=== PATIENT | male | born 1980 | race African-American/Black ===

== ENCOUNTER 2021-10-27 13:33 | Emergency (ER) | payer OTHER, MEDICARE, SELFPAY ==
[2021-10-27] VITALS (16 sets, daily range): BP systolic 100–122; BP diastolic 56–89; PULSE 70–86; RESP 14–22; TEMP 35.8; O2SAT 96–99
--- NOTE | ~2021-10-27 | XR_ITS ---
XR chest 2V DATE: 10/27/2021 14:11 INDICATION: Chest pain radiating to neck. Dizziness. TECHNIQUE: AP and lateral views COMPARISON: 12/29/2017 CT chest high resolution scan FINDINGS: Bilateral chronic pulmonary scarring; history of sarcoid. No apparent pulmonary consolidation. No pleural effusion. No pulmonary vascular congestion or pneumot horax. Heart size appears within normal range. IMPRESSION: Chronic bilateral pulmonary scarring typical history of sarcoid Reviewed, dictated and finalized at location A.
--- NOTE | 2021-10-27 13:37 | ECG_ITS ---
Rate 78 SC 149 QRSd 88 QT 364 QTc 415 --[place]-- P 28 QRS 36 T 58 SINUS RHYTHM POOR R-WAVE PROGRESSION BORDERLINE ECG NO PREVIOUS ECG AVAILABLE FOR COMPARISON Electronically Signed On 10-29-2021 12:45:56 CDT by Gianluca PLAZA
[2021-10-27 13:55] LABS: Basophils Percent Auto 0.5 % (0.2-1.2); Eosinophils Absolute Auto 0.4 K/mm3 (0-0.3); Eosinophils Percent Auto 5.6 % (0-4.4); Hematocrit 51.3 % (42.0-52.0); Hemoglobin 16.3 g/dL (14.0-18.0); Immature Granulocyte Absolute 0.02 K/mm3 (0.00-0.031); Immature Granulocyte Percent A 0.3 % (0-0.5); Lymphocytes Percent Auto 49.1 % (18.3-44.2); Mean Corpuscular HGB Conc 31.8 g/dl (32-36); Mean Corpuscular Volume 88.1 fl (80-100); Monocytes Absolute Auto 0.6 K/mm3 (0.1-0.6); Monocytes Percent Auto 7.8 % (2.6-8.5); Neutrophils Absolute Auto 2.7 K/mm3 (1.3-6.7); Neutrophils Percent Auto 36.7 % (45.5-73.1); Platelet Count Result 310 k/mm3 (150-375); Red Blood Count 5.82 M/mm3 (4.6-6.20); Red Cell Distribution Width 12.6 % (11.5-14.5); White Blood Count 7.3 K/mm3 (4.5-10.0)
--- NOTE | 2021-10-27 14:01 | ED.CHESTPAIN ---
HPI - Chest Pain General Chief Complaint: Chest Pain Stated Complaint: chest pain Time Seen by Provider: 10/27/21 13:53 History of Present Illness HPI narrative: Patient is a 41-year-old male who presents ER with chest pain. 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 Central. Reports it radiates into his right neck. Has no history of coronary disease but does have history of sarcoidosis of the lung and heart. He has seen physicians in [place]. He has not been seen by any physicians in this part of [place] despite living here since April 2021. She still gets medication refills from his physicians in [place]. Last cardiac catheterization was 2 years ago and he reports he was free of coronary disease and did not require stenting. Reports some sweats with his fatigue. No fevers or chills. No known sick contacts. Reports compliance with home medications. Patient does not make eye contact during history and physical, he is not particularly forthcoming with information. Significant other in the room. Reports his heart rates been elevated last couple days and he has history of atrial fibrillation. Related Data Allergies Allergy/AdvReac Type Severity Reaction Status Date / Time No Known Allergies Allergy Unknown Verified 10/27/21 13:50 Review of Systems Review of Systems: All systems reviewed & are unremarkable except as noted in HPI and below Constitutional: Constitutional: Denies chills, Denies fever(s) and Denies weakness ENT: Denies nasal congestion and Denies sore throat Cardiovascular: Cardiovascular: Reports chest pain, Reports rapid heart rate and Reports radiating jaw, neck or arm pain Respiratory: Respiratory: Denies cough, Reports dyspnea and Denies wheezing Gastrointestinal: Gastrointestinal: Denies abdominal pain, Denies nausea and Denies vomiting Neurologic: Denies focal weakness and Denies numbness [facility] Past Medical History Medical History (Updated 10/27/21 @ 17:51 by Jem Rider MD) Essential hypertension History of left heart catheterization Morbid obesity with BMI of 50.0-59.9, adult Paroxysmal A-fib Sarcoidosis of lung Sleep disorder, circadian, shift work type Type 2 diabetes mellitus with hyperglycemia Surgical History Surgical History (Updated 10/27/21 @ 14:06 by Jem Rider MD) No pertinent past surgical history Family History Family History (Updated 05/29/17 @ 16:15 by DOCTOR UNKNOWN) Mother Hypertension Father Family history of gastrointestinal disorder Social History Social History Smoking status: Former smoker Smoking end date: 07/03/11 Alcohol intake: never Exam Narrative: GENERAL: Fatigued-appearing, morbidly obese, and in no acute distress. HEAD: Normocephalic, atraumatic. ENT: Mucous membranes moist. CHEST: Clear to auscultation. No respiratory distress. HEART: Regular rate and rhythm. Normal peripheral pulses. ABDOMEN: Soft, nontender, nondistended. EXTREMITIES: Normal range of motion. No edema. SKIN: Warm, dry, no rash. NEURO: Alert and oriented x3. PSYCH: Normal mood and affect. Course Course Emergency Course: Patient resting comfortably. No chest pain. Troponin negative x2. Feels improved with IV fluids. Discharge home and recommend establishing care with PCP and cardiology in the area. Discussed with patient I will provide him names of local physicians. Vital Signs Vital signs: Vital Signs Temperature 96.5 F L 10/27/21 13:38 Pulse Rate 85 10/27/21 13:38 Respiratory Rate 22 H 10/27/21 13:38 Blood Pressure 103/56 L 10/27/21 13:38 Pulse Oximetry 99 10/27/21 13:38 Temperature 96.5 F L 10/27/21 13:38 Pulse Rate 74 10/27/21 16:30 Respiratory Rate 17 10/27/21 16:30 Blood Pressure 113/72 10/27/21 14:01 Pulse Oximetry 98 10/27/21 14:15 MDM - Chest Pain Lab Data Result diagrams: 10/27/21 13:48 10/27/21 13:48
[2021-10-27 14:05] LABS: Alanine Aminotransferase 26 U/L (4-50); Albumin Level 4.6 g/dL (3.5-5.1); Alkaline Phosphatase 112 U/L (38-126); Anion Gap 9 mmol/L (8-16); Aspartate Amino Transferase 22 U/L (17-59); Bilirubin,Total 0.7 mg/dL (0.2-1.3); Blood Urea Nitrogen 19 mg/dL (9-20); Calcium 9.8 mg/dL (8.4-10.2); Carbon Dioxide 23 mmol/L (22-30); Chloride 106 mmol/L (98-107); Estimated Glomerular Filt Rate > 60; Glucose 119 mg/dL (65-110); Lipase 337 U/L (23-300); Potassium 4.1 mmol/L (3.4-5.0); Sodium 138 mmol/L (137-145)
[2021-10-27 14:11] LABS: INR 1.6; Prothrombin Time 18.7 Seconds (11.1-14.7)
[2021-10-27 14:13] LABS: Partial Thromboplastin Time 36.1 SECONDS (22.3-36.8)
[2021-10-27 14:16] LABS: Troponin I < 0.012 ng/mL (0.000-0.034)
[2021-10-27] MEDS: SODIUM CHLORIDE 0.9% IV 1,000 ML 999 ML IV CONT (14:32)
[2021-10-27 16:56] LABS: Troponin I < 0.012 ng/mL (0.000-0.034)
[2021-10-28 10:27] LABS: Influenza A QL RT-PCR Negative (Negative); Influenza B QL RT-PCR Negative (Negative)
== END 2021-10-27 17:55 | disposition home or self-care (01) ==
PROVIDERS: Emergency Medicine; Emergency Provider Emergency Medicine
DX: R07.89 Other chest pain (principal); I10 Essential (primary) hypertension; I48.0 Paroxysmal atrial fibrillation; D86.0 Sarcoidosis of lung; E11.9 Type 2 diabetes mellitus without complications; E66.01 Morbid (severe) obesity due to excess calories; G47.26 Circadian rhythm sleep disorder, shift work type; Z87.891 Personal history of nicotine dependence
CPT/HCPCS: 36415; 71046; 80053; 83690; 84484; 85025; 85610; 85730; 87502; 93005; 96360; 99284; J7030

== ENCOUNTER 2022-08-21 11:19 | Emergency (ER) | payer MEDICARE, SELFPAY ==
[2022-08-21 11:22] VITALS: BP 126/68; PULSE 77; RESP 15; TEMP 36.6; O2SAT 97
[2022-08-21 12:09] LABS: Strep Group A RT-PCR NOT DETECTED (Negative)
--- NOTE | 2022-08-21 14:06 | ED.GENADULT ---
HPI - General Adult General Chief complaint: Unspecified Stated complaint: ST Time Seen by Provider: 08/21/22 14:05 History of Present Illness HPI narrative: Patient is a 42-year-old male who presents ER with sore throat. Ongoing for the last couple days. Has discomfort with swallowing and in his neck. No fevers chills or sweats. Reports mild sinus congestion. No fevers or chills or sweats. Related Data Home Medications Medication Instructions Recorded Confirmed albuterol sulfate 2.5 mg/3 mL 2.5 mg inhalation Q6H 08/05/22 (0.083 %) solution for nebulization albuterol sulfate 90 mcg/actuation 2 inh inhalation Q4H PRN 08/05/22 breath activated powder inhaler atorvastatin 80 mg tablet 80 mg PO DAILY 08/05/22 carvedilol 25 mg tablet 25 mg PO Q12H 08/05/22 cholecalciferol (vitamin D3) 1,250 1,250 mcg PO WEEKLY 08/05/22 mcg (50,000 unit) capsule dronedarone 400 mg tablet (Multaq) 400 mg PO Q12H 08/05/22 ezetimibe 10 mg tablet 10 mg PO DAILY 08/05/22 fluoxetine 20 mg capsule 20 mg PO DAILY 08/05/22 lisinopril 5 mg tablet 5 mg PO DAILY 08/05/22 mycophenolate mofetil 500 mg tablet 500 mg PO Q12H 08/05/22 omeprazole 20 mg capsule,delayed 20 mg PO DAILY 08/05/22 release rivaroxaban 20 mg tablet (Xarelto) 20 mg PO DAILY 08/05/22 Allergies Allergy/AdvReac Type Severity Reaction Status Date / Time actose Allergy Rash Uncoded 08/21/22 14:20 Review of Systems Constitutional: Constitutional: Denies chills and Denies fever(s) ENT: Denies dysphagia, Reports nasal congestion and Reports sore throat Respiratory: Respiratory: Denies cough, Denies dyspnea and Denies wheezing PMFSH Past Medical History Medical History Allergies Anticonvulsant-induced dizziness Asthma COPD (chronic obstructive pulmonary disease) Diabetes Essential hypertension GERD (gastroesophageal reflux disease) Headache Heartburn High cholesterol History of left heart catheterization HTN (hypertension) Leg pain Migraines Morbid obesity with BMI of 50.0-59.9, adult Obstructive sleep apnea (adult) (pediatric) Paroxysmal A-fib Sarcoidosis Sarcoidosis of lung Sleep disorder, circadian, shift work type Swollen feet Type 2 diabetes mellitus with hyperglycemia Vomiting Surgical History Surgical History No pertinent past surgical history S/P gastric sleeve procedure Family History Family History (Updated 08/05/22 @ 08:50 by Lotus Marina APRN) Mother Hypertension Father Family history of gastrointestinal disorder Acute Crohn's disease Social History Social History Smoking status: Former smoker Tobacco type: cigarettes Smoking end date: 07/03/11 Alcohol intake: never Substance use: never Substance use type: does not use Lack of Transportation: No Lack of Food: Never True Current Housing: I Have Housing Concerned About Future Housing: No Difficulty Paying Gas/Electric Bills: No Difficulty Paying for Meds: No Living arrangements: with family Gender identity (if verbalized by the patient): Male Exam Narrative: GENERAL: Well-appearing, well-nourished, and in no acute distress. HEAD: Normocephalic, atraumatic. EYES: PERRL and EOMI. ENT: Mucous membranes moist. Normal-appearing posterior oropharynx. Uvula midline and nonedematous. No tonsillar exudate. TMs normal bilaterally. Tolerating oral secretions. NECK: Supple. Full range of motion without meningismus. CHEST: Clear to auscultation. No respiratory distress. HEART: Regular rate and rhythm. Normal peripheral pulses. NEURO: Alert and oriented x3. PSYCH: Normal mood and affect. Course Course Emergency Course: Strep negative. [place] to have viral syndrome. Discussed conservative therapy and patient verbalized understanding Vital Signs Vital signs: Vital Signs Tem
[2022-08-21 14:21] VITALS: BP 136/89; PULSE 66; RESP 15; O2SAT 99
== END 2022-08-21 14:22 | disposition home or self-care (01) ==
PROVIDERS: Emergency Provider Emergency Medicine; PCP Internal Medicine
DX: J06.9 Acute upper respiratory infection, unspecified (principal); J44.9 Chronic obstructive pulmonary disease, unspecified; I48.0 Paroxysmal atrial fibrillation; I10 Essential (primary) hypertension; E11.9 Type 2 diabetes mellitus without complications; E78.00 Pure hypercholesterolemia, unspecified; D86.0 Sarcoidosis of lung; G47.26 Circadian rhythm sleep disorder, shift work type; K21.9 Gastro-esophageal reflux disease without esophagitis; E66.01 Morbid (severe) obesity due to excess calories; Z68.38 Body mass index [BMI] 38.0-38.9, adult; Z98.84 Bariatric surgery status; Z87.891 Personal history of nicotine dependence; Z79.01 Long term (current) use of anticoagulants
CPT/HCPCS: 87651; 99283

== ENCOUNTER 2022-09-22 09:48 | Outpatient (CLI) | payer MEDICARE, SELFPAY ==
--- NOTE | ~2022-09-22 | NM_ITS ---
EXAMINATION: NM jose stress w perfusion DATE: 09/22/2022 12:32 INDICATION: Other forms of dyspnea TECHNIQUE: Rest images were obtained in supine position following intravenous administration of 9.3 m Ci Tc99m tetrofosmin (Myoview). The patient was infused intravenously with Lexiscan (Regadenoson). Th en, 31.4 mCi Tc99m tetrofosmin (Myoview) was administered intravenously, and stress images were obtai carmen in both supine and prone positions. Data was reconstructed into short axis and horizontal and sánchez tical long axis SPECT images. Gated SPECT images were also obtained. COMPARISON: None. FINDINGS: There is likely attenuation artifact with mild decreased activity along the anterior wall o f the left ventricle which is more prominent on the post stress images but which normalizes with pron e imaging. Mild decreased perfusion at the apex on the post stress images which appears worse with pr one imaging is equivocal for a small region of ischemia. There is normal left ventricular chamber siz e, wall motion and ejection fraction. Left ventricular ejection fraction measures 52%. IMPRESSION: 1. Small focus of mild decreased perfusion on post stress imaging which unlike a large region of like ly artifactual decreased activity along the anterior wall does not normalize with prone imaging, equi vocal for ischemia. No infarcts. 2. Left ventricular ejection fraction measuring 52%. Reviewed, dictated and finalized at location A. IMPRESSION: 1. Small focus of mild decreased perfusion on post stress imaging which unlike a large region of likely artifactual decreased activity along the anterior wall does not normalize with prone imaging, equivocal for ischemia. No infarcts. 2. Left ventricular ejection fraction measuring 52%.
--- NOTE | 2022-09-22 10:57 | EST_ITS ---
Patient Info Name: Vu Tilley Age: 42 years : 1980 Gender: Male Ht: 71 in Wt: 265 lbs BSA: 2.50 m2 HR: 60 bpm BP: 113 / 79 mmHg Heart Rhythm: Sinus Rhythm Exam Date: 09/22/2022 10:48 AM Exam Location: [facility] Stress Patient Status: Outpatient Admit Date: 09/22/2022 Staff Ordering Physician: Ned Pina DO Attending Provider: Ned Pina DO Exercise Technologist: Kusum Soares CT Exercise Physician: Ned Pina DO Exam Type: CA stress jose w NM Study Info Indications R06.00 - Dyspnea, unspecified A regadenoson stress test was performed. Summary 1. 1. Negative lexiscan stress test for ischemic ST changes by ECG criteria. 2. 2. Stable hemodynamics throughout the test. 3. 3. Nuclear scan to follow and will be reported separately. Please correlate with it. 4. 4. Patient informed of the above results. Protocol: Lexiscan Stress ECG Details Stage: REST Duration (min): 1 min : 9 sec HR (bpm): 60 SBP (mmHg): 113 DBP (mmHg): 79 Stage: REST Duration (min): 13 min : 33 sec HR (bpm): 59 SBP (mmHg): 113 DBP (mmHg): 79 Stage: STAGE 1 Duration (min): 0 min : 59 sec HR (bpm): 97 SBP (mmHg): 116 DBP (mmHg): 58 Stage: RECOVERY Duration (min): 1 min : 0 sec HR (bpm): 90 SBP (mmHg): 116 DBP (mmHg): 58 Stage: RECOVERY Duration (min): 2 min : 0 sec HR (bpm): 83 SBP (mmHg): 116 DBP (mmHg): 58 Stage: RECOVERY Duration (min): 2 min : 56 sec HR (bpm): 80 SBP (mmHg): 107 DBP (mmHg): 58 Rest HR: 59 bpm Peak HR: 98 bpm Rest Sys BP: 113 mmHg Peak Sys BP: 116 mmHg Max Pred HR: 178 bpm % Max Pred HR: 55 % Target HR: 151 bpm Max RPP: 11,368 bpm*mmHg Termination Reason: Completed protocol Cardiac Symptoms: Shortness of breath Total Time: 1 min : 0 sec Rest Metz BP: 79 mmHg Peak Metz BP: 58 mmHg Total Dose: 0.4 mg Resting ECG Sinus rhythm. Stress ECG No ST changes. Arrhythmias None. Report Signatures
== END 2022-09-22 09:49 | disposition home or self-care (01) ==
PROVIDERS: PCP Nurse Practitioner Family; Visit Provider Internal Medicine Cardiovascular Disease
DX: R06.09 Other forms of dyspnea (principal)
CPT/HCPCS: 78452; 93017; A9502; J2785

== ENCOUNTER 2022-11-11 10:57 | Outpatient (CLI) | payer MEDICARE, SELFPAY ==
--- NOTE | 2022-11-26 10:50 | WPDSLEEPSTUD ---
Sleep Study Date of Study: 11/11/22 Ordering Provider: Gianluca Allen MD Interpreting Physician: Stacie Lomas MD Sleep Study Type: Polysomnogram Height: 1.8 m Weight: 113.398 kg Body Mass Index: 34.8 Neck Circumference (inches): 16 [place]: 10 Reason for Sleep Study Hypersomnolence; known CAR on CPAP 14 cm, not wearing CPAP for severla months due to 113 lb weight loss after gastric sleeve procedure 05/24/2022. * repeat PSG 09/19/2018 = AHI 28.9, desaturation to 77%, CPAP 18 cm, now on 16 cm. Sleep History Vu Tilley Jr is a 42-year-old man with complaints of choking at night as well as having episodes of waking and trying to return to sleep. He has used CPAP in the past. He frequently awakens from sleep feeling short of breath, and having frequent episodes of heartburn, belching and choking. He frequently snores loudly enough that others complain. He always has trouble sleeping with a cold and always gasps for breath at night. He does not sweat excessively at night. He occasionally notices his heart pounding at night. He frequently falls asleep in the day, never involuntarily or while driving. He does not have loss of muscle tone with strong emotion.He does not have daytime difficulties due to excessive sleepiness. Denies feeling paralyzed on waking or falling asleep, not does he have vivid dream like scence on waking or falling asleep. He is not afraid of going to sleep. He occasionally has nightmares. He occasionally remembers his dreams. He frequently has racing thoughts. He frequently feels sad or depressed, never has anxiety. He does not have muscular tension or notice parts of his body jerking. He does not kick at night. He frequently has crawly and aching feelings in his legs he does not have leg pain at night. He does not have morning jaw pain or grind his teeth during sleep. He frequently has pain in the day, and occasionally is awakened by pain at night. He does not wake up feeling stiff or with sore achy muscles. He does not wake with pain in the back or spine. He has fatigue, headaches, palpitations, nightmares, and concentration difficulties. his medical history is significant for sarcoid, COPD, allergies, depression, hypertension, heart disease and diabetes. He also has cardiac sarcoidosis. Normal bedtime is 11 pm sometimes as late as 2 am, falling asleep quickly, waking 3 times during the night for different reasons. HE wakes for the day at 4 am. These awakenings occur throughout the night. He keeps the same schedule on weekends. He takes naps in the afternoon or evenings. A short nap is not refreshing. He feels better in the morning compared to other times of day. Habits: Quit tobacco. Caffeine 2 per day. No alcohol or recreational substances. [facility] Past Medical History Medical History Allergies Anticonvulsant-induced dizziness Asthma COPD (chronic obstructive pulmonary disease) Diabetes Essential hypertension GERD (gastroesophageal reflux disease) Headache Heartburn High cholesterol History of left heart catheterization HTN (hypertension) Leg pain Migraines Morbid obesity with BMI of 50.0-59.9, adult Obstructive sleep apnea (adult) (pediatric) Paroxysmal A-fib Sarcoidosis Sarcoidosis of lung Sleep disorder, circadian, shift work type Swollen feet Type 2 diabetes mellitus with hyperglycemia Vomiting Surgical History Surgical History History of sleeve gastrectomy No pertinent past surgical history S/P gastric sleeve procedure Family History Family History Mother Hypertension Father Family history of gastrointestinal disorder Acute Crohn's disease Social History Social History Smoking status: Former smoker Tobacco type: cigarettes Smoking end date: 07/03/11 Alcohol intake:
[2022-11-28 22:30] VITALS: BMI 34.8
== END 2022-11-12 07:07 | disposition home or self-care (01) ==
LOC: ANHCSM 10:58
PROVIDERS: PCP Family Medicine; Visit Provider Internal Medicine Pulmonary Disease
DX: G47.33 Obstructive sleep apnea (adult) (pediatric) (principal)
CPT/HCPCS: 95810

== ENCOUNTER 2022-11-30 07:52 | Outpatient (CLI) | payer MEDICARE, SELFPAY ==
--- NOTE | ~2022-11-30 | CT_ITS ---
CT Scan of the Chest without Contrast: Clinical Indication: Pulmonary sarcoidosis Technique: Contiguous sections were acquired throughout the chest without intravenous contrast. Dose reduction technique was used on this scan by utilizing automated exposure control and iterative recon struction technique. The dose-length product (DLP) was 505.51 mGy-cm. COMPARISON: 12/29/2017 Findings: There is no evidence of any significant mediastinal, hilar or axillary lymphadenopathy. The mediastin al soft tissues appear normal. There is no evidence of pleural or pericardial effusion. There is extensive interstitial thickening throughout the lungs, probably mildly worsened upper lobes as compared to the lower lobes. Findings are similar to prior exam. Images through the upper abdomen reveal no abnormalities. Impression: Extensive pulmonary interstitial disease, similar to prior exam, in keeping with diagnosis of pulmona ry sarcoidosis. Reviewed, dictated and finalized at [facility]. Impression: Extensive pulmonary interstitial disease, similar to prior exam, in keeping wit h diagnosis of pulmonary sarcoidosis.
--- NOTE | 2022-11-30 12:26 | WPDPFTINT ---
PFT Procedure Performed PFT Procedure Performed Spirometry with Pre/Post Bronchodilator Plethysmography (Lung Vol) Diffusing Cap (DLCO) Flow Vol Loop PFT Interpretation Lung volumes were measured with the body plethysmography method. Lung volumes are unremarkable. Spirometry showed diminished expiratory flow rates and a diminished FEV1 to FVC ratio 49%, consistent with obstructive airway disease. Following administration of a bronchodilator there was significant increase in the FEV1. Lung diffusion capacity is within the normal range at 95% predicted. The flow-volume loop is consistent with obstructive airway disease. In comparison to a previous study in December of 2017, the post bronchodilator FEV1 is now greater by 0.9 L and the FEV1 is also greater by approximately 0.35 L. Lung diffusion capacity is back into the normal range from a previously diminished value of 50% predicted. Impression: Moderately severe obstructive airway disease with significant response to bronchodilators on this testing. Lung diffusion capacity within the normal range.
--- NOTE | 2022-11-30 12:31 | WPDSIXMINUTE ---
Six Minute Walk Procedure Procedure Performed Pulmonary Stress Test (6 min walk) Six Minute Walk Six Minute Walk: This 6 minute walk test was carried out with the patient breathing ambient air. The baseline pre-walk oxyhemoglobin saturation was 96%. The patient walked over 487 m with no stops during testing. During the walk the oxyhemoglobin saturation remained in the range of 93% to 97%. Impression: No evidence of oxyhemoglobin desaturation on this testing.
== END 2022-11-30 07:53 | disposition home or self-care (01) ==
PROVIDERS: PCP Nurse Practitioner Family; Visit Provider Internal Medicine Pulmonary Disease
DX: D86.0 Sarcoidosis of lung (principal); R06.00 Dyspnea, unspecified; J40 Bronchitis, not specified as acute or chronic; Z72.0 Tobacco use; J84.9 Interstitial pulmonary disease, unspecified; R94.2 Abnormal results of pulmonary function studies
CPT/HCPCS: 71250; 94060; 94618; 94726; 94729

== ENCOUNTER 2023-04-25 09:43 | Outpatient (CLI) | payer MEDICARE, SELFPAY ==
[2023-04-25 10:07] LABS: Basophils Percent Auto 0.6 % (0.2-1.2); Eosinophils Absolute Auto 0.3 K/mm3 (0-0.3); Hematocrit 44.7 % (42.0-52.0); Hemoglobin 14.2 g/dL (14.0-18.0); Immature Granulocyte Absolute 0.01 K/mm3 (0.00-0.031); Immature Granulocyte Percent A 0.3 % (0-0.5); Lymphocytes Absolute Auto 1.54 K/mm3 (0.9-3.2); Lymphocytes Percent Auto 47.8 % (18.3-44.2); Mean Corpuscular HGB Conc 31.8 g/dl (32-36); Mean Corpuscular Hemoglobin 29.3 pg (26-34); Mean Corpuscular Volume 92.2 fl (80-100); Mean Platelet Volume 9.5 fl (7.4-10.4); Monocytes Absolute Auto 0.3 K/mm3 (0.1-0.6); Neutrophils Absolute Auto 1.1 K/mm3 (1.3-6.7); Neutrophils Percent Auto 33.3 % (45.5-73.1); Platelet Count Result 192 k/mm3 (150-375); Red Blood Count 4.85 M/mm3 (4.6-6.20); Red Cell Distribution Width 12.7 % (11.5-14.5); White Blood Count 3.2 K/mm3 (4.5-10.0)
[2023-04-25 10:21] LABS: Hemoglobin A1C 4.9 % (<5.7)
[2023-04-25 10:35] LABS: Alanine Aminotransferase 24 U/L (6-50); Albumin Level 3.9 g/dL (3.5-5.1); Alkaline Phosphatase 55 U/L (38-126); Anion Gap 3 mmol/L (8-16); Aspartate Amino Transferase 30 U/L (17-59); Bilirubin,Total 0.8 mg/dL (0.2-1.3); Blood Urea Nitrogen 9 mg/dL (9-20); Calcium 9.2 mg/dL (8.4-10.2); Carbon Dioxide 30 mmol/L (22-30); Chloride 106 mmol/L (98-107); Cholesterol 158 mg/dL (0-200); Estimated Glomerular Filt Rate > 60; Glucose 82 mg/dL (65-110); HDL Direct 51 mg/dL; Potassium 4.3 mmol/L (3.4-5.0); Sodium 139 mmol/L (137-145); Triglycerides 73 mg/dL (<150)
[2023-04-25 10:45] LABS: LDL Cholesterol Direct 79 mg/dL
== END 2023-04-25 09:44 | disposition home or self-care (01) ==
PROVIDERS: PCP Nurse Practitioner Family; Visit Provider Nurse Practitioner Family
DX: E78.5 Hyperlipidemia, unspecified (principal); E11.9 Type 2 diabetes mellitus without complications; I10 Essential (primary) hypertension; I48.0 Paroxysmal atrial fibrillation; Z90.3 Acquired absence of stomach [part of]
CPT/HCPCS: 36415; 80053; 80061; 83036; 85025

== ENCOUNTER 2023-05-18 13:37 | Emergency (ER) | payer MEDICARE, SELFPAY ==
--- NOTE | ~2023-05-18 | XR_ITS ---
EXAMINATION: XR chest 2V DATE: 05/18/2023 14:20 INDICATION: Cough, wheezing and shortness of breath TECHNIQUE: PA and lateral views of the chest were obtained. COMPARISON: Chest radiograph dated 10/27/[address] dated 11/30/2022 FINDINGS: No significant interval change in chronic coarse primarily reticular opacities throughout both lungs which are most prominent at the apices and bilateral mid lung zones consistent with chronic interstit ial lung disease likely related to reported history of sarcoidosis. There is unchanged tenting the le ft and right hemidiaphragm and blunting at the right costophrenic angle. No point at the posterior law[place] lci to suggest pleural effusions. No new airspace opacities, pulmonary edema or pneumothorax. The car diomediastinal silhouette is normal. Visualized bones and soft tissues are unremarkable. IMPRESSION: 1. No significant interval change in chronic interstitial lung disease likely related to reported his tory of prior sarcoidosis. Reviewed, dictated and finalized at location A. NG [employer] TRIMMER IMPRESSION: 1. No significant interval change in chronic interstitial lung disease likely r elated to reported history of prior sarcoidosis.
[2023-05-18 14:03] VITALS: BP 123/64; PULSE 87; RESP 18; TEMP 36.7; O2SAT 99
--- NOTE | 2023-05-18 14:18 | ED.URI ---
HPI - URI/Sore Throat General Chief Complaint: Upper Respiratory Infection Stated Complaint: hoarse,sorethroat Time Seen by Provider: 05/18/23 14:00 Source: patient Mode of arrival: ambulatory Limitations: no limitations History of Present Illness HPI Narrative: Vu is a 43-year-old male patient presenting to the clinic today with complaints of sore throat, cough, congestion, shortness of breath, and wheezing x2 days. He denies any known fever or chills. Does have history of chronic lung disease with sarcoidosis. Is bringing up brown phlegm. 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 MD elicited complaint: cough, sore throat, nasal congestion and other (Shortness of breath) Related Data Home Medications Medication Instructions Recorded Confirmed albuterol sulfate 90 mcg/actuation 2 inh inhalation Q4H PRN SOB 08/05/22 05/18/23 breath activated powder inhaler dronedarone 400 mg tablet (Multaq) 400 mg PO Q12H 08/05/22 05/18/23 mycophenolate mofetil 500 mg tablet 500 mg PO Q12H 08/05/22 05/18/23 Allergies Allergy/AdvReac Type Severity Reaction Status Date / Time actose Allergy Rash Uncoded 05/01/23 14:38 Review of Systems Review of Systems: Pertinent positives per HPI. Patient denies any fever, chills, rash, headache, visual changes, dizziness, chest pain, palpitations, nausea, vomiting, diarrhea, constipation, abdominal pain, or any urinary issues. PMFSH Past Medical History Medical History Allergies Anticonvulsant-induced dizziness Asthma COPD (chronic obstructive pulmonary disease) Diabetes Essential hypertension GERD (gastroesophageal reflux disease) Headache Heartburn High cholesterol History of left heart catheterization HTN (hypertension) Leg pain Migraines Morbid obesity with BMI of 50.0-59.9, adult Obstructive sleep apnea (adult) (pediatric) Paroxysmal A-fib Sarcoidosis Sarcoidosis of lung Sleep disorder, circadian, shift work type Swollen feet Type 2 diabetes mellitus with hyperglycemia Vomiting Surgical History Surgical History History of sleeve gastrectomy No pertinent past surgical history S/P gastric sleeve procedure Family History Family History Mother Hypertension Father Family history of gastrointestinal disorder Acute Crohn's disease Social History Social History Smoking status: Former smoker Tobacco type: cigarettes Smoking end date: 07/03/11 Alcohol intake: never Substance use: never Substance use type: does not use Lack of Transportation: No Lack of Food: Never True Current Housing: I Have Housing Concerned About Future Housing: No Difficulty Paying Gas/Electric Bills: No Difficulty Paying for Meds: No Currently Unemployed: No Education: High School Diploma/GED Difficulty w/ Childcare or Family Care: YES Living arrangements: with family Gender identity (if verbalized by the patient): Male Comments At the time of my signature, I reviewed and agree with the nursing past medical, surgical, social, and family history. There is no relevant family history pertinent to the patient complaint. Exam Narrative: General: Well-developed, well nourished, in no apparent distress Head: Normocephalic, atraumatic Eyes: Pupils equally round and reactive to light bilaterally, EOM intact, sclera and conjunctive clear, no discharge, lids normal Ears: TMs intact and congested, ear canals clear, no drainage, grossly hearing normal. Nose: Nares patent, clear nasal discharge, no inflammation, no sinus tenderness. Mouth: Oral pharynx red without lesions or masses, good dentition, MMM. Postnasal drip Neck: Supple, trachea midline, no enlargement of ante
== END 2023-05-18 14:52 | disposition home or self-care (01) ==
PROVIDERS: Emergency Provider Nurse Practitioner Family; PCP Nurse Practitioner Family
DX: D86.0 Sarcoidosis of lung (principal); J44.9 Chronic obstructive pulmonary disease, unspecified; E11.9 Type 2 diabetes mellitus without complications; I10 Essential (primary) hypertension; K21.9 Gastro-esophageal reflux disease without esophagitis; E66.9 Obesity, unspecified; Z68.33 Body mass index [BMI] 33.0-33.9, adult; I48.0 Paroxysmal atrial fibrillation; Z87.891 Personal history of nicotine dependence; Z20.822 Contact with and (suspected) exposure to COVID-19
CPT/HCPCS: 71046; 87081; 87426; 87804; 87880; 99213; C9803; G0463

== ENCOUNTER 2023-06-29 08:25 | Emergency (ER) | payer MEDICARE, SELFPAY ==
--- NOTE | 2023-06-29 08:27 | ED.URI ---
HPI - URI/Sore Throat General Chief Complaint: Upper Respiratory Infection Stated Complaint: Sinus Time Seen by Provider: 06/29/23 08:39 Source: patient, RN notes reviewed and old records reviewed Mode of arrival: ambulatory Limitations: no limitations History of Present Illness HPI Narrative: 43-year-old male presents to the [facility] with complaints of sinus congestion, chills and fever that started on Monday, 2 days ago. Has been taking Coricidin HBP. Denies taking any thing for treatment today Reports a fever of 101 at home. Onset (ago): day(s) (2) Treatments prior to arrival: cold medicine Related Data Home Medications Medication Instructions Recorded Confirmed albuterol sulfate 90 mcg/actuation 2 inh inhalation Q4H PRN SOB 08/05/22 05/18/23 breath activated powder inhaler dronedarone 400 mg tablet (Multaq) 400 mg PO Q12H 08/05/22 05/18/23 mycophenolate mofetil 500 mg tablet 500 mg PO Q12H 08/05/22 05/18/23 Allergies Allergy/AdvReac Type Severity Reaction Status Date / Time actose Allergy Rash Uncoded 05/01/23 14:38 Review of Systems Review of Systems: All systems reviewed & are unremarkable except as noted in HPI and below Constitutional: Constitutional: Reports no additional constitutional complaints Eyes: Eyes: Reports no additional eye complaints ENT: Reports as per HPI, Reports nasal congestion and Reports sinus pressure Cardiovascular: Cardiovascular: Reports no additional cardiovascular complaints, Denies chest pain and Denies dyspnea Respiratory: Respiratory: Reports no additional respiratory complaints, Denies chest congestion, Denies cough and Denies dyspnea Gastrointestinal: Gastrointestinal: Reports no additional gastrointestinal complaints, Denies abdominal pain, Denies nausea and Denies vomiting Musculoskeletal: Musculoskeletal: Reports no additional musculoskeletal complaints Integumentary/Breasts: Skin/Breast: Reports system reviewed and no additional complaints, except as docu Neurologic: Reports system reviewed and no additional complaints, except as documented Psychiatric: Psychiatric: Reports no additional psychiatric complaints Allergic/Immunologic: Allergic/Immunologic: Reports no additional allergic/immunologic complaints PMFSH Past Medical History Medical History Allergies Anticonvulsant-induced dizziness Asthma COPD (chronic obstructive pulmonary disease) Diabetes Essential hypertension GERD (gastroesophageal reflux disease) Headache Heartburn High cholesterol History of left heart catheterization HTN (hypertension) Leg pain Migraines Morbid obesity with BMI of 50.0-59.9, adult Obstructive sleep apnea (adult) (pediatric) Paroxysmal A-fib Sarcoidosis Sarcoidosis of lung Sleep disorder, circadian, shift work type Swollen feet Type 2 diabetes mellitus with hyperglycemia Vomiting Surgical History Surgical History History of sleeve gastrectomy No pertinent past surgical history S/P gastric sleeve procedure Family History Family History Mother Hypertension Father Family history of gastrointestinal disorder Acute Crohn's disease Social History Social History Smoking status: Former smoker Tobacco type: cigarettes Smoking end date: 07/03/11 Alcohol intake: never Substance use: never Substance use type: does not use Lack of Transportation: No Lack of Food: Never True Current Housing: I Have Housing Concerned About Future Housing: No Difficulty Paying Gas/Electric Bills: No Difficulty Paying for Meds: No Currently Unemployed: No Education: High School Diploma/GED Difficulty w/ Childcare or Family Care: YES Living arrangements: with family Gender identity (if verbalized by the patient): Male Comments
[2023-06-29 08:39] VITALS: BP 137/88; PULSE 76; RESP 16; TEMP 36.4; O2SAT 100
== END 2023-06-29 09:15 | disposition home or self-care (01) ==
PROVIDERS: Emergency Provider Nurse Practitioner; PCP Nurse Practitioner Family
DX: J01.10 Acute frontal sinusitis, unspecified (principal); H65.02 Acute serous otitis media, left ear; E11.9 Type 2 diabetes mellitus without complications; I10 Essential (primary) hypertension; I48.0 Paroxysmal atrial fibrillation; J44.9 Chronic obstructive pulmonary disease, unspecified; Z20.822 Contact with and (suspected) exposure to COVID-19; Z87.891 Personal history of nicotine dependence
CPT/HCPCS: 87426; 87804; 99213; C9803; G0463

== ENCOUNTER 2023-08-02 12:22 | Emergency (ER) | payer MEDICARE, SELFPAY ==
[2023-08-02 12:36] VITALS: BP 136/64; PULSE 72; RESP 16; TEMP 35.9; O2SAT 99
--- NOTE | 2023-08-02 12:40 | ED.URI ---
HPI - URI/Sore Throat General Chief Complaint: Upper Respiratory Infection Stated Complaint: Shortness of Breath Time Seen by Provider: 08/02/23 12:38 Source: patient, RN notes reviewed and old records reviewed Mode of arrival: ambulatory Limitations: no limitations History of Present Illness HPI Narrative: 43 year old male who presents to [facility] care with complaints of shortness of breath with some nasal congestion starting since Monday. Patient reports that he has been taking Mucinex for his symptoms. He reports that yesterday morning he started having burning sensation to his right chest radiating through his lung. Patient reports some chills but denies any known fevers. Patient also states that he was treated about 2 weeks ago for URI and ear infection with antibiotic. MD elicited complaint: other Pertinent past history: immunosuppression and other (sarcodosis) Onset (ago): day(s) (3) Severity: moderate Able to tolerate fluids by mouth: Yes Treatments prior to arrival: other (mucinex) Related Data Home Medications Medication Instructions Recorded Confirmed albuterol sulfate 90 mcg/actuation 2 inh inhalation Q4H PRN SOB 08/05/22 08/02/23 breath activated powder inhaler dronedarone 400 mg tablet (Multaq) 400 mg PO Q12H 08/05/22 08/02/23 mycophenolate mofetil 500 mg tablet 500 mg PO Q12H 08/05/22 08/02/23 furosemide 40 mg tablet 80 mg PO DAILY 08/02/23 08/02/23 Allergies Allergy/AdvReac Type Severity Reaction Status Date / Time pioglitazone [From Actos] Allergy Mild Rash Verified 08/02/23 14:38 Review of Systems Review of Systems: CONSTITUTIONAL: Denies fever, states chills, denies sweats. EYES: Denies visual changes, redness, or discharge. ENT: Reports some rhinorrhea, congestion,no sore throat, or otalgia. CARDIOVASCULAR: Denies chest pain, states right chest is burning anterior to posterior, no palpitations, or edema. RESPIRATORY: Reports some cough and dyspnea. GASTROINTESTINAL: Denies abdominal pain, nausea, vomiting, or diarrhea. GENITOURINARY: Denies dysuria or hematuria. SKIN: Denies rash or itching. MUSCULOSKELETAL: Denies back pain, joint pain, or myalgia. NEUROLOGIC: Denies headache, numbness, states weakness. PSYCHIATRIC: Positive for anxiety or depression. All systems reviewed & are unremarkable except as noted in HPI and below PMFSH Past Medical History Medical History Allergies Anticonvulsant-induced dizziness Asthma COPD (chronic obstructive pulmonary disease) Diabetes Essential hypertension GERD (gastroesophageal reflux disease) Headache Heartburn High cholesterol History of left heart catheterization HTN (hypertension) Leg pain Migraines Morbid obesity with BMI of 50.0-59.9, adult Obstructive sleep apnea (adult) (pediatric) Paroxysmal A-fib Sarcoidosis Sarcoidosis of lung Sleep disorder, circadian, shift work type Swollen feet Type 2 diabetes mellitus with hyperglycemia Vomiting Surgical History Surgical History History of sleeve gastrectomy No pertinent past surgical history S/P gastric sleeve procedure Family History Family History Mother Hypertension Father Family history of gastrointestinal disorder Acute Crohn's disease Social History Social History Smoking status: Former smoker Tobacco type: cigarettes Smoking end date: 07/03/11 Alcohol intake: never Substance use: never Substance use type: does not use Lack of Transportation: No Lack of Food: Never True Current Housing: I Have Housing Concerned About Future Housing: No Difficulty Paying Gas/Electric Bills: No Difficulty Paying for Meds: No Currently Unemployed: No Education: High School Diploma/GED Difficulty w/ Childcare or Family Care: YES Living arrangem
== END 2023-08-02 12:50 | disposition short-term general hospital (02) ==
PROVIDERS: Emergency Provider Registered Nurse; PCP Nurse Practitioner Family
DX: D86.0 Sarcoidosis of lung (principal); R06.00 Dyspnea, unspecified; Z87.891 Personal history of nicotine dependence; J44.9 Chronic obstructive pulmonary disease, unspecified; E11.9 Type 2 diabetes mellitus without complications; I10 Essential (primary) hypertension; K21.9 Gastro-esophageal reflux disease without esophagitis; E78.00 Pure hypercholesterolemia, unspecified; E66.01 Morbid (severe) obesity due to excess calories; Z68.34 Body mass index [BMI] 34.0-34.9, adult; I48.0 Paroxysmal atrial fibrillation; Z98.84 Bariatric surgery status
CPT/HCPCS: 99212; G0463

== ENCOUNTER 2023-08-02 13:04 | Emergency (ER) | payer MEDICARE, SELFPAY ==
[2023-08-02] VITALS (23 sets, daily range): BP systolic 98–138; BP diastolic 49–80; PULSE 51–79; RESP 13–20; TEMP 36.7; O2SAT 97–100
--- NOTE | ~2023-08-02 | XR_ITS ---
EXAMINATION: XR chest 2V DATE: 08/02/2023 14:15 INDICATION: Right-sided chest pain and shortness of breath TECHNIQUE: PA and lateral views of the chest were obtained. COMPARISON: Chest radiograph dated 05/18/[address] dated 11/30/2022 FINDINGS: No significant interval change in chronic coarse primarily reticular opacities throughout both lungs which are most prominent at the apices and bilateral mid lung zones consistent with chronic interstit ial lung disease likely related to reported history of sarcoidosis. There is unchanged tenting the le ft and right hemidiaphragm and blunting at the right costophrenic angle. No blunting of the posterior sulci to suggest pleural effusions. No new airspace opacities, pulmonary edema or pneumothorax. The cardiomediastinal silhouette is normal. Visualized bones and soft tissues are unremarkable. IMPRESSION: 1. No significant interval change in chronic interstitial lung disease likely related to reported his tory of prior sarcoidosis. Reviewed, dictated and finalized at location A. [place] PHARMACY MANAGER IMPRESSION: 1. No significant interval change in chronic interstitial lung disease likely r elated to reported history of prior sarcoidosis.
--- NOTE | ~2023-08-02 | CT_ITS ---
EXAMINATION: CTA chest PE protocol DATE: 08/02/2023 16:14 INDICATION: Right chest pain, dyspnea. Productive cough. TECHNIQUE: Computed tomography angiography (CTA) of the chest was performed with 100 mL Omnipaque-350 intravenous contrast timed to evaluate the pulmonary arteries. Coronal maximum intensity projection 3D-reconstructions were created by the technologist. Automated exposure control and iterative reconst ruction technique were employed. Exam dose: 827.42 mGy-cm total exam DLP. COMPARISON: 08/02/2023 PA and lateral chest FINDINGS: There is diagnostic contrast enhancement of the pulmonary arteries and no evidence of pulmo nary embolism. No thoracic aortic aneurysm or dissection. Normal caliber of the included suprarenal abdominal aorta. Normal heart size. No pericardial or pleural effusion. There is mild vascular and right paratracheal, precarinal and aortopulmonary window lymphadenopathy. There is extensive bilateral pulmonary linear and discoid scarring Normal morphology of the adrenal glands. Postoperative change of the stomach. Included skeletal structures are unremarkable. IMPRESSION: No evidence of pulmonary embolism Extensive bilateral pulmonary scarring Nonspecific mediastinal lymphadenopathy Postoperative change of the stomach Reviewed, dictated and finalized at Location A. Reviewed, dictated and finalized at location B. N INSPECTOR
--- NOTE | 2023-08-02 13:05 | ECG_ITS ---
Measurements Intervals [place] Rate: 63 P: 37 [place]: 155 QRS: 23 QRSD: 88 T: 56 QT: 370 QTc: 380 Interpretive Statements SINUS RHYTHM BASELINE ARTIFACT- I, II, III, AVR, AVL, AVF NORMAL ECG COMPARED TO ECG 10/27/2021 14:03:52 NO SIGNIFICANT CHANGES Electronically Signed On 08-02-2023 13:21:46 COFFEE MAKER SERVICER by Ned Pina D.O.
[2023-08-02 13:27] LABS: Basophils Absolute Auto 0.1 K/mm3 (0.0-0.1); Basophils Percent Auto 1.3 % (0.2-1.2); Eosinophils Absolute Auto 0.4 K/mm3 (0-0.3); Hematocrit 43.8 % (42.0-52.0); Hemoglobin 14.1 g/dL (14.0-18.0); Immature Granulocyte Absolute 0.01 K/mm3 (0.00-0.031); Immature Granulocyte Percent A 0.3 % (0-0.5); Lymphocytes Absolute Auto 1.48 K/mm3 (0.9-3.2); Lymphocytes Percent Auto 37.8 % (18.3-44.2); Mean Corpuscular HGB Conc 32.2 g/dl (32-36); Mean Corpuscular Hemoglobin 29.1 pg (26-34); Mean Corpuscular Volume 90.3 fl (80-100); Mean Platelet Volume 9.7 fl (7.4-10.4); Monocytes Absolute Auto 0.4 K/mm3 (0.1-0.6); Neutrophils Absolute Auto 1.5 K/mm3 (1.3-6.7); Neutrophils Percent Auto 38.6 % (45.5-73.1); Platelet Count Result 248 k/mm3 (150-375); Red Blood Count 4.85 M/mm3 (4.6-6.20); Red Cell Distribution Width 12.7 % (11.5-14.5); White Blood Count 3.9 K/mm3 (4.5-10.0)
[2023-08-02 13:37] LABS: INR 1.8; Prothrombin Time 21.7 Seconds (11.1-14.7)
[2023-08-02 13:38] LABS: Alanine Aminotransferase 26 U/L (6-50); Albumin Level 4.2 g/dL (3.5-5.1); Alkaline Phosphatase 60 U/L (38-126); Anion Gap 4 mmol/L (8-16); Aspartate Amino Transferase 25 U/L (17-59); Bilirubin,Total 0.8 mg/dL (0.2-1.3); Blood Urea Nitrogen 10 mg/dL (9-20); Calcium 9.5 mg/dL (8.4-10.2); Carbon Dioxide 29 mmol/L (22-30); Chloride 106 mmol/L (98-107); Estimated CRCL calculation 98 ml/min; Estimated Glomerular Filt Rate > 60; Glucose 96 mg/dL (65-110); Lipase 212 U/L (23-300); Partial Thromboplastin Time 37.9 SECONDS (22.3-36.8); Potassium 3.8 mmol/L (3.4-5.0); Sodium 139 mmol/L (137-145)
[2023-08-02 13:49] LABS: Troponin I < 0.012 ng/mL (0.000-0.034)
[2023-08-02] MEDS: ASPIRIN 81 MG CHEWABLE TABLET 324 MG PO (14:38)
--- NOTE | 2023-08-02 15:07 | ED.CHESTPAIN ---
HPI - Chest Pain General Chief Complaint: Chest Pain <Aarti Haque PA-C - Last Filed: 08/02/23 17:31> Stated Complaint: chest pain <Aarti Haque PA-C - Last Filed: 08/02/23 17:31> Time Seen by Provider: 08/02/23 14:49 <Aarti Haque PA-C - Last Filed: 08/02/23 17:31> History of Present Illness HPI narrative: 43-year-old male with history of sarcoidosis of his heart lung, asthma, COPD, CAR, dyslipidemia reports for evaluation for right-sided chest pain goes into his back, sore throat and dyspnea for 3 days. Patient states the chest pain is on his right side, he describes it as burning , worse with deep and heavy breathing. He also reports a mildly productive cough. States it feels like he has a upper respiratory infection. he denies otalgia, nasal congestion, abdominal pain, nausea, vomiting, diarrhea, urinary complaints. He is anticoagulated on Xarelto for paroxysmal AFib. Reports he has been using his nebulizers without much improvement. He had a cardiac catheterization done a couple years ago which was unremarkable per the patient. 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 Denies prior personal history of MD or heart disease, denies family history of heart disease or stroke. <Aarti Haque PA-C - Last Filed: 08/02/23 17:31> Related Data Home Medications: Home Medications Medication Instructions Recorded Confirmed albuterol sulfate 90 mcg/actuation 2 inh inhalation Q4H PRN SOB 08/05/22 08/02/23 breath activated powder inhaler dronedarone 400 mg tablet (Multaq) 400 mg PO Q12H 08/05/22 08/02/23 mycophenolate mofetil 500 mg tablet 500 mg PO Q12H 08/05/22 08/02/23 furosemide 40 mg tablet 80 mg PO DAILY 08/02/23 08/02/23 <Aarti Haque PA-C - Last Filed: 08/02/23 17:31> Allergies/Adverse Reactions: Allergies Allergy/AdvReac Type Severity Reaction Status Date / Time pioglitazone [From Actos] Allergy Mild Rash Verified 08/02/23 14:38 <Aarti Haque PA-C - Last Filed: 08/02/23 17:31> Review of Systems Review of Systems: CONSTITUTIONAL: Denies fever, chills, or sweats. EYES: Denies visual changes, redness, or discharge. ENT: Denies rhinorrhea, congestion, sore throat, or otalgia. CARDIOVASCULAR: See HPI RESPIRATORY: see HPI GASTROINTESTINAL: Denies abdominal pain, nausea, vomiting, or diarrhea. GENITOURINARY: Denies dysuria or hematuria. SKIN: Denies rash or itching. MUSCULOSKELETAL: Denies back pain, joint pain, or myalgia. NEUROLOGIC: Denies headache, numbness, or weakness. PSYCHIATRIC: Denies anxiety or depression. <Aarti Haque PA-C - Last Filed: 08/02/23 17:31> [facility] Past Medical History Medical History: Medical History Allergies Anticonvulsant-induced dizziness Asthma COPD (chronic obstructive pulmonary disease) Diabetes Essential hypertension GERD (gastroesophageal reflux disease) Headache Heartburn High cholesterol History of left heart catheterization HTN (hypertension) Leg pain Migraines Morbid obesity with BMI of 50.0-59.9, adult Obstructive sleep apnea (adult) (pediatric) Paroxysmal A-fib Sarcoidosis Sarcoidosis of lung Sleep disorder, circadian, shift work type Swollen feet Type 2 diabetes mellitus with hyperglycemia Vomiting <Aarti Haque PA-C - Last Filed: 08/02/23 17:31> Surgical History Surgical History: Surgical History History of sleeve gastrectomy No pertinent past surgical history S/P gastric sleeve procedure <Aarti Haque PA-C - Last Filed: 08/02/23 17:31> Family History Family History: Family History Mother Hypertension Father Family history of gastrointestinal disorder Acute Crohn's disease <Aarti Haque PA-C - Last Filed: 08/02/23 17:31> Social History Social History
[2023-08-02] MEDS: IPRATROPIUM 0.5 MG/ALBUTEROL SULFATE 2.5 MG AMPUL.NEB 3 ML INHALATION (15:28)
[2023-08-02] MEDS: ALBUTEROL SULFATE NEB 2.5 MG/3 ML INH INHALATION (15:28)
[2023-08-02] MEDS: methylPREDNISolone SOD SUCC 125 MG VIAL IV PUSH (15:31)
[2023-08-02 15:38] LABS: Magnesium 1.8 mg/dL (1.6-2.3)
[2023-08-02 15:48] LABS: NT Pro B Type Natriuretic Pept 24 pg/mL (19.9-100)
[2023-08-02 15:48] LABS: Strep Group A RT-PCR NOT DETECTED (Negative)
[2023-08-02 15:59] LABS: Influenza A QL RT-PCR Negative (Negative); Influenza B QL RT-PCR Negative (Negative); RSV RNA, RT-PCR Negative (Negative); SARS-CoV-2 RNA PCR Negative (Negative)
--- NOTE | 2023-08-02 15:59 | ECG_ITS ---
Measurements Intervals [place] Rate: 54 P: 46 MO: 164 QRS: 20 QRSD: 101 T: 58 QT: 424 QTc: 402 Interpretive Statements SINUS BRADYCARDIA ST ELEVATION IN ANTEROLAT/INF LEADS- PROBABLY EARLY REPOLARIZATION ABNORMALITY BASELINE ARTIFACT- I, III BORDERLINE ECG COMPARED TO ECG 08/02/2023 13:10:19 SINUS BRADYCARDIA NOW PRESENT Electronically Signed On 08-02-2023 21:03:10 ASSISTANT TENNIS PROFESSIONAL by Ned Pina D.O.
[2023-08-02 16:22] LABS: Appearance Urine Clear (Clear); Bilirubin Urine Negative (Negative); Blood Urine Negative (Negative); Color Urine Dark Yellow (Yellow); Glucose Urine UA Negative (Negative); Ketones Urine Trace mg/dL (Negative); Leukocyte Esterase Ur Negative LEU/UL (Negative); Nitrate Urine Negative (Negative); Protein Urine Negative (Negative); pH Urine 5.5 (5.0-9.0)
[2023-08-02 16:44] LABS: Troponin I < 0.012 ng/mL (0.000-0.034)
--- NOTE | 2023-08-02 16:50 | ECG_ITS ---
Measurements Intervals [place] Rate: 55 P: 18 ND: 173 QRS: 21 QRSD: 96 T: 50 QT: 415 QTc: 398 Interpretive Statements SINUS BRADYCARDIA ST ELEVATION IN ANTEROLAT/INF LEADS- PROBABLY EARLY REPOLARIZATION BASELINE ARTIFACT- I, II BORDERLINE ECG COMPARED TO ECG 08/02/2023 16:23:01 NO SIGNIFICANT CHANGES Electronically Signed On 08-02-2023 21:05:51 LAN SPECIALIST by Ned Pina D.O.
[2023-08-02 16:57] LABS: Add Urine Microscopic? NO
== END 2023-08-02 17:37 | disposition home or self-care (01) ==
PROVIDERS: Emergency Medicine; Emergency Provider Physician Assistant; PCP Nurse Practitioner Family
DX: R09.1 Pleurisy (principal); R07.89 Other chest pain; J84.9 Interstitial pulmonary disease, unspecified; Z20.822 Contact with and (suspected) exposure to COVID-19; R06.00 Dyspnea, unspecified; I48.0 Paroxysmal atrial fibrillation; J44.9 Chronic obstructive pulmonary disease, unspecified; I10 Essential (primary) hypertension; E11.9 Type 2 diabetes mellitus without complications; E78.00 Pure hypercholesterolemia, unspecified; G47.26 Circadian rhythm sleep disorder, shift work type; D86.0 Sarcoidosis of lung; K21.9 Gastro-esophageal reflux disease without esophagitis; G47.33 Obstructive sleep apnea (adult) (pediatric); Z98.84 Bariatric surgery status; Z87.891 Personal history of nicotine dependence; Z79.01 Long term (current) use of anticoagulants
CPT/HCPCS: 36415; 71046; 71275; 80053; 81003; 83690; 83735; 83880; 84484; 85025; 85610; 85730; 87637; 87651; 93005; 94640; 96374; 99284; A9270; J2930; Q9967

== ENCOUNTER 2023-10-09 08:50 | Outpatient (CLI) | payer MEDICARE, SELFPAY ==
--- NOTE | ~2023-10-09 | DEXA_ITS ---
Bone Density Report Name: FLORECITA MATTHEWS Age: 43 Sex: Male Ethnicity: White Date of : 1980 Indication: asthma or emphysema; Referring Provider: CELSO DAWKINS Study: Bone densitometry was performed. Exam Date: October 09, 2023 Accession number: [id number] Bone Density: Region BMD T-score Z-score Classification AP Spine(L1, L2, L3) 1.181 1.0 1.2 Normal Femoral Neck (Left) 1.010 0.6 1.2 Normal Total Hip (Left) 1.222 1.3 1.5 Normal Femoral Neck (Right) 0.965 0.3 0.8 Normal Total Hip (Right) 1.213 1.2 1.4 Normal Total Hip Mean 1.218 1.3 1.5 Normal World Health Organization criteria for BMD impression classify patients as: Normal (T-score at or above -1.0), Osteopenia (T-score between -1.0 and -2.5), or Osteoporosis (T-score at or below -2.5). 10-year Fracture Risk: FRAX not reported because: Man under age 50 All T-scores for Spine Total, Hip Total, Femoral Neck at or above -1.0 Clinical Information Provided by Patient: Has used the following medications: Vitamin D, Calcium, predisone for 10+ years Has the following medical conditions: Asthma or Emphysema Patient maximum height was 71 No regular weight bearing exercise Drinks caffeinated beverages Impression: The patient's bone mass is within expected range for age, gender and ethnicity. Discussion: BONE DENSITY IS WITHIN EXPECTED LIMITS FOR AGE, SEX AND RACE. Bone density is within expected limits for age, sex and race at all sites measured. The patient should follow a healthful lifestyle (good nutrition with adequate calcium and vitamin D, and appropriate weight-bearing exercise). Follow-Up: Consider repeating this study in 5 years or sooner if there is some new clinical indication. Reported by: MARGY on 10/09/2023 9:12:00 AM. Reviewed, dictated and finalized at location A. [facility]
== END 2023-10-09 08:51 | disposition home or self-care (01) ==
LOC: ANHIMG 08:54
PROVIDERS: PCP Nurse Practitioner Family; Visit Provider Nurse Practitioner Family
DX: Z13.820 Encounter for screening for osteoporosis (principal); Z79.52 Long term (current) use of systemic steroids
CPT/HCPCS: 77080

== ENCOUNTER 2023-11-28 14:18 | Outpatient (RCR) | payer MEDICARE, SELFPAY ==
--- NOTE | 2023-11-28 15:52 | STOPEVDC ---
Assessment and note entered by Stacie Mata, CANDY SPREADER Thank you for referring Vu Tilley Jr. to [facility] [place].? An evaluation has been completed. No further treatment is needed. 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 Patient reports symptoms of Sarcardoisis resulting in heart and lung dysfunction, along with a history of asthma and allergies. He stated that he had seen his physician who referred him to Speech Therapy for a wheezing sound in his throat in spite of clear lungs. Patient denies a voice disorder and also denied dysphagia, or any swallowing or shortness of breath when swallowing. Throughout this evaluation, patient was observed to have an infrequent, intermittent cough, observed after completing a voice task on several occasions, after taking one sip of liquid from his travel mug, and also several times randomly. A Voice Evaluation was completed. Voice quality was judged to be within normal limits; of note, his vocal loudness averaged 64 decibels in conversation which is just below normal average range. Pitch range was judged to be within normal limits. Patient only able to range 7-9 seconds when asked to sustain ah sound which is lower than expected with normal average at 15 seconds. Patient was observed to produce a random cough after two of the voice evaluation tasks, and one time about 30 seconds after taking a sip of water. He expressed that he does cough throughout the day but not connected to speaking or swallowing, therefore a full swallowing evaluation was not completed. Results were inconclusive at this time; there does not appear to be an actual voice disorder and therefore Speech Therapy to continue is not indicated. Patient may benefit from an evaluation by an Otolaryngolist (ENT) to further assess vocal cord function, and possibly a Modified Barium
== END 2023-11-29 10:49 | disposition home or self-care (01) ==
LOC: ANHST 14:18
PROVIDERS: PCP Nurse Practitioner Family
DX: J38.3 Other diseases of vocal cords (principal)
CPT/HCPCS: 92524

== ENCOUNTER 2024-03-18 18:50 | Emergency (ER) | payer MEDICARE, SELFPAY ==
--- NOTE | 2024-03-18 18:57 | ED.URI ---
HPI - URI/Sore Throat General Chief Complaint: Extremity Injury, Upper Stated Complaint: right side of chest tight,nasal congestion Time Seen by Provider: 03/18/24 18:57 Source: patient Mode of arrival: ambulatory Limitations: no limitations History of Present Illness HPI Narrative: Vu is a 43-year-old male patient presenting to the clinic today with complaints of right-sided chest tightness, nasal congestion, and nonproductive cough. He called his lung specialist today and they sent him in a prescription for cefdinir but wanted him to come in and be tested for COVID. He denies any chest pain currently. States his lungs hurt when he does take a deep breath on the right side. Denies any fever or chills. Symptoms have been going on for 2 days. Takes Xarelto for AFib. Has not missed any doses of the Xarelto. MD elicited complaint: cough and other (Nasal congestion, chest tightness) Related Data Home Medications Medication Instructions Recorded Confirmed dronedarone 400 mg tablet (Multaq) 400 mg PO Q12H 08/05/22 03/18/24 mycophenolate mofetil 500 mg tablet 500 mg PO Q12H 08/05/22 03/18/24 furosemide 40 mg tablet 80 mg PO DAILY 08/02/23 03/18/24 Allergies Allergy/AdvReac Type Severity Reaction Status Date / Time pioglitazone [From Actos] Allergy Mild Rash Verified 03/18/24 18:52 Review of Systems Review of Systems: Pertinent positives per HPI. Patient denies any fever, chills, rash, headache, visual changes, dizziness, palpitations, nausea, vomiting, diarrhea, constipation, abdominal pain, or any urinary issues. [facility] Past Medical History Medical History Allergies Anticonvulsant-induced dizziness Asthma COPD (chronic obstructive pulmonary disease) Diabetes Essential hypertension GERD (gastroesophageal reflux disease) Headache Heartburn High cholesterol History of left heart catheterization HTN (hypertension) Leg pain Migraines Morbid obesity with BMI of 50.0-59.9, adult Obstructive sleep apnea (adult) (pediatric) Paroxysmal A-fib Sarcoidosis Sarcoidosis of lung Sleep disorder, circadian, shift work type Swollen feet Type 2 diabetes mellitus with hyperglycemia Vomiting Surgical History Surgical History History of sleeve gastrectomy No pertinent past surgical history S/P gastric sleeve procedure Family History Family History Mother Hypertension Father Family history of gastrointestinal disorder Acute Crohn's disease Social History Social History Smoking status: Former smoker Tobacco type: cigarettes Smoking end date: 07/03/11 Alcohol intake: never Substance use: never Substance use type: does not use Do You Feel Safe in your Home?: Yes Lack of Transportation: No Lack of Food: Never True Current Housing: I Have Housing Concerned About Future Housing: No Difficulty Paying Gas/Electric Bills: No Difficulty Paying for Meds: No Currently Unemployed: No Education: High School Diploma/GED Difficulty w/ Childcare or Family Care: YES Living arrangements: with family Occupation/Education: occupation Gender identity (if verbalized by the patient): Male Sexual Orientation (if Verbalized by the Patient): Straight or Heterosexual Spiritual care concerns: No Agree to blood products: Yes Comments At the time of my signature, I reviewed and agree with the nursing past medical, surgical, social, and family history. There is no relevant family history pertinent to the patient complaint. Exam Narrative: General: Well-developed, well nourished, in no apparent distress Head: Normocephalic, atraumatic Eyes: Pupils equally round and reactive to light bilaterally, EOM intact, sclera and conjunctive clear, no discharge, lids normal
[2024-03-18 19:16] VITALS: BP 122/68; PULSE 59; RESP 18; TEMP 36.2; O2SAT 100
--- NOTE | 2024-03-18 19:23 | ECG_ITS ---
Test Date: 2024-03-18 19:46:08 Measurements Intervals [place] Rate: 59 P: 18 ID: [id number] QRS: 38 QRSD: 90 T: 54 QT: 385 QTc: 384 Interpretive Statements SINUS BRADYCARDIA ST ELEVATION IN DIFFUSE LEADS, PROBABLY EARLY REPOLARIZATION ABNORMALITY BASELINE ARTIFACT- I, II, III, AVR, AVL, AVF BORDERLINE ECG No previous ECG available for comparison Electronically Signed On 03-19-2024 09:23:37 CDT by Ned Pina D.O.
[2024-03-18 19:36] LABS: EDCOVIDSCREEN Negative (Negative); EDINFLUASCREEN Negative (Negative); EDINFLUBSCREEN Negative (Negative)
== END 2024-03-18 20:08 | disposition home or self-care (01) ==
PROVIDERS: Emergency Provider Nurse Practitioner Family; PCP Nurse Practitioner Family
DX: J44.9 Chronic obstructive pulmonary disease, unspecified (principal); D86.0 Sarcoidosis of lung; Z20.822 Contact with and (suspected) exposure to COVID-19; Z87.891 Personal history of nicotine dependence; I48.0 Paroxysmal atrial fibrillation; E11.9 Type 2 diabetes mellitus without complications; I10 Essential (primary) hypertension; K21.9 Gastro-esophageal reflux disease without esophagitis; E78.00 Pure hypercholesterolemia, unspecified; R12 Heartburn; E66.01 Morbid (severe) obesity due to excess calories; Z68.1 Body mass index [BMI] 19.9 or less, adult; Z98.84 Bariatric surgery status; Z79.01 Long term (current) use of anticoagulants
CPT/HCPCS: 87635; 87804; 93005; 99213; G0463

== ENCOUNTER 2024-03-27 17:31 | Emergency (ER) | payer MEDICARE, SELFPAY ==
[2024-03-27] VITALS (22 sets, daily range): BP systolic 107–126; BP diastolic 60–81; PULSE 51–78; RESP 8–22; TEMP 36.4; O2SAT 95–100
--- NOTE | ~2024-03-27 | XR_ITS ---
EXAMINATION: XR chest 2V Exam Date/Time: 03/27/2024 17:50 CDT HISTORY: cp RADIATES TO LEFT ARM Comparison: 08/02/2023. RESULT: Lines, tubes, and devices: None. Lungs and pleura: Extensive bilateral pulmonary scarring and architectural distortion. No focal cons olidation, effusion, or pneumothorax. Cardiomediastinal silhouette: Stable. Other: No acute osseous or upper abdominal finding. IMPRESSION: No acute cardiopulmonary process. Extensive chronic pulmonary scarring. Reviewed, dictated and finalized at location K.
--- NOTE | 2024-03-27 17:34 | ECG_ITS ---
Test Date: 2024-03-27 17:38:43 Measurements Intervals [place] Rate: 62 P: 47 SD: 169 QRS: 35 QRSD: 81 T: 55 QT: 359 QTc: 366 Interpretive Statements SINUS RHYTHM ST ELEVATION IN DIFFUSE LEADS, PROBABLY EARLY REPOLARIZATION ABNORMALITY BASELINE ARTIFACT- I, II, AVR, AVL, AVF BORDERLINE ECG Compared to ECG 03/18/2024 19:46:08 NO SIGNIFICANT CHANGE Electronically Signed On 03-28-2024 05:31:47 CDT by Ned Pina D.O.
[2024-03-27 17:56] LABS: Basophils Percent Auto 0.5 % (0.2-1.2); Eosinophils Absolute Auto 0.3 K/mm3 (0-0.3); Eosinophils Percent Auto 7.5 % (0-4.4); Hematocrit 45.7 % (42.0-52.0); Hemoglobin 14.6 g/dL (14.0-18.0); Lymphocytes Absolute Auto 1.47 K/mm3 (0.9-3.2); Lymphocytes Percent Auto 35.3 % (18.3-44.2); Mean Corpuscular HGB Conc 31.9 g/dl (32-36); Mean Corpuscular Hemoglobin 29.3 pg (26-34); Mean Corpuscular Volume 91.6 fl (80-100); Mean Platelet Volume 10.1 fl (7.4-10.4); Monocytes Absolute Auto 0.4 K/mm3 (0.1-0.6); Monocytes Percent Auto 9.6 % (2.6-8.5); Neutrophils Percent Auto 47.1 % (45.5-73.1); Platelet Count Result 198 k/mm3 (150-375); Red Blood Count 4.99 M/mm3 (4.6-6.20); Red Cell Distribution Width 13.1 % (11.5-14.5); White Blood Count 4.2 K/mm3 (4.5-10.0)
[2024-03-27 18:06] LABS: INR 1.2; Prothrombin Time 15.8 Seconds (11.1-14.7)
[2024-03-27 18:07] LABS: Partial Thromboplastin Time 31.2 Seconds (22.3-36.8)
[2024-03-27 18:09] LABS: Alanine Aminotransferase 42 U/L (6-50); Albumin Level 3.9 g/dL (3.5-5.1); Alkaline Phosphatase 55 U/L (38-126); Anion Gap 5 mmol/L (4-12); Aspartate Amino Transferase 31 U/L (17-59); Bilirubin,Total 0.6 mg/dL (0.2-1.3); Blood Urea Nitrogen 13 mg/dL (9-20); Calcium 9.2 mg/dL (8.4-10.2); Carbon Dioxide 30 mmol/L (22-30); Chloride 105 mmol/L (98-107); Estimated CRCL calculation 83 ml/min; Estimated Glomerular Filt Rate > 60; Glucose 78 mg/dL (65-110); Lipase 454 U/L (23-300); Potassium 3.9 mmol/L (3.4-5.0); Sodium 140 mmol/L (137-145)
[2024-03-27] MEDS: KETOROLAC 30 MG/ML VIAL (*BKC) IV PUSH (18:12)
[2024-03-27] MEDS: IPRATROPIUM 0.5 MG/ALBUTEROL SULFATE 2.5 MG AMPUL.NEB 3 ML INHALATION ×2 (18:16→19:47)
[2024-03-27 18:20] LABS: Troponin I 0.015 ng/mL (0.000-0.034)
[2024-03-27] MEDS: ONDANSETRON INJ 4 MG/2 ML VIAL IV PUSH (18:39)
--- NOTE | 2024-03-27 19:46 | ED.GENADULT ---
HPI - General Adult General Chief complaint: Chest Pain Stated complaint: chest pain, left arm numbness Time Seen by Provider: 03/27/24 17:55 History of Present Illness HPI narrative: Patient is a 44-year-old male who presents ER with reports of chest tightness. Began today couple hours before arrival. Associated shortness of breath. He does have wheezing. Known sarcoidosis. He has never had a heart attack. Reports had a cardiac catheterization in 2018 was unsure what it showed. He has not had any stents. No fevers or chills or sweats. He reports some numbness in his left arm as well. Sensation being numb but no actual anesthesia. Related Data Home Medications Medication Instructions Recorded Confirmed dronedarone 400 mg tablet (Multaq) 400 mg PO Q12H 08/05/22 03/18/24 mycophenolate mofetil 500 mg tablet 500 mg PO Q12H 08/05/22 03/18/24 furosemide 40 mg tablet 80 mg PO DAILY 08/02/23 03/18/24 Allergies Allergy/AdvReac Type Severity Reaction Status Date / Time pioglitazone [From Actos] Allergy Mild Rash Verified 03/27/24 17:51 Review of Systems Review of Systems: All systems reviewed & are unremarkable except as noted in HPI and below Constitutional: Constitutional: Reports no additional constitutional complaints Cardiovascular: Cardiovascular: Reports no additional cardiovascular complaints Respiratory: Respiratory: Reports no additional respiratory complaints Gastrointestinal: Gastrointestinal: Reports no additional gastrointestinal complaints Musculoskeletal: Musculoskeletal: Reports no additional musculoskeletal complaints FOR[facility]LY [facility] Past Medical History Medical History Allergies Anticonvulsant-induced dizziness Asthma COPD (chronic obstructive pulmonary disease) Diabetes Essential hypertension GERD (gastroesophageal reflux disease) Headache Heartburn High cholesterol History of left heart catheterization HTN (hypertension) Leg pain Migraines Morbid obesity with BMI of 50.0-59.9, adult Obstructive sleep apnea (adult) (pediatric) Paroxysmal A-fib Sarcoidosis Sarcoidosis of lung Sleep disorder, circadian, shift work type Swollen feet Type 2 diabetes mellitus with hyperglycemia Vomiting Surgical History Surgical History History of sleeve gastrectomy No pertinent past surgical history S/P gastric sleeve procedure Family History Family History Mother Hypertension Father Family history of gastrointestinal disorder Acute Crohn's disease Social History Social History Smoking status: Former smoker Tobacco type: cigarettes Smoking end date: 07/03/11 Alcohol intake: never Substance use: never Substance use type: does not use Do You Feel Safe in your Home?: Yes Lack of Transportation: No Lack of Food: Never True Current Housing: I Have Housing Concerned About Future Housing: No Difficulty Paying Gas/Electric Bills: No Difficulty Paying for Meds: No Currently Unemployed: No Education: High School Diploma/GED Difficulty w/ Childcare or Family Care: YES Living arrangements: with family Occupation/Education: occupation Gender identity (if verbalized by the patient): Male Sexual Orientation (if Verbalized by the Patient): Straight or Heterosexual Spiritual care concerns: No Agree to blood products: Yes Exam Narrative: GENERAL: Well-appearing, well-nourished, and in no acute distress. HEAD: Normocephalic, atraumatic. ENT: Mucous membranes moist. NECK: Supple. CHEST: Mild wheezing bilateral. No respiratory distress. HEART: Regular rate and rhythm. Normal peripheral pulses. ABDOMEN: Soft, nontender, nondistended. EXTREMITIES: Normal range of motion. No edema. SKIN: Warm, dry, no rash. NEURO: No focal deficits.
[2024-03-27 20:28] LABS: NT Pro B Type Natriuretic Pept 74 pg/mL (19.9-100)
--- NOTE | 2024-03-27 20:45 | ECG_ITS ---
Test Date: 2024-03-27 20:50:23 Measurements Intervals [place] Rate: 55 P: 22 MA: 166 QRS: 45 QRSD: 97 T: 56 QT: 423 QTc: 406 Interpretive Statements SINUS BRADYCARDIA ST ELEVATION IN DIFFUSE LEADS, PROBABLY EARLY REPOLARIZATION ABNORMALITY BORDERLINE ECG Compared to ECG 03/27/2024 17:38:43 HEART RATE HAS DECREASED Electronically Signed On 03-28-2024 05:33:27 CDT by Ned Pina D.O.
--- NOTE | 2024-03-27 21:27 | PC.NURSE ---
Green top called for trop level at this time.
[2024-03-27 21:42] LABS: Troponin I 0.016 ng/mL (0.000-0.034)
== END 2024-03-27 22:06 | disposition home or self-care (01) ==
PROVIDERS: Emergency Provider Emergency Medicine; PCP Nurse Practitioner Family
DX: J45.901 Unspecified asthma with (acute) exacerbation (principal); J44.9 Chronic obstructive pulmonary disease, unspecified; I10 Essential (primary) hypertension; I48.0 Paroxysmal atrial fibrillation; E11.9 Type 2 diabetes mellitus without complications; E78.00 Pure hypercholesterolemia, unspecified; G47.33 Obstructive sleep apnea (adult) (pediatric); G47.20 Circadian rhythm sleep disorder, unspecified type; K21.9 Gastro-esophageal reflux disease without esophagitis; D86.0 Sarcoidosis of lung; Z98.84 Bariatric surgery status; Z87.891 Personal history of nicotine dependence; R94.31 Abnormal electrocardiogram [ECG] [EKG]; R00.1 Bradycardia, unspecified
CPT/HCPCS: 36415; 71046; 80053; 83690; 83880; 84484; 85025; 85610; 85730; 93005; 94640; 96374; 96375; 99284; J1885; J2405

== ENCOUNTER 2024-05-27 18:54 | Emergency (ER) | payer MEDICARE, SELFPAY ==
[2024-05-27 19:03] VITALS: BP 134/84; PULSE 67; RESP 18; TEMP 36.8; O2SAT 98
--- NOTE | 2024-05-27 19:09 | ED.URI ---
HPI - URI/Sore Throat General Chief Complaint: Upper Respiratory Infection Stated Complaint: chest congestion,phlegm HX COPD,asthma,Sarcoidosis Time Seen by Provider: 05/27/24 19:09 Source: patient, RN notes reviewed and old records reviewed Mode of arrival: ambulatory Limitations: no limitations History of Present Illness HPI Narrative: 44-year-old male presents to the [facility] with chest congestion, increased productive cough, history of COPD and sarcoidosis. Patient states that he called his lung doctor, was told that he needs to get a flu and COVID test. Presents here for a flu and COVID test. Patient states he will call his doctor back in the morning for further instructions. Has been using his trilogy, rescue inhaler and nebulizer machine. Last use of nebulizer was approximately 2:00 p.m. today Patient states that he normally gets prednisone, will prescribe Onset (ago): day(s) (2) Related Data Home Medications Medication Instructions Recorded Confirmed dronedarone 400 mg tablet (Multaq) 400 mg PO Q12H 08/05/22 05/27/24 mycophenolate mofetil 500 mg tablet 500 mg PO Q12H 08/05/22 05/27/24 furosemide 40 mg tablet 80 mg PO DAILY 08/02/23 05/27/24 Allergies Allergy/AdvReac Type Severity Reaction Status Date / Time pioglitazone [From Actos] Allergy Mild Rash Verified 05/27/24 19:00 Review of Systems Review of Systems: All systems reviewed & are unremarkable except as noted in HPI and below Constitutional: Constitutional: Reports no additional constitutional complaints ENT: Reports system reviewed and no additional complaints, except as documented Cardiovascular: Cardiovascular: Reports no additional cardiovascular complaints, Denies chest pain and Denies dyspnea Respiratory: Respiratory: Reports as per HPI, Reports chest congestion, Reports cough and Denies dyspnea Gastrointestinal: Gastrointestinal: Reports no additional gastrointestinal complaints, Denies abdominal pain, Denies nausea and Denies vomiting Musculoskeletal: Musculoskeletal: Reports no additional musculoskeletal complaints Integumentary/Breasts: Skin/Breast: Reports system reviewed and no additional complaints, except as docu PMFSH Past Medical History Medical History Allergies Anticonvulsant-induced dizziness Asthma COPD (chronic obstructive pulmonary disease) Diabetes Essential hypertension GERD (gastroesophageal reflux disease) Headache Heartburn High cholesterol History of left heart catheterization HTN (hypertension) Leg pain Migraines Morbid obesity with BMI of 50.0-59.9, adult Obstructive sleep apnea (adult) (pediatric) Paroxysmal A-fib Sarcoidosis Sarcoidosis of lung Sleep disorder, circadian, shift work type Swollen feet Type 2 diabetes mellitus with hyperglycemia Vomiting Surgical History Surgical History History of sleeve gastrectomy No pertinent past surgical history S/P gastric sleeve procedure Family History Family History Mother Hypertension Father Family history of gastrointestinal disorder Acute Crohn's disease Social History Social History Smoking status: Former smoker Tobacco type: cigarettes Smoking end date: 07/03/11 Alcohol intake: never Substance use: never Substance use type: does not use Do You Feel Safe in your Home?: Yes Lack of Transportation: No Lack of Food: Never True Current Housing: I Have Housing Concerned About Future Housing: No Difficulty Paying Gas/Electric Bills: No Difficulty Paying for Meds: No Currently Unemployed: No Education: High School Diploma/GED Difficulty w/ Childcare or Family Care: YES Living arrangements: with family Occupation/Education: occupation Gender identity (if verbalized by the patient): Male Sexual Orientation (if Verbalized by the Patient): Straight or Heterosexual Spiritual care concerns: No Agree to blood products: Yes Comments At the time of my signature, I reviewed and agree with the nursing past medical, surgical, social, and family history. There is no relevant family history pertinent to the patient complaint. Exam Const: General: cooperative, healthy appearing, comfortable, no acute distress, well developed, alert and well nourished Nutritional Appearance: well nourished Orientation/consciousness: patient oriented x3 Limitations: no limitations HENMT: Head: normal to inspection Ears: hearing grossly normal bilaterally, external ears normal, TM's normal bilaterally, EAC's normal, mastoids normal and no periauricular adenopathy Face/Nose/Sinus: Normal external nose present, normal facial exam and face symmetric Face and sinus: normal facial exam and face symmetric Mouth: Yes Normal oral and palatal mucosa present, Yes lip normal and Yes tongue normal Throat: posterior oropharynx normal, uvula midline and no uvular edema Eyes: General: appearance normal, both eyes and all related structures Alignment and Position: alignment normal Periorbital: periorbital findings normal Neck: Neck: normal visual inspection, full ROM, no lymphadenopathy and no meningeal signs Chest: Chest palpation & inspection: normal inspection of the chest Resp: Effort & Inspection: normal respiratory effort and able to speak in complete sentences Auscultation: clear to auscultation bilaterally, no crackles, no rales, no rhonchi, no wheezes and diminished lung sounds bilateral Cardio: Rate: regular rate Skin: General skin exam: normal color and no rashes or lesions noted Lesions: no lesions Rashes: no rashes Wounds: no wounds Neuro: General: patient oriented x3, gait normal, tone normal, moves all extremities and no meningeal signs Cognition (Neuro): normal cognition Speech: normal speech Gait exam (Neuro): Normal gait present Extrem: General: normal to inspection, full ROM, capillary refill normal and normal gait Psych: Appearance: grossly normal and well kempt Mental Status: mental status grossly normal Speech and movement: Normal speech and movement present and Clear speech present Affect: normal affect Attitude: cooperative Course Course Level of Care: Express Care Visit Vital Signs Vital signs: Vital Signs Temperature 98.2 F 05/27/24 19:03 Pulse Rate 67 05/27/24 19:03 Respiratory Rate 18 05/27/24 19:03 Blood Pressure 134/84 05/27/24 19:03 Pulse Oximetry 98 05/27/24 19:03 Oxygen Delivery Room Air 05/27/24 19:03 Temperature 98.2 F 05/27/24 19:03 Pulse Rate 67 05/27/24 19:03 Respiratory Rate 18 05/27/24 19:03 Blood Pressure 134/84 05/27/24 19:03 Pulse Oximetry 98 05/27/24 19:03 Oxygen Delivery Room Air 05/27/24 19:03 Reviewed MDM - URI/Sore Throat MDM Narrative Medical decision making narrative: Patient sitting comfortably in exam room. Nontoxic, vitals are stable. Patient presents after talking with his lung doctor per patient to and wanting to get a flu and COVID test. Patient reports cough x2 days. Patient has a history of asthma, COPD and sarcoidosis. Patient states they normally treat him with prednisone, will prescribed. Patient also states that for further treatment he will contact his lung doctor in [place]. Discharge instructions reviewed with patient, as well as provided in writing per nursing staff. The instructions also include specific and strict return/GO TO THE ER as well as f/u information. All questions have been answered, and the patient deny any further questions with discharge and discharge plan. Some parts of this dictation were generated by voice recognition software and may contain typographical and/or grammatical inaccuracies. Differential Diagnosis Differential diagnosis: Likely upper respiratory infection, sinusitis and bronchitis Lab Data Labs: Lab Results 05/27/24 Range/Units 19:31 POC Influenza A Ag Negative (Negative) POC Influenza B Ag Negative (Negative) POC SARS CoV-2 Ag Negative (Negative) Reviewed Critical Care Time Critical Care Time Critical Care Time: No Discharge Plan Discharge Clinical Impression: COPD (chronic obstructive pulmonary disease), History of sarcoidosis Patient Disposition: Home, Self-Care Condition: Stable Instructions: Antibiotic Form, COPD (Chronic Obstructive Pulmonary Disease) (DC) Additional Instructions: Continue using the albuterol inhaler every 4-5 hours while awake. Follow-up with your lung doctor 1st thing tomorrow morning for further evaluation Take all of your medications as prescribed. If you are coughing up blood, developed chest pain please go to the nearest emergency room Patient Language: Omani Prescriptions: New prednisone 50 mg tablet 50 mg PO DAILY Qty: 5 0RF No Action furosemide 40 mg tablet 80 mg PO DAILY hydroxyzine HCl 25 mg tablet 25 mg PO TID PRN (Reason: anxiety) Qty: 30 0RF Multaq 400 mg tablet 400 mg PO Q12H Rx Instructions: must administer with a meal/food mycophenolate mofetil 500 mg tablet 500 mg PO Q12H atorvastatin 80 mg tablet 80 mg PO DAILY Qty: 90 1RF carvedilol 25 mg tablet 25 mg PO Q12H 90 Days Qty: 180 1RF Rx Instructions: must administer with a meal/food ezetimibe 10 mg tablet 10 mg PO DAILY Qty: 90 1RF [id number] 200-62.5-25 mcg blister with device 1 inh inhalation DAILY Qty: 60 3RF albuterol sulfate 2.5 mg /3 mL (0.083 %) solution for nebulization 2.5 mg inhalation Q4-6H PRN (Reason: shortness of breath or wheezing) Qty: 180 3RF albuterol sulfate 90 mcg/actuation HFA aerosol inhaler 1 inh inhalation QID PRN (Reason: shortness of breath or wheezing) Qty: 6.7 0RF Xarelto 20 mg tablet 20 mg PO DAILY Qty: 30 5RF Rx Instructions: must administer with evening meal lisinopril 5 mg tablet 5 mg PO DAILY Qty: 90 1RF omeprazole 20 mg capsule,delayed release(DR/EC) 20 mg PO DAILY Qty: 90 1RF paroxetine HCl [Paxil] 20 mg tablet 20 mg PO DAILY Qty: 90 1RF Follow-up/Referrals: Lotus Marina APRN [Primary Care Provider] - 1 Week ([facility] care follow up) Stand Alone Forms: Work/School Release IP Time of Disposition: 19:35
[2024-05-27 19:33] LABS: EDCOVIDSCREEN Negative (Negative); EDINFLUASCREEN Negative (Negative); EDINFLUBSCREEN Negative (Negative)
== END 2024-05-27 19:42 | disposition home or self-care (01) ==
PROVIDERS: Emergency Provider Nurse Practitioner; PCP Nurse Practitioner Family
DX: J44.9 Chronic obstructive pulmonary disease, unspecified (principal); D86.0 Sarcoidosis of lung; Z20.822 Contact with and (suspected) exposure to COVID-19; E11.9 Type 2 diabetes mellitus without complications; I10 Essential (primary) hypertension; E78.00 Pure hypercholesterolemia, unspecified; E66.01 Morbid (severe) obesity due to excess calories; Z68.33 Body mass index [BMI] 33.0-33.9, adult; I48.0 Paroxysmal atrial fibrillation; Z98.84 Bariatric surgery status; Z87.891 Personal history of nicotine dependence
CPT/HCPCS: 87426; 87804; 99213; G0463

== ENCOUNTER 2024-08-02 08:51 | Outpatient (CLI) | payer MEDICARE, SELFPAY ==
--- NOTE | ~2024-08-02 | XR_ITS ---
XR hip RT 2V w AP pelvis 08/02/2024 09:40 Indication: Right hip pain Procedure: AP pelvis and 2 views right hip Comparison: No prior studies for comparison. Findings: Pelvic rings are intact. Sacral foramen are symmetric. No significant joint space narrowing . No acute fracture or traumatic malalignment. There is a lytic lesion with sclerotic margins in the left femoral intertrochanteric region, likely benign. Impression: 1: No acute abnormality of the right hip. Reviewed, dictated and finalized at location A. NESS BANKER Impression: 1: No acute abnormality of the right hip.
--- NOTE | ~2024-08-02 | XR_ITS ---
EXAMINATION: XR lumbar spine min 4V DATE: 08/02/2024 09:40 INDICATION: Right hip pain. TECHNIQUE: 5 views of lumbar spine were obtained. COMPARISON: None. FINDINGS: There is 9 degrees levocurvature of thoracic lumbar spine. L5 is a transitional segment. Ve rtebral body heights are normal. Intervertebral disc heights are normal. There is multilevel facet john int osteoarthritis, severe on the right at L4-L5. IMPRESSION: 1. Lumbar facet joint osteoarthritis. Reviewed, dictated and finalized at location A. ESSOR OF FINANCE
--- OUTSIDE RECORDS SUMMARY | 2024-08-02 09:25 | XMS_ITS | Data Portability ---
Author Organization [facility] OFFICE Address [address] [place] [id number] Assessment No assessment recorded. Plan of Treatment Reminders Order Date Submit Date Provider Last Modified By Organization Details Last Modified Time Details Appointments None recorded. Lab None recorded. Referral None recorded. Procedures None recorded. Surgeries None recorded. Imaging electrocar diogram 2016 017 [email or web address] Not available 7 12:30:16 electrocar diogram 2016 017 [email or web address] Not available 7 10:51:34 electrocar diogram 2017 018 [email or web address] Not available 8 15:46:58 Medication Orders magnesium oxide 400 mg (241.3 mg magnesium) tablet [email or web address] [facility] #75095, [address], [place], [place], [id number], 7 16:13:12 nitroglyce rin 0.4 mg sublingual tablet 2016 017 INTERFACE [facility] #52089, [address], [place], [place], [id number], 7 21:32:55 Cardizem 30 mg tablet 2016 017 [facility] #80572, [address], [place], [place], [id number], 7 14:59:56 Cardizem 60 mg tablet 2016 017 INTERFACE [facility] #64286, [address], [place], [place], [id number], 7 15:02:51 losartan 100 mg tablet 2016 017 [email or web address] [facility] #83577, [address], [place], [place], [id number], 7 16:13:30 hydrochlor othiazide 25 mg tablet 2016 017 [email or web address] [facility] #86314, [address], [place], [place], [id number], 7 16:13:19 Lasix 20 mg tablet 2016 017 INTERFACE [facility] [place]18492, [address] [place], [id number], 7 15:02:50 Cozaar 25 mg tablet 2016 017 INTERFACE [facility] #79196, [address], [place], [place], [id number], 7 16:46:15 pravastati n 80 mg tablet 2016 017 [email or web address] [facility] #03400, [address], [place], [place], [id number], 8 15:02:45 pravastati n 80 mg tablet 2017 018 INTERFACE [facility] #76061, [address], [place], [place], [id number], 8 15:45:17 Patient TargetsNo targets recorded. Patient Instructions Encounter Date Encounter Id Patient Instructions Last Modified By Organization Details Last Modified Time 01/04/2017 [id number] high blood pressure: care instructions Not available 01/05/2017 09:50:40 learning about high blood pressure Not available 01/05/2017 09:50:40 atrial fibrillation: care instructions Not available 01/05/2017 09:50:40 01/25/2017 [id number] high blood pressure: care instructions Not available 01/25/2017 15:59:02 learning about high blood pressure Not available 01/25/2017 15:59:02 high cholesterol : care instructions Not available 01/25/2017 15:59:02 2017 [id number] high blood pressure: care instructions [email or web address] Not available 2017 16:20:42 learning about high blood pressure [email or web address] Not available 2017 16:20:42 high cholesterol : care instructions [email or web address] Not available 2017 16:20:42 06/22/2017 [id number] high blood pressure: care instructions [email or web address] Not available 06/22/2017 16:46:09 learning about high blood pressure [email or web address] Not available 06/22/2017 16:46:09 high cholesterol : care instructions [email or web address] Not available 06/22/2017 16:46:09 01/22/2018 [id number] high blood pressure: care instructions [email or web address] Not available 01/22/2018 15:45:11 learning about high blood pressure [email or web address] Not available 01/22/2018 15:45:11 high cholesterol : care instructions [email or web address] Not available 01/22/2018 15:45:11 This document wa s scribed by Teresa ORTEZ [email or web address] Not available 01/22/2018 15:27:34 Reason for Referral None Reported. Results Created Date Observation Date Name Description Value Unit Range Abnormal Flag Note LastModifiedBy Organization Detail LastModifiedTime 01/26/20 17 01/25/2017 elect [email or web address] diogr am Result EK NSR with PACs, NSST change s Not Available Leon Ledesma MD [address], [place], [address], 01/25/2017 15:17:27 01/05/20 17 01/04/2017 elect rocar diogr am Result EK Sinus rhythm . Within normal limits . Not Available Leon Ledesma MD [address], [place], [address], 01/04/2017 12:47:35 01/23/20 18 01/22/2018 elect rocar diogr am Result EKG 8: NSR, NSST change s Not Available Leon Ledesma MD [address], [place], [address], 01/22/2018 14:58:12 01/05/20 17 12/02/2016 US, echoc ardio gram, trans thora cic, compl ete, w/ color flow No observ ation record ed. [email or web address] Stacie Lomas MD [facility] [address] [place], [address], 01/13/2017 13:38:48 01/05/20 17 01/04/2017 elect rocar diogr am No observ ation record ed. Not Available 2016 16:31:18 01/17/20 17 01/10/2017 tread mill nucle ar stres s test (PROC ) No observ ation record ed. [email or web address] Not Available 2016 15:49:13 01/28/20 17 01/25/2017 elect rocar diogr am No observ ation record ed. [email or web address] Not Available 01/01 14:39:01 02/14/20 17 01/10/2017 jadon r monit or No observ ation record ed. Not Available 2016 10:39:34 03/28/20 17 2017 elect rocar diogr am No observ ation record ed. [email or web address] Not Available 2016 07:46:36 06/27/20 17 06/22/2017 elect rocar diogr am No observ ation record ed. Not Available 2016 09:29:12 01/24/20 18 01/22/2018 elect rocar diogr am No observ ation record ed. [email or web address] Not Available 01/23 16:46:13 03/22/20 18 03/19/2018 US, echoc ardio gram No observ ation record ed. [email or web address] Not Available 2018 13:01:20 Result Notes None recorded. Problems Name Problem SNOMED Code Status Onset Date Resolution Date Notes Provider Name and Address Organization Details Recorded Time Diabetes mellitus 31587011 Active 2013 [email or web address] Dominic Brown [facility] 7 13:23:21 Essential hypertensi on 18725725 [facility] 7 12:48:25 Asthma 024169918 Active 2016 dr Keyur Miranda [facility] 7 13:35:35 Sleep apnea 18516642 Active 2016 on cpap pulmonary fy. Mani Zapien [facility] 7 13:20:05 Hyperlipid emia 85956801 Active 2016 [facility] 7 12:48:51 Chest discomfort 905352396 Active [facility] 7 21:29:41 Atrial fibrillati on 22518110 Active 2016 Amando Griffin [facility] 7 16:08:41 Cardiac arrhythmia 406349315 Active 2016 Dominic [facility] 7 15:17:05 Sarcoidosi s 00737306 Active 2016 [facility] 7 13:24:06 Problem Notes None recorded. Procedures Surgical History None recorded. Imaging Results Imaging Date Name Status LastModified by Organization Details LastModified Time 12/02/2016 US, echocardiogram, transthoracic, complete, w/ color flow completed [email or web address] Stacie Lomas MD [facility] [address], [place], [address], 01/13/2017 13:38:48 01/04/2017 electrocardiogram completed Informa tion not available 01/04/2017 16:31:18 01/10/2017 treadmill nuclear stress test (PROC) completed Information not available 01/21/2017 15:49:13 01/25/2017 electrocardiogram completed [email or web address] Inform ation not available 01/27/2017 14:39:01 01/10/2017 holter monitor completed Informatio n not available 02/14/2017 10:39:34 2017 electrocardiogram completed Informa tion not available 06/20/2017 07:46:36 06/22/2017 electrocardiogram completed [email or web address] Informa tion not available 06/27/2017 09:29:12 01/22/2018 electrocardiogram completed [email or web address] Informa tion not available 01/23/2018 16:46:13 03/19/2018 US, echocardiogram completed Inform ation not available 07/20/2018 13:01:20 Procedure Notes None recorded. Medical Equipment None Reported. Allergies No known drug allergies Medications Name Sig Start Date Stop Date Status Note LastModified by Organization Details LastModified Time cyclobenzap rine 10 mg tablet 03/23 completed Not Available Not Available Not Available atorvastati n 40 mg tablet Take 1 tablet every day by oral route for 30 days. active Not Available Not Available No t Available terbinafine HCl 1 % topical cream 03/23 completed Not Available Not Available Not Available metformin 500 mg tablet Take 1 tablet twice a day by oral route. active Not Available Not Available No t Available Qvar 80 mcg/actuati on Metered Aerosol oral inhaler prn 06/22 completed Not Available Not Available Not Available prednisone 10 mg tablet 06/22 completed Not Available Not Available Not Available azithromyci n 250 mg tablet 01/22 completed Not Available Not Available Not Available pravastatin 40 mg tablet Take 1 tablet every day by oral route. 06/22 completed Not Available Not Available Not Available ibuprofen 800 mg tablet 1 tab qd 06/22 completed Not Available Not Available Not Available hydrocodone 5 mg-acetamin ophen 325 mg tablet 06/22 completed Not Available Not Available Not Available prednisone 20 mg tablet Take 1 tablet every day by oral route. active Not Available Not Available No t Available Lantus U-100 Insulin 100 unit/mL subcutaneou s solution active Not Available Not Available N ot Available azathioprin e 50 mg tablet 2 tab qd active Not Available Not Available Not Available amlodipine 5 mg tablet Take 1 tablet every day by oral route. 03/23 completed Not Available Not Available Not Available sulfamethox azole 800 mg-trimetho prim 160 mg tablet 03/23 completed Not Available Not Available Not Available losartan 100 mg-hydrochl orothiazide 25 mg tablet Take 1 tablet every day by oral route. 03/23 completed Not Available Not Available Not Available pravastatin 80 mg tablet Take 1 tablet every day by oral route. 2017 active Not Available Not Available Not Avai lable prednisolon e acetate 1 % eye drops,suspe nsion 03/23 completed Not Available Not Available Not Available magnesium oxide 400 mg (241.3 mg magnesium) tablet Take 1 tablet every other day by oral route. 06/22 completed Not Available Not Available Not Available losartan 25 mg tablet Take 0.5 tablets every day by oral route. active Not Available Not Available No t Available nitroglycer in 0.4 mg sublingual tablet DISSOLVE 1 TABLET UNDER THE TONGUE NEEDED 2017 active Not Available Not Available Not Avai lable montelukast 10 mg tablet Take 1 tablet every day by oral route as directed. active Not Available Not Available No t Available hydrochloro thiazide 25 mg tablet TAKE 1 TABLET BY MOUTH EVERY DAY 2017 active Not Available Not Available Not Avai lable furosemide 20 mg tablet TAKE 1 TABLET BY MOUTH NEEDED 2017 active Not Available Not Available Not Avai lable ibuprofen 600 mg tablet 03/23 completed Not Available Not Available Not Available levofloxaci n 500 mg tablet 06/22 completed Not Available Not Available Not Available diltiazem 30 mg tablet Take 1 tablet twice a day by oral route. 03/23 completed Not Available Not Available Not Available losartan 100 mg tablet Take 1 tablet every day by oral route. 06/22 completed Not Available Not Available Not Available diltiazem 60 mg tablet TAKE 1 TABLET BY MOUTH TWICE DAILY 2017 active Not Available Not Available Not Avai lable Ventolin HFA 90 mcg/actuati on aerosol inhaler prn active Not Available Not Available Not Available metoprolol tartrate 25 mg tablet Take 1 tablet twice a day by oral route. 01/22 completed Not Available Not Available Not Available Atrovent HFA 17 mcg/actuati on aerosol inhaler prn active Not Available Not Available Not Available Aspir-81 1 tab qd active Not Available Not Av ailable Not Available Apidra U-100 Insulin 100 unit/mL subcutaneou s solution prn active Not Available Not Available N ot Available blood pressure kit-extra large cuff UAD 03/23 completed Not Available Not Available Not Available Dulera 200 mcg-5 mcg/actuati on HFA aerosol inhaler prn active Not Available Not Available Not Available potassium gluconate 550 mg (90 mg) tablet Take 1 tablet every day by oral route. 06/22 completed Not Available Not Available Not Available TRUEplus Lancets 33 gauge active Not Available Not Available Not Available Aerospan 80 mcg/actuati on HFA aerosol inhaler prn active Not Available Not Available Not Available True Metrix Glucose Test Strip active Not Available Not Available N ot Available Vitals Date Recorded Body height Body mass index (BMI) Body weight Heart rate Oxygen saturation Oxygen saturation in Arterial blood by Pulse oximetry Systolic blood pressure Diastolic blood pressure Provider Name and Address Organization Details Last Updated DateTime 7 180.34 cm 53.7 kg/m2 989963. 06 g 94 /min 93 % 93 % 112 mm[Hg] 86 mm[Hg] Kristina Mcdonough [facility] 7 16:10:15 Date Recorded Body height Body mass index (BMI) Body weight Oxygen saturation Oxygen saturation in Arterial blood by Pulse oximetry Heart rate Systolic blood pressure Diastolic blood pressure Provider Name and Address Organization Details Last Updated DateTime 8 180.34 cm 52.1 kg/m2 266915. 11 g 98 % 98 % 89 /min 128 mm[Hg] 78 mm[Hg] Raquel Turnerroe [facility] 8 15:01:05 Date Recorded Body weight Body mass index (BMI) Body height Heart rate Oxygen saturation Oxygen saturation in Arterial blood by Pulse oximetry Systolic blood pressure Diastolic blood pressure Provider Name and Address Organization Details Last Updated DateTime 7 618749. 81 g 47.3 kg/m2 180.34 cm 62 /min 98 % 98 % 120 mm[Hg] 80 mm[Hg] [facility] 7 13:01:43 Date Recorded Body height Body mass index (BMI) Body weight Heart rate Oxygen saturation Oxygen saturation in Arterial blood by Pulse oximetry Systolic blood pressure Diastolic blood pressure Provider Name and Address Organization Details Last Updated DateTime 180.34 cm 47.4 kg/m2 715169. 41 g 83 /min 98 % 98 % 112 mm[Hg] 64 mm[Hg] [facility] 7 12:25:10 Date Recorded Body height Heart rate Oxygen saturation Oxygen saturation in Arterial blood by Pulse oximetry Systolic blood pressure Diastolic blood pressure Provider Name and Address Organization Details Last Updated DateTime 180.34 cm 70 /min 98 % 98 % 108 mm[Hg] 82 mm[Hg] Kristina Mcdonough [facility] 12:34:16 Social History Question Answer Notes LastModified by Organizat ion Details LastModified Time Tobacco Smoking Status Former Smoker quit 2011 [facility] 01/04/2017 12:49:31 What Is Your Level Of Alcohol Consumption? None Information not available 01/04/2017 What Is Your Level Of Caffeine Consumption? Moderate Information not available 01/04/2017 What Type Of Diet Are You Following? DIABETIC Information not available 01/04/2017 Marital Status Information not available 01/04/2017 What Was The Date Of Your Most Recent Tobacco Screening? 06/22/2017 Information not available 01/24/2019 How Many Children Do You Have? 1 Information not available 01/04/2017 How Many Years Have You Smoked Tobacco? 10 [email or web address] Information not available 01/04/2017 Sex: Unknown Functional Status None recorded. Mental Status None recorded. Family History Relationship Description Onset Age of this Age Resolved Age Notes LastModified by Organization Details LastModified Time Mother Essential hypertension Not available 10/2016 12:49:14 Maternal Grandmother Coronary arterioscler osis [email or web address] Not available 2016 13:36:35 Medical History Condition Response Diabetes Y Hyperlipidemia Y Hypertension Y Asthma Y Sleep Apnea Y Past Encounters Encounter ID Performer Location Encounter Start Date Encounter Closed Date Diagnosis/Indication Diagnosis SNOMED-CT Code Diagnosis ICD10 Code Diagnosis Note [id number] Dominic Brown [facility] Office [address] [place] [address] 01/04/2017 11:59:16 01/05/2017 12:30:16 Atrial fibrillation 82361587 I48.91 pt currently is in NSR. Will obtain records from outside hospital. Holter. Essential hypertension 87232749 I10 Patient's blood pressure is {{well-con trolled* n ot well-contr olled}} on present medical therapy. Patient is {{tolerati ng, without difficulty ,* having side effects with}} the current medication s. I have {{not made* made the following} } changes to the current regimen. {{ Patient is advised to maintain a blood pressure diary.*}} Cont low Na diet. Chest discomfort 7501616 09 R07.89 Patient presents with {{chest* a rm back ja w}} pain {{typical of angina wit h atypical features*} }. Given the history, exam findings and {{high int ermediate * low}} cardiac risk factors, I {{feel* do not feel}} additional investigat ion is warranted. I have made arrangemen ts in the near future for {{an exercise stress echocardio gram to evaluate for any ischemia, structural heart disease, or exercise induced arrythmia an exercise stress nuclear test an exercise stress nuclear test (stress echo not possible due to COPD or obesity)* an exercise stress nuclear test and an echocardio gram to evaluate for any ischemia or structural heart disease a pharmacolo gic stress nuclear test due to reduced functional capacity or conduction abnormalit y cardiac catheteriz ation an echocardio gram to evaluate left ventricula r function and any structural heart disease or valvular abnormalit y}}. The procedure was discussed with the patient, and risks, benefits, and alternativ e options were explained. {{ The patient was informed about heart catheteriz ation and interventi onal procedures and agrees to proceed.}} Appropriat e labwork {{has has not*}} been performed recently, therefore I {{have not have*} } made arrangemen ts for further testing. I have asked the patient to curtail exercise and activities until our investigat ion is complete. I have {{made no made the following* }} adjustment s to the present medical regimen. {{ Patient has been started on daily aspirin.}} {{ Patient has been given a prescripti on for sublingual nitroglyce rin.*}} [id number] Dominic Robbins Office [address] [place] [address] 01/25/2017 12:03:37 01/26/2017 10:51:33 Cardiac arrhythmia 920030273 I49.9 pt currently is in NSR. Holter has not revealed sinificant arrhythmia s. switch amlodipine for Cardiazem since pt is known to have lung condition and PACs.Suppl ement electrolyt es.. Hyperlipidemia 26704358 E78.5 Patient's hyperlipid emia is {{well-con trolled* n ot well-contr olled}} on present medical therapy. Patient is {{tolerati ng, without difficulty ,* having side effects with}} the current medication s. I have {{not made* made the following} } changes to the current regimen. Cont low cholestero l diet. Essential hypertension 83599627 I10 Patient's blood pressure is {{well-con trolled* n ot well-contr olled}} on present medical therapy. Patient is {{tolerati ng, without difficulty ,* having side effects with}} the current medication s. I have {{not made made the following* }} changes to the current regimen. switch amlodipine for Cardizem 30 BID{{ Deysi ent is advised to maintain a blood pressure diary.*}} Cont low Na diet. Chest discomfort 8526176 09 R07.89 stress test negative. cont medical management and risk factor modificati on. [id number] [facility] [address] [place] [address] 2017 12:21:00 03/24/2017 09:34:15 Essential hypertension 22565363 I10 Patient's blood pressure is {{well-con trolled no t well-contr olled*}} on present medical therapy. Patient is {{tolerati ng, without difficulty ,* having side effects with}} the current medication s. I have {{not made made the following* }} changes to the current regimen.in crease Cardizem to 60 BID. For diuresis will add Lasix 20 PRN instead of HCTZ.{{ Nima roger is advised to maintain a blood pressure diary.*}} Cont low Na diet. Cardiac arrhythmia 84610 7007 I49.9 pt currently is in NSR. Holter has not revealed sinificant arrhythmia s. switch amlodipine for Cardiazem since pt is known to have lung condition and PACs.Suppl ement electrolyt es.. Hyperlipidemia 50775995 E78.5 Patient's hyperlipid emia is {{well-con trolled* n ot well-contr olled}} on present medical therapy. Patient is {{tolerati ng, without difficulty ,* having side effects with}} the current medication s. I have {{not made* made the following} } changes to the current regimen. Cont low cholestero l diet. Chest discomfort 5423552 09 R07.89 stress test negative. cont medical management and risk factor modificati on. [facility] OFFICE [address] [place] [address] 06/22/2017 16:02:35 06/23/2017 09:24:37 Essential hypertension 15746594 I10 Patient's blood pressure is {{well-con trolled no t well-contr olled*}} on present medical therapy. Patient is {{tolerati ng, without difficulty ,* having side effects with}} the current medication s. I have {{not made made the following* }} changes to the current regimen.in crease Cardizem to 60 BID. For diuresis will add Lasix 20 PRN instead of HCTZ.{{ Nima roger is advised to maintain a blood pressure diary.*}} Cont low Na diet. Cardiac arrhythmia 03873 7007 I49.9 pt currently is in NSR. Holter has not revealed sinificant arrhythmia s. switch amlodipine for Cardiazem since pt is known to have lung condition and PACs.Suppl ement electrolyt es.. Hyperlipidemia 09987223 E78.5 Patient's hyperlipid emia is {{well-con trolled* n ot well-contr olled}} on present medical therapy. Patient is {{tolerati ng, without difficulty ,* having side effects with}} the current medication s. I have {{not made* made the following} } changes to the current regimen. Cont low cholestero l diet. Chest discomfort 7477906 09 R07.89 stress test negative. cont medical management and risk factor modificati on. Dominic Stephanie [facility] Office [address] [place] [address] 01/22/2018 14:45:59 01/22/2018 15:46:58 Essential hypertension 22859581 I10 Patient's blood pressure is {{well-con trolled* n ot well-contr olled}} on present medical therapy. Patient is {{tolerati ng, without difficulty ,* having side effects with}} the current medication s. I have {{not made* made the following} } changes to the current regimen. {{ Patient is advised to maintain a blood pressure diary.*}} Advised to follow a low salt, low cholestero l diet. Aim for no more than 2,400mg of sodium per day. Aim for 30 minutes of aerobic exercise daily. Lasix PRN. ECHO Cardiac arrhythmia 50334 7007 I49.9 pt currently is in NSR/ ST. Holter did not revealed significan t arrhythmia s. Previously switched amlodipine for cardizem since pt is known to have lung condition and PACs. Supplement electrolyt es.. Hyperlipidemia 40958394 E78.5 Needs to keep LDL less than 70, and HDL more than 40 Will get lipid profile. Continue Statin. he states that his statin was started not long time ago will recheck lipids Chest discomfort 7801559 09 R07.89 Atypical given known lung disease. Had ECHO done in 12/02/16 showed normal LV systolic function , EF 60% , diastolic dysfunctio n. Had negative stress test done in 01/10/17 with normal LV systolic function , EF 61%. Continue maximal medical treatment and risk factor modificati on Health Concerns Section Related Observation LastModified by Organization Detai ls LastModified Time None Recorded Concern Status LastModified by Organization Details LastModified Time None Recorded Advance Directives Directive None Recorded Payers Encounter Date Sequence Insurance Name Policy Number Policy Munoz Covered Member ID Munoz Member ID Guarantor Name 01/04/2017 1 [facility] PRIOR TO 12/31/2020 (MEDICAID REPLACEMENT - HMO) Vu Tilley [id number] Vu Tilley 01/25/2017 1 [facility] PRIOR TO 12/31/2020 (MEDICAID REPLACEMENT - HMO) Vu Tilley [id number] Vu Tilley 2017 1 [facility] PRIOR TO 12/31/2020 (MEDICAID REPLACEMENT - HMO) Vu Tilley [id number] Vu Tilley 06/22/2017 1 [facility] PRIOR TO 12/31/2020 (MEDICAID REPLACEMENT - HMO) Vu Tilley [id number] Vu Tilley 01/22/2018 1 [facility] PRIOR TO 12/31/2020 (MEDICAID REPLACEMENT - HMO) Vu Tilley [id number] Vu Tilley Notes Date Note Type Note Provider Name and Address Organization Details Recorded Time 01/04/2017 text/html Mr. Tilley is a pleasant 36 y/o AAM with PMH of HL, CAR, asthma, HTN, DM who was referred for cardiovascular evaluation. According to the pt he recently underwent evaluation at [facility] where he was found to have irregular heart beating . Pt denies palpitatinso or syncopal episodes. Pt does experience episodes of heaviness at rest Pt was outpt he had ECHO in December 2016. He had Holter twice pt was told that he has AFIB and he was started on blood thinner. Previoysly about3 yrs agbo he seen derrickman helper in [facility] he was told that everything was fine. BP no no machine bp sometimes high - bp highest 212/160 Results from this visit, or from the past: EK01/04/17 Sinus rhythm. Early repolarization ECHO: 12/02/16 Normal left ventricular systolic function. No focal wall motion abnormalities. Normal left ventricular size. Diastolic dysfunction is present. Increased left heart filling pressures based on elevated E/E'. Ejection fraction is visually estimated at 60%. E/E' 10 is mildly elevated Underlying rhythm is probably atrial fibrillation. [facility] 01/04/2017 21:35:32 01/25/2017 text/html Mr. Tilley is a pleasant 36 y/o AAM with PMH of HL, CAR, asthma, HTN, DM who presents for scheduled fu. Pt was last time in our office about 3 weeks ago. Since then he feels fine. Denies any CP, SOB or palpitations. He had few diagnostic tests and today presents for review of results. Had ECHO done in 12/02/16 showed normal LV systolic function , EF 60% , diastolic dysfunction . Had negative stress test done in 01/10/17 with normal LV systolic function , EF 61% . According to the pt he recently underwent evaluation at [facility] where he was found to have irregular heart beating . Pt denies palpitations or syncopal episodes. Pt does experience episodes of heaviness at rest. On L side not related to physical activity Pt was outpt he had ECHO in December 2016. He had Holter twice pt was told that he has AFIB and he was started on blood thinner. previously about 3 yrs ago he seen derrickman helper in [facility] he was told that everything was fine. BP no no machine bp sometimes high - bp highest 212/160 Results from this visit, or from the past:01/10/17 : SOD 136.6, K 4.0, CL 99.6, CO2 31, GL 64.2, BUN 15, CR 1.2, TC 177, HDL 46.7, TR 114, LDL 107, AST 14, ALT 41 EK01/25/17 NSR with PACs, NSST changes EK01/04/17 Sinus rhythm. Early repolarization ECHO: 12/02/16 Normal left ventricular systolic function. No focal wall motion abnormalities. Normal left ventricular size. Diastolic dysfunction is present. Increased left heart filling pressures based on elevated E/E'. Ejection fraction is visually estimated at 60%. E/E' 10 is mildly elevated Underlying rhythm is probably atrial fibrillation. Treadmill Nuclear Stress Test 01/10/17 : Negative stress test for ischemia. Normal LV systolic function. Artifact noted. Exercise tolerance is below average. LVEF 61%. [facility] 01/25/2017 15:27:30 2017 text/html Mr. Tilley is a pleasant 37 y/o AAM with PMH of HL, CAR, asthma, HTN, DM who presents for scheduled fu. Pt was last time in our office about 2 months ago. Since then he states that his back and legs hurts him. His symptoms are not related to physical activity. he denies hx of DJD. Denies any CP, SOB or palpitations. 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 Had ECHO done in 12/02/16 showed normal LV systolic function , EF 60% , diastolic dysfunction . Had negative stress test done in 01/10/17 with normal LV systolic function , EF 61% . According to the pt he recently underwent evaluation at [facility] where he was found to have irregular heart beating . Pt denies palpitations or syncopal episodes. Pt used to experience episodes of heaviness at rest. On L side not related to physical activity Pt was outpt he had ECHO in December 2016. He had Holter twice pt was told that he has AFIB and he was started on blood thinner. previously about 3 yrs ago he seen derrickman helper in [facility] he was told that everything was fine. BP no no machine bp sometimes high - bp highest 212/160 Results from this visit, or from the past:01/10/17 : SOD 136.6, K 4.0, CL 99.6, CO2 31, GL 64.2, BUN 15, CR 1.2, TC 177, HDL 46.7, TR 114, LDL 107, AST 14, ALT 41 EK03/23/17 Sinus rhythm. Early repolarization EK01/25/17 NSR with PACs, NSST changes EK01/04/17 Sinus rhythm. Early repolarization Holter: 01/10/17 Few PVC's but not correlated with symptoms. Few PAC's but not correlated with symptoms. Tachycardia. ECHO: 12/02/16 Normal left ventricular systolic function. No focal wall motion abnormalities. Normal left ventricular size. Diastolic dysfunction is present. Increased left heart filling pressures based on elevated E/E'. Ejection fraction is visually estimated at 60%. E/E' 10 is mildly elevated Underlying rhythm is probably atrial fibrillation. Treadmill Nuclear Stress Test 01/10/17 : Negative stress test for ischemia. Normal LV systolic function. Artifact noted. Exercise tolerance is below average. LVEF 61%. [facility] 2017 15:04:56 06/22/2017 text/html Mr. Tilley is a pleasant 37 y/o AAM with PMH of HL, CAR, asthma, HTN, DM who presents for scheduled fu. Pt was last time in our office about 3 months ago. Since then he had flu like symptoms and was three times to ER. Pt states that it resolved by itself. Before his back and legs hurted him. His symptoms are not related to physical activity. he denies hx of DJD. Denies any CP, SOB or palpitations. 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 Had ECHO done in 12/02/16 showed normal LV systolic function , EF 60% , diastolic dysfunction . Had negative stress test done in 01/10/17 with normal LV systolic function , EF 61% . According to the pt he recently underwent evaluation at [facility] where he was found to have irregular heart beating . Pt denies palpitations or syncopal episodes. Pt used to experience episodes of heaviness at rest. On L side not related to physical activity Pt was outpt he had ECHO in December 2016. He had Holter twice pt was told that he has AFIB and he was started on blood thinner. previously about 3 yrs ago he seen derrickman helper in [facility] he was told that everything was fine. BP no no machine bp sometimes high - bp highest 212/160 Results from this visit, or from the past:01/10/17 : SOD 136.6, K 4.0, CL 99.6, CO2 31, GL 64.2, BUN 15, CR 1.2, TC 177, HDL 46.7, TR 114, LDL 107, AST 14, ALT 41 EK06/22/17 Sinus rhythm. Early repolarization EK03/23/17 Sinus rhythm. Early repolarization EK01/25/17 NSR with PACs, NSST changes EK01/04/17 Sinus rhythm. Early repolarization Holter: 01/10/17 Few PVC's but not correlated with symptoms. Few PAC's but not correlated with symptoms. Tachycardia. ECHO: 12/02/16 Normal left ventricular systolic function. No focal wall motion abnormalities. Normal left ventricular size. Diastolic dysfunction is present. Increased left heart filling pressures based on elevated E/E'. Ejection fraction is visually estimated at 60%. E/E' 10 is mildly elevated Underlying rhythm is probably atrial fibrillation. Treadmill Nuclear Stress Test 01/10/17 : Negative stress test for ischemia. Normal LV systolic function. Artifact noted. Exercise tolerance is below average. LVEF 61%. [facility] [place] [facility] 06/22/2017 16:47:15 01/22/2018 text/html 01/22/18 CC: Follow-up SOB, chest pain Patient is a 37 year-old -[place] man with sarcoidosis hyperlipidemia, CAR, asthma, obesity presents today for follow-up. He was here last 7 months ago. Since then he feels poor due to his diabetes and sarcoidosis. He sees Dr. Magaña at [facility] for that. Is in on chronic steroid therapy. He sees Dr. Washington for his diabetes mellitus. He saw him today. His A1C was 12 and is now 8.5. He got BP machine and according to his records BP runs 140-160/88. He has CAR and does not wear his CPAP every night. Before his back and legs hurted him. His symptoms are not related to physical activity. he denies hx of DJD. Had ECHO done in 12/02/16 showed normal LV systolic function , EF 60% , diastolic dysfunction. Had negative stress test done in 01/10/17 with normal LV systolic function , EF 61% . According to the pt he recently underwent evaluation at [facility] where he was found to have irregular heart beating . Pt denies palpitations or syncopal episodes. He had Holter twice. Was told everything was fine. No known history of coronary artery disease, previous myocardial infarction, heart failure, valvular heart disease, stroke, or kidney disease reported. He reports chronic, exertional chest discomfort. Resolves once he sits down. Reports stable shortness of breath at rest. Reports dyspnea on exertion. No orthopnea. No PNDs. Denies heart palpitations. Denies dizziness. Denies syncope or near syncope. No ankle or leg edema. No major bleeding events. No reported side effects from medications. Taking medications as prescribed with no missed doses. Results from this visit, or from the past:LABS: 01/10/17 : SOD 136.6, K 4.0, CL 99.6, CO2 31, GL 64.2, BUN 15, CR 1.2, TC 177, HDL 46.7, TR 114, LDL 107, AST 14, ALT 41 EKG 01/22/18: NSR, NSST changes Sinus tachycardia. Otherwise within normal limits. EK06/22/17 Sinus rhythm. Early repolarization EK03/23/17 Sinus rhythm. Early repolarization EK01/25/17 NSR with PACs, NSST changes EK01/04/17 Sinus rhythm. Early repolarization Holter: 01/10/17 Few PVC's but not correlated with symptoms. Few PAC's but not correlated with symptoms. Tachycardia. ECHO: 12/02/16 Normal left ventricular systolic function. No focal wall motion abnormalities. Normal left ventricular size. Diastolic dysfunction is present. Increased left heart filling pressures based on elevated E/E'. Ejection fraction is visually estimated at 60%. E/E' 10 is mildly elevated Underlying rhythm is probably atrial fibrillation. Treadmill Nuclear Stress Test 01/10/17 : Negative stress test for ischemia. Normal LV systolic function. Artifact noted. Exercise tolerance is below average. LVEF 61%. [facility] 01/22/2018 15:45:16
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
--- OUTSIDE RECORDS SUMMARY | 2024-08-02 09:25 | XMS_ITS | Clinical Summary ---
Author Organization [facility] Address [address] [place] [address] Care Team Providers Care Occupational Health Rn Name Role Phone LainaNamanemely Cronin NP Primary Care Provider [phone] Allergies Active Allergy Reactions Criticality Noted Date Comments Adhesive Rash Medium 07/12/2018 Wound dressing Pioglitazone Rash,Shortness of breath High 8 Medications atorvastatin (LIPITOR) 80 mg tablet Take 1 tablet (80 mg total) by mouth daily 3 Active carvediloL (COREG) 25 mg tablet TAKE 1 TABLET BY MOUTH EVERY 12 HOURS WITH FOOD 3 Active ezetimibe (ZETIA) 10 mg tablet Take 1 tablet (10 mg total) by mouth daily 3 Active FLUoxetine (PROzac) 20 mg capsule Take 1 capsule (20 mg total) by mouth daily 3 Active lisinopriL (PRINIVIL,ZESTR IL) 5 mg tablet Take 1 tablet (5 mg total) by mouth daily 3 Active Xarelto 20 mg tablet Take 1 tablet (20 mg total) by mouth daily with dinner 3 Active omeprazole (PriLOSEC) 20 mg capsule Take 1 capsule (20 mg total) by mouth daily Active mycophenolate mofetil (CELLCEPT) 500 mg tablet Take by mouth 2 (two) times a day Active furosemide (LASIX) 40 mg tablet Take 2 tablets (80 mg total) by mouth daily 2 Active losartan (COZAAR) 25 mg tablet Take 1 tablet (25 mg total) by mouth daily Active Trelegy Ellipta 200-62.5-25 mcg inhaler Inhale 1 puff daily 60 each 5 4 Active albuterol HFA (PROVENTIL HFA,VENTOLIN HFA,PROAIR HFA) 90 mcg/actuation inhaler USE 1 INHALATION 4 TIMES DAILY NEEDED FOR SHORTNESS OF BREATH OR WHEEZING 4 Active cholecalciferol (VITAMIN D-3) 5,000 unit tablet Take 1 tablet (5,000 Units total) by mouth daily 3 Active albuterol 2.5 mg /3 mL (0.083 %) nebulizer solution Take 3 mL (2.5 mg total) by nebulization every 6 (six) hours as needed for wheezing 75 mL 11 4 08/10/19 25 Active rivaroxaban (XARELTO) 20 mg tablet Take 1 tablet (20 mg total) by mouth daily with dinner for 28 days 28 tablet 4 Active Active Problems Problem Noted Date Diagnosed Date Sarcoidosis 04/28/2023 Surgical History Surgery Date Site/Laterality Comments ABDOMINAL SURGERY Medical History Medical History Date Comments Asthma Family History Medical History Relation Name Comments Hypertension Mother Relation Name Status Comments Mother Social History Tobacco Use Types Packs/Day Years Used Date Smoking Tobacco: Former Cigarettes Smokeless Tobacco: Never Tobacco Cessation:Counseling Given: Not Answered Alcohol Use Standard Drinks/Week Comments Not Currently 0 (1 standard drink = 0.6 oz pur e alcohol) Personal Safety Answer Date Recorded Getting School Help Needed Not on file 01/03 Sex and Gender Information Value Date Recorded Sex Assigned at Not on file Legal Sex Male 10:07 AM CDT Gender Identity Not on file Sexual Orientation Not on file Obstetrics History Last Filed Vital Signs Vital Sign Reading Time Taken Comments Blood Pressure 95/72 11/22/2023 9:15 AM CDT Pulse 61 11/22/2023 9:15 AM CDT Temperature 36.6 ??C (97.8 ??F) 08/11/2023 12:[address] Respiratory Rate 18 08/11/2023 12:18 PM 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 Oxygen Saturation 97% 11/22/2023 9:15 AM CDT Inhaled Oxygen Concentration - - Weight 113.9 kg (251 lb) 11/22/2023 9:15 AM CDT Height 180.3 cm (5' 11 ) 11/22/2023 9:15 AM CDT Body Mass Index 35.01 11/22/2023 9:15 AM CDT Plan of Treatment Health Maintenance Due Date Last Done Comments Depression Screening 1980 Hepatitis C Screening 1980 Prostate Cancer Screening-PSA 1980 Varicella Vaccines (1 of 2 - 13+ 2-dose series) 1993 Hepatitis B Screening 1998 Regular Well Visit/Exam 18-64 1998 Zoster Vaccine (1 of 2) 1999 Covid-19 Vaccine (3 - Moderna risk series) 11/11/2021 10/14/2021, 10/14/2021, 11/17/2020, Additional history exists Influenza Vaccine (#1) 2024 , 10/04/2021, 05/04/2020, Additional history exists DTaP/Tdap/Td Vaccine (3 - Td or Tdap) 12/25/2028 12/25/2018, 07/03/2008 Pneumococcal vaccine <65 (4 of 4 - PPSV23 or PCV20) 2045 12/25/2018, 04/05/2015, 06/27/2012 HPV Vaccines Aged Out No longer eligi ble based on patient's age to complete this topic Insurance MEDICARE AETNA MEDICARE [facility] MEDICARE [facility] Address: [address] [address] [place] [address] AETNA MEDICARE GOLD Care Teams Occupational Health Rn Relationship Specialty Start Date End Date Lotus Marina NP [address] [place] [address] PCP - General Nurse Practitioner 04/28/23 Terell Zamudio [address] [place] [address] Consulting Physician Cardiology 05/01/23
--- OUTSIDE RECORDS SUMMARY | 2024-08-02 09:25 | XMS_ITS | Clinical Summary ---
Author Organization [facility] Address [address] [place] [address] Phone Care Team Providers Care Aerospace Mechanic Name Role Phone Unavailable Primary Care Provider Unavailabl e Allergies Active Allergy Reactions Criticality Noted Date Comments Adhesive Rash Low 05/18/2022 Pioglitazone Rash Low 12/01/2021 Medications albuterol sulfate 90 mcg/Actuation inhaler Take 2 Puffs by inhalation every 6 hours. 2 Active atorvastatin (LIPITOR) 80 mg tablet atorvastatin 80 mg tablet TAKE 1 TABLET BY MOUTH EVERY DAY 2 Active carvediloL (COREG) 25 mg tablet Take 37.5 mg by mouth 2 times daily. 2 Active dronedarone (MULTAQ) 400 mg Tablet Multaq 400 mg tablet Active FLUoxetine (PROzac) 20 mg capsule fluoxetine 20 mg capsule TAKE 1 CAPSULE BY MOUTH EVERY DAY 2 Active fluticasone-umec lidinium-vilante rol (TRELEGY ELLIPTA) 100-62.5-25 mcg Disk with Device Trelegy Ellipta 100 mcg-62.5 mcg-25 mcg powder for inhalation INHALE 1 PUFF BY MOUTH EVERY DAY Active lisinopriL (PRINIVIL) 5 mg tablet lisinopril 5 mg tablet LISINOPRIL 5MG TABLET 2 Active albuterol (PROVENTIL,AMIRA HECTOR) 2.5 mg /3 mL (0.083 %) Solution for Nebulization Take 2.5 mg by inhalation every 6 hours as needed for Shortness of Breath. Active clobetasol-emoli ent (TEMOVATE) 0.05 % Cream Apply to affected area 1 time daily as needed. Active nitroglycerin (NITROSTAT) 0.4 mg Tablet, Sublingual Place 0.4 mg under tongue every 5 minutes as needed for Chest Pain. Active HYDROcodone-acet aminophen (HYCET) 7.5-325 mg/15 mL SolutionIndicati ons:Morbid obesity with body mass index of 40.0-49.9 (CMS/HCC) Take 15 mL by mouth every 6 hours as needed for Pain. Max Daily Amount: 60 mL 280 mL 05/19/2022 2:36 PM CUSTOMER RELATIONSHIP SPECIALIST 2 Active ondansetron (ZOFRAN ODT) 4 mg Tablet, Rapid Dissolve Take 1 Tablet (4 mg) by mouth every 6 hours as needed for Nausea/Vomiting. Dissolve tablet on top of tongue, then swallow with saliva. 28 Tablet 05/19/2022 2:36 PM CUSTOMER RELATIONSHIP SPECIALIST 2 Active rivaroxaban (XARELTO) 20 mg Tablet Take 1 Tablet (20 mg) by mouth daily with supper. Restart home dose of Xarelto on MondayMay 21 1 Tablet 2 Active Active Problems Problem Noted Date Diagnosed Date Type 2 diabetes mellitus without complications 1 07/18/2021 Immunizations Immunization Administration Dates Next Due (ADACEL/BOOSTRIX)(10 YR UP) TDAP VACCINE, 0.5ML, IM 12/25/2018 (PFIZER)(12 YR UP) COVID-19 VACCINE - EMERGENCY USE AUTHORIZATION, MRNA, [id number](PF) 30 MCG/0.3 ML IM SUSP 10/14/2021,11/17/2020,10/19/2020 (PNEUMOVAX 23)(50 YRS UP) PN EUMOCOCCAL POLYSACCHARIDE (PPV23) 0.5 ML, IM 12/25/2018 (SPIKEVAX) (12 YRS UP PRIMAR Y SERIES) COVID-19 VACCINE - [id number]-[id number](PF) 100 MCG/0.5 ML IM SUSP 11/17/2020,10/19/2020 INFLUENZA VACCINE QUADRIVALENT 6 MOS UP IM 05/04,03/27/2019,08/22/2018 INFLUENZA VACCINE QUADRIVALE NT 6 MOS UP PF IM 04/18/2022,10/04/2021,03/27/2019 Influenza Seasonal Unspecifi ed Formulation PF IM 08/22/2018 Social History Tobacco Use Types Packs/Day Years Used Date Smoking Tobacco: Former Cigarettes Smokeless Tobacco: Never Tobacco Cessation:Counseling Given: Not Answered Alcohol Use Standard Drinks/Week Comments Yes 0 (1 standard drink = 0.6 oz pur e alcohol) Sex and Gender Information Value Date Recorded Sex Assigned at Not on file Legal Sex Male 2:36 PM CDT Gender Identity Not on file Sexual Orientation Not on file Last Filed Vital Signs Vital Sign Reading Time Taken Comments Blood Pressure 150/92 05/19/2022 12:35 PM CUSTOMER RELATIONSHIP SPECIALIST Pulse 60 05/19/2022 12:35 PM CUSTOMER RELATIONSHIP SPECIALIST Temperature 36.9 ??C (98.4 ??F) 05/19/2022 1 2:35 PM CUSTOMER RELATIONSHIP SPECIALIST Respiratory Rate 18 05/19/2022 12:3 5 PM CUSTOMER RELATIONSHIP SPECIALIST Oxygen Saturation 100% 05/19/2022 12: 35 PM CUSTOMER RELATIONSHIP SPECIALIST Inhaled Oxygen Concentration - - Weight 158.1 kg (348 lb 9.6 oz) 05/19/2022 4:44 AM CUSTOMER RELATIONSHIP SPECIALIST Height 180.3 cm (5' 11 ) 05/17/2022 1:26 PM CUSTOMER RELATIONSHIP SPECIALIST Body Mass Index 48.62 05/17/2022 1:26 PM CUSTOMER RELATIONSHIP SPECIALIST Plan of Treatment Health Maintenance Due Date Last Done Comments DIABETES ANNUAL RETINAL EXAM 1998 DIABETES MICROALBUMIN ANNUAL SCREEN 1998 LDL CHOLESTEROL ANNUAL 1998 HEPATITIS B VACCINES (1 of 3 - 19+ 3-dose series) 1999 DIABETES ANNUAL FOOT EXAM 01/22/2019 01/22/2018 PNEUMOCOCCAL VACCINE 0-64 YEARS (2 of 2 - PCV) 12/26/2019 12/25/2018 DIABETES HBA1C Q 6 MONTHS 10/17/20222021, 10/04/2021, 01/22/2018 INFLUENZA VACCINE (#1) 2024 2, 10/04/2021, 05/04/2020, Additional history exists COVID-19 Vaccine (2023- season) 2024 10/14/2021, 10/14/2021, 11/17/2020, Additional history exists DTAP/TDAP/TD VACCINES (2 - Td or Tdap) 12/25/2028 12/25/2018 HPV VACCINES Aged Out No longer eligi ble based on patient's age to complete this topic Medical Devices Implanted Type Area Border Measurer And Cutter Device Identifier Shelf Expiration Date Model / Serial / Lot Seamguard Endogia 60 [id number] [id number] - [id number] Implanted:Qty : 2 on 05/18/2022 by Pao Bell MD at [facility] Biological N/A: Stomach [employer] 08/31/2024 [id number] / / [id number] Seamguard Endogia 60 [id number] [id number] - [id number] Implanted:Qty : 3 on 05/18/2022 by Pao Bell MD at [facility] Biological N/A: Stomach [employer] 08/25/2024 [id number] / / [id number] Description:#3 implant- lot# [id number] exp. 09/28/24 Insurance MEDICARE PART A AND B RX [employer] Member Subscriber Plan / Payer (Ef fective 2022-Present) Name:Vu Tilley Jr. Relation to Subscriber:Spouse Payer ID:Not on file Group ID:[id number] Type:RX Commercial Address: [address] [facility] Medicare Part D Advance Directives For more information, please contact: [phone] * Full Code (Latest Code Status on File) Date Activated Date Inactivated Comments 05/18/2022 3:46 PM 05/19/2022 4:40 PM * Full Code Date Activated Date Inactivated Comments 05/18/2022 1:17 PM 05/18/2022 3:46 PM * Full Code Date Activated Date Inactivated Comments 05/18/2022 10:30 AM 05/18/2022 1:16 PM
--- OUTSIDE RECORDS SUMMARY | 2024-08-02 09:25 | XMS_ITS | Referral Summary ---
Author Organization [facility] Address [address] [place] [address] Care Team Providers Care Knife Grinder Name Role Phone LainaNamanemely Cronin LEAD CASHIER Primary Care Provider [phone] Allergies Active Allergy Reactions Criticality Noted Date [...] Problem Noted Date Diagnosed Date Sarcoidosis 04/28/2023 Social History Tobacco Use Types Packs/Day Years [...] ST Respiratory Rate 18 08/11/2023 12:18 PM PROCESS CONTROL MANAGER Oxygen Saturation 97% 11/22/2023 9:15 AM CDT Inhaled Oxygen Concentration - - Weight 113.9 kg (251 lb) 11/22/2023 9:15 AM CDT Height 180.3 cm (5' 11 ) 11/22/2023 9:15 AM CDT Body Mass Index 35.01 11/22/2023 9:15 AM CDT Plan of Treatment Not on file Insurance AETNA MEDICARE GOLD AETNA MEDICARE GOLD MEDICARE [facility] Address: [address] [address] [place] [address] AETNA MEDICARE [facility] Care Teams Knife Grinder Relationship Specialty Start Date End Date Lotus Marina NP [address] [place] [address] PCP - General Nurse Practitioner 04/28/23 Terell Zamudio [address] [place] [address] Consulting Physician Cardiology 05/01/23
--- OUTSIDE RECORDS SUMMARY | 2024-08-02 09:25 | XMS_ITS | CONTINUITY OF CARE DOCUMENT ---
Author Name piyush pickett Address Unknown Organization [facility] Address [address] [place] [address] Phone [phone] Care Team Providers Care Director Of Maternity Services Name Role Phone Mathieu SLAUGHTER, Mohammajosé manuel Unavailable CHINA SLAUGHTER, ELENO Unavailable ELENO ATKINSON MD Unavailable PROBLEMS Condition Status Date Provider Notes Chest pain-neg routine stress active Kash Vitale MD Tobacco use, quit active Kash Vitale MD Obesity active Kash Vitale MD Sleep apnea active Kash Vitale MD Asthma active Kash Vitale MD Sarcoidosis active Kash Vitale MD HTN essential active Kash Vitale MD Family History of Hypertension: active ? Aura Vitale MD Family History of Hypertension: active ? Aura Vitale MD Other symptoms involving car diovascular system active Kash Vitale MD ENCOUNTERS Date Type Provider Location Encounter Diag nosis 2 - 5 In-person encounter Office Visit Kash Vitale MD [facility] Sleep apneaChest pain-neg routine stress 7 - 7 In-person encounter Office Visit Kash Vitale MD [facility] Other symptoms involving cardiovascular systemFamily History of Hypertension:Family History of Hypertension:HTN essentialSarcoidosisAsthmaSleep apneaObesityTobacco use, quitChest pain-neg routine stress VITAL SIGNS Date Observation Value Provider blood pressure, diastolic 71 mm[Hg] Me landa Ji blood pressure, systolic 124 mm[Hg] Evita fay Ji Body Mass Index (Ratio) 52.30 kg/m2 Sho yuan Ji pulse rate 76 /min Melinda Ji oxygen saturation, oximetry 96 % Melinda Ji respiratory rate E&M 16 /min Melinda Ji weight E&M 375 [lb_av] Melinda Cabelloann blood pressure, diastolic 41 mm[Hg] Ca kelley Molly blood pressure, systolic 147 mm[Hg] Can cinthia Molly Body Mass Index (Ratio) 53.55 kg/m2 Mariajosea danny Perez blood pressure, diastolic 95 mm[Hg] An jessicaris Chris blood pressure, systolic 149 mm[Hg] Ane atrihomer Perez pulse rate 82 /min Luis Perez oxygen saturation, oximetry 96 % Luis Perez respiratory rate E&M 18 /min Mariajoseatri s Chris weight E&M 384 [lb_av] Luis Perez height E&M 71 [in_i] Luis Perez ALLERGIES No Known Drug Allergies HISTORY OF MEDICATION USE Medication Status Instructions Dates Provider Indications Com ments LOSARTAN POTASSIUM-HCTZ 100-25 MG ORAL TABLET active 1 tab daily Luis Preez PROAIR HFA 108 (90 Base) MCG/ACT INHALATION AEROSOL SOLUTION active 2 puffs every 4-6 hours Luis Perez SOCIAL HISTORY Date Observation Value Provider social history reviewed E&M revi ewed - no changes required Kash Vitale MD smoking/tobacco cess ation, patient education and counseling yes Melinda Ji year patient quit cigar use 2011 [facility], [facility] number smoked per week [facility] Melinda Ji cigar use yes Melinda Ji smoking status Former smoker Melinda Lam nn smoking/tobacco cess ation, patient education and counseling yes Kash Vitale MD social history reviewed E&M roxanna curtis - no changes required Kash Vitale MD social history E&M 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 Smoking History: Shawn mark is a former smoker. B enefits of tobacco cessation reviewed. Kash Vitale MD year patient quit cigar use 2011 Luis Perez cigar use, date started 1991 Caleb Perez cigars, number smoked per week Luis Perez cigar use yes Luis Perez smoking status Former smoker Kash Vitale MD FUNCTIONAL STATUS Date Observation Value Provider periodic limb movement index absent (0) Nazanin Barnes FAMILY HISTORY Family Member Condition Father Family History of Hy pertension: Mother Family History of Hy pertension: INSURANCE PROVIDERS Payer name Policy type / Coverage type [place] red libertarian ID [place] MEDICARE Medicare [id number] TREATMENT PLAN Date Name Performer follow up:BP 124/71 His updated medication list for this problem includes: Losartan Potassium-hctz 100-25 Mg Tabs (Losartan potassium-hctz) ..... 1 tab daily Kash Vitale MD new patient visit: O rders: S TR - Routine (CPT-01871) S leep Study (*) Kash Vitale MD new patient visit: O rders: S TR - Routine (CPT-25970) S leep Study (*) C omplete Echo (CPT-36906) Kash Vitale MD Date Name Complete Echo Sleep Study STR - Routine HISTORY OF PROCEDURES Procedure Date Procedure Name Provider Procedure Notes S tatus EKG Kash Vitale MD completed
[2024-08-02 11:25] LABS: Anion Gap 8 mmol/L (4-12); Blood Urea Nitrogen 13 mg/dL (9-20); Calcium 9.8 mg/dL (8.4-10.2); Carbon Dioxide 30 mmol/L (22-30); Chloride 104 mmol/L (98-107); Cholesterol 141 mg/dL (0-200); Estimated Glomerular Filt Rate > 60; Glucose 88 mg/dL (65-110); HDL Direct 56 mg/dL; Sodium 142 mmol/L (137-145); Triglycerides 70 mg/dL (<150)
[2024-08-02 11:35] LABS: LDL Cholesterol Direct 61 mg/dL
== END 2024-08-02 08:52 | disposition home or self-care (01) ==
PROVIDERS: PCP Nurse Practitioner Family; Visit Provider Nurse Practitioner Family
DX: I50.22 Chronic systolic (congestive) heart failure (principal); M16.11 Unilateral primary osteoarthritis, right hip
CPT/HCPCS: 36415; 72110; 73502; 80048; 80061

== ENCOUNTER 2024-09-04 13:37 | Outpatient (CLI) | payer MEDICARE, SELFPAY ==
--- NOTE | ~2024-09-04 | MR_ITS ---
EXAMINATION: MR hip RT wo con DATE: 09/04/2024 15:12 INDICATION: Right hip pain. Abnormal lesion at the proximal left femur on prior CT. TECHNIQUE: Magnetic resonance imaging (MRI) of the right hip was performed without intravenous contr ast. Sequences included full-field axial PD-weighted FS FSE, T1-weighted FSE, T1-weighted FS FSE, cor onal of the pelvis with PD-weighted FS FSE, T2-weighted FSE, T1-weighted FSE and T1-weighted FS FSE, small field of view of the left hip with axial PD-weighted FS FSE, sagittal PD-weighted FS FSE, coron al PD-weighted FS FSE and coronal T2 weighted FSE. Additional radial T1-weighted FGR oriented orthog onal to the left acetabular rim were obtained for evaluation of the labrum. Small field of view of th e right hip with axial PD-weighted FS FSE, sagittal PD-weighted FS FSE and coronal PD-weighted FS FSE . COMPARISON: Radiographs dated 08/02/[address] dated 08/31/2013 FINDINGS: Bones/labrum/cartilage: Alignment is normal. No fracture, avascular necrosis or pathologic marrow replacing process. Low sig nal intensity sclerotic bone island at the base of the right greater trochanter. There is a 1.4 cm le pretty at the intertrochanteric proximal left femur with peripheral low signal intensity sclerotic rim with no appreciable interval change when compared with CT from 08/31/2013. The central portion of the l esion demonstrates increased T1 and T2 signal with fat saturation of the T1 signal consistent with in ternal macroscopic fat. Differential would include chronic bone infarct, intraosseous lipoma or less likely likely lipo sclerosing myxofibrous tumor. The labrum is normal at both the left and right acet abula. There is mild osteoarthritis at the left hip with supralateral and posterior predominant mild partial-thickness cartilage loss without degenerative subchondral changes. There is mild posterior pr edominant partial-thickness cartilage loss at the contralateral right hip also without degenerative s ubchondral changes. Mild lower lumbar spondylosis. Fluid: Symmetric physiologic amount of fluid within both hip joints. Soft tissues: Normal and symmetric muscle bulk and signal in the pelvis and visualized proximal thighs. Mild tendin opathy without discrete tear at the greater trochanteric insertions of the bilateral anterior gluteus medius tendons. The bilateral gluteus minimus and eber tendons are normal. The bilateral iliopsoa s and proximal hamstring tendons are normal. Small left hydrocele. Limited evaluation of visceral org ans of the pelvis is unremarkable. No pathologically enlarged pelvic/inguinal lymphadenopathy. IMPRESSION: 1. Mild bilateral hip osteoarthritis, left greater than right. 2. Mild tendinopathy without tears at the greater trochanteric insertions of the bilateral gluteus me dius tendons. 3. Benign left intertrochanteric bone lesion with peripheral sclerotic margins which is remained unch anged since 2013. There is macroscopic fat within the lesion which would favor either chronic bone in farct, intraosseous lipoma or less likely likely lipo sclerosing myxofibrous tumor. Reviewed, dictated and finalized at location B. E OPERATOR CAB IMPRESSION: 1. Mild bilateral hip osteoarthritis, left greater than right. 2. Mild tendinopathy without tears at the greater trochanteric insertions of th e bilateral gluteus medius tendons. 3. Benign left intertrochanteric bone lesion with peripheral sclerotic margins which is remained unchanged since 2013. There is macroscopic fat within the les ion which would favor either chronic bone infarct, intraosseous lipoma or less likely likely lipo sclerosing myxofibrous tumor.
--- OUTSIDE RECORDS SUMMARY | 2024-09-04 15:04 | XMS_ITS ---
Author Organization [facility] Address [facility] [facility] [address] [address] Care Team Providers Care Film Mounter Name Role Phone WINTER Lotus GERMAN Primary Care Provider UnavailArnoldo Morales Unavailable [phone] REASON FOR VISIT Bridge Therapy Social History Sex Assigned At : Social History Observation Description Sex Assigned At Male Encounters Encounter Location Date Provider Diagnosis [facility] [place] [employer] [place] [id number] [address] 08/27/2024 Arnoldo Rutledge Plan Of Treatment Next Appt Details Provider Name:Vinnie bentley, 09/17/2024 11:00:00 AM, [facility], [facility] [address], [place], [address], Provider Name:Arnoldo Rutledge , 09/23/2024 09:45:00 AM, [facility] [address], [address], [address], Progress Notes * FLORECITA MATTHEWS HESHAMODOB:[birth year] (44 yo M)Acc No.[id number]:08/27/2024 Patient: FLORECITA WEST :1980 A ge:44 Y S ex:Male Address:[address] [place] [address], [address] * true * Date: Generated for Printi ng/Faxing/eTransmitting on: 0 09/04/2024 03:04 PM TOP LIFT 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
--- OUTSIDE RECORDS SUMMARY | 2024-09-04 15:05 | XMS_ITS | Patient Health Record ---
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 medication class with draw in hand at next appointment. 2. Generalized Anxiety Disorder (BALBINA) - Current medication: Hydroxyzine provides some relief. - Plan: Continue Hydroxyzine as needed for anxiety. 3. Insomnia - Patient reports difficulty sleeping, only 20-30 minutes at a time with frequent awakenings. - Plan: a. Consider adding Remeron (Mirtazapine) or discuss alternative sleep aids with Dr. Rutledge. - patient reluctant to initiate r/t side effect profile. b. Encourage good sleep hygiene practices. c. pt denied trying melatonin as discussed at last visit. 4. Cardiac Conditions - History of cardiac conditions, currently on multiple cardiac medications. - Plan: Encourage discussion of potential medication changes (SNRI class) with draw in hand at next appointment. 5. Suicidal Ideation - Patient reports occasional thoughts of suicide without plan or intent. - Plan: a. Ensure crisis plan is in place and continue open communication with significant other. b. Remind of crisis prevention hotline (700) and to seek immediate help if plan or intent develops. c. Note: Patient's gun is locked up, only significant other has scott access. 6. Medication Refills - Plan: a. Send prescription for 30 days of Paroxetine 30mg tablets. b. Ensure adequate supply of Hydroxyzine for anxiety management. 7. Additional Considerations - Patient to consider Spravato treatment and discuss with significant other. - Initiate insurance paperwork for potential Spravato treatment. - Note: History of gastric sleeve surgery, previous unsuccessful trials of Prozac and paxil. 05/14/2024 Moderate episode of recurrent major depressive disorder (ICD-10 - F33.1) Assessment and plan reviewed with patient Call for problems with medication, side effects or need for dosage change Compliance issues reviewed Discussed the risks/benefits of this medication Discussed medication side effects Return if symptoms worsen Treatment options reviewed. discussed that it can take weeks to see full therapeutic effects of psychotropic medications. discussed when to seek emergency services. discussed crisis prevention hotline 988. 1. Major Depressive Disorder - He reports a history of depression and recent worsening of symptoms, with a BDI score of 19 indicating moderate depression. - Currently on paroxetine 20 mg daily, which seems to be working but running low on supply. - He reported depression levels of 8-9 out of 10 this morning. Plan: refill current medications follow up in one month encouraged the patient to initiate CBT. 2. Generalized Anxiety Disorder - He reports increased anxiety, with a BALBINA score of 7. - Currently taking hydroxyzine as needed, but running low on supply. - He reported current anxiety levels of 4-5 out of 10. Plan: refill hydroxyzine follow up in one month encouraged the patient to initiate CBT. 3. Insomnia - He reports difficulty sleeping, possibly related to paroxetine use in the evening. - He mentioned staring at the ceiling fan in the dark, unable to sleep. Plan: encouraged sleep hygiene discussed over the counter melatonin. 4. Post-traumatic stress symptoms - He reports occasional nightmares and triggers related to past incarceration. - He mentioned being triggered by being at home alone, feeling confined, and certain sounds like flushing toilets. - He has a history of trauma related to being abandoned in senior living during [place]. Plan refill hydroxyzine encouraged initiation of CBT. 5. Gastric sleeve surgery - He had gastric sleeve surgery at the beginning of the year and reports stress eating junk food. - He mentions eating chips and other snacks he knows he shouldn't have. Plan: discussed the possibility of needing higher doses of medication r/t absorption after gastric sleeve. reassess dose at next visit in one month. 6. Suicidal ideation - He reports occasional thoughts of suicide or self-harm but denies any plan or intent. - He mentioned having suicidal thoughts a few times this week. Plan: refill medications encouraged initiation of CBT. safety plan in place discussed crisis hotline '988' and when to seek emergency services. 7. Substance use - He denies smoking marijuana but occasionally uses a gummy, denies nicotine use, and reports minimal alcohol consumption. - He mentioned having a six-pack of [employer] Javan in the refrigerator for 2-3 months, only drinking one. Plan: discussed marijuana use and it's impact on mental health and medication metabolism 8. Firearms safety - He reports having firearms in the home, but they are stored separately from ammunition and secured by his . - He mentioned he cannot be in possession of firearms due to legal restrictions. Plan: educated on the importance of storing firearms and ammunition separately and having guns in a gun safe or a gun lock. 05/14/2024 Anxiety (ICD-10 - F41.9) 1. Major Depressive Disorder - He reports a history of depression and recent worsening of symptoms, with a BDI score of 19 indicating moderate depression. - Currently on paroxetine 20 mg daily, which seems to be working but running low on supply. - He reported depression levels of 8-9 out of 10 this morning. Plan: refill current medications follow up in one month encouraged the patient to initiate CBT. 2. Generalized Anxiety Disorder - He reports increased anxiety, with a BALBINA score of 7. - Currently taking hydroxyzine as needed, but running low on supply. - He reported current anxiety levels of 4-5 out of 10. Plan: refill hydroxyzine follow up in one month encouraged the patient to initiate CBT. 3. Insomnia - He reports difficulty sleeping, possibly related to paroxetine use in the evening. - He mentioned staring at the ceiling fan in the dark, unable to sleep. Plan: encouraged sleep hygiene discussed over the counter melatonin. 4. Post-traumatic stress symptoms - He reports occasional nightmares and triggers related to past incarceration. - He mentioned being triggered by being at home alone, feeling confined, and certain sounds like flushing toilets. - He has a history of trauma related to being abandoned in senior living during [place]. Plan refill hydroxyzine encouraged initiation of CBT. 5. Gastric sleeve surgery - He had gastric sleeve surgery at the beginning of the year and reports stress eating junk food. - He mentions eating chips and other snacks he knows he shouldn't have. Plan: discussed the possibility of needing higher doses of medication r/t absorption after gastric sleeve. reassess dose at next visit in one month. 6. Suicidal ideation - He reports occasional thoughts of suicide or self-harm but denies any plan or intent. - He mentioned having suicidal thoughts a few times this week. Plan: refill medications encouraged initiation of CBT. safety plan in place discussed crisis hotline '988' and when to seek emergency services. 7. Substance use - He denies smoking marijuana but occasionally uses a gummy, denies nicotine use, and reports minimal alcohol consumption. - He mentioned having a six-pack of [employer] Javan in the refrigerator for 2-3 months, only drinking one. Plan: discussed marijuana use and it's impact on mental health and medication metabolism 8. Firearms safety - He reports having firearms in the home, but they are stored separately from ammunition and secured by his . - He mentioned he cannot be in possession of firearms due to legal restrictions. Plan: educated on the importance of storing firearms and ammunition separately and having guns in a gun safe or a gun lock. 06/18/2024 Moderate episode of recurrent major depressive disorder (ICD-10 - F33.1) 1. Sleep Disturbance - Acknowledge the patient's reported improvement in sleep and its positive impact on overall well-being. - Continue to monitor sleep patterns and address any changes or concerns in subsequent visits. 2. Stress Management - Note the patient's stress related to family and social obligations and commend the initiation of setting boundaries. - Support the continued practice of setting boundaries and assertiveness to maintain a healthy balance in personal life. 3. Weight Management - Discuss the patient's recent weight gain and the frustration associated with it. - Encourage the patient to persist with the exercise plan, aiming for gradual increases in frequency and intensity, and to discuss any obstacles encountered in future consultations. 4. Medication Adherence - Address the patient's cessation of medications at the year's start and its potential impact on weight. - Emphasize the importance of adhering to prescribed medications and encourage discussing any medication-related concerns with the prescribing physician. 5. Family Dynamics and Support - Recognize the patient's active involvement in his daughter's life and the challenges encountered. - Advocate for open communication with family members to address concerns and foster a supportive home environment. 6. Social Support and Hobbies - Appreciate the patient's enjoyment of spending time with family and friends, engaging in holiday activities, and planning trips. - Encourage the patient to continue participating in social and recreational activities to enhance well-being and reduce stress. Follow-up: - Plan a follow-up visit to review the patient's progress and continue addressing the identified issues. 06/18/2024 Anxiety (ICD-10 - F41.9) 1. Sleep Disturbance - Acknowledge the patient's reported improvement in sleep and its positive impact on overall well-being. - Continue to monitor sleep patterns and address any changes or concerns in subsequent visits. 2. Stress Management - Note the patient's stress related to family and social obligations and commend the initiation of setting boundaries. - Support the continued practice of setting boundaries and assertiveness to maintain a healthy balance in personal life. 3. Weight Management - Discuss the patient's recent weight gain and the frustration associated with it. - Encourage the patient to persist with the exercise plan, aiming for gradual increases in frequency and intensity, and to discuss any obstacles encountered in future consultations. 4. Medication Adherence - Address the patient's cessation of medications at the year's start and its potential impact on weight. - Emphasize the importance of adhering to prescribed medications and encourage discussing any medication-related concerns with the prescribing physician. 5. Family Dynamics and Support - Recognize the patient's active involvement in his daughter's life and the challenges encountered. - Advocate for open communication with family members to address concerns and foster a supportive home environment. 6. Social Support and Hobbies - Appreciate the patient's enjoyment of spending time with family and friends, engaging in holiday activities, and planning trips. - Encourage the patient to continue participating in social and recreational activities to enhance well-being and reduce stress. Follow-up: - Plan a follow-up visit to review the patient's progress and continue addressing the identified issues. 07/16/2024 Moderate episode of recurrent major depressive disorder (ICD-10 - F33.1) Major Depressive Disorder Continue current antidepressant medication and closely monitor for any changes in mood or suicidal ideation. Encourage the patient to utilize his support system and consider reaching out to a crisis hotline if necessary. Card with information on 988 was provided to him. Schedule a follow-up appointment to evaluate the patient's mental health status. Marital Conflict Recommended considering couples therapy to address ongoing conflict, including controlling behavior, lack of trust, and communication issues. Client reports wanting to leave, continue to process this decision with him and provide support in how his relationship has affected his mental health. Housing Instability Encourage contacting 211 for information on emergency shelters, housing assistance, and other relevant resources. Discuss reaching out to family members for temporary support and provide information on local housing programs and resources for individuals with disabilities. [facility] for [facility], [facility], [facility], and [facility] for assistance. Social Isolation Encourage seeking social support through local support groups, community organizations, or online forums. Highlight the importance of maintaining social connections for mental health and well-being. Discuss setting boundaries with his regarding his social life and personal autonomy. Physical Health Encourage resuming physical activity, whether at the gym or through alternative methods like walking or home workouts. Discuss the mental and overall health benefits of regular exercise. Encourage communication with his about the importance of physical activity for his health and setting boundaries around her questioning and monitoring. Follow-up: Schedule a follow-up appointment to monitor the patient's progress and continue addressing the identified issues. 07/16/2024 Passive suicidal ideations (ICD-10 - R45.851) Major Depressive Disorder Continue current antidepressant medication and closely monitor for any changes in mood or suicidal ideation. Encourage the patient to utilize his support system and consider reaching out to a crisis hotline if necessary. Card with information on 988 was provided to him. Schedule a follow-up appointment to evaluate the patient's mental health status. Marital Conflict Recommended considering couples therapy to address ongoing conflict, including controlling behavior, lack of trust, and communication issues. Client reports wanting to leave, continue to process this decision with him and provide support in how his relationship has affected his mental health. Housing Instability Encourage contacting 211 for information on emergency shelters, housing assistance, and other relevant resources. Discuss reaching out to family members for temporary support and provide information on local housing programs and resources for individuals with disabilities. Obtained phone numbers for [facility], [facility], [facility], and [facility] for assistance. Social Isolation Encourage seeking social support through local support groups, community organizations, or online forums. Highlight the importance of maintaining social connections for mental health and well-being. Discuss setting boundaries with his regarding his social life and personal autonomy. Physical Health Encourage resuming physical activity, whether at the gym or through alternative methods like walking or home workouts. Discuss the mental and overall health benefits of regular exercise. Encourage communication with his about the importance of physical activity for his health and setting boundaries around her questioning and monitoring. Follow-up: Schedule a follow-up appointment to monitor the patient's progress and continue addressing the identified issues. 07/23/2024 Moderate episode of recurrent major depressive disorder (ICD-10 - F33.1) Vu will continue to look for alternative housing. He will also focus on not being responsive to 's attempts at triggering him and will increase patience. He will increase self care activities such as going to the gym and getting a hair cut. 07/23/2024 Anxiety (ICD-10 - F41.9) Vu will continue to look for alternative housing. He will also focus on not being responsive to 's attempts at triggering him and will increase patience. He will increase self care activities such as going to the gym and getting a hair cut. 08/06/2024 Moderate episode of recurrent major depressive disorder (ICD-10 - F33.1) Arthritis and Multiple Lesions in Hip and Joint Area Schedule an MRI to further investigate the cause of the lesions and determine the severity of arthritis. Discuss MRI results with the patient and develop a treatment plan based on the findings. Encourage the patient to make a list of questions for the healthcare provider regarding the MRI and potential treatment options. Anxiety and Sleep Disturbance Related to Medical Concerns Encourage the patient to schedule worry time during the day to process thoughts and concerns, allowing for better sleep at night. Remind the patient to practice healthy coping strategies, such as redirecting thoughts and focusing on positive aspects of life. Monitor the patient's anxiety levels and sleep patterns during follow-up visits. Family Support and Communication Encourage open communication between the patient and his partner regarding medical concerns and treatment preferences. Suggest that the patient and his partner establish boundaries for providing support and checking in on each other's well-being. Offer resources for family members to better understand and cope with the patient's medical condition. Planning for Upcoming Vacation Encourage the patient to focus on positive aspects of the upcoming trip and make necessary accommodations for his physical limitations. Suggest that the patient discuss his medical concerns with his healthcare provider before the trip to ensure he has appropriate support and resources available. Remind the patient to prioritize self-care and relaxation during the vacation, balancing activities with rest and recovery time. Follow-up: Schedule a follow-up appointment to monitor the patient's progress and continue working on the identified issues. 08/06/2024 Anxiety (ICD-10 - F41.9) Arthritis and Multiple Lesions in Hip and Joint Area Schedule an MRI to further investigate the cause of the lesions and determine the severity of arthritis. Discuss MRI results with the patient and develop a treatment plan based on the findings. Encourage the patient to make a list of questions for the healthcare provider regarding the MRI and potential treatment options. Anxiety and Sleep Disturbance Related to Medical Concerns Encourage the patient to schedule worry time during the day to process thoughts and concerns, allowing for better sleep at night. Remind the patient to practice healthy coping strategies, such as redirecting thoughts and focusing on positive aspects of life. Monitor the patient's anxiety levels and sleep patterns during follow-up visits. Family Support and Communication Encourage open communication between the patient and his partner regarding medical concerns and treatment preferences. Suggest that the patient and his partner establish boundaries for providing support and checking in on each other's well-being. Offer resources for family members to better understand and cope with the patient's medical condition. Planning for Upcoming Vacation Encourage the patient to focus on positive aspects of the upcoming trip and make necessary accommodations for his physical limitations. Suggest that the patient discuss his medical concerns with his healthcare provider before the trip to ensure he has appropriate support and resources available. Remind the patient to prioritize self-care and relaxation during the vacation, balancing activities with rest and recovery time. Follow-up: Schedule a follow-up appointment to monitor the patient's progress and continue working on the identified issues. 08/13/2024 Moderate episode of recurrent major depressive disorder (ICD-10 - F33.1) Adjustment Difficulties and Stress Management The patient is experiencing stress related to family dynamics and communication, feeling like he is walking on eggshells and struggling with the impact of his partner's mood on his mental health. Encourage the patient to continue attending therapy sessions to develop coping strategies and improve communication skills. Recommend considering couples therapy to address relationship issues and improve communication between the patient and his partner. Encourage the patient to engage in self-care activities and stress-reducing techniques, such as exercise, mindfulness, and relaxation techniques. Suicidal Ideation The patient reports that certain situations negatively impact his mental health, leading to suicidal thoughts. Continue to monitor the patient's mental health and suicidal ideation during therapy sessions. Develop a safety plan with the patient to identify warning signs, coping strategies, and support networks. Encourage the patient to reach out to a mental health professional or crisis hotline if suicidal thoughts intensify or persist. Partner's Work Stress and Mental Health The patient reports that his partner is experiencing work stress and may benefit from individual therapy. Encourage the patient to discuss the possibility of individual therapy with his partner to help her process work stress and make healthy changes. Provide resources and referrals for mental health professionals specializing in stress management and relationship concerns. Upcoming Family Trip The patient is planning a trip to [place] and is concerned about maintaining peace during the vacation. Encourage the patient to utilize coping strategies and communication skills learned in therapy to navigate potential conflicts during the trip. Schedule a follow-up appointment after the trip to discuss the patient's experiences and any concerns that may have arisen. Follow-up: A follow-up appointment is scheduled to monitor the patient's progress and continue working on the identified issues. 08/13/2024 Anxiety (ICD-10 - F41.9) Adjustment Difficulties and Stress Management The patient is experiencing stress related to family dynamics and communication, feeling like he is walking on eggshells and struggling with the impact of his partner's mood on his mental health. Encourage the patient to continue attending therapy sessions to develop coping strategies and improve communication skills. Recommend considering couples therapy to address relationship issues and improve communication between the patient and his partner. Encourage the patient to engage in self-care activities and stress-reducing techniques, such as exercise, mindfulness, and relaxation techniques. Suicidal Ideation The patient reports that certain situations negatively impact his mental health, leading to suicidal thoughts. Continue to monitor the patient's mental health and suicidal ideation during therapy sessions. Develop a safety plan with the patient to identify warning signs, coping strategies, and support networks. Encourage the patient to reach out to a mental health professional or crisis hotline if suicidal thoughts intensify or persist. Partner's Work Stress and Mental Health The patient reports that his partner is experiencing work stress and may benefit from individual therapy. Encourage the patient to discuss the possibility of individual therapy with his partner to help her process work stress and make healthy changes. Provide resources and referrals for mental health professionals specializing in stress management and relationship concerns. Upcoming Family Trip The patient is planning a trip to [place] and is concerned about maintaining peace during the vacation. Encourage the patient to utilize coping strategies and communication skills learned in therapy to navigate potential conflicts during the trip. Schedule a follow-up appointment after the trip to discuss the patient's experiences and any concerns that may have arisen. Follow-up: A follow-up appointment is scheduled to monitor the patient's progress and continue working on the identified issues. 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 Gastric sleeve done 2 years ago. Spiritual Beliefs: Denied Suicidal Ideation/Self Harm: Passive SI Homicidal Ideation: Denied Access to Means (firearms, stockpiled medication, etc.): yes, locked in a gun safe Chief Complaint: When COVID started, it triggered my depression. Quit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 beginning of the year and reports stress eating junk food. - He mentions eating chips and other snacks he knows he shouldn't have. Plan: discussed the possibility of needing higher doses of medication r/t absorption after gastric sleeve. reassess dose at next visit in one month. 6. Suicidal ideation - He reports occasional thoughts of suicide or self-harm but denies any plan or intent. - He mentioned having suicidal thoughts a few times this week. Plan: refill medications encouraged initiation of CBT. safety plan in place discussed crisis hotline '988' and when to seek emergency services. 7. Substance use - He denies smoking marijuana but occasionally uses a gummy, denies nicotine use, and reports minimal alcohol consumption. - He mentioned having a six-pack of Sherly Javan in the refrigerator for 2-3 months, only drinking one. Plan: discussed marijuana use and it's impact on mental health and medication metabolism 8. Firearms safety - He reports having firearms in the home, but they are stored separately from ammunition and secured by his . - He mentioned he cannot be in possession of firearms due to legal restrictions. Plan: educated on the importance of storing firearms and ammunition separately and having guns in a gun safe or a gun lock. 06/11/2024 Other Assessment and plan reviewed with patient Call for problems with medication, side effects or need for dosage change Compliance issues reviewed Discussed the risks/benefits of this medication Discussed medication side effects Return if symptoms worsen Treatment options reviewed. discussed that it can take weeks to see full therapeutic effects of psychotropic medications. discussed when to seek emergency services. discussed crisis prevention hotline 928. 1. Major Depressive Disorder (MDD) - Current medication: Paroxetine (Paxil) 20mg daily since beginning of year, minimal improvement. - Plan: a. Increase Paroxetine to 30mg daily (1.5 tablets of 20mg until finished, then switch to 30mg tablets). b. Schedule appointment with Dr. Rutledge for evaluation and discussion of alternative treatments (Kristoferavamelanie, TMS). c. Encourage discussion of SNRI medication class with draw in hand at next appointment. 2. Generalized Anxiety Disorder (BALBINA) - Current medication: Hydroxyzine provides some relief. - Plan: Continue Hydroxyzine as needed for anxiety. 3. Insomnia - Patient reports difficulty sleeping, only 20-30 minutes at a time with frequent awakenings. - Plan: a. Consider adding Remeron (Mirtazapine) or discuss alternative sleep aids with Dr. Rutledge. - patient reluctant to initiate r/t side effect profile. b. Encourage good sleep hygiene practices. c. pt denied trying melatonin as discussed at last visit. 4. Cardiac Conditions - History of cardiac conditions, currently on multiple cardiac medications. - Plan: Encourage discussion of potential medication changes (SNRI class) with draw in hand at next appointment. 5. Suicidal Ideation - Patient reports occasional thoughts of suicide without plan or intent. - Plan: a. Ensure crisis plan is in place and continue open communication with significant other. b. Remind of crisis prevention hotline (809) and to seek immediate help if plan or intent develops. c. Note: Patient's gun is locked up, only significant other has scott access. 6. Medication Refills - Plan: a. Send prescription for 30 days of Paroxetine 30mg tablets. b. Ensure adequate supply of Hydroxyzine for anxiety management. 7. Additional Considerations - Patient to consider Spravato treatment and discuss with significant other. - Initiate insurance paperwork for potential Spravato treatment. - Note: History of gastric sleeve surgery, previous unsuccessful trials of Prozac and paxil. 08/26/2024 Other Major Depressive Disorder, severe - Assessment: Patient has a history of depression since around [id number], exacerbated by COVID-19 and past incarceration. PHQ-9 score is 18, indicating severe depression. The patient has been on Paxil, but it has not been effective recently. He also has a history of treatment non-adherence. - Plan: - Discontinue Paxil. - Start duloxetine 30 mg daily for one week, then increase to 60 mg daily. - Schedule a follow-up appointment in 3 to 4 weeks to assess the effectiveness of the new medication and monitor for any side effects. Anxiety - Assessment: Patient is taking hydroxyzine as needed for anxiety. - Plan: - Continue hydroxyzine as needed. - Monitor for any changes in anxiety levels during the follow-up appointment. Nightmares and possible PTSD - Assessment: Patient reports occasional nightmares and talking in sleep about violent events, related to past experiences, including incarceration. No worsening with Paxil. - Plan: - Monitor the frequency and severity of nightmares. - If they worsen or become more frequent, consider adding prazosin for nightmares. Hypertension - Assessment: Patient is on lisinopril, Coreg, and Xarelto for hypertension management. - Plan: - Continue current medications. - Monitor blood pressure during follow-up appointments. Type 2 Diabetes, in remission - Assessment: Patient's diabetes is currently in remission with diet control. - Plan: - Encourage the patient to continue maintaining a healthy diet and lifestyle. - Monitor blood glucose levels during follow-up appointments. Substance use - Assessment: Assess patient's smoking and alcohol consumption habits. - Plan: - Provide appropriate counseling and resources for smoking cessation and alcohol use reduction if needed. Therapy - Assessment: Patient has an appointment with a therapist (Vinnie) scheduled for the following day. - Plan: - Encourage the patient to attend therapy sessions. - Discuss any concerns or progress during follow-up appointments. Plan Of Treatment Next Appt Details Provider Name:Vinnie bentley, 09/17/2024 11:00:00 AM, [address], [facility] [address], [place], [address], Provider Name:Arnoldo Rutledge , 09/23/2024 09:45:00 AM, [address], [address], [place], [address], Insurance Providers Payer Name Payer Address Payer Phone Subscriber Number Group Number Insured Name Patient Relationship to Insured Coverage Start Date Coverage End Date [employer] - [employer] Replacemen t/Advantag e - Hmo [address] [place] [phone] [id number] MATTHEWS Self - patient is the insured Medicare-I l Medicare [address] [place] [address] [id number] MATTHEWS Self - patient is the insured Medical (General) History Medical History History ICD Code hyperlipidemia Past Psychiatric History: Anxiety Disord er,Major Depressive Episode undefined hypertension: Yes type 2 diabetes mellitus: Yes vitamin D deficiency: Yes Past Psychiatric History: Major Depressi ve Episode undefined abdominal aortic aneurysm: No atrial fibrillation: Yes vitamin B12 deficiency: Yes Surgical History Surgery Date(Month/Year) gastric sleeve
--- OUTSIDE RECORDS SUMMARY | 2024-09-04 15:05 | XMS_ITS | Data Portability ---
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 Organization Details Recorded Time 06/19/2017 text/html Besides the anil nt pain and the tingling of my feet Mr. Tilley returns, after his last visit during which he was ill, he ended up in another ER and he has since followed up with his business support liaison. He is much better but he complains of polyarticular joint pain and neuropathy since his illness at the end of April, it appears that his business support liaison started him on Azathioprine. There is no family history of autoimmune diseases and there is no periodicity to the polyarticular joint pain. He has numbness intermittently in both feet with swelling, his Prednisone dose has not been changed and he feels otherwise well. He apparently had labs done by his business support liaison as well. Imani Em MD Attn: Accounting,[address] [place], [address], [facility] 06/19/2017 16:48:25 07/31/2017 text/html Diabetes F/URepo rted [...] of feet; no calluses on feet Mr. Treva whipple with uncontrolled blood sugars despite a reduction in the dose of his chronic prednisone. He was told by his insurance company that it may be his 3 year old meter, in the interim, he was in the ER while out of town with uncontrolled DM and he has had to increase his Apidra to 8 units TID. Imani Em MD Attn: Accounting[address] [place], [address], [facility] 07/31/2017 12:19:47 09/11/2017 text/html Diabetes F/URepo rted [...] feet I had an allergic reaction Mr. Treva whipple, he never received the Victoza nor the glucometer, he states that he was told that they are not covered. In the interim he states that he developed an allergic reaction to Pioglitazone (Throat swelling and real bad chest pains) for which he was admitted to [place], [place] in August 2017. He was discharged on Lantus 25 units, HS and told to request a referral to an slurry control tender and HUmalog or Novolog. Imani Em MD Attn: Accounting[address] [place], [address], [facility] 09/11/2017 11:31:54 02/26/2018 text/html Diabetes F/URepo rted [...] metacarpal. Imani Em MD Attn: Accounting[address] [facility], [place], [address], [facility] 02/26/2018 17:31:59
--- OUTSIDE RECORDS SUMMARY | 2024-09-04 15:05 | XMS_ITS | Data Portability ---
Author Organization [facility] OFFICE Address [address] [place] [address] Assessment No assessment recorded. Plan of Treatment Reminders Order Date Submit Date Provider Last Modified By Organization Details Last Modified Time Details Appointments None recorded. Lab None recorded. Referral None recorded. Procedures None recorded. Surgeries None recorded. Imaging electrocar diogram 2017 018 [email or web address] Not available 8 15:46:58 electrocar diogram 2016 017 [email or web address] Not available 7 10:51:34 electrocar diogram 2016 017 [email or web address] Not available 7 12:30:16 Medication Orders pravastati n 80 mg tablet 2017 018 [facility], [address], [place], [place], [id number], 8 15:45:17 Cozaar 25 mg tablet 2016 017 [facility]708, [address], [place], [place], [id number], 7 16:46:15 pravastati n 80 mg tablet [email or web address] [facility], [address], [place], [place], [id number], 8 15:02:45 Cardizem 60 mg tablet 2016 017 [facility] #56405, [address], [place], [place], [id number], 7 15:02:51 losartan 100 mg tablet [address] [facility]93933, [address], [id number], 7 16:13:30 hydrochlor othiazide 25 mg tablet [address] [facility]93995, [address], [id number], 7 16:13:19 Lasix 20 mg tablet 2016 017 [facility] #84873, [address], [phone], 7 15:02:50 Cardizem 30 mg tablet 2016 017 [facility] #48420, [address], [id number], 7 14:59:56 magnesium oxide 400 mg (241.3 mg magnesium) tablet [address] [facility]15204, [address], [place], [id number], 7 16:13:12 nitroglyce rin 0.4 mg sublingual tablet 2016 017 [facility] #76838, [address], [place], [id number], 7 21:32:55 Patient TargetsNo targets recorded. Patient Instructions Encounter Date Encounter Id Patient Instructions Last Modified By Organization Details Last Modified Time 01/04/2017 [id number] high blood pressure: care instructions Not available 01/05/2017 09:50:40 learning about high blood pressure Not available 01/05/2017 09:50:40 atrial fibrillation: care instructions Not available 01/05/2017 09:50:40 01/25/2017 [id number] high blood pressure: care instructions Not available 01/25/2017 15:59:02 learning about high blood pressure Not available 01/25/2017 15:59:02 high cholesterol : care instructions Not available 01/25/2017 15:59:02 2017 [id number] high blood pressure: care instructions [email or web address] Not available 2017 16:20:42 learning about high blood pressure [email or web address] Not available 2017 16:20:42 high cholesterol : care instructions [email or web address] Not available 2017 16:20:42 06/22/2017 [id number] high blood pressure: care instructions [email or web address] Not available 06/22/2017 16:46:09 learning about high blood pressure [email or web address] Not available 06/22/2017 16:46:09 high cholesterol : care instructions [email or web address] Not available 06/22/2017 16:46:09 01/22/2018 [id number] high blood pressure: care instructions [email or web address] Not [...] s Not Available Leon Ledesma MD [address], [place], [address], 01/25/2017 15:17:27 01/05/20 17 01/04/2017 elect rocar diogr am Result EK Sinus rhythm . Within normal limits . Not Available Leon Ledesma MD [address], [place], [address], 01/04/2017 12:47:35 01/23/20 18 01/22/2018 elect rocar diogr am Result EKG 8: NSR, NSST change s Not Available Leon Ledesma MD [address], [place], [address], 01/22/2018 14:58:12 01/05/20 17 12/02/2016 US, echoc ardio gram, trans thora cic, compl ete, w/ color flow No observ ation record ed. [email or web address] Stacie Lomas MD [facility] [address] [place], [address], 01/13/2017 13:38:48 01/05/20 17 01/04/2017 elect rocar [...] diogr am No observ ation record ed. [email or web address] Not Available 01/23 16:46:13 03/22/20 18 03/19/2018 US, echoc ardio gram No observ ation record ed. [email or web address] Not Available 2018 13:01:20 Result Notes None recorded. Problems Name Problem SNOMED Code Status Onset Date Resolution Date Notes Provider Name and Address Organization Details Recorded Time Diabetes mellitus 91578736 Active 2013 [id number] Dominic Brown [facility] 7 13:23:21 Essential hypertensi on 95109481 Active 2016 [facility] 7 12:48:25 Asthma 347088817 Active 2016 dr Keyur Miranda [facility] 7 13:35:35 Sleep apnea 14388971 Active 2016 on cpap pulmonary fy. Mani Zapien [facility] 7 13:20:05 Hyperlipid emia 71417232 Active 2016 [facility] 7 12:48:51 Chest discomfort 879335072 Active 2016 [facility] 7 21:29:41 Atrial fibrillati on 24568639 Active 2016 Amando Griffin [facility] 7 16:08:41 Cardiac arrhythmia 301026248 Active 2016 Dominci [facility] 7 15:17:05 Sarcoidosi s 86714609 Active 2016 [facility] 7 13:24:06 Problem Notes None recorded. Procedures Surgical History None recorded. Imaging Results Imaging Date Name Status LastModified by Organization Details LastModified Time 12/02/2016 US, echocardiogram, transthoracic, complete, w/ color flow completed [email or web address] Stacie Lomas MD [facility] [address], [place], [address], 01/13/2017 13:38:48 01/04/2017 electrocardiogram completed Informa tion not available 01/04/2017 16:31:18 01/10/2017 treadmill nuclear stress test (PROC) completed Information not available 01/21/2017 15:49:13 01/25/2017 electrocardiogram completed [email or web address] Inform ation not available 01/27/2017 14:39:01 01/10/2017 holter monitor completed Informatio n not available 02/14/2017 10:39:34 2017 electrocardiogram completed Informa tion not available 06/20/2017 07:46:36 06/22/2017 electrocardiogram completed [email or web address] Informa tion not available 06/27/2017 09:29:12 01/22/2018 electrocardiogram completed [email or web address] Informa tion not available 01/23/2018 16:46:13 03/19/2018 [...] Updated DateTime 7 180.34 cm 53.7 kg/m2 034825. 06 g 94 /min 93 % 93 % 112 mm[Hg] 86 mm[Hg] Kristina Mcdonough [facility] 7 16:10:15 Date Recorded Body height Body mass index (BMI) Body weight Oxygen saturation Oxygen saturation in Arterial blood by Pulse oximetry Heart rate Systolic blood pressure Diastolic blood pressure Provider Name and Address Organization Details Last Updated DateTime 8 180.34 cm 52.1 kg/m2 343536. 11 g 98 % 98 % 89 /min 128 mm[Hg] 78 mm[Hg] Raquel Turnerroe [facility] 8 15:01:05 Date Recorded Body weight Body mass index (BMI) Body height Heart rate Oxygen saturation Oxygen saturation in Arterial blood by Pulse oximetry Systolic blood pressure Diastolic blood pressure Provider Name and Address Organization Details Last Updated DateTime 7 694438. 81 g 47.3 kg/m2 180.34 cm 62 /min 98 % 98 % 120 mm[Hg] 80 mm[Hg] [facility] 7 13:01:43 Date Recorded Body height Body mass index (BMI) Body weight Heart rate Oxygen saturation Oxygen saturation in Arterial blood by Pulse oximetry Systolic blood pressure Diastolic blood pressure Provider Name and Address Organization Details Last Updated DateTime 180.34 cm 47.4 kg/m2 004307. 41 g 83 /min 98 % 98 % 112 mm[Hg] 64 mm[Hg] [facility] 7 12:25:10 Date Recorded Body height Heart rate Oxygen saturation Oxygen saturation in Arterial blood by Pulse oximetry Systolic blood pressure Diastolic blood pressure Provider Name and Address Organization Details Last Updated DateTime 180.34 cm 70 /min 98 % 98 % 108 mm[Hg] 82 mm[Hg] Kristina Mcdonouhg [facility] 12:34:16 Social History Question Answer Notes LastModified by Organizat ion Details LastModified Time Tobacco Smoking Status Former Smoker quit 2011 [facility] 01/04/2017 12:49:31 What Is Your Level Of [...] SNOMED-CT Code Diagnosis ICD10 Code Diagnosis Note [id number] Dominic Brown Jacqui [facility] Office [address] [place] [address] 01/04/2017 11:59:16 01/05/2017 12:30:16 Atrial fibrillation 57678976 I48.91 pt currently is in NSR. Will obtain records from outside hospital. Holter. Essential hypertension 51124121 I10 Patient's blood pressure is {{well-con trolled* n ot well-contr olled}} on present medical therapy. Patient is {{tolerati ng, without difficulty ,* having side effects with}} the current medication s. I have {{not made* made the following} } changes to the current regimen. {{ Patient is advised to maintain a blood pressure diary.*}} Cont low Na diet. Chest discomfort 6153970 09 R07.89 Patient presents with {{chest* a [...] a prescripti on for sublingual nitroglyce rin.*}} [id number] Dominic Robbins Office [address] [place] [address] 01/25/2017 12:03:37 01/26/2017 10:51:33 Cardiac arrhythmia 497750496 I49.9 pt currently is in NSR. Holter has not revealed sinificant arrhythmia s. switch amlodipine for Cardiazem since pt is known to have lung condition and PACs.Suppl ement electrolyt es.. Hyperlipidemia 15507459 E78.5 Patient's hyperlipid emia is {{well-con trolled* n ot well-contr olled}} on present medical therapy. Patient is {{tolerati ng, without difficulty ,* having side effects with}} the current medication s. I have {{not made* made the following} } changes to the current regimen. Cont low cholestero l diet. Essential hypertension 00481502 I10 Patient's blood pressure is {{well-con trolled* [...] diary.*}} Cont low Na diet. Chest discomfort 7812575 09 R07.89 stress test negative. cont medical management and [place]. [id number] [facility] [address] [place] [address] 2017 12:21:00 03/24/2017 09:34:15 Essential hypertension 56688374 I10 Patient's blood pressure is {{well-con trolled [...] diary.*}} Cont low Na diet. Cardiac arrhythmia 65131 7007 I49.9 pt currently is in NSR. Holter has not revealed sinificant arrhythmia s. switch amlodipine for Cardiazem since pt is known to have lung condition and PACs.Suppl ement electrolyt es.. Hyperlipidemia 81333244 E78.5 Patient's hyperlipid emia is {{well-con trolled* n ot well-contr olled}} on present medical therapy. Patient is {{tolerati ng, without difficulty ,* having side effects with}} the current medication s. I have {{not made* made the following} } changes to the current regimen. Cont low cholestero l diet. Chest discomfort 9314459 09 R07.89 stress test negative. cont medical management and risk factor modificati on. [facility] OFFICE [address] [place] [address] 06/22/2017 16:02:35 06/23/2017 09:24:37 Essential hypertension 87732547 I10 Patient's blood pressure is {{well-con trolled [...] diary.*}} Cont low Na diet. Cardiac arrhythmia 78678 7007 I49.9 pt currently is in NSR. Holter has not revealed sinificant arrhythmia s. switch amlodipine for Cardiazem since pt is known to have lung condition and PACs.Suppl ement electrolyt es.. Hyperlipidemia 72354637 E78.5 Patient's hyperlipid emia is {{well-con trolled* n ot well-contr olled}} on present medical therapy. Patient is {{tolerati ng, without difficulty ,* having side effects with}} the current medication s. I have {{not made* made the following} } changes to the current regimen. Cont low cholestero l diet. Chest discomfort 9338672 09 R07.89 stress test negative. cont medical management and risk factor modificati on. Dominic Stephanie fan Office [address] [place] [address] 01/22/2018 14:45:59 01/22/2018 15:46:58 Essential hypertension 51295635 I10 Patient's blood pressure is {{well-con trolled* [...] exercise daily. Lasix PRN. ECHO Cardiac arrhythmia 57867 7007 I49.9 pt currently is in NSR/ ST. Holter did not revealed significan t arrhythmia s. Previously switched amlodipine for cardizem since pt is known to have lung condition and PACs. Supplement electrolyt es.. Hyperlipidemia 63020045 E78.5 Needs to keep LDL less than 70, and HDL more than 40 Will get lipid profile. Continue Statin. he states that his statin was started not long time ago will recheck lipids Chest discomfort 4279939 09 R07.89 Atypical given known lung disease. [...] Munoz Member ID Guarantor Name 01/04/2017 1 [facility] PRIOR TO 12/31/2020 (MEDICAID REPLACEMENT - HMO) Vu Tilley [id number] Vu Tilley 01/25/2017 1 [facility] PRIOR TO 12/31/2020 (MEDICAID REPLACEMENT - HMO) Vu Tilley [id number] Vu Tilley 2017 1 [facility] PRIOR TO 12/31/2020 (MEDICAID REPLACEMENT - HMO) Vu Tilley [id number] Vu Tilley 06/22/2017 1 [facility] PRIOR TO 12/31/2020 (MEDICAID REPLACEMENT - HMO) Vu Tilley [id number] Vu Tilley 01/22/2018 1 [facility] PRIOR TO 12/31/2020 (MEDICAID REPLACEMENT - HMO) Vu Tilley [id number] Vu Tilley Notes Date Note Type Note Provider Name and Address Organization Details Recorded Time 01/04/2017 text/html Mr. Tilley is a pleasant 36 y/o AAM with PMH of HL, CAR, asthma, HTN, DM who was referred for cardiovascular evaluation. According to the pt he recently underwent evaluation at [facility] where he was found to have irregular heart beating . Pt denies palpitatinso or syncopal episodes. Pt does experience episodes of heaviness at rest Pt was outpt he had ECHO in December 2016. He had Holter twice pt was told that he has AFIB and he was started on blood thinner. Previoysly about3 yrs agbo he seen theater usher in [facility] he was told that everything was fine. [...] the pt he recently underwent evaluation at [facility] where he was found to have irregular [...] previously about 3 yrs ago he seen theater usher in [facility] he was told that everything was fine. [...] sarcoidosis which is being managed by his hand slitter. Had ECHO done in 12/02/16 showed normal LV systolic function , EF 60% , diastolic dysfunction . Had negative stress test done in 01/10/17 with normal LV systolic function , EF 61% . According to the pt he recently underwent evaluation at [facility] where he was found to have irregular [...] previously about 3 yrs ago he seen theater usher in [facility] he was told that everything was fine. [...] is below average. LVEF 61%. Dominic Brown [facility] [place] [facility] 2017 15:04:56 06/22/2017 [...] sarcoidosis which is being managed by his hand slitter. Had ECHO done in 12/02/16 showed normal LV systolic function , EF 60% , diastolic dysfunction . Had negative stress test done in 01/10/17 with normal LV systolic function , EF 61% . According to the pt he recently underwent evaluation at [facility] where he was found to have irregular [...] previously about 3 yrs ago he seen theater usher in [facility] he was told that everything was fine. [...] is below average. LVEF 61%. Dominic escalera [place] [facility] 06/22/2017 16:47:15 01/22/2018 text/html 01/22/18 CC: Follow-up SOB, chest pain Patient is a 37 year-old -[place] man with sarcoidosis hyperlipidemia, CAR, asthma, obesity presents today for follow-up. He was here last 7 months ago. Since then he feels poor due to his diabetes and sarcoidosis. He sees Dr. Magaña at [facility] for that. Is in on chronic steroid [...] the pt he recently underwent evaluation at [facility] where he was found to have irregular [...]
--- OUTSIDE RECORDS SUMMARY | 2024-09-04 15:05 | XMS_ITS | CONTINUITY OF CARE DOCUMENT ---
Author Name piyush pickett Address Unknown Organization [facility] Address [address] [place] [address] Phone [phone] Care Team Providers Care Keycase Assembler Name Role Phone Mathieu SLAUGHTER, Neammajosé manuel Unavailable [phone] EELNO ATKINSON MD Unavailable ELENO ATKINSON MD Unavailable PROBLEMS Condition Status Date Provider Notes Other symptoms involving car diovascular system active Kash Vitale MD Family History of Hypertension: active ? Aura Vitale MD Family History of Hypertension: active ? Aura Vitale MD HTN essential active Kash Vitale MD Sarcoidosis active Kash Vitale MD Asthma active Kash Vitale MD Sleep apnea active Kash Vitale MD Obesity active Kash Vitale MD Tobacco use, quit active Kash Vitale MD Chest pain-neg routine stress active Kash Vitale MD ENCOUNTERS Date Type Provider Location Encounter Diag nosis 2 - 5 In-person encounter Office Visit Kash Vitale MD [place] [facility] Sleep apneaChest pain-neg routine stress 7 - 7 In-person encounter Office Visit Kash Vitale MD [place] [facility] Other symptoms involving cardiovascular systemFamily History [...] ORAL TABLET active 1 tab daily Luis Perez PROAIR HFA 108 (90 Base) MCG/ACT INHALATION AEROSOL SOLUTION active 2 puffs every 4-6 hours Luis Perez SOCIAL HISTORY Date Observation Value Provider social history reviewed E&M revi ewed - no changes required Kash Vitale MD smoking/tobacco cess ation, patient education and counseling yes Melinda Ji year patient quit cigar use 2011 Melinda Ji cigar use, [facility], [facility] smoked per week 11 Melinda Ji cigar use yes Melinda Ji smoking status Former smoker Melinda Lam nn smoking/tobacco cess ation, patient education and counseling yes Kash Vitale MD social history reviewed E&M roxanna curtis - no changes required Kash Vitale MD social history E&M 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 Smoking [...] Payer name Policy type / Coverage type [employer] party ID [place] MED[employer] Medicare [id number] TREATMENT PLAN Date Name Performer follow up:BP 124/71 His updated medication list for this problem includes: Losartan Potassium-hctz 100-25 Mg Tabs (Losartan potassium-hctz) ..... 1 tab daily Kash Vitale MD new patient visit: O rders: S TR - Routine (CPT-68735) S leep Study (*) Kash Vitale MD new patient visit: O rders: S TR - Routine (CPT-69027) S leep Study (*) C omplete Echo (CPT-61111) Kash Vitale MD Date Name Complete Echo Sleep Study STR - Routine HISTORY OF PROCEDURES Procedure Date Procedure Name Provider Procedure Notes S tatus EKG Kash Vitale MD completed
--- OUTSIDE RECORDS SUMMARY | 2024-09-04 15:05 | XMS_ITS | Clinical Summary ---
Author Organization [facility] Address [address] [place] [address] Care Team Providers Care Measurement Department Chief Clerk Name Role Phone LainaNamanemely Cronin NP Primary Care Provider [phone] Allergies Active Allergy Reactions Criticality Noted Date [...] needed for wheezing 75 mL 11 4 Active rivaroxaban (XARELTO) 20 mg tablet Take [...] 61 11/22/2023 9:15 AM CDT Temperature 36.6 C (97.8 F) 08/11/2023 12:18 PM INTERNATIONAL BROADCAST MUSIC LIBRARIAN Respiratory Rate 18 08/11/2023 12:18 PM INTERNATIONAL BROADCAST MUSIC LIBRARIAN Oxygen Saturation 97% 11/22/2023 9:15 AM CDT [...] Additional history exists Influenza Vaccine (#1) 2024 2, 10/04/2021, 05/04/2020, Additional history exists DTaP/Tdap/Td Vaccine (3 - Td or Tdap) 12/25/2028 12/25/2018, 07/03/2008 Pneumococcal vaccine <65 (4 of 4 - PCV20 or PCV21) 2030 12/25/2018, 04/05/2015, 06/27/2012 HPV Vaccines Aged Out No longer eligi ble based on patient's age to complete this [place] [address] [employer] MEDICARE GOLD T MEDICARE [facility] [place] [address] AETNA MEDICARE [facility] Care Teams Measurement Department Chief Clerk Relationship Specialty Start Date End Date Lotus Marina NP [address] [place], [place] [id number] PCP - General Nurse Practitioner 04/28/[address] [facility] [place] [address] Consulting Physician Cardiology 05/01/23
--- OUTSIDE RECORDS SUMMARY | 2024-09-04 15:05 | XMS_ITS | Clinical Summary ---
Author Organization [facility] Address [address] [place] [address] Phone Care Team Providers Care Market Research Senior Project Manager Name Role Phone Unavailable Primary Care Provider [...] 60 mL 280 mL 05/19/2022 2:36 PM HELP DESK SPECIALIST 2 Active ondansetron (ZOFRAN ODT) 4 mg Tablet, Rapid Dissolve Take 1 Tablet (4 mg) by mouth every 6 hours as needed for Nausea/Vomiting. Dissolve tablet on top of tongue, then swallow with saliva. 28 Tablet 05/19/2022 2:36 PM HELP DESK SPECIALIST 2 Active rivaroxaban (XARELTO) 20 mg [...] COVID-19 VACCINE - EMERGENCY USE AUTHORIZATION, MRNA, [id number](PF) 30 MCG/0.3 ML IM SUSP 10/14/2021,11/17/2020,10/19/2020 (PNEUMOVAX [...] Comments Blood Pressure 150/92 05/19/2022 12:35 PM HELP DESK SPECIALIST Pulse 60 05/19/2022 12:35 PM HELP DESK SPECIALIST Temperature 36.9 C (98.4 F) 05/19/2022 12:35 PM HELP DESK SPECIALIST Respiratory Rate 18 05/19/2022 12:3 5 PM HELP DESK SPECIALIST Oxygen Saturation 100% 05/19/2022 12: 35 PM HELP DESK SPECIALIST Inhaled Oxygen Concentration - - Weight 158.1 kg (348 lb 9.6 oz) 05/19/2022 4:44 AM HELP DESK SPECIALIST Height 180.3 cm (5' 11 ) 05/17/2022 1:26 PM HELP DESK SPECIALIST Body Mass Index 48.62 05/17/2022 1:26 PM HELP DESK SPECIALIST Plan of Treatment Health Maintenance Due Date Last Done Comments DIABETES ANNUAL RETINAL EXAM 1998 DIABETES MICROALBUMIN ANNUAL SCREEN 1998 LDL CHOLESTEROL ANNUAL 1998 HEPATITIS B VACCINES (1 of 3 - 19+ 3-dose series) 1999 DIABETES ANNUAL FOOT EXAM 01/22/2019 01/22/2018 PNEUMOCOCCAL VACCINE 0-49 YEARS (2 of 2 - PCV) 12/26/2019 [...] this topic Medical Devices Implanted Type Area Fiscal Specialist Device Identifier Shelf Expiration Date Model / Serial / Lot Seamguard Endogia 60 Blk [id number] - [id number] Implanted:Qty : 2 on 05/18/2022 by Pao Bell MD at [facility] Biological N/A: [employer] 08/31/2024 [id number] / / [id number] Seamguard Endogia 60 Prpl [id number] - [id number] Implanted:Qty : 3 on 05/18/2022 by Pao Bell MD at [facility] Biological N/A: Stomach [employer] 08/25/2024 [id number] / / [id number] Description:#3 implant- lot# [id number] exp. 09/28/24 Insurance MEDICARE PART A AND B RX [employer] RX Member Subscriber Plan / Payer (Ef fective 2022-Present) Name:Vu Tilley Jr. Relation to Subscriber:Spouse Payer ID:Not on file Group ID:[id number] Type:RX Commercial Address: [address] [facility] Medicare Part D Advance Directives For more information, please contact: [phone] * Full Code (Latest Code Status on File) Date Activated Date Inactivated Comments 05/18/2022 3:46 PM 05/19/2022 4:40 PM * Full Code Date Activated Date Inactivated Comments 05/18/2022 1:17 PM 05/18/2022 3:46 PM * Full Code Date Activated Date Inactivated Comments 05/18/2022 10:30 AM 05/18/2022 1:16 PM
--- OUTSIDE RECORDS SUMMARY | 2024-09-04 15:05 | XMS_ITS ---
Author Organization [facility] Address [address] [facility] [address] [place] [address] Care Team Providers Care United [place] Marshal Name Role Phone WINTER Lotus GERMAN Primary Care Provider Unavailab Arnoldo Campbell Unavailable [phone] Eva Hernandez Unavailable [phone] REASON FOR VISIT Therapy Visit, Depression screening positive Medications Medication SIG (Take, Route, Frequency, Duration) Notes Start Date End Date Status Omeprazole 20 MG TAKE 1 CAPSULE BY MO UTH EVERY DAY Oral for 90 Days Active Albuterol Sulfate (2.5 MG/3ML) 0.083% 3 mL as needed Inhalation every 6 hrs Active Urwoeeejglw-Seoqihlqc-Qrvga t 200-62.5-25 MCG/ACT 1 puff Inhalation Once a day Active Carvedilol 25 MG TAKE 1 TABLET BY UMU TH TWICE A DAY Oral for 90 Days Active Lisinopril 5 MG TAKE 1 TABLET BY UMU TH EVERY DAY Oral for 90 Days Active hydrOXYzine HCl 25 MG 1 tablet Oral twice a day for 30 days As needed Active DULoxetine HCl 60 MG 1 capsule at bedtim e Oral Once a day for 30 days 08/29/2024 Active DULoxetine HCl 30 MG 1 capsule Orally Once a day for 7 days after one week increase to 60 mg daily 08/26/2024 Active Furosemide 40 MG TAKE 2 TABLETS BY MO UTH EVERY DAY Oral for 90 Days Active Multaq 400 MG TAKE 1 TABLET BY UMU TH TWICE A DAY Oral for 30 Days Unknown Trelegy Ellipta 200-62.5-25 MCG/ACT INHALE 1 PUFF DAILY Inhalation for 30 Days Active Atorvastatin Calcium 80 MG TAKE 1 TABLET BY MOUTH EVERY DAY Oral for 90 Days Active Ezetimibe 10 MG TAKE 1 TABLET BY UMU TH EVERY DAY DIRECTED Oral for 90 Days Unknown Xarelto 20 MG TAKE 1 TABLET BY UMU TH EVERY DAY Oral for 30 Days Active Mycophenolate Mofetil 500 MG TAKE 2 TABLETS BY MOUTH TWICE A DAY Oral for 90 Days Active Social History Tobacco Use: Social History Observation [...] past year? Monthly or less (1 point) Encounters Encounter Location Date Provider Diagnosis [facility], [address] [address] 09/03/2024 Eva Mary Moderate episode of recurrent major depressive disorder F33.1 ; Anxiety F41.9 and Passive suicidal ideations R45.851 Assessments Encounter Date Diagnosis (ICD Code) Assessment Notes Treatment Notes Treatment Clinical Notes Section Notes 09/03/2024 Moderate episode of recurrent major depressive [...] in health to his healthcare providers promptly. 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 Therapy Visit. 2. Depression screening positive. * HPI: D epression Screening: BALBINA-7 (2018 Edition) F eeling nervous, anxious, or on edge M ore than half the days N ot being able to stop or control worrying?More than half the days W orrying too much about different things N early every day T rouble relaxing M ore than half the days B eing so restless that it is hard to sit still M ore than half the days B ecoming easily annoyed or irritable N early every day F eeling afraid as if something awful might happen M ore than half the days T otal BALBINA-7 Score 1 6 I nterpretation of Total ( 15 and over) Severe D epression screening: PHQ-9 L ittle interest or pleasure in doing things?More than half the days F eeling down, depressed, or hopeless M ore than half the days T rouble falling or staying asleep, or sleeping too much M ore than half the days F eeling tired or having little energy M ore than half the days P oor appetite or overeating N early every day F eeling bad about yourself or that you are a failure, or have let yourself or your family down M ore than half the days T rouble concentrating on things, such as reading the newspaper or watching television M ore than half the days M oving or speaking so slowly that other people could have noticed; or the opposite, being so fidgety or restless that you have been moving around a lot more than usual N ot at all T houghts that you would be better off or of hurting yourself in some way S everal days (Consider Suicide Assessment Risk) T otal Score 1 6 I nterpretation M oderately Severe Depression Intervention D epression Screening Findings P ositve F ollow-Up for Depression M [facility] treatment assessment, Patient follow-up to return when and if necessary S uicide Risk Assessment Performed 0 09/03/2024 A dditional Evaluation for Depression P sychiatric interview and evaluation N lynda of the standardized tool used for adult depression screening: P atient Health Questionnaire (PHQ-9) F unctional Status: Client presents today for psychotherapy to treat depression and anxiety. Based on the session, the client appears to be making good progress. Changes to the treatment plan are not recommended at this time. Client denies wanting to harm self or others at this time. Discussed continued treatment with client. He will be transitioning therapy to [place] on 09/17. The patient reports ongoing marital issues with his , primarily centered around her smoking habits. He states that his has resumed smoking and is attempting to conceal it from him. The patient describes finding evidence of cigarette use, such as foil from cigarette packs in their car and noticing the smell of smoke on his 's breath and hair. He expresses frustration with his 's dishonesty about her smoking and her attempts to blame him for her behavior. The patient also discusses feelings of being constantly monitored by his , describing her frequent check-ins and use of tracking technology. He reports feeling like he's in shelter again and that his has her finger on him constantly. This behavior has reportedly worsened over time, causing increased stress and tension in their relationship. Additionally, the patient mentions experiencing some health issues, including a recent MRI and radiation treatment in [place]. His social history reveals that he has been for 13 years, lives with his spouse (October) and daughter (Zarina), and is a former smoker who quit due to health reasons. The patient reports high stress levels in his relationship and mentions his mother as a source of social support. * Behavioral History: P ast psychiatric Hospitalization:No. H istory of suicidal attempt?:Yes. T ype of previous suicidal attempt:Overdose. * Family History: F ather: None. M aternal Aunt: None. M aternal Uncle: None. P aternal Aunt: None.?Paternal Uncle: None. M other: alive, None. P aternal Grandfather: None. P aternal Grandmother: None. M aternal Grandfather: None. M aternal Grandmother: None. B rother: None. S ister: None. S on: None. D nai: alive, None. 2 daughter(s) . . 1 biological daughter and 1 adopted daughter. * Social History: T obacco Use: T obacco Control (Standard) T obacco use: N onsmoker D rug/Alcohol: D rugs H ave you used drugs other than those for medical reasons in the past 12 months? Y es M arijuana? Y es I s there a minor (18 years or younger) at risk at home? N o A re you still using? Y es D o you want treatment? Y es Do you smoke marijuana?: occasional edible, Admits. Do you drink alcohol?: rarely. AUDIT-C (Standard) D id you have a drink containing alcohol in the past year? N o H ow often did you have six or more drinks on one occasion in the past year? L ess than monthly (1 point) H ow many drinks did you have on a typical day when you were drinking in the past year? 1 or 2 drinks (0 point) H ow often did you have a drink containing alcohol in the past year? M onthly or less (1 point) M iscellaneous: S afety issues A re there any firearms in the house? Y es Advance Care Planning A re you your own decision-maker N o D o you have Power of Sonar Watchstander for Health or Medical? N o * Medications: T aking hydrOXYzine HCl 25 MG Tablet 1 tablet Oral twice a day As needed, Taking Gcjmomavdax-Razxgofcw-Siwpri 200-62.5-25 MCG/ACT Aerosol Powder Breath Activated 1 puff Inhalation Once a day , Taking Albuterol Sulfate (2.5 MG/3ML) 0.083% Nebulization Solution 3 mL as needed Inhalation every 6 hrs , Taking Omeprazole 20 MG Capsule Delayed Release TAKE 1 CAPSULE BY MOUTH EVERY DAY Oral , Taking Lisinopril 5 MG Tablet TAKE 1 TABLET BY MOUTH EVERY DAY Oral , Taking Carvedilol 25 MG Tablet TAKE 1 TABLET BY MOUTH TWICE A DAY Oral , Taking Mycophenolate Mofetil 500 MG Tablet TAKE 2 TABLETS BY MOUTH TWICE A DAY Oral , Taking Xarelto 20 MG Tablet TAKE 1 TABLET BY MOUTH EVERY DAY Oral , Taking Atorvastatin Calcium 80 MG Tablet TAKE 1 TABLET BY MOUTH EVERY DAY Oral , Taking Trelegy Ellipta 200-62.5-25 MCG/ACT Aerosol Powder Breath Activated INHALE 1 PUFF DAILY Inhalation , Taking Furosemide 40 MG Tablet TAKE 2 TABLETS BY MOUTH EVERY DAY Oral , Taking DULoxetine HCl 30 MG Capsule Delayed Release Particles 1 capsule Orally Once a day after one week increase to 60 mg daily, Taking DULoxetine HCl 60 MG Capsule Delayed Release Particles 1 capsule at bedtime Oral Once a day , Unknown Ezetimibe 10 MG Tablet TAKE 1 TABLET BY MOUTH EVERY DAY DIRECTED Oral , Unknown Multaq 400 MG Tablet TAKE 1 TABLET BY MOUTH TWICE A DAY Oral , Medication List reviewed and reconciled with the patient * Examination: G eneral Examination: M ental Status Examination: Patient appeared calm and cooperative during the session. Speech was coherent and goal-directed. No evidence of hallucinations or delusions noted. Patient expressed frustration and concern regarding personal relationships and family dynamics. P sychiatry: Appearance: w ell-groomed. Abnormal body movements: n one. Affect / mood: f rustrated. Aggression: l ow. Anger control: g ood. Attention: n ormal in conversation. Attitude: c ooperative. Homicidal ideation: n one. Suicidal ideation: p assive; denies active SI, plan, or intent. Memory status: n o impairment noted. Degree of awareness of surroundings: w ithin normal limits.? Delusions: n o. Hallucinations: n o. Impulse control: g ood. Insight: g ood. Intellectual functioning: n o impairment noted. Judgement: g ood. Orientation: a wake, alert and oriented x 3. Perceptual disorders: n o perceptual disorder noted. Psychomotor activity: w ithin normal range. Speech / language: n ormal rate, volume, and articulation (RVR). Thought content: s uicidal ideation. Thought process: i ntact. Assessment: * Assessment: 1. M oderate episode of recurrent major depressive disorder - F33.1 (Primary) 2 . A nxiety - F41.9 3 . P assive suicidal ideations - R45.851 ? Assessment and Plan: Relationship Stress and Communication Issues E ncourage the patient to set boundaries and establish clear communication with his partner. R ecommend couple's therapy to address relationship issues and improve communication. E ncourage the patient to continue attending individual therapy sessions to work on personal growth and coping strategies. Anxiety and Stress Management E ncourage the patient to practice self-care and engage in activities that promote relaxation and stress reduction. C ontinue monitoring the patient's anxiety levels and coping strategies during therapy sessions. Parenting Concerns and Child-Related Stress E ncourage the patient to maintain open communication with his partner and other family members regarding parenting responsibilities and concerns. R ecommend the patient to seek additional support from family members or friends when needed. E ncourage the patient to establish a consistent routine and boundaries for his child to promote a stable environment. Vehicle and Financial Stress E ncourage the patient to explore options for addressing vehicle and financial concerns, such as budgeting, seeking financial advice, or discussing options with his partner. R ecommend the patient to continue attending therapy sessions to address stress related to financial and vehicle issues. Follow-up on Medical Appointments and Tests E ncourage the patient to attend scheduled medical appointments and follow up on test results, such as the MRI. R ecommend the patient to communicate any concerns or changes in health to his healthcare providers promptly. Plan: * Treatment: * Procedure Codes: 9 0837 PSYCHOTHERAPY W/PATIENT 60 MINUTES, 14233 BEHAV ASSMT W/SCORE & DOCD/STAND INSTRUMENT, G8431 CLIN DEPRESSION SCREEN DOC * Follow Up: Joel clarke up with Vinnie on 09/17 * Billing Information: * Visit Code: * Procedure Codes: 47610 PSYCHOTHERAPY W/PATIENT 60 MINUTES. 77387 BEHAV ASSMT W/SCORE & DOCD/STAND INSTRUMENT. G8431 CLIN DEPRESSION SCREEN DOC. * ORMANCE MANAGEMENT CONSULTANT Electronically co-signed by Eva Hernandez LCPC on 09/03/2024 at 03:10 PM PERFORMANCE MANAGEMENT CONSULTANT Sign off status: Completed Signatures: No Ad Hoc Signature Added true * Provider: Bladimir Hernandez Date: 09/03/2024 Generated for Jose Ruff/Naren on: 0 09/04/2024 03:05 PM PERFORMANCE MANAGEMENT CONSULTANT History and Physical Notes * HPI (History of Present Illness) Category Sub-Category Detail Notes Category Not es Depression screening PHQ-9 Little inte rest or pleasure in doing things: More than half the days Feeling down, depressed, or hopeless: Mo re than half the days Trouble falling or staying a sleep, or sleeping too much: More than half the days Feeling tired or having little energy: M ore than half the days Poor appetite or overeating: Nearly ever y day Feeling bad about yourself o r that you are a failure, or have let yourself or your family down: More than half the days Trouble concentrating on thi ngs, such as reading the newspaper or watching television: More than half the days Moving or speaking so slowly that other people could have noticed; or the opposite, being so fidgety or restless that you have been moving around a lot more than usual: Not at all Thoughts that you would be b misha off or of hurting yourself in some way: Several days (Consider Suicide Assessment Risk) Total Score: 16 Interpretation: Moderately Severe Depres pretty Intervention Depression Screening Findings: P ositve Follow-Up for Depression: [facility] treatment assessment, Patient follow-up to return when and if necessary Suicide Risk Assessment Performed: 09/03 Additional Evaluation for Depression: Ps ychiatric interview and evaluation Name of the standardized too l used for adult depression screening:: Patient Health Questionnaire (PHQ-9) Depression Screening BALBINA-7 (2018 Edition) Feelin g nervous, anxious, or on edge: More than half the days Not being able to stop or control worryi ng: More than half the days Worrying too much about different things : Nearly every day Trouble relaxing: More than half the day s Being so restless that it is hard to sit still: More than half the days Becoming easily annoyed or irritable: Ne pool every day Feeling afraid as if something awful padilla ht happen: More than half the days Total BALBINA-7 Score: 16 Interpretation of Total: (15 and over) S evere Examination Category Sub-Category Detail Notes Category Not es Psychiatry Appearance: well-groomed Attitude: cooperative Psychomotor activity: within normal rang e Abnormal body movements: none Attention: normal in conversati on Degree of awareness of surroundings: wit hin normal limits Orientation: awake, alert and teressa ented x 3 Affect / mood: frustrated Speech / language: normal rate, volume, and articulation (RVR) Insight: good Judgement: good Thought process: intact Thought content: suicidal ideation Perceptual disorders: no perceptual diso rder noted Aggression: low Anger control: good Suicidal ideation: passive; denies acti ve SI, plan, or intent Homicidal ideation: none Intellectual functioning: no impairment noted Impulse control: good Memory status: no impairment noted Delusions: no Hallucinations: no General Examination Mental Status Examination: Patient appeared calm and cooperative during the session. Speech was coherent and goal-directed. No evidence of hallucinations or delusions noted. Patient expressed frustration and concern regarding personal relationships and family dynamics.
--- OUTSIDE RECORDS SUMMARY | 2024-09-04 15:05 | XMS_ITS | Referral Summary ---
Author Organization [facility] Address [address] [place] [address] Care Team Providers Care Cream Gatherer Name Role Phone LainaNamanemely Cronin AGENT BASED MODELER Primary Care Provider [phone] Allergies Active Allergy Reactions Criticality Noted Date [...] 36.6 C (97.8 F) 08/11/2023 12:18 PM COMMODITY TRADER Respiratory Rate 18 08/11/2023 12:18 PM COMMODITY TRADER Oxygen Saturation 97% 11/22/2023 9:15 AM CDT Inhaled Oxygen Concentration - - Weight 113.9 kg (251 lb) 11/22/2023 9:15 AM CDT Height 180.3 cm (5' 11 ) 11/22/2023 9:15 AM CDT Body Mass Index 35.01 11/22/2023 9:15 AM CDT Plan of Treatment Not on file Insurance A[employer] MEDICARE GOLD AETNA MEDICARE GOLD MEDICARE [facility] Address: [address] [address] [place] [address] AETNA MEDICARE GOLD Care Teams Cream Gatherer Relationship Specialty Start Date End Date Lotus Marina NP [address] [place] [address] PCP - General Nurse Practitioner 04/28/23 Terell Zamudio [address] [facility] [place] [id number] Consulting Physician Cardiology 05/01/23
--- OUTSIDE RECORDS SUMMARY | 2024-09-04 15:06 | XMS_ITS | Patient Health Summary ---
Author Organization [facility] Address [address] [place] [address] Care Team Providers Care Wool Carder Name Role Phone Imani Em MD Primary Care Provider Note from [facility],non-owned Affiliates and Associated Physician Practices is amultiple site organization consisting of ambulatory clinics and hospital sitesin [place], [place], [place] and [place]. This disclosure is being madepursuant to the Care Everywhere program and may not contain all information available regarding this patient. Last updated 18.[facility] Allergies * Pioglitazone(Shortness of Breath,Rash) -High Criticality Medications * Be aware that medications may not be up to date on this document. Alwaysverify current medications with the patient. * albuterol HFA (PROVENTIL;VENTOLIN;PROAIR) 108 (90 BASE) MCG/ACT inhaler Inhale 2 puffs by mouth every 6 hours as needed for Wheezing * mometasone-formoterol (DULERA) 200-5 MCG/ACT inhaler Inhale 2 puffs by mouth 2 times daily * ipratropium hfa (ATROVENT HFA) 17 MCG/ACT inhaler Inhale 2 puffs by mouth 3 times daily * nitroGLYCERIN (NITROSTAT) 0.4 MG tablet Dissolve 0.4 mg under the tongue every 5 minutes as needed for Angina * losartan (COZAAR) 25 MG tablet Take 25 mg by mouth once daily Reasons: High Blood Pressure Disorder * dilTIAZem (CARDIZEM) 60 MG tablet Take 60 mg by mouth 2 times daily * magnesium oxide (MAG-OX) 400 MG tablet Take 400 mg by mouth every other day * hydroCHLOROthiazide (HYDRODIURIL) 25 MG tablet Take 25 mg by mouth once daily * metFORMIN (GLUCOPHAGE) 500 MG tablet Take 500 mg by mouth 2 times daily with morning and evening meal Reasons: Type 2 Diabetes * aspirin EC (ECOTRIN) 81 MG tablet Take 81 mg by mouth once daily * azaTHIOprine (IMURAN) 50 MG tablet Take 100 mg by mouth once daily * pravastatin (PRAVACHOL) 80 MG tablet Take 80 mg by mouth once daily * furosemide (LASIX) 20 MG tablet Take 20 mg by mouth as needed (pt states he takes when his ankles start to swell ) Reasons: Edema * montelukast (SINGULAIR) 10 MG tablet Take 10 mg by mouth once daily * pseudoephedrine (SUDAFED) 30 MG tablet(Started 09/05/2017) Take 1 tablet by mouth every 4 hours as needed for Nasal Congestion * TRUEPLUS LANCETS 33G MISC(Started 02/04/2018) * predniSONE (DELTASONE) 20 MG tablet(Started 01/09/2018) * insulin glargine (LANTUS) vial(Started 04/18/2018) Inject 40 Units subcutaneously at bedtime 11 refills remaining * insulin glulisine (APIDRA) vial(Started 05/04/2018) Inject 60 Units subcutaneously 3 times daily before meals Reasons: Type 2 Diabetes 11 refills remaining Active Problems Problem Noted Date Diagnosed Date Diabetes mellitus without complication 8 Chest pain 09/04/2017 Social History Tobacco Use Types Packs/Day Years Used Date Smoking Tobacco: Never Smokeless Tobacco: Never Alcohol Use Standard Drinks/Week Comments Yes 0 (1 standard drink = 0.6 oz pur e alcohol) occasionally Sex and Gender Information Value Date Recorded Sex Assigned at Not on file Gender Identity Not on file Sexual Orientation Not on file Last Filed Vital Signs Vital Sign Reading Time Taken Comments Blood Pressure 128/78 01/22/2018 10:54 AM CDT Pulse 88 01/22/2018 10:54 AM CDT Temperature 36.9 C (98.5 F) 01/22/2018 10:54 AM CDT Respiratory Rate 19 09/05/2017 7:42 AM [employer] Oxygen Saturation 96% 01/22/2018 10:54 AM CDT Inhaled Oxygen Concentration 21% 09/05/2017 1 2:50 AM [employer] Weight 169.2 kg (373 lb) 01/22/2018 10:54 AM CDT Height 180.3 cm (5' 11 ) 01/22/2018 10:54 AM CDT Body Mass Index 52.02 01/22/2018 10:54 AM CDT Procedures * HEMOGLOBIN A1C - POINT OF CARE (AMB) [facility](Performed 01/22/2018) Performed for Diabetes mellitus without complication (HCC) * CARDIAC RHYTHM STRIP ORDER(Performed 09/06/2017) * GLUCOSE - POINT OF CARE(Performed 09/05/2017) * TROPONIN I(Performed 09/05/2017) Performed for Chest pain, unspecified type * TROPONIN I(Performed 09/05/2017) Performed for Chest pain, unspecified type * MAGNESIUM BLOOD(Performed 09/05/2017) Performed for Chest pain, unspecified type * BASIC METABOLIC PANEL (CALCIUM TOTAL)(Performed 09/05/2017) Performed for Chest pain, unspecified type * HEMOGLOBIN A1C(Performed 09/05/2017) Performed for Chest pain, unspecified type * GLUCOSE - POINT OF CARE(Performed 09/04/2017) * EKG 12-LEAD(Performed 09/04/2017) Performed for Chest pain, unspecified type * GLUCOSE - POINT OF CARE(Performed 09/04/2017) * HYDROXYBUTYRATE BETA(Performed 09/04/2017) * LACTIC ACID BLOOD(Performed 09/04/2017) * XR CHEST 1VW PORTABLE(Performed 09/04/2017) Performed for Chest pain, unspecified type * URINALYSIS REFLEX MICROSCOPIC REFLEX CULTURE(Performed 09/04/2017) * EKG 12-LEAD(Performed 09/04/2017) Performed for Chest pain, unspecified type * C-REACTIVE PROTEIN(Performed 09/04/2017) * CKMB(Performed 09/04/2017) * ERYTHROCYTE SEDIMENTATION RATE(Performed 09/04/2017) * MAGNESIUM BLOOD(Performed 09/04/2017) * COMPREHENSIVE METABOLIC PANEL(Performed 09/04/2017) * CBC W AUTO DIFFERENTIAL(Performed 09/04/2017) * CK W CKMB REFLEX(Performed 09/04/2017) * TROPONIN I(Performed 09/04/2017) * EKG 12-LEAD(Performed 09/04/2017) Performed for Chest pain, unspecified type Results * HEMOGLOBIN A1C - POINT OF CARE (AMB) [facility] (01/22/2018) Pathologist [facility] Hemoglobin A1c POCT 8.5 BLOOD SPECIMEN / Unknown 01/22/2018 Felix Chapman MD LAB - POINT OF CARE ORDERABLES * CARDIAC RHYTHM STRIP ORDER (09/06/2017 3:49 PM [employer]) Narrative 09/06/2017 3:49 PM [employer] Ordered by an unspecified provider. Scanned Document CARDIAC SERVICES ORD ERABLES * (ABNORMAL) GLUCOSE - POINT OF CARE (09/05/2017 12:27 PM [employer]) Only the most recent of4 resultswithin the time period is included. Glucose WB/POC 383(H) 70 - 125 mg/dL 09/05/2017 12:36 PM [employer] [facility] Blood BLOOD SPECIMEN / Unknown 09/05/2017 12:27 PM [employer] 09/05/2017 12:36 PM [employer] Kashmir Luna MD LAB - POINT OF CARE ORDERABLES Performing Organization Address City/State/[facility] Co de Phone Number [facility] [address] * TROPONIN I (09/05/2017 8:17 AM [employer]) Only the most recent of3 resultswithin the time period is included. Pathologist [facility] Troponin I 0.012 <=0.049 ng/mL 09/05/2017 8:47 AM [employer] [facility] Blood BLOOD SPECIMEN / Unknown Lab Venipuncture / Unknown 09/05/2017 8:17 AM [employer] 09/05/2017 8:21 AM [employer] Narrative [facility] - 09/05/2017 8:47 AM [employer] Note: Diagnosis of myocardial infarction requires symptoms of ischemia or EKG changes of ischemia and Troponin I >99th percentile of normal with <10% coefficient of variation (CV) (0.05 ng/mL) Troponin should be drawn on initial assessment and 3-6 hours later as clinically indicated. Any condition resulting in myocardial cell damage can increase cardiac troponin levels. In addition to myocardial infarction, these include but are not limited to congestive heart failure, arrhythmia, myocarditis, and non-cardiac related causes such as pulmonary embolism, renal failure and sepsis. Kashmir Luna MD LAB - CHEMISTRY CODY SNOW [facility] [address] [place] [address], [facility] * (ABNORMAL) HEMOGLOBIN A1C (09/05/2017 4:49 AM [employer]) Hemoglobin A1c 12.3(H) 4.2 - 5.6 % 09/05/2017 5:10 AM [employer] AM [facility] Estimated Average Glucose 306 mg/dL 09/05/2017 5:10 AM [employer] [facility] Whole Blood BLOOD SPECIMEN WITH EDTA / Unknown Lab Venipuncture / Unknown 09/05/2017 4:49 AM [employer] 09/05/2017 4:53 AM [employer] Narrative AM [facility]AT[facility] - 09/05/2017 5:10 AM [employer] The following cutoff levels are recommended by [place] [employer]. A1c > 6.5% : considered as diabetes if two separate tests >6.5% or in an appropriate clinical setting. A1c 5.7% - 6.4% : considered as prediabetes (suggest increased risk for diabetes and cardiovascular disease) Control target level: Should be individualized. < 7 for general (non-) , < 8% less stringent goal, < 6.5 more stringent goal. Hemoglobin A1c measurements are used as an aid in the diagnosis of diabetic mellitus, as an aid to identify patients who may be at the risk for developing diabetic mellitus, and for the monitoring long-term blood glucose control in individuals with diabetes mellitus. This test should not replace glucose testing for patients with Type 1 diabetes, pediatric patients, or women. Falsely low HbA1c results may be observed in patients with clinical conditions that shorten erythrocyte life span or decrease mean erythrocyte age such as the presence of unstable hemoglobin variants, elevated hemoglobin F level or other causes of hemolytic anemia . HbA1c may not accurately reflect glycemic control when clinical conditions that affect erythrocyte survival are present. Severe Iron deficiency anemia may yield falsely high results. Hemoglobin A1c assay should not be used to diagnose or monitor diabetes in patients with malignancy, recent blood transfusion, chronic kidney or liver disease and interpretation. This method may yield falsely low results when hemoglobin (HbF) exceeds 5% in the specimen. Thelma Betancur MD LAB - CHEMISTRY CODY SNOW [facility] [address] * (ABNORMAL) BASIC METABOLIC PANEL (CALCIUM TOTAL) (09/05/2017 4:49 AM [employer]) Glucose 373(H) 70 - 125 mg/dL 09/05/2017 5:13 AM [employer] [facility] Sodium 132(L) 136 - 145 mmol/L 09/05/2017 5:13 AM [employer] [facility] Potassium 4.6(H) 3.4 - 4.5 mmol/L 09/05/2017 5:13 AM [employer] [facility] Chloride 98 98 - 107 mmol/L 09/05/2017 5:13 AM [facility] CO2 19(L) 22 - 29 mmol/L 09/05/2017 5:13 AM [facility] Calcium 10.00 8.4 - 10.2 mg/dL 09/05/2017 5:13 AM [facility] Anion Gap 20 10 - 20 mmol/L 09/05/2017 5:13 AM [facility] BUN 21.2 8.4 - 25.7 mg/dL 09/05/2017 5:13 AM [facility] Creatinine 1.38(H) 0.72 - 1.25 mg/dL 09/05/2017 5:13 AM [facility] eGFR by MDRD 58(L) >60 mL/min/1.7 3m2 09/05/2017 5:13 AM [employer] [facility] eGFR by MDRD >60 >60 mL/min/1.7 3m2 09/05/2017 5:[address] [facility] Blood BLOOD SPECIMEN / Unknown Lab Venipuncture / Unknown 09/05/2017 4:49 AM [employer] 09/05/2017 4:53 AM [employer] Thelma Betancur MD LAB - CHEMISTRY CODY SNOW Performing Organization Address City/[facility]/ZIP Co de Phone Number [facility] [address] * MAGNESIUM BLOOD (09/05/2017 4:49 AM [employer]) Only the most recent of2 resultswithin the time period is included. Pathologist [facility] Magnesium 2.0 1.6 - 2.6 mg/dL 09/05/2017 5:13 AM [employer] [facility] Blood BLOOD SPECIMEN / Unknown Lab Venipuncture / Unknown 09/05/2017 4:49 AM [employer] 09/05/2017 4:53 AM [employer] Thelma Betancur MD LAB - CHEMISTRY CODY SNOW [facility] [address] * EKG 12-LEAD (09/04/2017 8:06 PM [employer]) Only the most recent of3 resultswithin the time period is included. Pathologist [facility] Ventricular Rate 97 BPM [facility] Atrial Rate 97 BPM [facility] P-R Interval 128 ms [facility] QRS Duration ms 86 ms [facility] Q-T Interval ms 332 ms [facility] QTC Calculation (Bezet) 421 ms [facility] Calculated P Albright 8 degrees [facility] Calculated R [place] 14 degrees [facility] Calculated T Albright 46 degrees [facility] Interpretation EKG Normal sinus rhythm ST and T waves changes consistent with pericarditis versus early repolarization Clinical correlation recommended When compared with ECG of 04-SEP-2017 18:07, (Unconfirmed) No significant change was found Confirmed by SHAHRZAD SLAUGHTER, IVAN Nuñez ([id number]) on 09/05/2017 2:13:52 PM [facility] 09/04/2017 8:06 PM [employer] 09/05/2017 2:13 PM [employer] Fadi LEE ECG ORDERABLES [facility] * (ABNORMAL) HYDROXYBUTYRATE BETA (09/04/2017 7:30 PM [employer]) Pathologist [facility] Beta-Hydroxybu tyrate 3.1(H) <0.6 mmol/L 09/04/2017 7:49 PM [employer] [facility] Blood BLOOD SPECIMEN / Unknown Lab Venipuncture / Unknown 09/04/2017 7:30 PM [employer] 09/04/2017 7:35 PM [employer] Fadi LEE LAB - CHEMISTRY CODY SNOW [facility] [address] * LACTIC ACID BLOOD (09/04/2017 7:30 PM [employer]) Lactic Acid 1.06 0.5 - 2.2 mmol/L 09/04/2017 7:53 PM [employer] [facility] Blood BLOOD SPECIMEN / Unknown Lab Venipuncture / Unknown 09/04/2017 7:30 PM [employer] 09/04/2017 7:35 PM [employer] Fadi LEE LAB - CHEMISTRY CODY SNOW Performing Organization Address [facility] Co de Phone Number [facility] [address] * XR CHEST 1VW PORTABLE (09/04/2017 6:34 PM [employer]) Anatomical Region Laterality Modality Chest Radiographic Cristin ging 09/04/2017 6:35 PM [employer] Impressions 09/04/2017 6:37 PM [employer] Bilateral parenchymal changes may represent atypical or early infiltrate. A trace right pleural effusion may also be present. Narrative 09/04/2017 6:37 PM [employer] PROCEDURE: XR CHEST 1VW PORTABLE 09/04/2017 6:35 PM HISTORY: Chest pain, unspecified. COMPARISON: None Report: Prominent parenchymal markings throughout the mid lung dent noted with marginal inflation of the lungs. The heart shadow is upper limits normal. No discretely defined mass, consolidation, effusion or pneumothorax, although there is slight blunting of the lateral right costophrenic angle. Procedure Note Que Wilson MD - 09/04/2017 PROCEDURE: XR CHEST 1VW PORTABLE 09/04/2017 6:35 PM HISTORY: Chest pain, unspecified. COMPARISON: None Report: Prominent parenchymal markings throughout the mid lung dent noted with marginal inflation of the lungs. The heart shadow is upper limits normal. No discretely defined mass, consolidation, effusion or pneumothorax, although there is slight blunting of the lateral right costophrenic angle. IMPRESSION Bilateral parenchymal changes may represent atypical or early infiltrate. A trace right pleural effusion may also be present. Fadi LEE DIAGNOSTIC IMAGING O RDERABLES * (ABNORMAL) URINALYSIS ROUTINE W/REFLEX TO CULTURE (09/04/2017 6:14 PM [employer]) Color UA Straw Straw, Yellow 09/04/2017 6:31 PM [employer] [facility] Clarity UA Clear Clear 09/04/2017 6:31 PM [employer] [facility] Glucose UA 3+(A) Negative 09/04/2017 6:31 PM [employer] [facility] Bilirubin UA Negative Negative 09/04/2017 6:31 PM [employer] [facility] Ketone UA 1+(A) Negative 09/04/2017 6:31 PM [employer] [facility] Specific [place] UA 1.025 1.005 - 1.030 09/04/2017 6:31 PM [employer] [facility] Blood UA Negative Negative 09/04/2017 6:31 PM [employer] [facility] pH UA 6.0 5.0 - 8.0 pH 09/04/2017 6:31 PM [employer] [facility] Protein UA Negative Negative 09/04/2017 6:31 PM [employer] [facility] Urobilinogen UA Negative Negative mg/dL 09/04/2017 6:31 PM [employer] [facility] Nitrite UA Negative Negative 09/04/2017 6:31 PM [employer] [facility] Leukocyte UA Negative Negative 09/04/2017 6:31 PM [employer] [facility] Urine Microscopy Urine microscopy not indicated 09/04/2017 6:31 PM [employer] [facility] Reflex Status Culture not indicated 09/04/2017 6:31 PM [facility] Urine URINE SPECIMEN OBTAINED BY CLEAN CATCH PROCEDURE / Unknown Collection / Unknown 09/04/2017 6:14 PM [employer] 09/04/2017 6:21 PM [employer] Fadi LEE LAB - URINALYSIS ORD ERABLES [facility] [address] [place] [address], [facility] * CK W CKMB REFLEX (09/04/2017 5:57 PM [employer]) CK 153 30 - 200 U/L 09/04/2017 6:42 PM [employer] [facility] Comment:CKMB to Follow. Blood BLOOD SPECIMEN / Unknown Venipuncture / Unknown 09/04/2017 5:57 PM [employer] 09/04/2017 6:16 PM [employer] Fadi LEE LAB - CHEMISTRY ORDBladimir ROSASKAREN Performing Organization Address [facility]/ZIP Co de Phone Number [facility] [address] * (ABNORMAL) C-REACTIVE PROTEIN (09/04/2017 5:57 PM [employer]) Pathologist [facility] C-Reactive Protein 0.66(H) 0.00 - 0.50 mg/dL 09/04/2017 7:23 PM [employer] [facility] Blood BLOOD SPECIMEN / Unknown Venipuncture / Unknown 09/04/2017 5:57 PM [employer] 09/04/2017 6:16 PM [employer] Fadi LEE LAB - CHEMISTRY ORDBladimir SNOW Performing Organization Address [facility] Co de Phone Number [facility] [address] * ERYTHROCYTE SEDIMENTATION RATE (09/04/2017 5:57 PM [employer]) Pathologist [facility] Erythrocyte Sedimentation Rate Westergren 11 0 - 15 mm/hr 09/04/2017 7:18 PM [employer] [facility] Blood BLOOD SPECIMEN / Unknown Venipuncture / Unknown 09/04/2017 5:57 PM [employer] 09/04/2017 6:16 PM [employer] Fadi LEE LAB - HEMATOLOGY ORD ERABLES Performing Organization Address [facility]/ZIP Co de Phone Number [facility] [address] * (ABNORMAL) CBC W AUTO DIFFERENTIAL (09/04/2017 5:57 PM [employer]) Pathologist [facility] WBC 6.6 4.0 - 10.0 x10E9/L 09/04/2017 6:20 PM [employer] [facility] RBC 5.47 4.40 - 6.10 x10E12/L 09/04/2017 6:20 PM [employer] [facility] Hemoglobin 15.9 13.7 - 17.5 gm/dL 09/04/2017 6:[address] [facility] Hematocrit 46.5 40.1 - 51.0 % 09/04/2017 6:[address] [facility] MCV 85.0 78.0 - 100.0 fl 09/04/2017 6:[address] [facility] MCH 29.1 25.6 - 34.0 pg 09/04/2017 6:[address] [facility] MCHC 34.2 32.3 - 36.5 gm/dL 09/04/2017 6:[address] [facility] RDW 12.4 11.6 - 14.4 % 09/04/2017 6:[address] [facility] MPV 11.2 9.4 - 12.4 fl 09/04/2017 6:[address] [facility] Platelet Count 271 163 - 369 x10E9/L 09/04/2017 6:[address] [facility] Neutrophils % 77.7(H) 40.0 - 75.0 % 09/04/2017 6:[address] [facility] Lymphocytes % 16.7(L) 19.3 - 53.1 % 09/04/2017 6:[address] [facility] Monocytes % 5.0 4.7 - 12.5 % 09/04/2017 6:[address] [facility] Eosinophils % 0.2(L) 0.7 - 7.0 % 09/04/2017 6:[address] [facility] Basophils % 0.2 0.1 - 1.2 % 09/04/2017 6:[address] [facility] Immature Granulocytes 0.2 0 - 0.5 % 09/04/2017 6:[address] [facility] Neutrophil Absolute 5.13 1.56 - 6.13 x10E9/L 09/04/2017 6:[address] [facility] Lymphocytes Absolute 1.10(L) 1.18 - 3.74 x10E9/L 09/04/2017 6:[address] [facility] Monocytes Absolute 0.33 0.24 - 0.86 x10E9/L 09/04/2017 6:[address] [facility] Eosinophils Absolute 0.01(L) 0.04 - 0.54 x10E9/L 09/04/2017 6:[address] [facility] Basophils Absolute 0.01 0.01 - 0.08 x10E9/L 09/04/2017 6:[address] [facility] Immature Granulocytes Absolute 0.01 0 - 0.03 x10E9/L 09/04/2017 6:[address] [facility] nRBC Auto 0 <=0 /100 WBC 09/04/2017 6:[address] [facility] nRBC Absolute 0.00 <=0 x10E9/L 09/04/2017 6:[address] [facility] Blood BLOOD SPECIMEN / Unknown Venipuncture / Unknown 09/04/2017 5:57 PM [employer] 09/04/2017 6:16 PM [employer] Fadi LEE LAB - HEMATOLOGY ORD ERABLES [facility] [address] * (ABNORMAL) COMPREHENSIVE METABOLIC PANEL (09/04/2017 5:57 PM [employer]) Glucose 405(H) 70 - 125 mg/dL 09/04/2017 6:[address] [facility] Sodium 132(L) 136 - 145 mmol/L 09/04/2017 6:[address] [facility] Potassium 4.4 3.4 - 4.5 mmol/L 09/04/2017 6:[address] [facility] Chloride 96(L) 98 - 107 mmol/L 09/04/2017 6:[address] [facility] CO2 21(L) 22 - 29 mmol/L 09/04/2017 6:[address] [facility] Calcium 10.31(H) 8.4 - 10.2 mg/dL 09/04/2017 6:[address] [facility] Anion Gap 19 10 - 20 mmol/L 09/04/2017 6:[address] [facility] BUN 14.6 8.4 - 25.7 mg/dL 09/04/2017 6:[address] [facility] Creatinine 1.25 0.72 - 1.25 mg/dL 09/04/2017 6:[address] [facility] eGFR by MDRD >60 >60 mL/min/1. 73m2 09/04/2017 6:42 PM [employer] [facility] eGFR by MDRD >60 >60 mL/min/1. 73m2 09/04/2017 6:42 PM [employer] [facility] Alkaline Phosphatase 76 40 - 150 U/L 09/04/2017 6:42 PM [employer] [facility] ALT 30 5 - 55 U/L 09/04/2017 6:42 PM [employer] [facility] AST 21 5 - 34 U/L 09/04/2017 6:42 PM [facility] Protein Total 7.2 6.4 - 8.3 gm/dL 09/04/2017 6:42 PM [facility] Albumin 3.9 3.5 - 5.0 gm/dL 09/04/2017 6:42 PM [facility] Globulin Total 3.3 2.6 - 4.0 gm/dL 09/04/2017 6:42 PM [facility] Albumin/Globulin Ratio 1.2 0.9 - 1.6 09/04/2017 6:42 PM [facility] Bilirubin Total 1.1 0.2 - 1.2 mg/dL 09/04/2017 6:[address] [facility] Blood BLOOD SPECIMEN / Unknown Venipuncture / Unknown 09/04/2017 5:57 PM [employer] 09/04/2017 6:16 PM [employer] Fadi LEE LAB - CHEMISTRY CODY SNOW Performing Organization Address [facility] Co de Phone Number [facility] [address] Street * [facility] (09/04/2017 5:57 PM [employer]) CK-MB 1.0 0.0 - 6.6 ng/mL 09/04/2017 7:[address] [facility] CK Index % 0.7 0.0 - 4.9 % 09/04/2017 7:[address] [facility] Blood BLOOD SPECIMEN / Unknown Venipuncture / Unknown 09/04/2017 5:57 PM [employer] 09/04/2017 6:16 PM [employer] [facility] - CHEMISTRY C[facility] Performing Organization Address City/[facility]/ZIP Co de Phone Number [facility] [address] Care Teams Wool Carder Relationship Specialty Start Date End Date Imani Em MD [address] [place], [place] [phone] PCP - General 08/25/16
--- OUTSIDE RECORDS SUMMARY | 2024-09-04 15:06 | XMS_ITS | Clinical Summary ---
Author Organization [facility] Address [address] [place] [address] Care Team Providers Care Second Baller Name Role Phone Imani Em MD Primary Care Provider Source Comments [facility],non-owned Affiliates and Associated Physician Practices is amultiple site organization consisting of ambulatory clinics and hospital sitesin [place], [place], [place] and [place]. This disclosure is being madepursuant to the Care Everywhere program and may not contain all information available regarding this patient. Last updated 18.[facility] Allergies Active Allergy Reactions Criticality Noted Date Comments Pioglitazone Shortness of Breath,Rash High 8 Medications * Be aware that medications may not be up to date on this document. Alwaysverify current medications with the patient. Medication Sig Dispensed Refills Start Date End Date Status albuterol HFA (PROVENTIL;VENTOL IN;PROAIR) 108 (90 BASE) MCG/ACT inhaler Inhale 2 puffs by mouth every 6 hours as needed for Wheezing Active mometasone-formot teddy (DULERA) 200-5 MCG/ACT inhaler Inhale 2 puffs by mouth 2 times daily Active ipratropium hfa (ATROVENT HFA) 17 MCG/ACT inhaler Inhale 2 puffs by mouth 3 times daily Active nitroGLYCERIN (NITROSTAT) 0.4 MG tablet Dissolve 0.4 mg under the tongue every 5 minutes as needed for Angina Active losartan (COZAAR) 25 MG tabletIndications :Hypertension Take 25 mg by mouth once daily Reasons: High Blood Pressure Disorder Active dilTIAZem (CARDIZEM) 60 MG tablet Take 60 mg by mouth 2 times daily Active magnesium oxide (MAG-OX) 400 MG tablet Take 400 mg by mouth every other day Active hydroCHLOROthiazi de (HYDRODIURIL) 25 MG tablet Take 25 mg by mouth once daily Active metFORMIN (GLUCOPHAGE) 500 MG tabletIndications :Type 2 Diabetes Mellitus Take 500 mg by mouth 2 times daily with morning and evening meal Reasons: Type 2 Diabetes Active aspirin EC (ECOTRIN) 81 MG tablet Take 81 mg by mouth once daily Active azaTHIOprine (IMURAN) 50 MG tablet Take 100 mg by mouth once daily Active pravastatin (PRAVACHOL) 80 MG tablet Take 80 mg by mouth once daily Active furosemide (LASIX) 20 MG tabletIndications :Edema Take 20 mg by mouth as needed (pt states he takes when his ankles start to swell ) Reasons: Edema Active montelukast (SINGULAIR) 10 MG tablet Take 10 mg by mouth once daily Active pseudoephedrine (SUDAFED) 30 MG tablet Take 1 tablet by mouth every 4 hours as needed for Nasal Congestion 30 tablet 09/05/2017 Active TRUEPLUS LANCETS 33G MISC 02/04/2018 Active predniSONE (DELTASONE) 20 MG tablet 01/09/2018 Active insulin glargine (LANTUS) vial Inject 40 Units subcutaneously at bedtime 20 mL 11 04/18/2018 Active insulin glulisine (APIDRA) vialIndications:T ype 2 Diabetes Mellitus Inject 60 Units subcutaneously 3 times daily before meals Reasons: Type 2 Diabetes 6 vial 11 05/04/2018 Active Active Problems Problem Noted Date Diagnosed Date Diabetes mellitus without complication 8 Chest pain 09/04/2017 Family History Medical History Relation Name Comments Hypertension Father Hypertension Mother Relation Name Status Comments Father Alive Mother Alive Social History Tobacco Use Types Packs/Day Years [...] CDT Respiratory Rate 19 09/05/2017 7:42 AM [employer] G[employer] Oxygen Saturation 96% 01/22/2018 10:54 AM CDT Inhaled Oxygen Concentration 21% 09/05/2017 1 2:50 AM [employer] 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[employer] Weight 169.2 kg (373 lb) 01/22/2018 10:54 AM CDT Height 180.3 cm (5' 11 ) 01/22/2018 10:54 AM CDT Body Mass Index 52.02 01/22/2018 10:54 AM CDT Plan of Treatment Health Maintenance Due Date Last Done Comments HIV SCREENING 1995 HEPATITIS C SCREENING 03/19/1998 DTAP/TDAP/TD VACCINES (1 - Tdap) 1999 HEPATITIS B VACCINE (1 of 3 - 19+ 3-dose series) 1999 DIABETES RETINOPATHY SCREENING 10/09/2017 DIABETES-HGB A1C 04/24/2018 01/22/2018, 09/05/2017 DIABETES-FOOT EXAM WITH MONOFILAMENT 01/22/2019 01/22/2018, 01/22/2018 DIABETES-SERUM CREATININE 04/16/20192017, 04/16/2018, 01/04/2018, Additional history exists COVID-19 VACCINE ( - 2023- season) 2024 INFLUENZA VACCINE (#1) 2024 DEPRESSION SCREENING 07/03/2024 DIABETES - URINE PROTEIN SCREENING 07/03/2024 01/04/2018 ZOSTER VACCINE (1 of 2) 2030 HIB VACCINE Aged Out No longer eligi ble based on patient's age to complete this topic HPV VACCINE Aged Out No longer eligi ble based on patient's age to complete this topic MENINGOCOCCAL (Group B) VACCINE Aged Out No longer eligible based on patient's age to complete this topic MENINGOCOCCAL VACCINE Aged Out No elvia tyshawn eligible based on patient's age to complete this topic PNEUMOCOCCAL VACCINE Aged Out No long er eligible based on patient's age to complete this topic Procedures Procedure Name Priority Date/Time Associated Diagnosis Comments HEMOGLOBIN A1C - POINT OF CARE (AMB) [facility] Routine 01/22/2018 Diabetes mellitus without complication (HCC) BASIC METABOLIC PANEL (CALCIUM TOTAL) STAT 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 Chest pain, unspecified type from Last 3 Months or Most Recently Relevant to Health Maintenance Results * HEMOGLOBIN A1C - POINT OF CARE (AMB) [facility] (01/22/2018) Hemoglobin A1c POCT 8.5 BLOOD SPECIMEN / Unknown 01/22/2018 Felix Chapman MD LAB - POINT OF CARE ORDERABLES * (ABNORMAL) BASIC METABOLIC PANEL (CALCIUM TOTAL) (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) Glucose 373(H) 70 - 125 mg/dL 09/05/2017 5:13 AM [facility] Sodium 132(L) 136 - 145 mmol/L 09/05/2017 5:13 AM [facility] Potassium 4.6(H) 3.4 - 4.5 mmol/L 09/05/2017 5:13 AM [facility] Chloride 98 98 - 107 mmol/L 09/05/2017 5:13 AM [facility] CO2 19(L) 22 - 29 mmol/L 09/05/2017 5:13 AM [facility] Calcium 10.00 8.4 - 10.2 mg/dL 09/05/2017 5:13 AM [facility] Anion Gap 20 10 - 20 mmol/L 09/05/2017 5:13 AM [facility] BUN 21.2 8.4 - 25.7 mg/dL 09/05/2017 5:13 AM [facility] Creatinine 1.38(H) 0.72 - 1.25 mg/dL 09/05/2017 5:13 AM [facility] eGFR by MDRD 58(L) >60 mL/min/1.7 3m2 09/05/2017 5:13 AM [facility] eGFR by MDRD >60 >60 mL/min/1.7 3m2 09/05/2017 5:13 AM [facility] Blood BLOOD SPECIMEN / Unknown Lab Venipuncture / Unknown 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
--- OUTSIDE RECORDS SUMMARY | 2024-09-04 15:06 | XMS_ITS | Data Portability ---
Author Organization [place], [id number] Address [address] [place] [address] Care Team Providers Care Custom Home Installer Name Role Phone MARY CARMEN BUTLER Ship Joiner TERELL CANTU Shot Man FRANCHESKA ROSARIO Shot Man SHAHIDA ULLOA Nurse Practitioner [facility] Carburetor Repairer LAURA BARRY Shot Man TARYN LAWLER Palm Gatherer CELSO DAWKINS Primary Care Provider Assessment Encounter Date Assessment Date Assessment LastModified by Organization Details LastModified Time 04/19/2022 04/19/2022 Assessment/Plan: Type 2 diabetes not controlled and unstable. Hemoglobin A1c 8.2% on 04/18/2022. At this point time we are going to do the followin. Adjust Basaglar 27 units subcu BID 2. Adjust Apidra 18 units subcu AC TID with meals 3. Continue Apidra aggressive sliding scale QID ACHS 4. Continue Synjardy XR 25 mg - 1000 mg p.o. once daily - intolerance to higher metformin doses 5. Rybelsus 3 mg p.o. once daily- ok to continue unless surgery wants to stop prior to his surgery. 6. Monitor blood glucose 4 times a day and maintain a logbook. Bring logbook to visits. 7. Advised healthy diet and exercise 8. When he is on clear liquid we will have him decrease to basaglar 36 units daily, novolog 12 units with meals plus AGG SS QID. Hypertension, controlled. Antihypertensives reviewed, continue the same. Serum creatinine is normal at 1.3 and GFR 67- [email or web address] Urine for microalbumin is normal. On PEDRITO in the form of lisinopril. We will order recheck. Dyslipidemia, controlled. LDL 56. On atorvastatin 80 mg p.o once daily. Advised to watch diet and exercise. Will recheck today. Former smoker, quit in 2011 Xarelto for anticoagulation Eye exam reviewed from 12/2021 showed mild retinopathy. Following with ophthalmology. Advised yearly dilated eye exams. Diabetic peripheral sensory neuropathy, present. No ulcers seen but feet are dry, callused, and fissured. Advised daily foot care. Thyroid function profile is normal. History of vitamin D deficiency, normal on last check. Vit D 38- we will get copy of recent lab. Advising vitamin D supplement 1000 IU p.o. once daily for maintenance. Return to clinic in [address] Sangita [email or web address] Not available 04/19/2022 14:25:30 08/15/2022 08/15/2022 In summary, Mr. Tilley is a 42-year-old gentleman with a past medical history significant for pulmonary sarcoid, cardiac sarcoidosis, paroxysmal atrial fibrillation, hypertension, hyperlipidemia, obstructive sleep apnea, diabetes mellitus, morbid obesity, and COPD who presented to the clinic for a regularly scheduled follow up visit. From a cardiac standpoint, Mr. Tilley is doing well. He is significantly improved from a functional standpoint, which I think is predominantly due to his improvement in weight. He remains NYHA class II, profile A. His biggest issue at this visit is palpitations, for which we will obtain a holter monitor x 1 month. The remainder of his plan is as below: 1. Cardiac sarcoidosis - Continue MMF 1000mg BID - PET scan in 6 months. If holter monitor shows an increase in arrhythmia, this may be moved up 2. HFpEF (etiology: Hypertension, obesity, sarcoidosis, volume status: Euvolemic) -He no longer requires diuretics 3. Hypertension: Blood pressure well controlled at this visit -Continue carvedilol 25 mg twice a day and lisinopril 5 mg daily 4. Hyperlipidemia: -Continue atorvastatin 80 mg nightly, ezetimibe 10mg QHS 5. Paroxysmal atrial fibrillation: He follows with EP -Continue Xarelto 20 mg daily and Multaq 400 mg twice a day 6. Blood work -BMP in a week 7. Return to clinic - 6 months Time spent with patient:__22 cristian arteaga [email or web address] Not available 08/15/2022 09:00:23 02/16/2023 02/16/2023 In summary, Mr. Tilley is a 42-year-old gentleman with a past medical history significant for pulmonary sarcoid, cardiac sarcoidosis, paroxysmal atrial fibrillation, hypertension, hyperlipidemia, obstructive sleep apnea, diabetes mellitus, morbid obesity, and COPD who presented to the clinic for a regularly scheduled follow up visit. From a cardiac standpoint, Mr. Tilley continues to do well. I await the results of his PET scan. If he has recurrence, he I will likely refer him for initiation of a TNF alpha inhibitor. From a weight loss standpoint, he has done exceedingly well, and is currently in which a class II, profile A. I will reach out to his local dental laboratory technician to make sure that we can work together to come up with a care plan for him. I do have concerns that his wheezing may be reactivation of his pulmonary sarcoid, and have given him the name of Xander Miranda at [facility] for further care. The remainder of his plan is as below: 1. Cardiac sarcoidosis - Continue MMF 1000mg BID - Follow up PET scan results. 2. HFpEF (etiology: Hypertension, obesity, sarcoidosis, volume status: Euvolemic) -He no longer requires diuretics 3. Hypertension: Blood pressure well controlled at this visit -Continue carvedilol 25 mg twice a day and lisinopril 5 mg daily 4. Hyperlipidemia: -Continue atorvastatin 80 mg nightly, ezetimibe 10mg QHS 5. Paroxysmal atrial fibrillation: He follows with EP -Continue Xarelto 20 mg daily and Multaq 400 mg twice a day 6. Blood work -BMP in a week 7. Return to clinic - 6 months [email or web address] Not available 02/17/2023 08:36:54 10/12/2023 10/12/2023 In summary, Mr. Tilley is a 43-year-old gentleman with a past medical history significant for pulmonary sarcoid, cardiac sarcoidosis, paroxysmal atrial fibrillation, hypertension, hyperlipidemia, obstructive sleep apnea, diabetes mellitus, morbid obesity, and COPD who presented to the clinic for a regularly scheduled follow up visit. From a cardiac standpoint, Mr. Tilley is stable. His most recent PET/CT, he did not have active cardiac sarcoidosis, but does have a small area of active sarcoidosis on his paratracheal region. I did discuss this with him, and we will be referring him to Dr. Coy at [facility] for consideration of infliximab. The remainder of his plan is as below: 1. Cardiac and pulmonary sarcoidosis - Continue MMF 1000mg BID - Referral to Dr. Barrios at 2. HFpEF (etiology: Hypertension, obesity, sarcoidosis, volume status: Euvolemic) -He no longer requires diuretics 3. Hypertension: Blood pressure well controlled at this visit -Continue carvedilol 25 mg twice a day and lisinopril 5 mg daily 4. Hyperlipidemia: -Continue atorvastatin 80 mg nightly, ezetimibe 10mg QHS 5. Paroxysmal atrial fibrillation: -Continue Xarelto 20 mg daily -Discontinue multaq. Atrial fibrillation was likely in the setting of active cardiac sarcoidosis and obesity. If he has recurrence will look into sotalol/dofetolide. 6. Blood work -CBC, CMP, TSH 7. Return to clinic - 6 months [email or web address] Not available 10/12/2023 10:15:50 07/15/2024 07/15/2024 In summary, Mr. Tilley is a 44-year-old gentleman with a past medical history significant for pulmonary sarcoid, cardiac sarcoidosis, paroxysmal atrial fibrillation, hypertension, hyperlipidemia, obstructive sleep apnea, diabetes mellitus, morbid obesity, and COPD who presented to the clinic for a regularly scheduled follow up visit. From a cardiac standpoint, Mr. Tilley is stable. He remains NYHA class II, profile A. In regards to his concern for on going pulmonary sarcoid - he follows with Dr. Barrios at and I will defer management of this to her. I will d/w her timing of a repeat PET scan. The remainder of his plan is as below: 1. Cardiac and pulmonary sarcoidosis - Continue MMF 1000mg BID - Referral to Dr. Barrios at 2. HFpEF (etiology: Hypertension, obesity, sarcoidosis, volume status: Euvolemic) -Continue lasix 80mg daily 3. Hypertension: Blood pressure well controlled at this visit -Continue carvedilol 25 mg twice a day and lisinopril 5 mg daily 4. Hyperlipidemia: -Continue atorvastatin 80 mg nightly, ezetimibe 10mg QHS 5. Paroxysmal atrial fibrillation: -Continue Xarelto 20 mg daily 6. Blood work -BMP Lipid profile 7. Return to clinic - 6 months Time spent with patient:__10 m inutes. For Telephone Audio Only Visits: Have you been seen in the last 7 days for the same or similar condition by an [facility] provider? No I did not request that the patient schedule an appointment at the next available time as a result of this encounter. [email or web address] Not available 07/16/2024 15:02:42 Plan of Treatment Reminders Order Date Submit Date Provider Last Modified By Organization Details Last Modified Time Details Appointments Establish ed Patient 30 2024 08:30A M Oswald Cantu MD Not available Not available Not available Lab CBC w/ auto diff 2023 024 [facility] ([facility] [address], [facility], [place], [address], 11/06/2023 12:19:34 CMP, serum or plasma 2023 024 [facility] ([facility]), [address], [facility], [place], [address], 11/06/2023 12:19:34 TSH, serum or plasma 2023 024 [facility] ([facility]), [address], [facility], [place], [address], 11/04/2023 07:55:36 LDL, direct, serum 2021 022 [facility], [address] [place], [address], 03/08/2023 05:23:04 microalbu min/creat inine, mass ratio, urine [address] [facility], [address] [place], [address], 10/30/2022 05:02:21 Referral None recorded. Procedures None recorded. Surgeries None recorded. Imaging None recorded. Medication Orders None recorded. Patient TargetsNo targets recorded. Patient Instructions Encounter Date Encounter Id Patient Instructions Last Modified By Organization Details Last Modified Time 04/19/2022 [id number] A healthy lifestyle: care instructions Not available 04/19/2022 14:18:40 diabetic neuropathy: care instructions Not available 04/19/2022 14:18:40 heart-healthy diet: care instructions Not available 04/19/2022 14:18:39 type 2 diabetes: care instructions Not available 04/19/2022 14:18:39 hand-washing: care instructions Not available 04/19/2022 14:18:40 What You Need To Know about COVID-19 Coronavirus Disease ([facility]) Not available 04/19/2022 14:18:39 Steps To Help Prevent The Spread of COVID-19, if you are sick (CDC) Not available 04/19/2022 14:18:39 07/15/2024 [id number] hand-washing: care instructions [email or web address] Not available 07/15/2024 17:01:41 Reason for Referral None Reported. Results Created Date Observation Date Name Description Value Unit Range Abnormal Flag Note LastModifiedBy Organization Detail LastModifiedTime 05/03/20 22 05/03/2022 GLUCO SE POC glucose POC 76 mg/dL 65-99 Testi ng by [facility] [address] [facility] [place] [address] Not Available [facility] [address] [facility] [place], [address], 05/03/2022 09:09:04 02/17/20 23 02/16/2023 GLUCO SE POC glucose POC 69 mg/dL 65-99 Testi ng by [facility] [address] [place] [address] Not Available [facility] [address] [facility] [place], [address], 02/16/2023 07:39:30 10/02/19 24 10/02/2023 GLUCO SE POC glucose POC 57 mg/dL 65-99 low Testi ng by [facility] [address] [place] [address] Not Available [facility] [address] [place], [address], 10/02/2023 12:12:28 11/03/19 24 11/04/2023 TSH W/REF ANTHONY TO FT4 TSH w/reflex to FT4 1.92 mIU/L 0.40-4 .[address] to have a [employer] copy faxed has been domenic georges to: [phone] Not Available [facility] [address] [facility], [place], [address], 11/04/2023 07:55:36 09/03/19 25 09/02/2024 GLUCO SE POC glucose POC 57 mg/dL 65-99 low Testi ng by [facility] [address] [place] [place] [address] Not Available [facility] [address] , [place], [address], 09/02/2024 11:35:33 05/03/20 22 05/03/2022 PET, myoca rdial scan, metab olic evalu ation [facility] EXAMIN ATION: PET/CT MYOCAR D METABO LIC EVAL - ACC #: [id number] CPT: 81258 Mod: RIS Order: [id number] (EVN) 6826) HIS Order: [id number] STARTE D: May 03 2022 7:45AM COMPLE NYDIA: May 03 2022 11:11A M TECH INITIA LS: JXS Radiop harmac eutica l: 13.17 mCI of F-18 FDG, IV FULL RESULT : Cardia c PET/CT Compar patrick Septem as well as November 27, and perfus ion study of October 2018 FINDIN GS somewh at techni ramon limite d withou t recent perfus ion imagin g study There is stable lack of abnorm al myocar dial activi ty, and withou t findin gs to be concer jillian for myocar dial sarcoi dosis involv ement. Again seen is enlarg ement of anteri or medias tinal lymph nodes. Overal l normal cardia c size. Coarse lung opacit ies bilate rally are simila r. No new consol idatio n. Normal spleni c size. IMPRES PRETTY: 1. Stable exam, and withou t findin gs to be typica l for underl gavin active sarcoi d cardia c involv ement ELECTR ONICAL LY SIGNED BY: SHREYA SAGE M.D. May 03 2022 12:52P M Dictat ed: May 03 2022 12:52P M Transc ribed: May 03 2022 12:52P M [id number] Disper sed: May 03 2022 12:52P M Attend ing Dr: BRITTNI JIMENEZ DASHA Admitt ing Dr: BRITTNI JIMENEZ DASHA Primar y Care: BIMAL CHAHAL [facility] onal Doctor (s): ELECTR ONICAL LY SIGNED BY: SHREYA SAGE M.D.No v 2021 12:52P M ^ [email or web address] [facility] [address] [facility], [place], [address], 05/09/2022 07:10:59 07/29/19 23 04/18/2022 elect gerardo overton am No observ ation record ed. [email or web address] Not Available 2022 17:11:38 10/05/19 23 exter nal patie nt, EKG event recor ding, 24-ho ur atten ded monit oring ; revie w and inter preta tion (PROC ) No observ ation record ed. [facility] [address], [place], [address], 10/10/2022 07:47:37 02/17/20 23 02/16/2023 PET, myoca rdial scan, metab olic evalu ation [facility] EXAMIN ATION: PET/CT MYOCAR D PERF W/META B EVAL - ACC #: [id number] CPT: 00678 Mod: RIS Order: [id number] (IPT) ([id number]) HIS Order: [id number] STARTE D: Feb 16 2023 7:00AM COMPLE NYDIA: Feb 16 2023 10:08A M TECH INITIA LS: SA01 FULL RESULT : NM SPECT MYOCAR DIAL PERFUS ION PLANAR MULTIP LE 023 6:25 AM CDT Indica tion: Over read of noncar diac portio n of this nuclea r medici ne myocar dial perfus ion study. Compar patrick: 021 Techni que: Nuclea r medici ne myocar dial perfus ion study was perfor med. Review of the limite d images provid ed of the noncar diac struct ures are being includ ed on this report . The nuclea r medici ne portio n of this exam has been read by a cardio logist . Radiat ion dose loweri ng techni que, automa nydia exposu re contro l, utiliz ed. Findin gs: Nodule s/mass : Coarse persis tent inters titial thicke jillian throug hout both lungs, simila r to prior. Pleura : There is no pleura l effusi on or pneumo thorax . Lymph nodes: There is no lympha denopa thy in the visual ized medias tinum. Upper abdome n: Limite d visual izatio n of the upper abdome n does not demons trate pathol ogy. Please see the cardio logist 's interp retati on of the cardia c portio ns of this examin ation. IMPRES PRETTY: Chroni c inters titial change s in the lungs simila r to prior. Workst ation: [id number] ELECTR ONICAL LY SIGNED BY: XIMENA ROBLEDO M.D. Feb 16 2023 12:18P M Dictat ed: Feb 16 2023 12:15P M Transc ribed: Feb 16 2023 12:15P M Disper sed: Aug 17 2023 12:18P M Attend ing Dr: BRITTNI JIMENEZ Admitt ing Dr: BRITTNI JIMENEZ Primar y Care: BRITTNI JIMENEZ Additi onal Doctor (s): XAVIER CARRENO SIGNED BY: Pat DONATO g 2022 12:18P M ^ jeffrey [facility] [address] [place] [address], [place], [address], 02/20/2023 08:05:18 02/21/20 23 02/16/2023 PET, myoca rdial scan, metab olic evalu ation No observ ation record ed. jeffrey Amg - In Office Orders (For Internal Use Only) [address] [place], [address], 03/08/2023 08:18:03 08/10/19 24 08/02/2023 elect gerardo salazargr am No observ ation record ed. [place] [address], [place], [address], 08/10/2023 12:17:12 08/10/19 24 08/02/2023 CT, angio gram, chest , w/ contr ast No observ ation record ed. [address] [place] [address], [place], [address], 08/10/2023 12:19:34 08/10/19 24 08/02/2023 XR, chest , 2 view No observ ation record ed. [place] [address], [place], [address], 08/10/2023 12:20:35 08/25/19 24 jadon r monit or No observ ation record ed. [place] [address] [email or web address] [address], [place], [address], 08/28/2023 09:40:42 10/02/19 24 10/02/2023 PET-C T, myoca rdial perfu pretty with metab olic evalu ation , dual radio trace [facility] [place] EXAMIN ATION: PET/CT MYOCAR D METABO LIC EVAL - ACC #: [id number] CPT: 07644 Mod: RIS Order: [id number] (EVN) ([id number]) HIS Order: [id number] STARTE D: Oct 02 2023 7:40AM COMPLE NYDIA: Oct 02 2023 10:07A M TECH INITIA LS: JXS Radiop harmac eutica l: 13.16 mCi of F-18 FDG, IV FULL RESULT : Cardia c PET/CT COMPAR PATRICK: 022 INDICA TION: Sarcoi d myocar ditis Discus pretty: 13.2 mCi F-18 FDG was given intrav enousl y. PET/CT imagin g of the chest was perfor med, attent ion heart. No signif icant cardia c FDG uptake . Abnorm al increa sed FDG uptake in the medias tinum corres pondin g adenop athy on CT, most pronou nced in the right paratr acheal space. Areas of increa sed FDG uptake in the right upper and middle lobes with progre ssion of ill-de fined nodula r thicke jillian. Pre-ex isting chroni c coarse opacit ies bilate rally and mild merari ectura l distor tion. Minima l pleura l effusi ons. IMPRES PERTTY: 1. No eviden ce of active cardia c sarcoi dosis. 2. Areas of increa sed FDG uptake in the right lung with corres pondin g progre ssive opacit ies on CT, consis tent with sarcoi dosis. 3. Increa sed medias tinal FDG uptake , most pronou nced in the right paratr acheal region consis tent with active sarcoi dosis. ELECTR ONICAL LY SIGNED BY: JENNA GLEASON M.D. Oct 02 2023 11:06A M Dictat ed: Oct 02 2023 11:06A M Transc ribed: Oct 02 2023 11:06A M [id number] Disper sed: Oct 02 2023 11:06A M Attend ing Dr: MIGUEL ÁNGEL JIMENEZ- DASHA Admitt ing Dr: CHAUDH RY, SUNIT- DASHA Primar y Care: Additi onal Doctor (s): XAVIER CARRENO SIGNED BY: JENNA GLEASON M.D.Ap r 2023 11:06A M ^ [email or web address] [facility] [address] [facility], [place], [address], 10/16/2023 15:32:22 08/06/19 25 08/02/2024 XR, hip + pelvi s, unila teral No observ ation record ed. [email or web address] [facility] [address], [place], [address], 08/06/2024 16:47:00 09/03/19 25 09/02/2024 PET-C T, limit ed [facility] [place] EXAMIN ATION: PET/CT MYOCAR D METABO LIC EVAL - Acc #: [id number] CPT: 39112 RIS Order: [id number] (EVN) ([id number]) HIS Order: [id number] STARTE D: Sep 02 2024 8:00AM COMPLE NYDIA: Sep 02 2024 10:44A M TECH INITIA LS: JXS Radiop harmac eutica l: 11.54 mci of F-18 FDG, IV FULL RESULT : EXAMIN ATION( S): F-18 cardia c PET/CT . CLINIC AL HISTOR Y: Sarcoi dosis. COMPAR APTRICK: October 02, 2023, Novemb er 2021. FINDIN GS: There is very mild, patchy intram yocard ial uptake along the basal adalberto latera l left ventri cular segmen t, new compar ed to previo us, raisin g suspic ion for a small region of active cardia c sarcoi dosis. Unchan ged heart size. Multip le promin ent to medias tinal and proxim al hilar lymph nodes are again seen which demons trates some low-gr francoise activi ty, findin gs consis tent with sarcoi dosis. For instan ce, subcar inal node measur es approx imatel y 32 x 13 mm, previo usly 33 x 13 mm. An AP window /preva scular node measur es 0.4 x 14 mm, previo usly 43 x 14 mm. Upper to mid lung predom inant region s of pulmon blair fibros is, with coarse reticu lar inters titial thicke jillian as well as bandli ke region s of interv al change are noted, with some associ ated volume loss and superi or retrac tion of the saray. Diffus e bronch ial wall thicke jillian. Perily mphati c nodula rity again noted. Patchy inters persed airspa ce opacit ies appear somewh at improv ed, partic ularly in the anteri or right upper lobe, with less dense appear ance of the opacit ies, now more ground glass and semiso lid. Previo us region of consol idatio n in the right midlun g has also decrea sed. Trace pleura l effusi ons versus low-de nsity pleura l thicke jillian, right greate r than left, have slight ly decrea sed. Postop erativ e change s are seen in the stomac h. IMPRES PRETTY: 1. Findin gs suspic ious for a very mild region of active cardia c sarcoi dosis involv ing the basal adalberto septal segmen t. 2. Findin gs consis tent with stage V sarcoi dosis involv ing the thorax , includ ing medias tinal and hilar lymph node enlarg ement as well as pulmon blair fibros is, within upper to midlun g predom inance . 3. Slight improv ement of airspa ce opacit ies in the anteri or right upper lobe and in the right midlun g. 4. Trace right greate r than left pleura l effusi ons versus low-de nsity pleura l thicke jillian, slight ly decrea sed. ELECTR ONICAL LY SIGNED BY: MAURICE GARCIA M.D. Sep 02 2024 1:57PM Dictat ed: Sep 02 2024 1:57PM Transc ribed: Sep 02 2024 1:57PM [id number] Disper sed: Sep 02 2024 1:57PM [facility] Dr: BRITTNI JIMENEZ DASHA Admitt ing Dr: BRITTNI JIMENEZ Primar y Care: ELECTR ONICAL LY SIGNED BY: Ashia AGUILERASep 02 2024 1:57PM ^ [facility] [address] [facility], [facility] [place], [address], 09/02/2024 15:57:59 Result Notes None recorded. Problems Name Problem SNOMED Code Status Onset Date Resolution Date Notes Provider Name and Address Organization Details Recorded Time Chronic diastolic heart failure 614124179 Active 2021 Hortencia Nitesh RMA [place], [place] 2 09:17:34 Diabetes mellitus 58305398 Active 2018 Ratna Марина [place], [place] 9 18:39:51 Hypertensive disorder 33868259 Active 2018 Ratna Марина [place], [place] 9 18:39:51 Atrial fibrillation 98161673 Active 2018 Ratna Марина [place], [place] 9 18:39:51 Chronic obstructive pulmonary disease 48360270 Active 2018 Ratna Marion null, [place] 9 18:39:51 Chronic lung disease 111591826 Active 2018 Ratna Марина [place], [place] 9 18:39:52 Sarcoidosis 16652478 Active 2018 Ratna Marion [place], [place] 9 18:39:51 Morbid obesity 276336896 Active 2018 Ratna Марина [place], [place] 9 18:39:51 Systolic dysfunction 918451966 Active 2018 Ratna Marion null, [place] 9 18:39:52 Paroxysmal atrial fibrillation 194663603 Active 2018 Ratna Марина [place], [place] 9 18:39:51 Chest pain 63311063 Active 2019 Laura Snow CMA [place], [place] 0 11:48:50 Dyspnea 916069045 Active 2019 Laura Snow [employer] [place], [place] 0 11:48:59 Dyspnea on exertion 08826158 Active 2019 Laura Gwendolyn [employer] [place], [place] 0 11:49:04 Nausea 213685897 Active 2019 Laura Gwendolyn [employer] null, [place] [facility] [place] 0 11:49:10 Essential hypertension 61984187 Active 2019 Cassie Delgado NP [address] [place] [address], [address], [place], [address], [place] 0 14:15:03 Uncontrolled type 2 diabetes mellitus 798670587 Active 2019 Cassie Delgado NP [address] [place] [address], [address], [place], [address], [place] 0 14:37:50 Gastroesophage al reflux disease 073059507 Active 2019 Cassie Delgado NP [address] [place] [address], [address], [place], [address], [place] 0 14:39:40 Obstructive sleep apnea syndrome [id number] Active 2019 Cassie Delgado NP [address] [place] [address], [address], [place], [address], [place] 0 14:41:37 Cardiac sarcoidosis [id number] Active 2019 Laura Gwendolyn ROWE null, [place] [facility] 0 17:51:42 Problem Notes None recorded. Procedures Surgical History Date Name Laterality Status Provider Name and Address Organization Details Recorded Time 05/18/20 22 Gastric bypass for obesity completed Swetha Julien [place] [facility] 08/15/2022 08:32:55 01/06/20 21 COPD Assessment- CAT completed Ratna Martinez RN [place] [facility] 01/05/2021 15:34:32 07/07/19 21 COPD Assessment- CAT completed Kimberli Vazquez CMA [place] [facility] 07/07/2020 16:50:01 08/15/19 20 Cardiac Cath completed Hortencia Elmoreuter CHELY [place] [facility] 11/14/2019 09:47:26 03/27/20 19 COPD Assessment- CAT completed Clark Solitario MD [address], [address], [place], [address], [place] [facility] 03/27/2019 09:05:33 12/27/19 19 COPD Assessment- CAT completed Clark Solitario MD [address], [address], [place], [address], [place] - [facility] 12/26/2018 09:40:20 11/13/19 19 Medical Hospitalization completed Aranza Paredes RN [place] [facility] 11/28/2018 15:15:50 06/03/20 18 Medical Hospitalization completed Nayeli Silva [place] [facility] 06/05/2019 14:42:33 07/03/19 15 biopsy of lung completed Clark Solitario MD [address], [address], [place], [address], [place] [facility] 08/22/2018 09:51:26 Imaging Results Imaging Date Name Status LastModified by Organization Details LastModified Time 05/03/2022 PET, myocardial scan, metabolic evaluation completed [address] [facility] [address] [place], [address], 05/09/2022 07:10:59 04/18/2022 electrocardiogram completed Informa tion not available 07/29/2022 17:11:38 10/04/2022 external patient, EKG event recording, 24-hour attended monitoring; review and interpretation (PROC) completed [facility] [address], [place], [address], 10/10/2022 07:47:37 02/16/2023 PET, myocardial scan, metabolic evaluation completed [email or web address] [address], [place], [address], 02/20/2023 08:05:18 02/16/2023 PET, myocardial scan, metabolic evaluation completed [email or web address] - In Office Orders (For Internal Use Only) [address] [facility], [place], [address], 03/08/2023 08:18:03 08/02/2023 electrocardiogram completed [address], [address], 08/10/2023 12:17:12 08/02/2023 CT, angiogram, chest, w/ contrast completed [address], [address], 08/10/2023 12:19:34 08/02/2023 XR, chest, 2 view completed [address], [address], 08/10/2023 12:20:35 08/25/2023 holter monitor completed [email or web address] [address], [place], [address], 08/28/2023 09:40:42 10/02/2023 PET-CT, myocardial perfusion with metabolic evaluation, dual radiotracer completed [email or web address] [address] [place] [address], [address], 10/16/2023 15:32:22 08/02/2024 XR, hip + pelvis, unilateral completed [email or web address] [address], [address], 08/06/2024 16:47:00 09/02/2024 PET-CT, limited [email or web address] [address] [place], [address], 09/02/2024 15:57:59 Procedure Notes None recorded. Medical Equipment None Reported. Allergies Allergen ID Allergen Name Allergen Category Reaction Reaction Severity Criticality Documentation Date Start Date Code Code System Note Provider Name and Address Organization Details Recorded Time [id number] Actos medicatio n rash Not available Not available 08/22/2018 28993 2 RxNorm Aranza Paredes RN null, [place] 9 08:59:45 Medications Name Sig Start Date Stop Date Status Note LastModified by Organization Details LastModified Time cyclobenz aprine 10 mg tablet Take 1 tablet every day by oral route as needed. 08/27 completed Not Available Not Available Not Available furosemid e 40 mg tablet TAKE 2 TABLETS BY MOUTH EVERY DAY 2024 active Not Available Not Available Not Avai lable atorvasta tin 40 mg tablet Take 1 tablet every day by oral route in the evening for 90 days. 04/01 completed Not Available Not Available Not Available atorvasta tin 80 mg tablet TAKE 1 TABLET BY MOUTH EVERY DAY active Not Available Not Available No t Available carvedilo l 25 mg tablet TAKE 1 TABLET BY MOUTH TWICE A DAY active Not Available Not Available No t Available carvedilo l 6.25 mg tablet TAKE 1 TABLET BY MOUTH TWICE A DAY 11/15 completed Not Available Not Available Not Available prednison e 10 mg tablet TAKE 6 TABS FOR 3 DAYS TAKE 4 TABS FOR 3 DAYS TAKE 2 TABS FOR 3 DAYS TAKE 1 TAB FOR 3 DAYS THEN STOP 10/11 completed Not Available Not Available Not Available carvedilo l 12.5 mg tablet Take 1 tablet twice a day by oral route. 12/27 completed Not Available Not Available Not Available albuterol sulfate 2.5 mg/3 mL (0.083 %) solution for nebulizat ion INHALE THE CONTENTS OF 1 VIAL VIA NEBULIZE R EVERY 4 HOURS NEEDED FOR WHEEZING /DYSPNEA active Not Available Not Available No t Available azithromy jose 250 mg tablet TAKE 2 TABLETS BY MOUTH TODAY, THEN TAKE 1 TABLET DAILY FOR 4 DAYS DIRECTED 07/15 completed Not Available Not Available Not Available ibuprofen 800 mg tablet Take 1 tablet 3 times a day by oral route for 15 days. 08/21 completed Not Available Not Available Not Available Lidocaine Viscous 2 % mucosal solution TAKE 15 ML EVERY 4 HOURS BY ORAL ROUTE. 08/21 completed Not Available Not Available Not Available benzonata te 200 mg capsule TAKE 1 CAPSULE BY MOUTH 3 TIMES A DAY 02/16 completed Not Available Not Available Not Available hydrocodo ne 5 mg-acetam inophen 325 mg tablet 1 by mouth as needed for pain 10/19 completed Not Available Not Available Not Available fluconazo le 200 mg tablet 04/01 completed Not Available Not Available Not Available prednison e 20 mg tablet TAKE 2 TABLETS BY MOUTH EVERY DAY FOR 6 DAYS 07/15 completed Not Available Not Available Not Available prednison e 5 mg tablet TAKE 3TAB BY MOUTH DAILY FROM 03/22-03/04 6, 2TABS DAILY FROM 03/29-04/04, 1TAB FROM 04/05-08/15 completed Not Available Not Available Not Available clobetaso l 0.05 % topical cream PLEASE SEE ATTACHED FOR DETAILED DIRECTIO NS 08/15 completed Not Available Not Available Not Available penicilli n V potassium 500 mg tablet Take 1 tablet every 8 hours by oral route for 7 days. 08/21 completed Not Available Not Available Not Available prochlorp erazine maleate 10 mg tablet 11/23 completed Not Available Not Available Not Available sulfameth oxazole 800 mg-trimet hoprim 160 mg tablet 07/05 completed Not Available Not Available Not Available doxycycli ne monohydra te 100 mg tablet Take 1 tablet twice a day by oral route. 03/18 completed Not Available Not Available Not Available carvedilo l 3.125 mg tablet Take 1 tablet twice a day by oral route. 10/31 completed increase d to 6.25mg BID at OV 10/31/18 Not Available Not Available Not Available ondansetr on 8 mg disintegr ating tablet TAKE 1 TABLET BY MOUTH THREE TIMES A DAY NEEDED FOR NAUSEA AND VOMITING 10/19 completed Not Available Not Available Not Available mycopheno late mofetil 500 mg tablet TAKE 2 TABLETS BY MOUTH TWICE A DAY 2024 active Not Available Not Available Not Avai lable losartan 100 mg-hydroc hlorothia zide 25 mg tablet TAKE 1 TABLET BY MOUTH DAILY ECHO FORMULAR Y FUND 12/06 completed Pt unsure if taking or not. Told to f/u with cardiolo gy BHARGAV Not Available Not Available Not Available diltiazem 120 mg tablet Take 1 tablet 3 times a day by oral route. 08/21 completed Not Available Not Available Not Available pravastat in 80 mg tablet Take 1 tablet every day by oral route. 04/24 completed Not Available Not Available Not Available betametha sone valerate 0.1 % topical cream APPLY TO AFFECTED AREA TWICE DAILY FOR TWO WEEKS, THEN TWICE DAILY UP TO 3 DAYS PER WEEK NEEDED 03/18 completed Not Available Not Available Not Available benzonata te 100 mg capsule TAKE 1 CAPSULE BY MOUTH THREE TIMES A DAY NEEDED FOR COUGH 10/11 completed Not Available Not Available Not Available doxycycli ne monohydra te 100 mg capsule TAKE 1 CAPSULE BY MOUTH TWICE A DAY 10/11 completed Not Available Not Available Not Available hydrocodo ne 7.5 mg-acetam inophen 325 mg tablet 08/21 completed Not Available Not Available Not Available paroxetin e 30 mg tablet TAKE 1 TABLET BY MOUTH EVERY DAY FOR 30 DAYS active Not Available Not Available No t Available paroxetin e 20 mg tablet TAKE 1 TABLET BY MOUTH EVERY DAY 07/15 completed Not Available Not Available Not Available oseltamiv ir 75 mg capsule 10/09 completed Not Available Not Available Not Available fluoxetin e 20 mg tablet TAKE 1 TABLET BY MOUTH EVERY DAY active Not Available Not Available No t Available metformin 1,000 mg tablet TAKE 1 TABLET BY MOUTH TWICE A DAY 12/09 completed [email or web address] Not Available Not Available Not Available clotrimaz ole-betam ethasone 1 %-0.05 % topical cream APPLY TOPICALL Y 2 TIMES DAILY FOR 14 DAYS TO AFFECTED AREA. RUB IN GENTLY AND COMPLETE LY. PAtient states still uses. 03/18 completed Not Available Not Available Not Available lisinopri l 10 mg tablet 01/11 completed pt currentl y taking 5 mg Not Available Not Available Not Available prednison e 50 mg tablet TAKE 1 TABLET BY MOUTH EVERY DAY 07/15 completed Not Available Not Available Not Available divalproe x ER 500 mg tablet,ex tended release 24 hr 11/23 completed Not Available Not Available Not Available lidocaine 5 % topical patch 03/18 completed Not Available Not Available Not Available nitroglyc yessi 0.4 mg sublingua l tablet PLACE 1 TABLET UNDER THE TONGUE EVERY 5 MINUTES NEEDED FOR CHEST PAIN 08/15 completed Not Available Not Available Not Available omeprazol e 20 mg capsule,d elayed release TAKE 1 CAPSULE BY MOUTH EVERY DAY active Not Available Not Available No t Available diclofena c sodium 75 mg tablet,de layed release TAKE 1 TABLET BY MOUTH TWICE A DAY 08/15 completed Not Available Not Available Not Available SB Low Dose ASA EC 81 mg tablet,de layed release Take 1 tablet every day by oral route. 03/18 completed Not Available Not Available Not Available hydroxyzi ne HCl 25 mg tablet TAKE 1 TABLET BY MOUTH THREE TIMES A DAY NEEDED active Not Available Not Available No t Available lisinopri l 5 mg tablet TAKE 1 TABLET BY MOUTH EVERY DAY 2024 active Not Available Not Available Not Avai lable hydrochlo rothiazid e 25 mg tablet TAKE 1 TABLET BY MOUTH EVERY DAY 12/06 completed Not Available Not Available Not Available furosemid e 20 mg tablet Take 1 by mouth daily as needed for lower extremit y swelling 10/31 completed increase d to 40mg QD at OV on 10/31/18 Not Available Not Available Not Available ergocalci ferol (vitamin D2) 1,250 mcg (50,000 unit) capsule TAKE 1 CAPSULE BY MOUTH EVERY WEEK 11/16 completed Not Available Not Available Not Available methylpre dnisolone 4 mg tablets in a dose pack TAKE 6 TABLETS ON DAY 1 DIRECTED ON PACKAGE AND DECREASE BY 1 TAB EACH DAY FOR A TOTAL OF 6 DAYS 10/11 completed Not Available Not Available Not Available albuterol sulfate HFA 90 mcg/actua tion aerosol inhaler USE 1 INHALATI ON 4 TIMES DAILY NEEDED FOR SHORTNES S OF BREATH OR WHEEZING active Not Available Not Available No t Available ketoconaz ole 2 % topical cream APPLY TO UNDER ARMS 2X/DAY FOR 2 WEEKS, THEN 2X/DAY UP TO THREE DAYS PER WEEK NEEDED 08/15 completed Not Available Not Available Not Available ondansetr on 4 mg disintegr ating tablet 08/21 completed Not Available Not Available Not Available cefdinir 300 mg capsule TAKE 1 CAPSULE BY MOUTH EVERY 12 HOURS 07/15 completed Not Available Not Available Not Available diltiazem 60 mg tablet TAKE 1 TABLET BY MOUTH TWICE A DAY 01/16 completed Not Available Not Available Not Available fluoxetin e 20 mg capsule TAKE 1 CAPSULE BY MOUTH ONCE DAILY 10/11 completed Not Available Not Available Not Available cholecalc iferol (vitamin D3) 125 mcg (5,000 unit) capsule TAKE 1 SOFTGEL BY MOUTH EVERY DAY 02/16 completed Not Available Not Available Not Available amoxicill in 875 mg-potass ium clavulana te 125 mg tablet TAKE 1 TABLET BY MOUTH TWICE A DAY FOR 5 DAYS 10/11 completed Not Available Not Available Not Available Pneumovax -23 25 mcg/0.5 mL injection syringe TO BE ADMINIST ERED BY PHARMACI [employer] FOR IMMUNIZA TION 03/26 completed Not Available Not Available Not Available ezetimibe 10 mg tablet TAKE 1 TABLET BY MOUTH EVERY DAY DIRECTED 2024 active Not Available Not Available Not Avai lable Novolog FlexPen U-100 Insulin aspart 100 unit/mL (3 mL) subcutane ous Inject 20 units 3 times a day by subcutan eous route as directed . 08/15 completed Not Available Not Available Not Available Albuterol Sulfate HFA 90 mcg/Actua tion aerosol inhaler 2 puffs every 4 hours by inhalati on route. active Not Available Not Available No t Available levalbute rol HFA 45 mcg/actua tion aerosol inhaler INHALE 2 PUFFS 4 TIMES A DAY NEEDED FOR WHEEZING OR SHORTNES S OF BREATH. active Not Available Not Available No t Available Atrovent HFA 17 mcg/actua tion aerosol inhaler Inhale 2 puffs 3 times a day by inhalati on route. 08/22 completed Not Available Not Available Not Available Boostrix Tdap 2.5 Lf unit-8 mcg-5 Lf/0.5 mL intramusc ular syringe TO BE ADMINIST ERED BY [employer] FOR IMMUNIZA TION 03/26 completed Not Available Not Available Not Available chlorhexi dine gluconate 0.12 % mouthwash 09/03 completed Not Available Not Available Not Available Lipitor 08/21 completed Not Available Not Available Not Available nitroglyc yessi 09/03 completed Not Available Not Available Not Available hydrochlo rothiazid e 08/21 completed Not Available Not Available Not Available furosemid e 08/21 completed Not Available Not Available Not Available amlodipin e 08/21 completed Not Available Not Available Not Available prednison e 30 mg daily for sarcoido sis 07/15 completed Not Available Not Available Not Available monteluka st 10mg daily 08/22 completed Not Available Not Available Not Available losartan 08/21 completed Not Available Not Available Not Available azathiopr ine 08/21 completed Not Available Not Available Not Available potassium 08/21 completed Not Available Not Available Not Available metformin 1000mg bid 09/26 completed Not Available Not Available Not Available Lantus U-100 Insulin 08/21 completed Not Available Not Available Not Available Ventolin HFA 08/21 completed Not Available Not Available Not Available Atrovent HFA 08/21 completed Not Available Not Available Not Available cholecalc iferol (vitamin D3) 1,250 mcg (50,000 unit) capsule TAKE 1 CAPSULE BY MOUTH ONCE EVERY 7 DAYS 08/15 completed Not Available Not Available Not Available Symbicort 08/21 completed Not Available Not Available Not Available omeprazol e 20 mg tablet,de layed release 01/11 completed Not Available Not Available Not Available Apidra SoloStar U-100 Insulin 100 unit/mL subcutane ous pen +ASS 07/20 completed Not Available Not Available Not Available Apidra SoloStar U-100 Insulin 30 UNITS TID WITH MEALS PLUS AGGRESSI VE SLIDING SCALE WITH MEALS AND BEDTIME SNACK 10/27 completed Not Available Not Available Not Available cholecalc iferol (vitamin D3) 125 mcg (5,000 unit) tablet TAKE 1 TABLET BY MOUTH EVERY DAY 07/15 completed Not Available Not Available Not Available Multaq 400 mg tablet TAKE 1 TABLET BY MOUTH TWICE A DAY 07/15 completed Not Available Not Available Not Available Dulera 200 mcg-5 mcg/actua tion HFA aerosol inhaler Inhale 2 puffs twice a day by inhalati on route. 08/22 completed Not Available Not Available Not Available Dulera 08/21 completed Not Available Not Available Not Available Xarelto 20 mg tablet TAKE 1 TABLET BY MOUTH EVERY DAY active Not Available Not Available No t Available OneTouch Verio test strips USE TO TEST 3 TIMES DAILY 2021 active Not Available Not Available Not Avai lable potassium chloride ER 20 mEq tablet,ex tended release TAKE 1 TABLET BY MOUTH EVERY DAY 08/15 completed Not Available Not Available Not Available Jardiance 10 mg tablet TAKE 1 TABLET BY MOUTH EVERY DAY 09/11 completed Not Available Not Available Not Available Jardiance 25 mg tablet Take 1 tablet every day by oral route for 90 days. 01/09 completed changing to synjardy Not Available Not Available Not Available Breo Ellipta 200 mcg-25 mcg/dose powder for inhalatio n TAKE 1 PUFF BY MOUTH EVERY DAY 10/31 completed Not Available Not Available Not Available Synjardy 12.5 mg-1,000 mg tablet Take 1 tablet twice a day by oral route for 90 days. 01/09 completed Not Available Not Available Not Available Basaglar KwikPen U-100 Insulin 100 unit/mL (3 mL) subcutane ous INJECT 30 UNITS UNDER THE SKIN TWICE DAILY DIRECTED 08/15 completed Not Available Not Available Not Available Apidra Optiset U-100 Insulin 08/21 completed Not Available Not Available Not Available Accu-Chek Guide Glucose Meter USE DIRECTED . 09/16 completed Not Available Not Available Not Available Synjardy XR 25 mg-1,000 mg tablet, extended release TAKE 1 TABLET BY MOUTH EVERY DAY 08/15 completed Not Available Not Available Not Available Trelegy Ellipta 100 mcg-62.5 mcg-25 mcg powder for inhalatio n INHALE 1 PUFF BY MOUTH EVERY DAY 10/11 completed Not Available Not Available Not Available Admelog SoloStar U-100 Insulin lispro 100 unit/mL subcutane ous pen 01/11 completed Not Available Not Available Not Available Dexcom G6 Sensor device active Not Available Not Available Not Available Dexcom G6 Swing Type Lathe Operator active Not Available Not Available Not Available Dexcom G6 Transmitt er device active Not Available Not Available No t Available Accu-Chek Fastclix Lancet Drum USE TO TEST BLOOD SUGAR 4 TIMES PER DAY ICD 10 CODE E11.65 07/15 completed Not Available Not Available Not Available FreeStyle Chrissy 14 Day Slater active Not Available Not Available Not Available FreeStyle Chrissy 14 Day Sensor kit active Not Available Not Available Not Available BD Kenyatta 2nd Gen Pen Needle 32 gauge x USE TO INJECT INSULIN 5 TIMES DAILY active Not Available Not Available No t Available OneTouch Delica Plus Lancet 33 gauge Used to test 4 times daily E11.65 2021 active Not Available Not Available Not Avai lable Rybelsus 3 mg tablet TAKE 1 TABLET BY MOUTH EVERY DAY 08/15 completed Not Available Not Available Not Available Trelegy Ellipta 200 mcg-62.5 mcg-25 mcg powder for inhalatio n INHALE 1 PUFF BY MOUTH ONCE DAILY active Not Available Not Available No t Available bebtelovi mab 175 mg/2 mL (87.5 mg/mL) intraveno us solution (Unapp) Inject 175 mg by intraven ous route for 1 day. 03/21 completed Not Available Not Available Not Available Vitals Date Recorded Body height Body mass index (BMI) Body weight Heart rate Oxygen saturation Oxygen saturation in Arterial blood by Pulse oximetry Systolic blood pressure Diastolic blood pressure Provider Name and Address Organization Details Last Updated DateTime 2 181.61 cm 48.5 kg/m2 400594. 11 g 72 /min 95 % 95 % 130 mm[Hg] 72 mm[Hg] Cassie Rodriguez [place] [facility] 2 13:58:34 Date Recorded Body height Body mass index (BMI) Body weight Heart rate Systolic blood pressure Diastolic blood pressure Provider Name and Address Organization Details Last Updated DateTime 3 181.61 cm 38.1 kg/m2 221218. 09 g 90 /min 127 mm[Hg] 83 mm[Hg] Swetha Julien [place] [facility] 3 08:34:15 Date Recorded Body height Body mass index (BMI) Body weight Heart rate Oxygen saturation Oxygen saturation in Arterial blood by Pulse oximetry Systolic blood pressure Diastolic blood pressure Provider Name and Address Organization Details Last Updated DateTime 3 181.61 cm 33.6 kg/m2 346273. 54 g 58 /min 95 % 95 % 108 mm[Hg] 80 mm[Hg] Nereyda Pak [place] [facility] 3 10:31:37 Date Recorded Body height Body mass index (BMI) Body weight Heart rate Oxygen saturation Oxygen saturation in Arterial blood by Pulse oximetry Systolic blood pressure Diastolic blood pressure Provider Name and Address Organization Details Last Updated DateTime 4 181.61 cm 34.4 kg/m2 952101. 37 g 87 /min 96 % 96 % 110 mm[Hg] 62 mm[Hg] Jazmin FRANKLIN [facility] [place] 09:40:38 Date Recorded Body height Body mass index (BMI) Body weight Provider Name and Address Organization Details Last Updated DateTime 07/15/2024 181.61 cm 35.1 kg/m2 946300.05 g Mary Mcfarlane [facility] [place] 07/15/2024 10:25:28 Social History Question Answer Notes LastModified by Organizat ion Details LastModified Time Tobacco Smoking Status Former Smoker Rhona escalera [facility] [place] 10/12/2023 09:33:43 Do You Have An Advance Directive? No [email or web address] Information not available 10/12/2023 What Is Your Level Of Alcohol Consumption? None [email or web address] Information not available 10/12/2023 What Is Your Level Of Caffeine Consumption? Moderate [email or web address] Information not available 10/12/2023 Are You Currently Employed? No [email or web address] Information not available 02/16/2023 What Type Of Diet Are You Following? REGULAR [email or web address] Information not available 10/12/2023 Which Illicit Or Recreational Drugs Have You Used? Denies [email or web address] Information not available 10/12/2023 Do You Or Have You Ever Used E-cigarettes Or Vape? 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 16+yearssince lastcigarette [email or web address] Information not available 02/16/2023 Live Alone Or With Others? With Others Lives With [email or web address] Information not available 02/16/2023 Do You Want Help Finding Or Keeping Work Or A Job? No [email or web address] Information not available 04/01/2020 Do You Want Help With School Or Training? For Example, Starting Or Completing Job Training Or Getting A High School Diploma, GED, Or Equivalent? No [email or web address] Information not available 04/01/2020 In The Last 12 Months Did You Ever Eat Less Than You [place] You Should Because There Wasn t Enough Money For Food? No [email or web address] Information not available 04/01/2020 In The Past 12 Months Has [employer], Oil, Or Water [employer]ug[employer] Threatened To Shut Off Services In Your Home? No [email or web address] Information not available 04/01/2020 In The Last 12 Months Did You Skip Medications To Save Money? No [email or web address] Information not available 04/01/2020 In The Last 12 Months, Was There A Time When You Needed To See A Doctor But Could Not Because Of Cost? No [email or web address] Information not available 04/01/2020 Do You Often Feel Lonely? No [email or web address] Information not available 04/01/2020 Are You Worried That In The Next 2 Months You May Not Have Stable Housing? No [email or web address] Information not available 04/01/2020 In The Last 12 Months, Have You Ever Had To Go Without Health Care Because You Didn t Have A Way To Get There? No [email or web address] Information not available 04/01/2020 Do You Feel Physically And Emotionally Unsafe Where You Currently Live? No [email or web address] Information not available 04/01/2020 Have You Had A Fever And/or Symptoms Of A Lower Respiratory Illness (cough, Difficulty Breathing, Etc)? No [email or web address] Information not available 10/10/2019 Have You Had Any Of These Symptoms: Chills ,Headache, Fatigue, Muscle Or Body Aches , Sore Throat, New Loss Of Taste Or Smell, Nausea Or Vomiting, Or Diarrhea? No Information not available 07/07/2020 Have You Had A COVID-19 Vaccine In The Last 7 Days? No [email or web address] Information not available 07/07/2020 (If Yes To Covid Vaccine)- Which Vaccine? Moderna [email or web address] Information not available 03/21/2022 In The Past 10 Days, Have You Been Told You May Have COVID-19 Or Have Been Tested For COVID-19? No [email or web address] Information not available 11/16/2021 0) Information Provided By : Patient [email or web address] Information not available 10/12/2023 1a) Does The Patient/Caregiv er/Family Report The PATIENT Having Any Of These NEW Symptoms Such As Cough? No Information not available 10/12/2023 1b) Does The Patient/Caregiv er/Family Report The PATIENT Having Any Of These NEW Symptoms Such As Diarrhea? No [email or web address] Information not available 10/12/2023 1c) Does The Patient/Caregiv er/Family Report The PATIENT Having Any Of These NEW Symptoms Such As Fever/chills? No [email or web address] Information not available 10/12/2023 1d) Does The Patient/Caregiv er/Family Report The PATIENT Having Any Of These NEW Symptoms Such As Nasal Congestion/Runn y Nose? No Information not available 10/12/2023 1e) Does The Patient/Caregiv er/Family Report The PATIENT Having Any Of These NEW Symptoms Such As Respiratory Distress (acute)? No [email or web address] Information not available 10/12/2023 1f) Does The Patient/Caregiv er/Family Report The PATIENT Having Any Of These NEW Symptoms Such As Rash? No [email or web address] Information not available 10/12/2023 1g) Does The Patient/Caregiv er/Family Report The PATIENT Having Any OTHER NEW Symptoms (list)? If No NEW Symptoms, Enter No No [email or web address] Information not available 10/12/2023 Marital Status [email or web address] Informatio n not available 02/16/2023 What Was The Date Of Your Most Recent Tobacco Screening? 02/16/2023 [email or web address] Information not available 02/16/2023 How Many Children Do You Have? 0 [email or web address] Information not available 02/16/2023 What Is Your Current Pack Years? 10packyears [email or web address] Information not available 02/16/2023 What Is Your Relationship Status? [email or web address] Information not available 02/16/2023 Do You Use Your Seat Belt Or Car Seat Routinely? Yes [email or web address] Information not available 02/16/2023 Seat Belts Used Routinely Yes [email or web address] Information not available 02/16/2023 Do You Have Smoke And Carbon Monoxide Detectors In Your Home? Yes [email or web address] Information not available 02/16/2023 Are You Passively Exposed To Smoke? Yes [email or web address] Information not available 08/27/2019 Do You Or Have You Ever Used Smokeless Tobacco? Never Used Smokeless Tobacco [email or web address] Information not available 02/10/2021 How Much Tobacco Do You Smoke? No [email or web address] Information not available 10/12/2023 General Stress Level Medium [email or web address] Information not available 02/16/2023 Do You Use Any Illicit Or Recreational Drugs? No [email or web address] Information not available 02/16/2023 How Many Years Have You Smoked Tobacco? 1.4 1 Pack Or Less Per Week For 10 Years [email or web address] Information not available 02/10/2021 Sex: Male Functional Status Question Answer Note LastModified by Organizat ion Details LastModified Time What is your exercise level? Occasional [email or web address] Information not available 10/12/2023 Mental Status None recorded. Family History Relationship Description Onset Age of this Age Resolved Age Notes LastModified by Organization Details LastModified Time Father Crohn's disease [email or web address] Not available 05/2024 09:33:42 Mother Hypertensive disorder [email or web address] Not available 2018 09:10:40 Medical History Condition Response gout N asthma Y COPD Y acid reflux/GERD Y diabetes mellitus Y sleep apnea Y other respiratory issue Y rheumatoid arthritis N deep vein thrombosis N anxiety disorder N tuberculosis N depression Y high blood pressure Y atrial fibrillation Y arrhythmia N heart problems N hepatitis N hypothyroidism N lupus N glaucoma N skin conditions N seizures N tobacco abuse Y diverticulitis N bedwetting Y high cholesterol Y cancer N heart attack ([place]) N blood clots N thyroid disease N fibromyalgia N hyperlipidemia Y stroke N Immunizations Vaccine Type Date Status Note Provider Nam e and Address Organization Details Recorded Time Influenza, split virus, trivalent, PF 9 completed Not Available [facility] 07/20/2019 06:08:10 Influenza, split virus, quadrivalent, PF 9 completed Not Available [facility] 07/21/2019 02:13:25 pneumococcal polysaccharide PPV23 9 completed Aranza Paredes RN null, [place] - [facility] 03/27/2019 08:58:05 Influenza, split virus, quadrivalent, preservative 0 completed Kimberli Vazquez CMA null, [place] - [facility] 07/07/2020 16:47:56 SARS-COV-2 (COVID-19) vaccine, UNSPECIFIED 1 completed Ratna Martinez RN null, [place] - [facility] 01/05/2021 15:32:38 SARS-COV-2 (COVID-19) vaccine, UNSPECIFIED 1 completed Ratna Martinez RN null, [place] - [facility] 01/05/2021 15:32:45 SARS-COV-2 (COVID-19) vaccine, UNSPECIFIED 2 completed Ratna Martinez RN null, [place] - [facility] 11/16/2021 14:25:48 Past Encounters Encounter ID Performer Location Encounter Start Date Encounter Closed Date Diagnosis/Indication Diagnosis SNOMED-CT Code Diagnosis ICD10 Code Diagnosis Note [id number] Angy LÓPEZA_SMG_U C_[address], [address] [place] [address] 06/13/2018 13:03:24 06/13/2018 14:31:00 Toothache 01929003 K08.89 Due to the erythema of the gingiva and L cheek, the tenderness to palpation of these areas, and lack of primary care or dentistry, patient was placed on an antibiotic for the beginning of a tooth infection. Patient was given symptomati c treatment for the tooth ache and was told to go to the dentist as soon as possible. He understood and agreed to treatment plan. [id number] MD NELSON Donovan_SMG_U C_[address], [address] [place] [address] 06/18/2018 12:40:09 06/18/2018 13:31:32 Type 1 diabetes mellitus 99056628 E10.9 [id number] Clark Solitario MD zCLSD_EVA _SMG_PULM _[facility] [address] [facility] 200 [place] [address] 08/22/2018 08:38:55 08/22/2018 10:19:35 Pulmonary sarcoidosis 68744905 D86.0 38-year-ol d black gentleman with biopsy-pro keshav sarcoidosi s. Biopsy reports are not available to me. I will try to obtain them. The patient's history and CT scan of the chest is highly compatible with the diagnosis. Patient has also been evaluated in the past by a pulmonolog ist. He has received prednisone and Imuran since his diagnosis in 2014. Recently the patient is off all medication s and he seems to be doing clinically well. He only complains of dyspnea on exertion and occasional wheezing. I will treat the patient with Brio Ellipta 200 mcg 1 puff once a day. Pulmonary function tests do reveal the presence of severe obstructiv e airways disease. Patient did have a CBC on his CMP performed last month. His renal function, liver function and calcium levels were all normal. Moderate to complete his workup a TSH as well as an EKG and echocardio gram will be requested. I will follow-up with him as soon as the studies available. Chronic ob structive pulmonary disease 73955200 J44.9 Pulmonary function tests from 08/14/2018 revealed the presence of severe obstructiv e airway disease, mild restrictio n and normal DLCO. He will be treated with Breo 100 mcg 1 puff once a day. Long-term drug therapy 650384857 Z79.899 The patient has been taking Prednisone , on and off, for the last 4 years. I will schedule the patient for a bone density study and I would also check for vitamin D 25-hydroxy and vitamin D 1-25 hydroxy. Atrial fibrillation 4943 6004 I48.91 Already referred to Cardiology . Hopefully he will improved after CPAP treatment is restarted. [facility] ed type 2 diabetes mellitus 625784502 E11.65 Already referred to Endocrinol justin. It is my hope that the patient diabetes will be much better control if I avoid prednisone . At this time I do not believe the patient needs it. Obstructiv e sleep apnea syndrome 16668828 G47.33 The patient has documented history obstructiv e sleep apnea diagnosed in May 2014. Unfortunat kristi his device broke when he moved from [place] to [place] in January 2018. The patient has not used his CPAP since then and recently developed atrial fibrillati on. I believe the patient needs to have a CPAP device of 12 cm of water pressure as soon as possible. He will be seen by sleep specialist tomorrow morning. Administra tion of influenza vaccine 47462338 Z23 To be given today. The patient is a high risk of developing pulmonary infections due to the structural damage to his lung parenchyma . [id number] Riley Pedersen MD EVA_SMG_S LPPULM_[address] [facility] [address] [place] [address] 08/23/2018 15:09:40 08/23/2018 16:52:30 Obstructive sleep apnea syndrome 58652883 G47.33 Moderate to severe obstructiv e sleep apnea (AHI 24.9, sumanth saturation 77%) found to require CPAP at a pressure of 12 cm of water on a split-nigh t polysomnog claude done in May 2014. The patient has lost about 30 pounds since his original study, but based on his current symptomato logy and physical examinatio n, there is a very high clinical suspicion for persistent sleep disordered breathing and he needs to be restarted on CPAP therapy. He has recently been diagnosed with paroxysmal atrial fibrillati on which further increases the need for aggressive management of his sleep disordered breathing. I have sent in an order for a new machine set at a pressure of 12 cm. He has chronic obstructiv e pulmonary disease and is not a candidate for auto titrating positive pressure therapy. Based on the patient's clinical presentati on, I do not think that he needs a repeat study to qualify him for nocturnal positive pressure therapy. I have informed him, however, that his insurance may require a re-qualifi cation study, and he will be referred for the same if needed. Hypersomni a with sleep apnea 93872199 G47.10 hypersomni a likely secondary to sleep fragmentat ion caused by sleep disordered breathing. Monmouth score of 3/24 is discordant with subjective reports by the patient of the extent of his sleepiness . He routinely takes 2 naps per day. This symptom will be monitored after reinitiati on of nocturnal positive pressure therapy.Th e patient has been advised to avoid driving while drowsy. Atrial fibrillation 4943 6004 I48.0 Currently in sinus rhythm. The adverse impact of untreated sleep apnea on the control of atrial fibrillati on has been discussed with the patient. Essential hypertension 98720562 I10 The adverse impact of untreated sleep apnea on the control of hypertensi on has been discussed with the patient. Diabetes mellitus 317097 09 E11.9 The adverse impact of untreated sleep apnea on the control of diabetes has been discussed with the patient. Pulmonary sarcoidosis 24 081382 D86[address] Solitario for the same. Chronic ob structive pulmonary disease 19656733 J44.9 PFTs showed predominan tly obstructiv e physiology likely secondary to obstructiv e sarcoid. Patient is not a candidate for auto titrating positive pressure therapy. Morbid obesity 069165687 E66.01 Weight loss is recommende d and should translate to an improvemen t in the patient's sleep disordered breathing. The patient was given informatio n regarding the importance of diet and exercise for weight loss and weight management . [id number] MD NELSON Howe_SMG_U C_[place] [address] [place] [address] 08/27/2018 20:21:55 08/27/2018 20:59:04 Type 1 diabetes mellitus 58245454 E10.9 [id number] MD NELSON Stratton_SMG_E NDO_[address] [place] [address] 09/03/2018 13:21:25 09/03/2018 14:56:39 Uncontrolled type 2 diabetes mellitus 330228789 E11.65 Hypertensive disorder 38 934691 I10 Diabetic p eripheral neuropathy 457821468 E11.40 Dyslipidemia 033957606 E 78.5 Vitamin D deficiency 347 98618 E55.9 [id number] Kelly DAMON_SMG_E NDO_[address] [place] [address] 09/03/2018 15:00:06 09/03/2018 15:53:12 Diabetes mellitus 47973566 E11.9 [id number] Clark Solitario MD zCLSD_EVA _SMG_PULM _[address] [facility],[address] [place] [address] 09/17/2018 11:10:06 09/17/2018 11:48:03 Pulmonary sarcoidosis 30285880 D86.0 38-year-ol d black gentleman with biopsy-pro keshav sarcoidosi s. I am still waiting for official biopsy report. The patient's history and CT scan of the chest is highly compatible with the diagnosis. Patient has also been evaluated in the past by a pulmonolog ist. He has received prednisone and Imuran since his diagnosis in 2014. Recently the patient is off all medication s and he seems to be doing clinically well. The patient is responding very well to Breo 200 mcg 1 puff once a day. He does not have any cough or wheezing anymore. However he still has dyspnea on exertion. I will continue monitoring the patient's PFTs closely. At this time I do not believe the patient requires any more treatment. Patient's bone densitomet ry, EKG, echocardio gram, CMP, funduscopy , CBC, vitamin D3, EKG and TSH have been checked and they are all normal. Chronic ob structive pulmonary disease 32664689 J44.9 Pulmonary function tests from 08/14/2018 revealed the presence of severe obstructiv e airway disease, mild restrictio n and normal DLCO. He still complains of dyspnea on exertion despite using Breo. I will change the patient to Trelegy and reassess in 2 months. Long-term drug therapy 072524818 Z79.899 I have checked bone density study and vitamin D 25-hydroxy and vitamin D 1-25 hydroxy, they are normal. Obstructiv e sleep apnea syndrome 41148784 G47.33 Patient has already been seen in the sleeps center. He has been scheduled for another polysomnog claude. Atrial fibrillation 4943 6004 I48.91 Management as per cardiology . [facility] ed type 2 diabetes mellitus 640403318 E11.65 The patient is now seeing endocrinol ogy. [id number] MD NELSON Garner_SMG_C ARDIAC_[id number] [facility][Note 3]'s ,[address] [place] [address] 09/26/2018 12:09:53 09/26/2018 15:13:08 Sarcoidosis 39976155 D86.0 [id number] Miguel Ángel-Luis Cantu MD IND_SMG_N AAB_DOC [address] [facility] [place] [address] 10/31/2018 09:00:20 10/31/2018 09:58:40 Cardiac sarcoidosis 04629690 D86.85 Chronic di astolic heart failure 964018203 I50.32 Essential hypertension 78887415 I10 Mixed hyperlipidemia 267 439728 E78.2 Morbid obesity 965147536 E66.01 Obstructiv e sleep apnea syndrome 86291061 G47.33 [id number] Ratna Reynaga n, [employer] zFNL_EVA_ SMG_TRANS ITION_[id number] [place] [address] 11/23/2018 09:33:13 11/23/2018 10:46:24 Sarcoidosis 45230111 D86.9 He does have follow-up appointmen ts coming up with pulmonary 11-28-18 and cardiology . He is scheduled to have a PET scan to follow-up for cardiac sarcoid and [place] is next month. He is to continue Bactrim and oral steroids. Diabetes mellitus 083244 09 E11.9 Endo follow up 12-14-18.Me ds reviewed today. Hypertensive disorder 38 082363 I10 Continue home meds. His BP is stable today. He has mention of losartan/H CTZ but states he has not been on this medication . Atrial fibrillation 3222 6004 I48.91 questionab le paroxysmal - following up with EP 12-27-18 [id number] Clark Solitario MD zCLSD_EVA _SMG_PULM _[address] [place] [address] 11/28/2018 15:11:10 11/28/2018 15:40:45 Pulmonary sarcoidosis 67484862 D86.0 Biopsy-pro keshav sarcoidosi s, with recurrence as documented by chest CT from 11/19/2018. The patient is to be started again on prednisone 60 mg p.o. once a day for the next 4 weeks. I will reassess him at that time. My plan is to continue this patient on an acute treatment for sarcoidosi s for either 6 to 12 weeks. At that time we will consider decreasing the dose of prednisone and may be add or replace the prednisone with Imuran. The patient may benefit from having a consultati on with rheumatolo gy. Chronic ob structive pulmonary disease 94436721 J44.9 COPD with severe obstructiv e airways disease documented by PFTs on 08/14/2018. Patient is to continue taking Trelegy 1 puff once a day. Long-term drug therapy 918393645 Z79.899 I have checked bone density study and vitamin D 25-hydroxy and vitamin D 1-25 hydroxy, they are normal. Obstructiv e sleep apnea syndrome 36313885 G47.33 As per sleep specialist Atrial fibrillation 4943 6004 I48.91 Management as per cardiology . Uncontroll ed type 2 diabetes mellitus 161904717 E11.65 The patient is now seeing endocrinol ogy. [id number] Riley Pedersen MD EVA_SMG_S LPPULM_[address] [facility] [address] [place] [address] 12/10/2018 10:23:39 12/10/2018 11:13:17 Obstructive sleep apnea syndrome 66320583 G47.33 Moderate to severe obstructiv e sleep apnea (AHI 28.9, sumanth saturation 77%) adequately corrected with CPAP at a pressure of 18 cm of water. Good compliance with CPAP therapy. Problems tolerating CPAP at a pressure of 18 cm with difficulty keeping the full facemask from leaking. I discussed the findings of the split-nig t polysomnog claude in detail with the patient, and the findings of the compliance download from his CPAP machine. I commended him on his compliance with CPAP therapy and discussed the importance of diligent compliance with positive pressure therapy. The download from patient's machine shows an estimated AHI of 0.0 on CPAP 18 cm. In light of the problems that he is having tolerating the high CPAP pressure, I have decreased the CPAP pressure to 16 cm and will obtain a follow-up download in 4 weeks to ascertain adequacy of the same. If his obstructiv e sleep apnea continues to be well corrected on the pressure of 16 cm, but he continues to have problems with the full facemask, a further decrease in the CPAP pressure may be warranted. I have discussed the management plan with the patient. Follow-up visit in 6 months or earlier if needed. Hypersomni a with sleep apnea 71314230 G47.10 Hypersomni a subjective ly improved on CPAP therapy. Monmouth score 12/24 today. He has been advised to avoid driving while drowsy. Atrial fibrillation 4943 6004 I48.0 Currently in sinus rhythm. The adverse impact of untreated sleep apnea on the control of atrial fibrillati on has been discussed with the patient. Essential hypertension 35848568 I10 The adverse impact of untreated sleep apnea on the control of hypertensi on has been discussed with the patient. Diabetes mellitus 838201 09 E11.9 The adverse impact of untreated sleep apnea on the control of diabetes has been discussed with the patient. Pulmonary sarcoidosis 24 848802 D86.[address] Solitario for the same. Chronic ob structive pulmonary disease 33631519 J44.9 PFTs showed predominan tly obstructiv e physiology likely secondary to obstructiv e sarcoid. He is not a candidate for auto titrating positive pressure therapy. Morbid obesity 195476440 E66.01 Weight loss is recommende d and should translate to an improvemen t in the patient's sleep disordered breathing. The patient was given informatio n regarding the importance of diet and exercise for weight loss and weight management . [id number] Reva Yang NP EVA_SMG_E NDO_[address] [place] [address] 12/14/2018 15:24:48 12/14/2018 15:55:24 Uncontrolled type 2 diabetes mellitus 304791515 E11.65 Hypertensive disorder 38 851706 I10 Diabetic p eripheral neuropathy 937738528 E11.40 Dyslipidemia 913477399 E 78.5 Vitamin D deficiency 347 52083 E55.9 [id number] Sunit-Pree t Cornelio Cantu MD IND_SMG_N AAB_DOC [address] [place] [address] 12/18/2018 12:56:04 12/18/2018 14:30:20 Cardiac sarcoidosis 13669767 D86.85 Chronic di astolic heart failure 399959202 I50.32 Essential hypertension 60037143 I10 Mixed hyperlipidemia 267 481712 E78.2 Morbid obesity 442072465 E66.01 Obstructiv e sleep apnea syndrome 35423315 G47.33 Sarcoidosis 79568229 D86 .9 [id number] Clark Solitario MD zCLSD_EVA _SMG_PULM _[address] [place] [address] 12/26/2018 09:19:30 12/26/2018 09:53:15 Pulmonary sarcoidosis 42966638 D86.0 Biopsy-pro keshav sarcoidosi s, with recurrence as documented by chest CT from 11/19/2018. The patient is to continue prednisone 60 mg p.o. once a day for the next 3 months. Patient is scheduled for a PET/CT to be done at that time. I will reassess him then. At that time we will consider decreasing the dose of prednisone and may add or replace the prednisone with Imuran. In the future the patient may benefit from having a consultati on with rheumatolo soco to help with his management . Chronic ob structive pulmonary disease 60733580 J44.9 COPD with severe obstructiv e airways disease documented by PFTs on 08/14/2018. Since his last visit, the patient has not had any exacerbati ons of COPD. He states that the cough and wheezing as well as the distant exertion has improved. Patient is to continue taking Trelegy 1 puff once a day. Long-term drug therapy 660070065 Z79.899 I have checked bone density study and vitamin D 25-hydroxy and vitamin D 1-25 hydroxy, they are normal. Obstructiv e sleep apnea syndrome 39647990 G47.33 As per sleep specialist Atrial fibrillation 4943 6004 I48.91 Management as per cardiology . [facility] ed type 2 diabetes mellitus 807520511 E11.65 The patient is now seeing endocrinol justin. Cardiac sarcoidosis 7540 3004 D86.85 I have spoke to the patient's cardiologi st and we have agreed and continue prednisone 60 mg p.o. daily for the next 3 months when he will have a PET/CT to assess the inflammati on in his lungs and heart. At that time, depending on the results, decision will be made and how to taper prednisone . [id number] Shahida Ulloa [facility] NELSON_SMG_C ARDIAC_[address] [id number] [address] [facility][Note 3]'s ,[address] [place] [address] 12/27/2018 09:15:22 12/27/2018 10:22:35 Paroxysmal atrial fibrillation 120761458 I48.0 [id number] MD NELSON Stratton_SMG_E NDO_[address] [place] [address] [place] [address] 01/16/2019 10:37:28 01/16/2019 11:32:10 Uncontrolled type 2 diabetes mellitus 917662135 E11.65 Hypertensive disorder 38 474450 I10 Diabetic p eripheral neuropathy 855722810 E11.40 Dyslipidemia 969548773 E 78.5 Vitamin D deficiency 347 86206 E55.9 Hypoglycemia 234618280 E 16.2 [id number] Cheyenne Cantu MD IND_SMG_N AAB_DOC [address] [place] [address] 03/18/2019 14:20:33 03/18/2019 15:13:35 Cardiac sarcoidosis 25749779 D86.85 Chronic di astolic heart failure 807078869 I50.32 Essential hypertension 28050385 I10 Mixed hyperlipidemia 267 588873 E78.2 Morbid obesity 315527397 E66.01 Obstructiv e sleep apnea syndrome 93805342 G47.33 Sarcoidosis 06085847 D86 .9 [id number] Clark Solitario MD zCLSD_EVA _[facility]_PULM _[address] [facility],[address] [place] [address] 03/27/2019 08:53:10 03/27/2019 09:21:50 Chronic obstructive pulmonary disease 85827078 J44.9 COPD with severe obstructiv e airways disease documented by PFTs on 08/14/2018. Since his last visit, the patient has not had any exacerbati ons of COPD. Patient is to continue taking Trelegy 1 puff once a day. Administra tion of influenza vaccine 21567393 Z23 To be given today. The patient is a high risk of developing pulmonary infections due to the structural damage to his lung parenchyma . Pulmonary sarcoidosis 24 050543 D86.0 The patient has completed 3 months of 60 mg of prednisone and has not started tapering doses. He will be on prednisone 50 mg p.o. once a day for 30 days and then he will decrease it down to 40 mg p.o. once a day. He will be reevaluate d by his cardiologi st [place] in June when a decision to continue tapering his dose will be made. At that time we will consider decreasing the dose of prednisone and may add or replace the prednisone with Imuran. In the future the patient may benefit from having a consultati on with rheumatolo soco to help with his management . Cardiac sarcoidosis 7540 3004 D86.85 As per cardiology . See above. Long-term drug therapy 586615382 Z79.899 Last bone density study and vitamin D 25-hydroxy and vitamin D 1-25 hydroxy were normal. Obstructiv e sleep apnea syndrome 15664813 G47.33 As per sleep specialist Atrial fibrillation 4943 6004 I48.91 Management as per cardiology . Uncontrol ed type 2 diabetes mellitus 089267760 E11.65 The patient is now seeing endocrinol ogy. [id number] Shahida Ulloa [facility] EVA_SMG_C ARDIAC_[address] [id number] [facility] ,[address] [place] [address] 04/12/2019 09:44:29 04/12/2019 10:49:13 Atrial fibrillation 63134667 I48.91 Sarcoidosis 10434697 D86 .9 [id number] MD MARIBEL StrattonA_SMG_E NDO_[address] [place] [address] 05/21/2019 10:04:01 05/21/2019 11:18:04 Uncontrolled type 2 diabetes mellitus 124172562 E11.65 Hypertensive disorder 38 634819 I10 Diabetic p eripheral neuropathy 153303474 E11.40 Dyslipidemia 296363285 E 78.5 Vitamin D deficiency 347 49082 E55.9 [id number] MAXI FelizA_SMG_S LPPULM_[address] [place] [address] 06/05/2019 14:13:06 06/05/2019 15:13:49 Obstructive sleep apnea syndrome 24620541 G47.33 Moderate to severe obstructiv e sleep apnea (AHI 28.9, sumanth saturation 77%) adequately corrected with CPAP at a pressure of 16 cm of water. Good compliance with CPAP therapy. I discussed the compliance download with the patient. I commended him on his compliance with CPAP therapy and discussed the importance of diligent compliance with positive pressure therapy. No change in CPAP pressure is warranted. Follow-up visit in 1 year or earlier if needed. Hypersomni a with sleep apnea 94585735 G47.10 Hypersomni a subjective ly improved on CPAP therapy. Monmouth score 15/24 today. He has been advised to avoid driving while drowsy. Atrial fibrillation 4943 6004 I48.0 Currently in sinus rhythm. The adverse impact of untreated sleep apnea on the control of atrial fibrillati on has been discussed with the patient. Essential hypertension 63955604 I10 The adverse impact of untreated sleep apnea on the control of hypertensi on has been discussed with the patient. Diabetes mellitus 113473 09 E11.9 The adverse impact of untreated sleep apnea on the control of diabetes has been discussed with the patient. Pulmonary sarcoidosis 24 898447 D86[address] Solitario for the same. Chronic ob structive pulmonary disease 36369091 J44.9 PFTs showed predominan tly obstructiv e physiology likely secondary to obstructiv e sarcoid. He is not a candidate for auto titrating positive pressure therapy. Morbid obesity 697654950 E66.01 Weight loss is recommende d and should translate to an improvemen t in the patient's sleep disordered breathing. The patient was given informatio n regarding the importance of diet and exercise for weight loss and weight management . [id number] Sunit-Pree t Cornelio Cantu MD IND_SMG_N AAB_DOC [address] [facility] [place] [address] 06/11/2019 14:10:42 06/11/2019 14:40:38 Cardiac sarcoidosis 81049703 D86.85 Chronic di astolic heart failure 302542731 I50.32 Essential hypertension 87889825 I10 Mixed hyperlipidemia 267 700074 E78.2 Morbid obesity 928214845 E66.01 Obstructiv e sleep apnea syndrome 72935232 G47.33 [id number] DIMAS DowneySMG_E NDO_[address] [facility] [place] [address] 07/05/2019 09:14:59 07/05/2019 09:48:39 Uncontrolled type 2 diabetes mellitus 267816848 E11.65 Hypertensive disorder 38 901431 I10 Diabetic p eripheral neuropathy 137989224 E11.40 Dyslipidemia 041032409 E 78.5 Vitamin D deficiency 347 14821 E55.9 Long-term current use of steroid 292611517 Z79.52 Diabetic on insulin 1707 87842 Z79.4 [id number] MD RHONDA GarnerSMG_C ARDIAC_90 [address] [id number] [place] [address] 07/15/2019 16:48:58 07/15/2019 17:09:23 Paroxysmal atrial fibrillation 762834289 I48.0 Sarcoidosis 14768011 D86 .0 [id number] MD RHONDA BoyerSMG_C ARDIAC_90 [address] [id number] [place] [address] 08/27/2019 11:40:15 08/27/2019 12:13:15 Chest pain 81006239 R07.2 Abnormal ECG on presentati on-LHC done for possible STEMI on 08-15-19-an giographic ally normal coronary arteries. Dyspnea 707446980 R06.00 Dyspnea on exertion 6084 5006 R06.09 Nausea 354923759 R11.0 Cardiac sarcoidosis 7540 3004 D86.85 limited echo with EF 45-50%-08-06 (technical ly difficult) LVgram 08-15-19-EF -55-60% Morbid obesity 381274983 E66.01 BMI-50 Obstructiv e sleep apnea syndrome 10512794 G47.33 uses a CPAP [id number] DIMAS Downey_SMG_E NDO_[address] [place] [address] 09/12/2019 08:44:22 09/12/2019 09:58:02 Uncontrolled type 2 diabetes mellitus 363772710 E11.65 Hypertensive disorder 38 641168 I10 Diabetic p eripheral neuropathy 306841633 E11.40 Dyslipidemia 547861333 E 78.5 Vitamin D deficiency 347 49278 E55.9 Long-term current use of steroid 220827360 Z79.52 Diabetic on insulin 1707 47417 Z79.4 [id number] Cheyenne Cantu MD IND_SMG_N AAB_DOC [address] [facility] [place] [address] 10/10/2019 13:01:23 10/11/2019 06:12:25 Sarcoidosis 55574145 D86.85 Cardiac sarcoidosis 7540 3004 D86.85 Chronic di astolic heart failure 696108635 I50.32 Essential hypertension 01385801 I10 Mixed hyperlipidemia 267 564544 E78.2 Morbid obesity 586784430 E66.01 Obstructiv e sleep apnea syndrome 66119626 G47.33 [id number] Mary Carmen Butler MD EVA_SMG_E NDO_[address] [place] [address] 10/11/2019 12:17:02 10/11/2019 12:49:48 Uncontrolled type 2 diabetes mellitus 974359912 E11.65 Hypertensive disorder 38 641447 I10 Diabetic p eripheral neuropathy 125682850 E11.40 Dyslipidemia 031056173 E 78.5 Vitamin D deficiency 347 09037 E55.9 Long-term current use of steroid 214717088 Z79.52 Diabetic on insulin 1707 19825 Z79.4 [id number] Shahdia Ulloa [facility] EVA_SMG_C ARDIAC_90 1[facility] [id number] [address] [facility] ,[address] [place] [address] 11/19/2019 13:06:35 11/19/2019 15:36:25 Health education given 179024060 Z71.9 Paroxysmal atrial fibrillation 229213758 I48.0 Sarcoidosis 46836213 D86 .9 Chronic di astolic heart failure 443239717 I50.32 [id number] Narcisa Rizo [employer]CH[employer] EVA_SMG_E N[address] [place] [address] 01/10/2020 12:33:52 01/10/2020 13:42:02 Uncontrolled type 2 diabetes mellitus 412903339 E11.65 Hypertensive disorder 38 893543 I10 Diabetic p eripheral neuropathy 144911716 E11.40 Dyslipidemia 602771091 E 78.5 Vitamin D deficiency 347 65000 E55.9 Long-term current use of steroid 375784284 Z79.52 Diabetic on insulin 1707 22111 Z79.4 Body mass index 40+ - severely obese 904479812 Z68.43 [id number] 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 Patient denies any chest pain or palpitatio ns at this appointmen t. Patient's heart rate was 81 in office today. Patient denies any shortness of breath. Patient reports that he did not receive a prescripti on for nitroglyce rin. We will send a prescripti on to patient's local pharmacy. Patient instructed to follow-up with Dr. Rosario on 04/10/2020. Uncontroll ed type 2 diabetes mellitus 415841439 E11.65 Patient is poorly controlled type II insulin-de pendent diabetic with a hemoglobin A1c of 11.8% on 03/29/2020. Patient instructed to check his blood sugar 4 times a day and keep a log. Patient instructed to follow-up with endocrinol justin. Follow-up with Narcisa Hodge NP on 04/17/2020 . Chronic ob structive pulmonary disease 24762112 J44.9 Stable. Patient reports that he does have a rescue inhaler. Patient instructed to follow-up with Dr. Solitario on 05/01/2020 . Essential hypertension 10418638 I10 Stable. Patient's blood pressure is 140/95 in office today. Patient instructed to check his blood pressure 2 times a day and keep a log. Patient instructed to restrict sodium intake to 2 g low-sodium diet. Patient instructed to follow-up with his PCP. Gastroesop hageal reflux disease 905953978 K21.9 Patient reports that he was given a prescripti on for Protonix however, his insurance company would not cover this and instructed him to use something over-the-c ounter. We will send a prescripti on for omeprazole 20 mg daily. Sarcoidosis 14870974 D86 .9 Patient reports that [place] 04/[place]/2020 for a PET scan and follow-up with Dr. Cantu. Obstructiv e sleep apnea syndrome 19759290 G47.33 Patient reports he is compliant with his CPAP therapy. Patient instructed to follow-up with Dr. Pedersen on 06/16/2020 . [id number] MD NELSON Boyer_SMG_C ARDIAC_90 1[facility] [id number] [address] [facility] ,[address] [place] [address] 04/10/2020 14:38:08 04/10/2020 15:14:05 Cardiac sarcoidosis 88607207 D86.85 limited echo with EF 45-50%-08-06 (technical ly difficult) LVgram 08-15-19-EF -55-60% Obstructiv e sleep apnea syndrome 10834574 G47.33 uses a CPAP Chest pain 69286698 R07. 2 Abnormal ECG on presentati on-LHC done for possible STEMI on 08-15-19-an giographic ally normal coronary arteries. 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 EVA_SMG_E N[address] [place] [address] 04/17/2020 09:09:00 04/17/2020 09:43:13 Uncontrolled type 2 diabetes mellitus 569151933 E11.65 Diabetic on insulin 1707 36816 Z79.4 Diabetic p eripheral neuropathy 102169312 E11.40 Hypertensive disorder 38 988564 I10 Dyslipidemia 737210261 E 78.5 Vitamin D deficiency 347 83630 E55.9 Long-term current use of steroid 634915601 Z79.52 Body mass index 40+ - severely obese 462091831 Z68.43 [id number] Cheyenne Cantu MD IND_SMG_N AAB_DOC [address] [place] [address] 04/24/2020 12:38:10 04/24/2020 13:35:25 Cardiac sarcoidosis 36792736 D86.85 Chronic di astolic heart failure 909699591 I50.32 Essential hypertension 92279476 I10 Mixed hyperlipidemia 267 956656 E78.2 Morbid obesity 016479179 E66.01 Obstructiv e sleep apnea syndrome 47763000 G47.33 [id number] MD NELSON Gaines_SMG_S LPPULM_[address] [place] [address] 06/16/2020 11:53:37 06/16/2020 13:00:23 Obstructive sleep apnea syndrome 13975835 G47.33 Moderate to severe obstructiv e sleep apnea (AHI 28.9, sumanth saturation 77%) adequately corrected with CPAP at a pressure of 16 cm of water. Fair compliance with CPAP therapy. I discussed the findings of the compliance download with the patient and encouraged him to use CPAP on a nightly basis throughout his sleep. No change in CPAP pressure warranted. CPAP supplies ordered. Follow-up in 1 year or earlier if needed. Hypersomni a with sleep apnea 44953888 G47.10 Hypersomni a improved and adequately controlled on CPAP therapy. Monmouth score 8/24 today. Atrial fibrillation 4943 6004 I48.0 Currently in sinus rhythm. The adverse impact of untreated sleep apnea on the control of atrial fibrillati on has been discussed with the patient. Essential hypertension 64976331 I10 The adverse impact of untreated sleep apnea on the control of hypertensi on has been discussed with the patient. Diabetes mellitus 612639 09 E11.9 The adverse impact of untreated sleep apnea on the control of diabetes has been discussed with the patient. Pulmonary sarcoidosis 24 784930 D86.[address] Solitario for the same. Chronic ob structive pulmonary disease 23452169 J44.9 PFTs showed predominan tly obstructiv e physiology likely secondary to obstructiv e sarcoid. He is not a candidate for auto titrating positive pressure therapy. Morbid obesity 914123555 E66.01 Weight loss is recommende d and should translate to an improvemen t in the patient's sleep disordered breathing. The patient was given informatio n regarding the importance of diet and exercise for weight loss and weight management . [id number] Clark Solitario MD zCLSD_EVA _SMG_PULM _[address] [place] [address] 07/07/2020 16:20:18 07/07/2020 17:15:09 Pulmonary sarcoidosis 55179754 D86.0 The patient has completed 6-1/2 months of prednisone . He is presently taking 10 mg p.o. daily as per instructio ns of his cardiologi . The patient has been diagnosed with cardiac sarcoidosi s. Pulmonary jara the patient continues to do well with Trelegy 1 puff once a day. Prior to his next visit the patient will be scheduled for a complete pulmonary function test with ABGs. Chronic ob structive pulmonary disease 92413649 J44.9 COPD with severe obstructiv e airways disease documented by PFTs on 08/14/2018. Since his last visit, the patient has not had any exacerbati ons of COPD. The patient is doing well with Trelegy 1 puff once a day. His CAT score today is 16 however he is subjective ly doing well. Cardiac sarcoidosis 7540 3004 D86.85 As per cardiology . See above. Long-term drug therapy 568757595 Z79.899 The patient is to continue taking vitamin D and calcium supplement s. Obstructiv e sleep apnea syndrome 36477021 G47.33 As per sleep specialist Atrial fibrillation 4943 6004 I48.91 Management as per cardiology . Uncontrol ed type 2 diabetes mellitus 401227595 E11.65 The patient is now seeing endocrinol ogy. 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 EVA_SMG_E N[address] [place] [address] 07/20/2020 16:27:29 07/21/2020 09:32:46 Health education given 748624501 Z71.9 Uncontroll ed type 2 diabetes mellitus 624257323 E11.65 Diabetic on insulin 1707 77536 Z79.4 Diabetic p eripheral neuropathy 595866990 E11.40 Hypertensive disorder 38 409185 I10 Dyslipidemia 977574125 E 78.5 Vitamin D deficiency 347 97364 E55.9 Long-term current use of steroid 727184075 Z79.52 Body mass index 40+ - severely obese 980512609 Z68.43 [id number] Cheyenne Cantu MD IND_SMG_N AAB_DOC [address] [facility] [place] [address] 10/16/2020 12:59:58 10/16/2020 13:28:21 Cardiac sarcoidosis 91470849 D86.85 Chronic di astolic heart failure 041365505 I50.32 Essential hypertension 56236375 I10 Mixed hyperlipidemia 267 671006 E78.2 Morbid obesity 158174058 E66.01 Obstructiv e sleep apnea syndrome 67092639 G47.33 [id number] Reva Yang NP EVA_SMG_E NDO_[address] [place] [address] 10/19/2020 15:31:46 10/19/2020 16:04:36 Health education given 359061532 Z71.9 Uncontroll ed type 2 diabetes mellitus 656939832 E11.65 Diabetic on insulin 1707 38906 Z79.4 Diabetic p eripheral neuropathy 107263951 E11.40 Hypertensive disorder 38 368596 I10 Dyslipidemia 866284444 E 78.5 Vitamin D deficiency 347 62311 E55.9 Long-term current use of steroid 317128599 Z79.52 Body mass index 40+ - severely obese 344612900 Z68.43 [id number] Clark Solitario MD zCLSD_EVA _SMG_PULM _[address] [place] [address] 01/05/2021 15:28:02 01/05/2021 15:53:31 Pulmonary sarcoidosis 27215848 D86.0 The patient has completed 12 months of prednisone . He is presently taking Multaq 400 mg p.o. daily as per instructio ns of his cardiologi st. The patient has been diagnosed with cardiac sarcoidosi s. Pulmonary jara the patient continues to do well with Trelegy 1 puff once a day. Prior to his next visit the patient will be scheduled for a complete pulmonary function test with ABGs in August 2021. 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 Since his last visit, the patient has not had any exacerbati ons of COPD. The patient remains stable with Trelegy 100 mcg 1 puff once a day. His CAT score today is 14. Cardiac sarcoidosis 7540 3004 D86.85 As per cardiology . See above. Long-term drug therapy 918728936 Z79.899 The patient is to continue taking vitamin D and calcium supplement s. Obstructiv e sleep apnea syndrome 57562307 G47.33 As per sleep specialist Atrial fibrillation 4943 6004 I48.91 Management as per cardiology . Uncontroll ed type 2 diabetes mellitus 970457418 E11.65 As per endocrinol ogy. [id number] DIMAS Oviedo_SMG_E NDO_[address] [place] [address] 01/19/2021 15:44:31 01/19/2021 16:17:24 Uncontrolled type 2 diabetes mellitus 230261469 E11.65 Diabetic p eripheral neuropathy 462300439 E11.40 Hypertensive disorder 38 427820 I10 Dyslipidemia 706280745 E 78.5 Vitamin D deficiency 347 17479 E55.9 Long-term current use of steroid 464464089 Z79.52 Diabetic on insulin 1707 62335 Z79.4 Body mass index 40+ - severely obese 814489401 Z68.43 Health edu cation given 418125342 Z71.9 [id number] MD SRINATH Boyer_C ARDIAC_90 1[facility] [id number] [address] [facility] [place] [address] 02/10/2021 09:58:57 02/10/2021 10:24:49 Cardiac sarcoidosis 21384624 D86.85 limited echo with EF 45-50%-2-4 -20 (technical ly difficult) LVgram 2-13-20-EF -55-60% Chronic di astolic heart failure 323483002 I50.32 Essential hypertension 46850705 I10 well controlled -continue current meds Morbid obesity 531663071 E66.01 BMI-49.5-r ecommend weight loss Obstructiv e sleep apnea syndrome 78311843 G47.33 uses a CPAP Paroxysmal atrial fibrillation 865061438 I48.0 2% afib on MCT monitor-Ap -November 2019 on xarelto for ACCoreg for rate control Has not seen EP in over one year-isacc cook appt with Shahida in approx 3 months [id number] MD NELSON Boyer_SMG_C ARDIAC_90 [address] [id number],[facility] [address] [place] [address] 10/25/2021 08:33:00 10/25/2021 10:23:02 Cardiac sarcoidosis 19359609 D86.85 limited echo with EF 45-50%-2-4 -20 (technical ly difficult) LVgram 2-13-20-EF -55-60% Essential hypertension 04141931 I10 well controlled -continue current meds Morbid obesity 631092215 E66.01 BMI-49.5-r ecommend weight loss Obstructiv e sleep apnea syndrome 28482421 G47.33 uses a CPAP Paroxysmal atrial fibrillation 113105200 I48.0 2% afib on MCT monitor-Ap -November 2019 on xarelto for ACCoreg for rate controlMul taq for rhythm control [id number] Shahida Meier EVA_SMG_C ARDIAC_90 [address] [id number] [place] [address] 10/25/2021 08:30:08 10/25/2021 10:22:48 Sarcoidosis 01938747 D86.9 Paroxysmal atrial fibrillation 840213046 I48.0 Chronic di astolic heart failure 231714299 I50.32 [id number] Clark Solitario MD zCLSD_EVA _SMG_PULM _[address] [place] [address] 11/16/2021 14:19:05 11/16/2021 14:48:40 Pulmonary sarcoidosis 65916792 D86.0 The patient completed 12 months of prednisone . He is presently taking Multaq 400 mg p.o. daily as per instructio ns of his cardiologi st. The patient has been diagnosed with cardiac sarcoidosi s. Pulmonary jara the patient continues to do well with Trelegy 1 puff once a day. PFTs from 11/04/2021 have been reviewed and compared to previous examinatio ns from 08/14/2018 and 08/10/2020. There is no significan t changes. I will follow-up with this gentleman in 6 months. 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 Since his last visit, the patient has not had an exacerbati ons of COPD. He remains stable with Trelegy 100 mcg 1 puff once a day. He is up-to-date with his pneumonia, flu and coronaviru s vaccinatio ns. Cardiac sarcoidosis 7540 3004 D86.85 As per cardiology . See above. Obstructiv e sleep apnea syndrome 51770894 G47.33 As per sleep specialist Atrial fibrillation 4943 6004 I48.91 Management as per cardiology . He is taking Xarelto. Uncontroll ed type 2 diabetes mellitus 265689634 E11.65 As per endocrinol ogy. He is back on his medication s. A1C is pending. [id number] Leslie Alvarado NP EVA_SMG_S LPPULM_[address] [place] [address] 01/10/2022 08:45:40 01/10/2022 09:30:53 Obstructive sleep apnea syndrome 18554479 G47.33 Moderate to severe obstructiv e sleep apnea (AHI 28.9, sumanth saturation 77%) adequately corrected with CPAP at a pressure of 16 cm of water. Fair compliance with CPAP therapy. I discussed the findings of the compliance download with the patient and encouraged him to use CPAP on a nightly basis throughout his sleep. No change in CPAP pressure warranted. He is scheduled to have a gastric sleeve surgery in January or April of this year. I discussed that his pressure requiremen ts may need to be adjusted following his surgery and weight loss. He is to call the office several months after his surgery to check a compliance download. CPAP supplies ordered. Follow-up in 1 year or earlier if needed. Hypersomni a with sleep apnea 21538355 G47.10 Hypersomni a improved and adequately controlled on CPAP therapy. Monmouth score 01/23 today. Atrial fibrillation 4943 6004 I48.0 Currently in sinus rhythm. The adverse impact of untreated sleep apnea on the control of atrial fibrillati on has been discussed with the patient. Essential hypertension 62575373 I10 The adverse impact of untreated sleep apnea on the control of hypertensi on has been discussed with the patient. Diabetes mellitus 089194 09 E11.9 The adverse impact of untreated sleep apnea on the control of diabetes has been discussed with the patient. Pulmonary sarcoidosis 24 763301 D86.[address] Solitario for the same. Chronic ob structive pulmonary disease 79892972 J44.9 PFTs showed predominan tly obstructiv e physiology likely secondary to obstructiv e sarcoid. He is not a candidate for auto titrating positive pressure therapy. Body mass index 40+ - severely obese 394264843 Z68.42 He is lost 23.7 pounds and is scheduled to have a gastric sleeve surgery in the next several months in [place], [place]. I commended him on his weight loss and encouraged him to persist with the same. Weight loss is recommende d and should translate to an improvemen t in the patient's sleep disordered breathing. The patient was given informatio n regarding the importance of diet and exercise for weight loss and weight management . [id number] DIMAS OviedoA_SMG_E NDO_[address] [place] [address] 01/11/2022 15:31:29 01/11/2022 16:03:04 Uncontrolled type 2 diabetes mellitus 375035638 E11.65 Diabetic p eripheral neuropathy 343957434 E11.40 Hypertensive disorder 38 027575 I10 Dyslipidemia 275674507 E 78.5 Vitamin D deficiency 347 02080 E55.9 Long-term current use of steroid 901891879 Z79.52 Diabetic on insulin 1707 02590 Z79.4 Body mass index 40+ - severely obese 062961024 Z68.43 Health edu cation given 818823859 Z71.9 [id number] DIMAS GregorioA_SMG_B OBFP_[address] [place] [address] 03/10/2022 15:09:49 03/10/2022 16:44:47 COVID-19 280957719 U07.1 Health edu cation given 095849667 Z71.9 [id number] Cheyenne Cantu MD IND_SMG_N AAB_DOC [address] [facility] [place] [address] 03/21/2022 11:10:58 03/21/2022 14:41:25 Cardiac sarcoidosis 14921693 D86.85 Chronic di astolic heart failure 772144063 I50.32 Essential hypertension 21024102 I10 Mixed hyperlipidemia 267 388133 E78.2 Morbid obesity 765506937 E66.01 Obstructiv e sleep apnea syndrome 65192793 G47.33 [id number] DIMAS OviedoA_SMG_E NDO_[address] [place] [address] 04/19/2022 13:20:52 04/19/2022 14:20:15 Uncontrolled type 2 diabetes mellitus 727010504 E11.65 Diabetic p eripheral neuropathy 019509984 E11.40 Hypertensive disorder 38 071735 I10 Dyslipidemia 482145786 E 78.5 Vitamin D deficiency 347 47565 E55.9 Long-term current use of steroid 429726176 Z79.52 Diabetic on insulin 1707 78907 Z79.4 Body mass index 40+ - severely obese 932359452 Z68.43 Health edu cation given 300909616 Z71.9 [id number] Cheyenne Cantu MD IND_SMG_N AAB_DOC [address] [facility] [place] [address] 08/15/2022 07:35:17 08/15/2022 16:05:42 Cardiac sarcoidosis 86868280 D86.85 Chronic di astolic heart failure 961485699 I50.32 Essential hypertension 00426339 I10 Mixed hyperlipidemia 267 533676 E78.2 Morbid obesity 368956748 E66.01 Obstructiv e sleep apnea syndrome 62719207 G47.33 [id number] Cheyenne Cantu MD IND_SMG_N AAB_DOC [address] [facility] [place] [address] 02/16/2023 10:19:56 02/17/2023 17:23:01 Cardiac sarcoidosis 60254510 D86.85 Chronic di astolic heart failure 611697397 I50.32 Essential hypertension 20541300 I10 Mixed hyperlipidemia 267 893203 E78.2 Morbid obesity 303255108 E66.01 Obstructiv e sleep apnea syndrome 75377421 G47.33 [id number] Cheyenne Canut MD IND_SMG_N AAB_DOC [address] [facility] [place] [address] 10/12/2023 09:31:20 10/12/2023 10:04:32 Cardiac sarcoidosis 67417605 D86.85 Chronic di astolic heart failure 999881464 I50.32 Essential hypertension 79018154 I10 Mixed hyperlipidemia 267 941203 E78.2 Obstructiv e sleep apnea syndrome 70215114 G47.33 Paroxysmal atrial fibrillation 332374743 I48.0 [id number] Cheyenne Cantu MD IND_SMG_N AAB_DOC [address] [facility] [place] [address] 07/15/2024 10:23:51 07/15/2024 15:35:59 Cardiac sarcoidosis 30038796 D86.85 Chronic di astolic heart failure 833072533 I50.32 Essential hypertension 39214863 I10 Mixed hyperlipidemia 267 645323 E78.2 Obstructiv e sleep apnea syndrome 72712488 G47.33 Paroxysmal atrial fibrillation 396452642 I48.0 Health edu cation given 762894579 Z71.9 Health Concerns Section Related Observation LastModified by Organization Detai ls LastModified Time None Recorded Concern Status LastModified by Organization Details LastModified Time None Recorded Advance Directives Directive N: Payers Encounter Date Sequence Insurance Name Policy Number Policy Munoz Covered Member ID Munoz Member ID Guarantor Name 04/19/2022 2 [facility]ICARE B[facility] Vu Tilley Jr [id number] Vu Tilley 04/19/2022 1 [facility] [id number] [place] [id number] Vu Tilley 08/15/2022 2 MEDICARE B-IN[facility] Vu Tilley Jr [id number] Vu Tilley 08/15/2022 1 [facility] [id number] [place] [id number] Vu Tilley 02/16/2023 2 [place] [employer] [employer] Vu Tilley [id number] Vu Tilley 02/16/2023 2 MEDICARE B[facility] Vu Tilley Jr [id number] Vu Tilley 10/12/2023 1 [employer] (MEDICARE REPLACEMENT HMO) [id number] Vu Tilley [id number] Vu Tilley 07/15/2024 1 [employer] (MEDICARE REPLACEMENT HMO) [id number] Vu Tilley [id number] Vu Tilley Notes Date Note Type Note Provider Name and Address Organization Details Recorded Time 04/19/2022 text/html Vu is here f or the follow-up of type 2 diabetesKnown to have diabetes since 2013Hemoglobin A1c 8.2% on 04/18/2022 Meter reviewedMonitoring 1-3 times a dayAverage 179, ranging 70-352- hyperglycemia when he is at work and does not take insulin.Hypoglycemia rarely in the AM- none documented on meter but patient reports. Off prednisone - finished it Monday- was on it for sarcoidosis. Has PET scan in a few weeks. Reports is taking basaglar 30 units BID, Novolog 20 units with meals plus AGG SS, and Synjardy 25-1000 mg daily, Rymorteza Planning to have gastric sleeve on May 18- in [place]. Will be on clear liquid for 2 weeks prior. Complications of diabetes include diabetic peripheral sensory neuropathy Reva Trey, DIMAS [address], [address], [place], [address], [place] 04/19/2022 14:26:10 08/15/2022 text/html Patient acknowle dged, consented, and participated in this {{telephone - audio only visit. telephone - audio and video visit which was conducted using secure real time audio and video.*}} Patient co-pay amounts may apply to virtual services when coverage is available per your payor. If coverage is not available, patient assumes responsibility for payment. {{Yes* No}} HPI:Mr. Tilley is a 42-year-old gentleman with a past medical history as below presented to the virtual clinic for a virtual follow up visit. He was last seen in this clinic on 03/21/2022. Significant events since that time include:1. PET scan 05/03/22- No evidence of cardiac sarcoid2. Bariatric surgery 05/18/22- Tolerated surgery well without complications- Down 80lbs From a functional standpoint, ever since his surgery, he notes a significant improvement in his capacity. He states that he is able to perform his ADLs, without significant limitation. Outside of this, he goes to the gym for 2-2 and half hours 3 to 4 days a week, where he is able to perform activities such as a treadmill, as well as 30-minute sessions with a hop strainer without significant limitation.However, he does mention mild limitation with higher levels of exertion such as going up and down the stairs or performing walking on a treadmill at a faster pace. He does mention, the development of palpitations, occurring 1-2 times a week, lasting for 2 to 3 minutes at a time. He has no associated aggravating or alleviating symptoms, but does feel that this is worse than his prior visit.He denies any episodes of chest pain, PND, orthopnea, or syncope. - Recent Sarcoid Course -1. PET scan 11/25/21- Mild patchy uptake along the interventricular septum, greatest near the base and mid septum, suggestive of active sarcoid myocarditis.- Evidence of pulmonary parenchymal and yeimi sarcoidosis of the chest with volume loss and fibrosis present.- Re-initiated on cellcept 1000mg BID and prednisone 20mg daily2. Echocardiogram 11/26/2021-Normal LV size and thickness. Ejection fraction of 55-60%.-Normal RV size and function-No significant valvular disease3. PET/CT 03/15/2022-No evidence of sarcoidosis Past medical history:1. Pulmonary and cardiac sarcoid- Diagnosed at [facility] [[facility], Dr. Mendez], Dx Lung Biopsy- Previously treated with steroids and immunosuppression- Likely Cardiac Sarcoid2. Concern for atrial fibrillation3. Hypertension4. Hyperlipidemia5. Obstructive sleep apnea- Using CPAP6. Diabetes mellitus7. Morbid obesity8. COPD9. Asthma Prior Cardiac Imagin. Echocardiogram dated 08/30/2018-Normal LV size, ejection fraction 55 to 60%-Normal RV size and function-No significant valvular disease2. Cardiac MRI-Normal LV size and thickness. Ejection fraction 45%, with global hypokinesis-Mildly dilated right ventricle-No significant valvular disease-LGE concerning for cardiac sarcoidosis3. Limited Echocardiogram 11/20/2018-Normal LV size, ejection fraction 55-60%.4. [facility] (08/15/2019)- Left ventricle: The estimated ejection fraction is 55-60%.- Left main: Normal.- LAD: Normal.- Left circumflex: Normal.- Right coronary: Normal. Sunit-Dasha Cantu MD [address] [place] [address], [address], [place], [address], [place] 08/15/2022 09:00:36 02/16/2023 text/html Mr. Tilley is a 42-year-old gentleman with a past medical history as below presented to the virtual clinic for a virtual follow up visit. He was last seen in this clinic on 08/15/2022. Significant events since that time include:1. Event monitor-Sinus rhythm with rare PVCs-Majority of events correlated with sinus rhythm From a functional standpoint, he states that he continues to do well. He continues to be relatively active, able to use the treadmill for a total of 2 hours a day at 3 mph on a 3.0 incline, as well as work out with a hop strainer for 45 minutes a day at a time. He has lost an additional 33 pounds since his last visit with me. He does mention rare episodes of shortness of breath, and did undergo a PET scan today, however the results of which are pending. Additionally, he states that he has met a new dental laboratory technician in [place], and was told that his testing was abnormal , though he does not have the details of this. He specifically denies any episodes of chest pain, palpitations, PND, orthopnea, syncope, or presyncope. - Recent Sarcoid Course -1. PET scan 11/25/21- Mild patchy uptake along the interventricular septum, greatest near the base and mid septum, suggestive of active sarcoid myocarditis.- Evidence of pulmonary parenchymal and yeimi sarcoidosis of the chest with volume loss and fibrosis present.- Re-initiated on cellcept 1000mg BID and prednisone 20mg daily2. Echocardiogram 11/26/2021-Normal LV size and thickness. Ejection fraction of 55-60%.-Normal RV size and function-No significant valvular disease3. PET/CT 03/15/2022-No evidence of sarcoidosis4. PET scan 05/03/22- No evidence of cardiac sarcoid Past medical history:1. Pulmonary and cardiac sarcoid- Diagnosed at [facility] [[facility], Dr. Mendez], Dx Lung Biopsy- Previously treated with steroids and immunosuppression- Likely Cardiac Sarcoid2. Concern for atrial fibrillation3. Hypertension4. Hyperlipidemia5. Obstructive sleep apnea- Using CPAP6. Diabetes mellitus7. Morbid obesity8. COPD9. Asthma Prior Cardiac Imagin. Echocardiogram dated 08/30/2018-Normal LV size, ejection fraction 55 to 60%-Normal RV size and function-No significant valvular disease2. Cardiac MRI-Normal LV size and thickness. Ejection fraction 45%, with global hypokinesis-Mildly dilated right ventricle-No significant valvular disease-LGE concerning for cardiac sarcoidosis3. Limited Echocardiogram 11/20/2018-Normal LV size, ejection fraction 55-60%.4. [facility] (08/15/2019)- Left ventricle: The estimated ejection fraction is 55-60%.- Left main: Normal.- LAD: Normal.- Left circumflex: Normal.- Right coronary: Normal. Sunit-Dasha Cantu MD [address] [place] [address], [address], [place], [address], [place] 02/17/2023 08:37:54 10/12/2023 text/html Mr. Tilley is a 42-year-old gentleman with a past medical history as below presented to the virtual clinic for a virtual follow up visit. He was last seen in this clinic on 02/16/2023. Significant events since his last visit with me include:1. Visit with pulmonary 04/28/2023-Initiated on triple therapy for his asthma2. PET/CT 10/02/2023-No evidence of active sarcoidosis-Concern for active sarcoidosis of the right paratracheal region From a functional standpoint, overall, he states that he is relatively stable. He does mention that he is able to perform his ADLs, and then 3 days a week he walks between 3 to 6 miles on the treadmill without significant imitation. He does continue to very palpitations, less than weekly, lasting for 2 to 3 minutes at a time, but otherwise denies episode of chest pain, PND, shows breath, orthopnea, syncope, or presyncope. He does mention recurrent URIs, she states he is catching from his daughter who is at daycare. - Recent Sarcoid Course -1. PET scan 11/25/21- Mild patchy uptake along the interventricular septum, greatest near the base and mid septum, suggestive of active sarcoid myocarditis.- Evidence of pulmonary parenchymal and yeimi sarcoidosis of the chest with volume loss and fibrosis present.- Re-initiated on cellcept 1000mg BID and prednisone 20mg daily2. Echocardiogram 11/26/2021-Normal LV size and thickness. Ejection fraction of 55-60%.-Normal RV size and function-No significant valvular disease3. PET/CT 03/15/2022-No evidence of sarcoidosis4. PET scan 05/03/22- No evidence of cardiac sarcoid Past medical history:1. Pulmonary and cardiac sarcoid- Diagnosed at [facility] [[facility], Dr. Mendez], Dx Lung Biopsy- Previously treated with steroids and immunosuppression- Likely Cardiac Sarcoid2. Concern for atrial fibrillation3. Hypertension4. Hyperlipidemia5. Obstructive sleep apnea- Using CPAP6. Diabetes mellitus7. Morbid obesity8. COPD9. Asthma Prior Cardiac Imagin. Echocardiogram dated 08/30/2018-Normal LV size, ejection fraction 55 to 60%-Normal RV size and function-No significant valvular disease2. Cardiac MRI-Normal LV size and thickness. Ejection fraction 45%, with global hypokinesis-Mildly dilated right ventricle-No significant valvular disease-LGE concerning for cardiac sarcoidosis3. Limited Echocardiogram 11/20/2018-Normal LV size, ejection fraction 55-60%.4. [facility] (08/15/2019)- Left ventricle: The estimated ejection fraction is 55-60%.- Left main: Normal.- LAD: Normal.- Left circumflex: Normal.- Right coronary: Normal. Terell Cantu MD [address], [place], [address], [place] - [place] 10/12/2023 10:17:52 07/15/2024 text/html Patient acknowle dged, consented, and participated in this {{telephone - audio only visit. telephone - audio and video visit which was conducted using secure real time audio and video.*}} Patient co-pay amounts may apply to virtual services when coverage is available per your payor. If coverage is not available, patient assumes responsibility for payment. {{Yes* No}} Past cardiac history:1. Pulmonary and cardiac sarcoid- Diagnosed at [facility] [[facility], Dr. Mendez], Dx Lung Biopsy- Previously treated with steroids and immunosuppression- Likely Cardiac Sarcoid2. Concern for atrial fibrillation3. Hypertension4. Hyperlipidemia5. Type 2 Diabetes mellitus6. COPD/Asthma Past Medical History1. Obstructive sleep apnea2. Morbid obesity- significant weight loss on GLP-1 - Recent Sarcoid Course -1. PET scan 11/25/21- Mild patchy uptake along the interventricular septum, greatest near the base and mid septum, suggestive of active sarcoid myocarditis.- Evidence of pulmonary parenchymal and yeimi sarcoidosis of the chest with volume loss and fibrosis present.- Re-initiated on cellcept 1000mg BID and prednisone 20mg daily2. Echocardiogram 11/26/2021-Normal LV size and thickness. Ejection fraction of 55-60%.-Normal RV size and function-No significant valvular disease3. PET/CT 03/15/2022-No evidence of sarcoidosis4. PET scan 05/03/22- No evidence of cardiac sarcoid5. PET/CT 10/02/2023-No evidence of active sarcoidosis-Concern for active sarcoidosis of the right paratracheal region Mr. Tilley is a 44-year-old gentleman with a past medical history as below presented to the virtual clinic for a virtual follow up visit. Interval History:1. Battles with depression- Temporarily stopped his psychiatric meds, now back on after re-establish with a therapist2. Visit with Dr. Barrios (I do not have the results of this)- Next visit . Functional capacity- Easily able to perform his ADL's. Outside of this, he remains busy taking care of his 4 year old daughter. He mentions he is now back at the gym since the beginning of the year 3-4x/week. While there, he is using a treadmill for 1 hour/day without issue- Denies any chest pain, shortness of breath, palpitations, PND, orthopnea, or syncope. Prior Cardiac Imagin. Echocardiogram dated 08/30/2018-Normal LV size, ejection fraction 55 to 60%-Normal RV size and function-No significant valvular disease2. Cardiac MRI-Normal LV size and thickness. Ejection fraction 45%, with global hypokinesis-Mildly dilated right ventricle-No significant valvular disease-LGE concerning for cardiac sarcoidosis3. Limited Echocardiogram 11/20/2018-Normal LV size, ejection fraction 55-60%.4. [facility] (08/15/2019)- Left ventricle: The estimated ejection fraction is 55-60%.- Left main: Normal.- LAD: Normal.- Left circumflex: Normal.- Right coronary: Normal. Sunit-Dasha Cantu MD [address] [place] [address], [address], [place], [address], [place] 07/16/2024 15:03:10
--- OUTSIDE RECORDS SUMMARY | 2024-09-04 15:06 | XMS_ITS | Referral Summary ---
Author Organization [facility] Address [address] [place] [address] Care Team Providers Care Batch Freezer Operator Name Role Phone Imani Em MD Primary Care Provider Source Comments [facility],non-owned Affiliates and Associated Physician Practices is amultiple site organization consisting of ambulatory clinics and hospital sitesin [place], [place], [place] and [place]. This disclosure is being madepursuant to the Care Everywhere program and may not contain all information available regarding this patient. Last updated 18.[facility] Allergies Active Allergy Reactions Criticality Noted [...] CDT Respiratory Rate 19 09/05/2017 7:42 AM [facility] Oxygen Saturation 96% 01/22/2018 10:54 AM CDT Inhaled Oxygen Concentration 21% 09/05/2017 1 2:50 AM [facility] Weight 169.2 kg (373 lb) 01/22/2018 10:54 AM CDT Height 180.3 cm (5' 11 ) 01/22/2018 10:54 AM CDT Body Mass Index 52.02 01/22/2018 10:54 AM CDT Plan of Treatment Not on file Procedures Procedure Name Priority Date/Time Associated Diagnosis Comments HEMOGLOBIN A1C - POINT OF CARE (AMB) [facility] Routine 01/22/2018 Diabetes mellitus without complication (HCC) BASIC METABOLIC PANEL (CALCIUM TOTAL) STAT 09/05/2017 4:49 AM [facility] Chest pain, unspecified type from Last 3 Months or Most Recently Relevant to Health Maintenance Results * HEMOGLOBIN A1C - POINT OF CARE (AMB) [facility] (01/22/2018) Pathologist [facility] Hemoglobin A1c POCT 8.5 BLOOD SPECIMEN / Unknown 01/22/2018 Felix Chapman MD LAB - POINT OF CARE ORDERABLES * (ABNORMAL) BASIC METABOLIC PANEL (CALCIUM TOTAL) (09/05/2017 4:49 AM [facility]) Pathologist [facility] Glucose 373(H) 70 - 125 mg/dL 09/05/2017 5:13 AM [facility] Sodium 132(L) 136 - 145 mmol/L 09/05/2017 5:13 AM [facility] Potassium 4.6(H) 3.4 - 4.5 mmol/L 09/05/2017 5:13 AM [facility] Chloride 98 98 - 107 mmol/L 09/05/2017 5:13 AM [facility] CO2 19(L) 22 - 29 mmol/L 09/05/2017 5:13 AM [facility] Calcium 10.00 8.4 - 10.2 mg/dL 09/05/2017 5:13 AM [facility] Anion Gap 20 10 - 20 mmol/L 09/05/2017 5:13 AM [facility] BUN 21.2 8.4 - 25.7 mg/dL 09/05/2017 5:13 AM [facility] Creatinine 1.38(H) 0.72 - 1.25 mg/dL 09/05/2017 5:13 AM [facility] eGFR by MDRD 58(L) >60 mL/min/1.7 3m2 09/05/2017 5:13 AM [facility] eGFR by MDRD >60 >60 mL/min/1.7 3m2 09/05/2017 5:13 AM [facility] Blood BLOOD SPECIMEN / Unknown Lab Venipuncture / Unknown 09/05/2017 4:49 AM [facility] 09/05/2017 4:53 AM [facility] Thelma Betancur MD LAB - CHEMISTRY [facility] [address] from Last 3 Months or Most Recently Relevant to Health Maintenance Care Teams Batch Freezer Operator Relationship Specialty Start Date End Date Imani Em MD [address] [place], [place] [id number] PCP - General 08/25/16
--- OUTSIDE RECORDS SUMMARY | 2024-09-04 15:06 | XMS_ITS ---
Author Organization [facility] Address [facility] [address] [address] Care Team Providers Care Women Specialist Name Role Phone WINTER Lotus GERMAN Primary Care Provider Unavailab Arnoldo Campbell Unavailable [phone] REASON FOR VISIT N/S Fee Social History Sex Assigned At : Social History Observation Description Sex Assigned At Male Encounters Encounter Location Date Provider Diagnosis [facility] [place] [id number] [facility] [address] [address] 09/03/2024 Arnoldo Rutledge Plan Of Treatment Next Appt Details Provider Name:Vinnie bentley, 09/17/2024 11:00:00 AM, [facility] [facility], [address], [address], Provider Name:Arnoldo Rutledge , 09/23/2024 09:45:00 AM, [address] [place] [address], [address], [address], Progress Notes * FLORECITA MATTHEWS HESHAMODOB:[birth year] (44 yo M)Acc No.[id number]:09/03/2024 Patient: FLORECITA WEST :1980 A ge:44 Y S ex:Male Address:[address] [place] [address], [address] * true * Date: Generated for Printi ng/Faxing/eTransmitting on: 0 09/04/2024 03:05 PM FLIGHT ENGINEER PERFORMANCE QUALIFIED
== END 2024-09-04 13:38 | disposition home or self-care (01) ==
PROVIDERS: PCP Nurse Practitioner Family; Visit Provider Nurse Practitioner Family
DX: R93.89 Abnormal findings on diagnostic imaging of other specified body structures (principal); M16.0 Bilateral primary osteoarthritis of hip; M89.9 Disorder of bone, unspecified; D86.9 Sarcoidosis, unspecified
CPT/HCPCS: 73721

== ENCOUNTER 2024-09-17 09:37 | Outpatient (CLI) | payer MEDICARE, SELFPAY ==
[2024-09-17 10:13] LABS: Basophils Percent Auto 0.6 % (0.2-1.2); Eosinophils Absolute Auto 0.4 K/mm3 (0-0.3); Eosinophils Percent Auto 10.2 % (0-4.4); Hematocrit 45.5 % (42.0-52.0); Hemoglobin 14.3 g/dL (14.0-18.0); Mean Corpuscular HGB Conc 31.4 g/dl (32-36); Mean Corpuscular Hemoglobin 28.1 pg (26-34); Mean Corpuscular Volume 89.4 fl (80-100); Mean Platelet Volume 9.7 fl (7.4-10.4); Monocytes Absolute Auto 0.3 K/mm3 (0.1-0.6); Monocytes Percent Auto 9.4 % (2.6-8.5); Neutrophils Absolute Auto 1.4 K/mm3 (1.3-6.7); Neutrophils Percent Auto 41.8 % (45.5-73.1); Platelet Count Result 197 k/mm3 (150-375); Red Blood Count 5.09 M/mm3 (4.6-6.20); Red Cell Distribution Width 13.2 % (11.5-14.5); White Blood Count 3.4 K/mm3 (4.5-10.0)
--- OUTSIDE RECORDS SUMMARY | 2024-09-17 10:28 | XMS_ITS | Clinical Summary ---
Author Organization [facility] Address [address] [place] [address] Phone Care Team Providers Care Pharmacy Care Coordinator Name Role Phone Unavailable Primary Care Provider [...] 60 mL 280 mL 05/19/2022 2:36 PM MONOMER PURIFICATION OPERATOR 2 Active ondansetron (ZOFRAN ODT) 4 mg Tablet, Rapid Dissolve Take 1 Tablet (4 mg) by mouth every 6 hours as needed for Nausea/Vomiting. Dissolve tablet on top of tongue, then swallow with saliva. 28 Tablet 05/19/2022 2:36 PM MONOMER PURIFICATION OPERATOR 2 Active rivaroxaban (XARELTO) 20 mg Tablet [...] COVID-19 VACCINE - EMERGENCY USE AUTHORIZATION, MRNA, [id number](PF) 30 MCG/0.3 ML IM SUSP 10/14/2021,11/17/2020,10/19/2020 (PNEUMOVAX [...] Comments Blood Pressure 150/92 05/19/2022 12:35 PM MONOMER PURIFICATION OPERATOR Pulse 60 05/19/2022 12:35 PM MONOMER PURIFICATION OPERATOR Temperature 36.9 C (98.4 F) 05/19/2022 12:35 PM MONOMER PURIFICATION OPERATOR Respiratory Rate 18 05/19/2022 12:3 5 PM MONOMER PURIFICATION OPERATOR Oxygen Saturation 100% 05/19/2022 12: 35 PM MONOMER PURIFICATION OPERATOR Inhaled Oxygen Concentration - - Weight 158.1 kg (348 lb 9.6 oz) 05/19/2022 4:44 AM MONOMER PURIFICATION OPERATOR Height 180.3 cm (5' 11 ) 05/17/2022 1:26 PM MONOMER PURIFICATION OPERATOR Body Mass Index 48.62 05/17/2022 1:26 PM MONOMER PURIFICATION OPERATOR Plan of Treatment Health Maintenance Due Date [...] this topic Medical Devices Implanted Type Area [employer] Work[employer] Device Identifier Shelf Expiration Date Model / Serial / Lot Seamguard Endogia 60 Blk [id number] - [id number] Implanted:Qty : 2 on 05/18/2022 by Pao Bell MD at [facility] Biological N/A: [employer] 08/31/2024 [id number] / / [id number] Seamguard Endogia 60 Prpl [id number] - [id number] Implanted:Qty : 3 on 05/18/2022 by Pao Bell MD at [facility] Biological N/A: St[employer] 08/25/2024 [id number] / / [id number] Description:#3 implant- lot# [id number] exp. 09/28/24 Insurance MEDICARE PART A AND B RX [employer] RX Member Subscriber Plan / Payer (Ef fective 2022-Present) Name:Vu Tilley Jr. Relation to Subscriber:Spouse Payer ID:Not on file Group ID:[facility] Type:RX Commercial Address: [address] [facility] Medicare Part D Advance Directives For more information, please contact: [phone] * Full Code (Latest Code Status on File) Date Activated Date Inactivated Comments 05/18/2022 3:46 PM 05/19/2022 4:40 PM * Full Code Date Activated Date Inactivated Comments 05/18/2022 1:17 PM 05/18/2022 3:46 PM * Full Code Date Activated Date Inactivated Comments 05/18/2022 10:30 AM 05/18/2022 1:16 PM
--- OUTSIDE RECORDS SUMMARY | 2024-09-17 10:28 | XMS_ITS | Data Portability ---
Author Organization [facility] OFFICE Address [address] [place] [address] Assessment No assessment recorded. Plan of Treatment [...] n 80 mg tablet 2017 018 INTERFACE [facility][id number], [address], [place], [place], [id number], 8 15:45:17 Cozaar 25 mg tablet 2016 017 INTERFACE [facility] #[id number], [address], [place], [place], [id number], 7 16:46:15 pravastati n 80 mg tablet 2016 017 [email or web address] [facility], [address], [place], [place], [id number], 8 15:02:45 Cardizem 60 mg tablet 2016 017 [facility] #65089, [address], [place], [place], [id number], 7 15:02:51 losartan 100 mg tablet [address] [facility]71606, [address], [id number], 7 16:13:30 hydrochlor othiazide 25 mg tablet [address] [facility]83265, [address], [id number], 7 16:13:19 Lasix 20 mg tablet 2016 017 [facility] #22549, [address] [place], [id number], 7 15:02:50 Cardizem 30 mg tablet 2016 017 [facility] #35032, [address] [place], [id number], 7 14:59:56 magnesium oxide 400 mg (241.3 mg magnesium) tablet [address] [facility]60394, [address] [place], [id number], 7 16:13:12 nitroglyce rin 0.4 mg sublingual tablet 2016 017 [facility] #70966, [address] [place], [id number], 7 21:32:55 Patient TargetsNo targets recorded. Patient Instructions Encounter Date Encounter Id Patient Instructions Last Modified By Organization Details Last Modified Time 01/04/2017 [id number] high blood pressure: care instructions Not available 01/05/2017 09:50:40 learning about high blood pressure Not available 01/05/2017 09:50:40 atrial fibrillation: care instructions Not available 01/05/2017 09:50:40 01/25/2017 [id number] high blood pressure: care instructions Not available 01/25/2017 15:59:02 learning about high blood pressure Not available 01/25/2017 15:59:02 high cholesterol : care instructions Not available 01/25/2017 15:59:02 2017 [id number] high blood pressure: care instructions [email or web address] Not available 2017 16:20:42 learning about high blood pressure [email or web address] Not available 2017 16:20:42 high cholesterol : care instructions [email or web address] Not available 2017 16:20:42 06/22/2017 [id number] high blood pressure: care instructions [email or web address] Not available 06/22/2017 16:46:09 learning about high blood pressure [email or web address] Not available 06/22/2017 16:46:09 high cholesterol : care instructions [email or web address] Not available 06/22/2017 16:46:09 01/22/2018 [id number] high blood pressure: care instructions [email or web address] Not [...] s Not Available Leon Ledesma MD [address], [place], [address], 01/25/2017 15:17:27 01/05/20 17 01/04/2017 elect rocar diogr am Result EK Sinus rhythm . Within normal limits . Not Available Leon Ledesma MD [address], [place], [address], 01/04/2017 12:47:35 01/23/20 18 01/22/2018 elect rocar diogr am Result EKG 8: NSR, NSST change s Not Available Leon Ledesma MD [address], [place], [address], 01/22/2018 14:58:12 01/05/20 17 12/02/2016 US, echoc ardio gram, trans thora cic, compl ete, w/ color flow No observ ation record ed. hmesto Stacie Lomas MD [facility] [address] [place], [address], 01/13/2017 13:38:48 01/05/20 17 01/04/2017 elect rocar [...] No observ ation record ed. Not Available 01/23 16:46:13 03/22/20 18 03/19/2018 US, echoc ardio gram No observ ation record ed. hmesto Not Available 2018 13:01:20 Result Notes None recorded. Problems Name Problem SNOMED Code Status Onset Date Resolution Date Notes Provider Name and Address Organization Details Recorded Time Diabetes mellitus 67791372 Active 2013 [email or web address] Dominic Brown [facility] 7 13:23:21 Essential hypertensi on 30030754 [facility] 7 12:48:25 Asthma 160702474 Active 2016 dr Keyur Miranda [facility] 7 13:35:35 Sleep apnea 37664306 Active 2016 on cpap pulmonary fy. Mani Zapien [facility] 7 13:20:05 Hyperlipid emia 26951084 Active 2016 [facility] 7 12:48:51 Chest discomfort 951534184 Active 2016 [facility] 7 21:29:41 Atrial fibrillati on 42939863 Active 2016 Amando Griffin [facility] 7 16:08:41 Cardiac arrhythmia 665275538 Active 2016 Dominic [facility] 7 15:17:05 Sarcoidosi s 11320147 Active 2016 [facility] 7 13:24:06 Problem Notes None recorded. Procedures Surgical History None recorded. Imaging Results Imaging Date Name Status LastModified by Organization Details LastModified Time 12/02/2016 US, echocardiogram, transthoracic, complete, w/ color flow completed hmesto Stacie Lomas MD [facility] [address], [place], [address], 01/13/2017 13:38:48 01/04/2017 electrocardiogram completed Informa tion not available 01/04/2017 16:31:18 01/10/2017 treadmill nuclear stress test (PROC) completed Information not available 01/21/2017 15:49:13 01/25/2017 electrocardiogram completed [email or web address] Inform ation not available 01/27/2017 14:39:01 01/10/2017 holter monitor completed Informatio n not available 02/14/2017 10:39:34 2017 electrocardiogram completed Informa tion not available 06/20/2017 07:46:36 06/22/2017 electrocardiogram completed [email or web address] Informa tion not available 06/27/2017 09:29:12 01/22/2018 electrocardiogram completed [email or web address] Informa tion not available 01/23/2018 16:46:13 03/19/2018 [...] Updated DateTime 7 180.34 cm 53.7 kg/m2 875963. 06 g 94 /min 93 % 93 % 112 mm[Hg] 86 mm[Hg] Kristina Mcdonough [facility] 7 16:10:15 Date Recorded Body height Body mass index (BMI) Body weight Oxygen saturation Oxygen saturation in Arterial blood by Pulse oximetry Heart rate Systolic blood pressure Diastolic blood pressure Provider Name and Address Organization Details Last Updated DateTime 8 180.34 cm 52.1 kg/m2 436084. 11 g 98 % 98 % 89 /min 128 mm[Hg] 78 mm[Hg] Raquel Turnerroe [facility] 8 15:01:05 Date Recorded Body weight Body mass index (BMI) Body height Heart rate Oxygen saturation Oxygen saturation in Arterial blood by Pulse oximetry Systolic blood pressure Diastolic blood pressure Provider Name and Address Organization Details Last Updated DateTime 7 116841. 81 g 47.3 kg/m2 180.34 cm 62 /min 98 % 98 % 120 mm[Hg] 80 mm[Hg] [facility] 7 13:01:43 Date Recorded Body height Body mass index (BMI) Body weight Heart rate Oxygen saturation Oxygen saturation in Arterial blood by Pulse oximetry Systolic blood pressure Diastolic blood pressure Provider Name and Address Organization Details Last Updated DateTime 180.34 cm 47.4 kg/m2 760343. 41 g 83 /min 98 % 98 % 112 mm[Hg] 64 mm[Hg] [facility] 7 12:25:10 Date Recorded Body height Heart rate Oxygen saturation Oxygen saturation in Arterial blood by Pulse oximetry Systolic blood pressure Diastolic blood pressure Provider Name and Address Organization Details Last Updated DateTime 180.34 cm 70 /min 98 % 98 % 108 mm[Hg] 82 mm[Hg] Kristina Mcdonough [facility] 12:34:16 Social History Question Answer Notes LastModified by Organizat ion Details LastModified Time Tobacco Smoking Status Former Smoker quit 2011 [facility] 01/04/2017 12:49:31 What Is Your Level [...] SNOMED-CT Code Diagnosis ICD10 Code Diagnosis Note [id number] Dominic Brown Jacqui fan Office [address] [place] [address] 01/04/2017 11:59:16 01/05/2017 12:30:16 Atrial fibrillation 57270474 I48.91 pt currently is in NSR. Will obtain records from outside hospital. Holter. Essential hypertension 11072079 I10 Patient's blood pressure is {{well-con trolled* n ot well-contr olled}} on present medical therapy. Patient is {{tolerati ng, without difficulty ,* having side effects with}} the current medication s. I have {{not made* made the following} } changes to the current regimen. {{ Patient is advised to maintain a blood pressure diary.*}} Cont low Na diet. Chest discomfort 9731522 09 R07.89 Patient presents with {{chest* a [...] a prescripti on for sublingual nitroglyce rin.*}} [id number] Dominic Robbins Office [address] [place] [address] 01/25/2017 12:03:37 01/26/2017 10:51:33 Cardiac arrhythmia 623908185 I49.9 pt currently is in NSR. Holter has not revealed sinificant arrhythmia s. switch amlodipine for Cardiazem since pt is known to have lung condition and PACs.Suppl ement electrolyt es.. Hyperlipidemia 65065674 E78.5 Patient's hyperlipid emia is {{well-con trolled* n ot well-contr olled}} on present medical therapy. Patient is {{tolerati ng, without difficulty ,* having side effects with}} the current medication s. I have {{not made* made the following} } changes to the current regimen. Cont low cholestero l diet. Essential hypertension 09641824 I10 Patient's blood pressure is {{well-con trolled* [...] diary.*}} Cont low Na diet. Chest discomfort 9607919 09 R07.89 stress test negative. cont medical management and risk factor modificati on. [id number] [facility] [address] [place] [address] 2017 12:21:00 03/24/2017 09:34:15 Essential hypertension 30200511 I10 Patient's blood pressure is {{well-con trolled [...] diary.*}} Cont low Na diet. Cardiac arrhythmia 48867 7007 I49.9 pt currently is in NSR. Holter has not revealed sinificant arrhythmia s. switch amlodipine for Cardiazem since pt is known to have lung condition and PACs.Suppl ement electrolyt es.. Hyperlipidemia 22501780 E78.5 Patient's hyperlipid emia is {{well-con trolled* n ot well-contr olled}} on present medical therapy. Patient is {{tolerati ng, without difficulty ,* having side effects with}} the current medication s. I have {{not made* made the following} } changes to the current regimen. Cont low cholestero l diet. Chest discomfort 1653632 09 R07.89 stress test negative. cont medical management and risk factor modificati on. [facility] OFFICE [address] [place] [address] 06/22/2017 16:02:35 06/23/2017 09:24:37 Essential hypertension 24809321 I10 Patient's blood pressure is {{well-con trolled [...] diary.*}} Cont low Na diet. Cardiac arrhythmia 80477 7007 I49.9 pt currently is in NSR. Holter has not revealed sinificant arrhythmia s. switch amlodipine for Cardiazem since pt is known to have lung condition and PACs.Suppl ement electrolyt es.. Hyperlipidemia 96242984 E78.5 Patient's hyperlipid emia is {{well-con trolled* n ot well-contr olled}} on present medical therapy. Patient is {{tolerati ng, without difficulty ,* having side effects with}} the current medication s. I have {{not made* made the following} } changes to the current regimen. Cont low cholestero l diet. Chest discomfort 6359433 09 R07.89 stress test negative. cont medical management and risk factor modificati on. Dominic Stephanie fan Office [address] [place] [address] 01/22/2018 14:45:59 01/22/2018 15:46:58 Essential hypertension 40694230 I10 Patient's blood pressure is {{well-con trolled* [...] exercise daily. Lasix PRN. ECHO Cardiac arrhythmia 91276 7007 I49.9 pt currently is in NSR/ ST. Holter did not revealed significan t arrhythmia s. Previously switched amlodipine for cardizem since pt is known to have lung condition and PACs. Supplement electrolyt es.. Hyperlipidemia 59869243 E78.5 Needs to keep LDL less than 70, and HDL more than 40 Will get lipid profile. Continue Statin. he states that his statin was started not long time ago will recheck lipids Chest discomfort 3677009 09 R07.89 Atypical given known lung disease. [...] Munoz Member ID Guarantor Name 01/04/2017 1 [facility] PRIOR TO 12/31/2020 (MEDICAID REPLACEMENT - HMO) Vu Tilley [id number] Vu Tilley 01/25/2017 1 [facility] PRIOR TO 12/31/2020 (MEDICAID REPLACEMENT - HMO) Vu Tilley [id number] Vu Tilley 2017 1 [facility] PRIOR TO 12/31/2020 (MEDICAID REPLACEMENT - HMO) Vu Tilley [id number] Vu Tilley 06/22/2017 1 [facility] PRIOR TO 12/31/2020 (MEDICAID REPLACEMENT - HMO) Vu Tilley [id number] Vu Tilley 01/22/2018 1 [facility] PRIOR TO 12/31/2020 (MEDICAID REPLACEMENT - HMO) Vu Tilley [id number] Vu Tilley Notes Date Note Type Note Provider Name and Address Organization Details Recorded Time 01/04/2017 text/html Mr. Tilley is a pleasant 36 y/o AAM with PMH of HL, CAR, asthma, HTN, DM who was referred for cardiovascular evaluation. According to the pt he recently underwent evaluation at [facility] where he was found to have irregular heart beating . Pt denies palpitatinso or syncopal episodes. Pt does experience episodes of heaviness at rest Pt was outpt he had ECHO in December 2016. He had Holter twice pt was told that he has AFIB and he was started on blood thinner. Previoysly about3 yrs agbo he seen stamping machine operator in [facility] he was told that everything was [...] the pt he recently underwent evaluation at [facility] where he was found [...] previously about 3 yrs ago he seen stamping machine operator in [facility] he was told that everything was [...] sarcoidosis which is being managed by his director pediatric. Had ECHO done in 12/02/16 showed normal LV systolic function , EF 60% , diastolic dysfunction . Had negative stress test done in 01/10/17 with normal LV systolic function , EF 61% . According to the pt he recently underwent evaluation at [facility] where he was found [...] previously about 3 yrs ago he seen stamping machine operator in [facility] he was told that everything was [...] is below average. LVEF 61%. Dominic Brown [facility] [place] [facility] 2017 15:04:56 06/22/2017 [...] sarcoidosis which is being managed by his director pediatric. Had ECHO done in 12/02/16 showed normal LV systolic function , EF 60% , diastolic dysfunction . Had negative stress test done in 01/10/17 with normal LV systolic function , EF 61% . According to the pt he recently underwent evaluation at [facility] where he was found [...] previously about 3 yrs ago he seen stamping machine operator in [facility] he was told that everything was [...] is below average. LVEF 61%. Dominic escalera [place] [facility] 06/22/2017 16:47:15 01/22/2018 text/html 01/22/18 CC: Follow-up SOB, chest pain Patient is a 37 year-old -[place] man with sarcoidosis hyperlipidemia, CAR, asthma, obesity presents today for follow-up. He was here last 7 months ago. Since then he feels poor due to his diabetes and sarcoidosis. He sees Dr. Magaña at [facility] for that. Is in [...] the pt he recently underwent evaluation at [facility] where he was found [...]
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
--- OUTSIDE RECORDS SUMMARY | 2024-09-17 10:28 | XMS_ITS | CONTINUITY OF CARE DOCUMENT ---
Author Name piyush pickett Address Unknown Organization [facility] Address [address] [place] [address] Phone [phone] Care Team Providers Care Sales Ledger Administrator Name Role Phone Mathieu SLAUGHTER, Neammajosé manuel Unavailable ELENO ATKINSON MD Unavailable [phone] ELENO ATKINSON MD Unavailable PROBLEMS Condition Status [...] In-person encounter Office Visit Kash Vitale MD [facility] Sleep apneaChest pain-neg routine stress 7 - 7 In-person encounter Office Visit Kash Vitale MD [facility] Other symptoms involving cardiovascular systemFamily History [...] Melinda Ji cigar use, date started 1991 [facility] ([facility] cigars, number smoked per week 11 Melinda Ji cigar use yes Melinda Ji smoking status Former smoker Melinda Lam nn smoking/tobacco cess ation, patient education and counseling yes Kash Vitale MD social history reviewed E&M roxanna curtis - no changes required Kash Vitale MD social history E&M 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 Smoking [...] Payer name Policy type / Coverage type [place] red republican ID [place] MED[place] Medicare [id number] TREATMENT PLAN Date Name Performer follow up:BP 124/71 His updated medication list for this problem includes: Losartan Potassium-hctz 100-25 Mg Tabs (Losartan potassium-hctz) ..... 1 tab daily Kash Vitale MD new patient visit: O rders: S TR - Routine (CPT-83169) S leep Study (*) Kash Vitale MD new patient visit: O rders: S TR - Routine (CPT-07620) S leep Study (*) C omplete Echo (CPT-59870) Kash Vitale MD Date Name Complete Echo Sleep Study STR - Routine HISTORY OF PROCEDURES Procedure Date Procedure Name Provider Procedure Notes S tatus EKG Kash Vitale MD completed
--- OUTSIDE RECORDS SUMMARY | 2024-09-17 10:28 | XMS_ITS | Referral Summary ---
Author Organization [facility] Address [address] [place] [address] Care Team Providers Care Papier Mache' Molder Name Role Phone Lotus Marina NP Primary Care Provider [phone] Allergies Active Allergy Reactions Criticality Noted Date [...] 36.6 C (97.8 F) 08/11/2023 12:18 PM FOOD STOREROOM CLERK Respiratory Rate 18 08/11/2023 12:18 PM FOOD STOREROOM CLERK Oxygen Saturation 97% 11/22/2023 9:15 AM CDT Inhaled Oxygen Concentration - - Weight 113.9 kg (251 lb) 11/22/2023 9:15 AM CDT Height 180.3 cm (5' 11 ) 11/22/2023 9:15 AM CDT Body Mass Index 35.01 11/22/2023 9:15 AM CDT Plan of Treatment Not on file Insurance MEDICARE AETNA MEDICARE GOLD AETNA MEDICARE GOLD MEDICARE [facility] Address: [address] [address] [place] [address] AETNA MEDICARE GOLD Care Teams Papier Mache' Molder Relationship Specialty Start Date End Date Lotus Marina NP [address] [facility] [address] [place] [address] PCP - General Nurse Practitioner 04/28/23 Terell Zamudio [address] [facility] [place] [address] Consulting Physician Cardiology 05/01/23
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
--- OUTSIDE RECORDS SUMMARY | 2024-09-17 10:28 | XMS_ITS | Clinical Summary ---
Author Organization [facility] Address [address] [place] [address] Care Team Providers Care Fashion Consultant Sales Name Role Phone Lotus Marina NP Primary Care Provider [phone] Allergies Active Allergy Reactions Criticality Noted Date [...] 36.6 C (97.8 F) 08/11/2023 12:18 PM TANKROOM WORKER Respiratory Rate 18 08/11/2023 12:18 PM TANKROOM WORKER Oxygen Saturation 97% 11/22/2023 9:15 AM CDT [...] complete this topic Insurance MEDICARE [employer] MEDICARE GOLD T MEDICARE [facility] MEDICARE AET[employer] MEDICARE [facility] Care Teams Fashion Consultant Sales Relationship Specialty Start Date End Date Lotus Marina NP [address] [place] [address] PCP - General Nurse Practitioner 04/28/23 Terell Zamudio [address] [facility] [place] [address] Consulting Physician Cardiology 05/01/23
--- OUTSIDE RECORDS SUMMARY | 2024-09-17 10:28 | XMS_ITS ---
Author Organization [facility] [employer] [facility] Address [facility] [address] [address] Care Team Providers Care Methods Study Analyst Name Role Phone Lotus PRUITT Primary Care Provider Unavailab Arnoldo Campbell Unavailable [phone] Vinnie Aponte Unavailable [phone] REASON FOR VISIT Therapy Visit Social History Sex Assigned At : Social History Observation Description Sex Assigned At Male Encounters Encounter Location Date Provider Diagnosis [facility] [employer] [place] [id number] [facility] [address] [address] 09/17/2024 Vinnie Aponte Plan Of Treatment Next Appt Details Provider Name:Vinnie bentley, 09/17/2024 11:00:00 AM, [facility] [address] [facility], [address], [address], Provider Name:Arnoldo Rutledge , 09/23/2024 09:45:00 AM, [address] [place] [address] [address], [address], [address], Progress Notes * CASSIECHAUNCEYFLORECITA LEODOB:[birth year] (44 yo M)Acc No.[id number]:09/17/2024 Patient: FLORECITA WESTO Provider: Rufino Aponte LCPC :1980 A ge:44 Y S ex:Male Date:09/17/2024 Address:[address] [place], [place] [id number] Pcp:Lotus A [employer] Data: * Chief Complaints: * 1 . Therapy Visit. * Medical History: * Vitals: Assessment: Plan: * Treatment: * Billing Information: * Visit Code: * Procedure Codes: * Electronic signature of Rosalie Aponte LCPC on 09/17/2024 at 10:27 AM CDT Sign off status: Pending Signatures: No Ad Hoc Signature Added * Provider: Rufino Aponte LCPC Date: 09/17/2024 Generated for Jose spring/Julia/Naren on: 09/17/2024 10:27 AM CDT
[2024-09-17 10:29] LABS: Magnesium 1.9 mg/dL (1.6-2.3); Phosphorus 2.2 mg/dL (2.5-4.5)
--- OUTSIDE RECORDS SUMMARY | 2024-09-17 10:29 | XMS_ITS ---
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 Name Role Phone [place]INTER Lotus GERMAN Primary Care Provider UnavailArnoldo Morales Unavailable [phone] REASON FOR VISIT N/S Fee Social History Sex Assigned At : Social History Observation Description Sex Assigned At Male Encounters Encounter Location Date Provider Diagnosis [facility] [employer] [place] [id number] [facility] [address] [address] 09/03/2024 Arnoldo Rutledge Plan Of Treatment Next Appt Details Provider Name:Vinnie bentley, 09/17/2024 11:00:00 AM, [facility] [facility], [address], [address], Provider Name:Arnoldo Rutledge , 09/23/2024 09:45:00 AM, [address] [place] [address], [address], [address], Progress Notes * FLORECITA MATTHEWS HESHAMODOB:[birth year] (44 yo M)Acc No.[id number]:09/03/2024 Patient: FLORECITA WEST :1980 A ge:44 Y S ex:Male Address:[address] [place] [address], [address] * true * Date: Generated for Printi ng/Faangelesg/eTransmitting on: 0 09/17/2024 10:28 AM CDT
--- OUTSIDE RECORDS SUMMARY | 2024-09-17 10:30 | XMS_ITS | Data Portability ---
Author Organization [place] [facility] [place], zFNL_IND_SMG_SNE_ER_StVWomen Address [address] [place] [address] Care Team Providers Care Machine Tack Puller Name Role Phone MARY CARMEN BUTLER Content Strategy Lead ASHU CANTU Apparatus Lineman [phone] FRANCHESKA ROSARIO Apparatus Lineman SHAHIDA ULLOA Nurse Practitioner [facility] Farm Equipment Assembler LAURA BARRY Apparatus Lineman TARYN LAWLER Office Administrative Assistant CELSO DAWKINS Primary Care Provider [phone] Assessment Encounter Date Assessment Date Assessment LastModified [...] GFR 67- [facility] Urine for microalbumin is normal. On [...] months Time spent with patient:__22 cristian arteaga [email or web address] Not available 08/15/2022 09:00:23 02/16/2023 02/16/2023 In [...] I will reach out to his local glassware verifier to make sure that we can work together to come up with a care plan for him. 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 The remainder [...] 7. Return to clinic - 6 months [email or web address] Not available 02/17/2023 08:36:54 10/12/2023 10/12/2023 In [...] be referring him to Dr. Coy at [facility] for consideration of infliximab. The remainder of [...] 7. Return to clinic - 6 months Not available 10/12/2023 10:15:50 07/15/2024 07/15/2024 In [...] the same or similar condition by an [facility] provider? No I did not request that the patient schedule an appointment at the next available time as a result of this encounter. [email or web address] Not available 07/16/2024 15:02:42 Plan of Treatment Reminders Order Date Submit Date Provider Last Modified By Organization Details Last Modified Time Details Appointments Establish ed Patient 30 2024 08:30A M Oswald Cantu MD Not available Not available Not available Lab CBC w/ auto diff [address] [facility] ([facility] [address], [facility], [place], [address], 11/06/2023 12:19:34 CMP, serum or plasma [address] [facility] ([facility]), [address], [facility], [place], [address], 11/06/2023 12:19:34 TSH, serum or plasma [address] [facility] ([facility]), [address], [facility], [place], [address], 11/04/2023 07:55:36 LDL, direct, serum 2021 022 [facility], [address] [place], [address], 03/08/2023 05:23:04 microalbu min/creat inine, mass ratio, urine 2021 022 [facility], [address] [place], [address], 10/30/2022 05:02:21 Referral None recorded. Procedures None recorded. Surgeries None recorded. Imaging None recorded. Medication Orders None recorded. Patient TargetsNo targets recorded. Patient Instructions Encounter Date Encounter Id Patient Instructions Last Modified By Organization Details Last Modified Time 04/19/2022 [id number] A healthy lifestyle: care instructions Not available 04/19/2022 14:18:40 diabetic neuropathy: care instructions Not available 04/19/2022 14:18:40 heart-healthy diet: care instructions Not available 04/19/2022 14:18:39 type 2 diabetes: care instructions Not available 04/19/2022 14:18:39 hand-washing: care instructions Not available 04/19/2022 14:18:40 What You Need To Know about COVID-19 Coronavirus Disease ([facility]) Not available 04/19/2022 14:18:39 Steps To Help Prevent The Spread of COVID-19, if you are sick (CDC) Not available 04/19/2022 14:18:39 07/15/2024 [id number] hand-washing: care instructions [email or web address] Not available 07/15/2024 17:01:41 Reason for Referral None Reported. Results Created Date Observation Date Name Description Value Unit Range Abnormal Flag Note LastModifiedBy Organization Detail LastModifiedTime 05/03/20 22 05/03/2022 GLUCO SE POC glucose POC 76 mg/dL 65-99 Testi ng by [facility] [address] [place] [address] Not Available [facility] [address] [place], [address], 05/03/2022 09:09:04 02/17/20 23 02/16/2023 GLUCO SE POC glucose POC 69 mg/dL 65-99 Testi ng by [facility] [address] [place] [address] Not Available [facility] [address] [facility] [place], [address], 02/16/2023 07:39:30 10/02/19 24 10/02/2023 GLUCO SE POC glucose POC 57 mg/dL 65-99 low Testi ng by [facility] [address] [place] [address] Not Available [facility] [address] [place], [address], 10/02/2023 12:12:28 11/03/19 24 11/04/2023 TSH W/REF ANTHONY TO FT4 TSH w/reflex to FT4 1.92 mIU/L 0.40-[address] .[address] to have a [employer] copy faxed [place]: [phone] Not Available [facility] [address] [facility], [place], [address], 11/04/2023 07:55:36 09/03/19 25 09/02/2024 GLUCO SE POC glucose POC 57 mg/dL 65-99 low Testi ng by [facility] [address] [place] [place] [address] Not Available [facility] [address] , [place], [address], 09/02/2024 11:35:33 05/03/20 22 05/03/2022 PET, myoca rdial scan, metab olic evalu ation [facility] n[facility]rat [place] EXAMIN ATION: PET/CT MYOCAR D METABO LIC EVAL - ACC #: [id number] CPT: 28309 Mod: RIS Order: [id number] (EVN) 6826) HIS Order: [id number] D [id number] STARTE D: May 03 2022 7:45AM [...] Transc ribed: May 03 2022 12:52P M [id number] Disper sed: May 03 2022 12:52P M Attend ing Dr: BRITTNI JIMENEZ DASHA Admitt ing Dr: BRITTNI JIMENEZ DASHA Primar y Care: BIMAL CHAAHL [facility] onal Doctor (s): ELECTR ONICAL LY SIGNED BY: SHREYA SAGE M.D.No v 2021 12:52P M ^ [email or web address] [facility] [address] [facility], [place], [address], 05/09/2022 07:10:59 07/29/19 23 04/18/2022 elect gerardo overton am No observ ation record ed. [email or web address] Not Available 2022 17:11:38 10/05/19 23 exter nal patie nt, EKG event recor ding, 24-ho ur atten ded monit oring ; revie w and inter preta tion (PROC ) No observ ation record ed. [employer] [address], [place], [address], 10/10/2022 07:47:37 02/17/20 23 02/16/2023 PET, myoca rdial scan, metab olic evalu ation [facility] EXAMIN ATION: PET/CT MYOCAR D PERF W/META B EVAL - ACC #: [id number] CPT: 44651 Mod: RIS Order: [id number] (IPT) (6909) HIS Order: [id number] STARTE D: Feb 16 2023 7:00AM [...] M ^ jeffrey [facility] [address] [place] [address], [place], [address], 02/20/2023 08:05:18 02/21/20 23 02/16/2023 PET, myoca rdial scan, metab olic evalu ation No observ ation record ed. jeffrey Amg - In Office Orders (For Internal Use Only) [address] [place], [address], 03/08/2023 08:18:03 08/10/19 24 08/02/2023 elect gerardo salazargr am No observ ation record ed. [address] [place] [address], [place], [address], 08/10/2023 12:17:12 08/10/19 24 08/02/2023 CT, angio gram, chest , w/ contr ast No observ ation record ed. [address] [address], [place], [address], 08/10/2023 12:19:34 08/10/19 24 08/02/2023 XR, chest , 2 view No observ ation record ed. [address] [address], [place], [address], 08/10/2023 12:20:35 08/25/19 24 jadon r monit or No observ ation record ed. [email or web address] [address] [facility] [address], [place], [address], 08/28/2023 09:40:42 10/02/19 24 10/02/2023 PET-C T, myoca rdial perfu pretty with metab olic evalu ation , dual radio [facility] [place] EXAMIN ATION: PET/CT MYOCAR D METABO LIC EVAL - ACC #: [id number] CPT: 99467 Mod: RIS Order: [id number] (EVN) (6826) HIS Order: [id number] D [id number] STARTE D: Oct 02 2023 7:40AM [...] Minima l pleura l effusi ons. IMPRES PRETTY: 1. No eviden ce of active cardia [...] Transc ribed: Oct 02 2023 11:06A M [id number] Disper sed: Oct 02 2023 11:06A M Attend ing Dr: MIGUEL ÁNGEL JIMENEZ- DASHA Admitt ing Dr: CHAUDH RY, SUNIT- DASHA Primar y Care: Additi onal Doctor (s): XAVIER CARRENO SIGNED BY: JENNA GLEASON M.D.Ap r 2023 11:06A M ^ [email or web address] Asv [facility] [address] [facility], [place], [address], 10/16/2023 15:32:22 08/06/19 25 08/02/2024 XR, hip + pelvi s, unila teral No observ ation record ed. [email or web address] [facility] [address], [place], [address], 08/06/2024 16:47:00 09/03/19 25 09/02/2024 PET-C T, limit ed [facility] [place] EXAMIN ATION: PET/CT MYOCAR D METABO LIC EVAL - Acc #: [id number] CPT: 20176 RIS Order: [id number] (EVN) (6826) HIS Order: [id number] STARTE D: Sep 02 2024 8:00AM COMPLE NYDIA: Sep 02 2024 10:44A M TECH INITIA LS: JXS Radiop harmac eutica l: 11.54 [facility]ci of F-18 FDG, IV FULL RESULT : EXAMIN ATION( S): F-18 cardia c PET/CT . CLINIC AL HISTOR Y: Sarcoi dosis. COMPAR PATRICK: October 02, 2023, Novemb er 2021. FINDIN [...] 1:57PM Transc ribed: Sep 02 2024 1:57PM [id number] Disper sed: Sep 02 2024 1:57PM [place] Dr: BRITTNI JIMENEZ DASHA Admitt ing Dr: BRITTNI JIMENEZ Primar y Care: ELECTR ONICAL LY SIGNED BY: Ashia AGUILERASep 02 2024 1:57PM ^ [email or web address] Asv [facility] [address] [facility], [facility] [place], [address], 09/02/2024 15:57:59 Result Notes None recorded. Problems Name Problem SNOMED Code Status Onset Date Resolution Date Notes Provider Name and Address Organization Details Recorded Time Chronic diastolic heart failure 530695982 Active 2021 Hortencia Nitesh RMA null, [place] [facility] [place] 2 09:17:34 Diabetes mellitus 32010522 Active 2018 Ratna Garnett [place], [place] [facility] [place] 9 18:39:51 Hypertensive disorder 96023467 Active 2018 Ratna Марина null, [place] [facility] [place] 9 18:39:51 Atrial fibrillation 89946120 Active 2018 Ratna Garnett null, [place] [facility] [place] 9 18:39:51 Chronic obstructive pulmonary disease 70054578 Active 2018 Ratna Garnett null, [place] [facility] [place] 9 18:39:51 Chronic lung disease 104917724 Active 2018 Ratna Garnett null, [place] [facility] [place] 9 18:39:52 Sarcoidosis 52534063 Active 2018 Ratna Garnett null, [place] [facility] [place] 9 18:39:51 Morbid obesity 784587400 Active 2018 Ratna Марина null, [place] [facility] [place] 9 18:39:51 Systolic dysfunction 912535444 Active 2018 Ratna Марина null, [place] [facility] [place] 9 18:39:52 Paroxysmal atrial fibrillation 118234934 Active 2018 Ratna Марина null, [place] [facility] [place] 9 18:39:51 Chest pain 68756134 Active 2019 Laura Snow CMA null, [place] [facility] [place] 0 11:48:50 Dyspnea 696851444 Active 2019 Laura Snow SIGNAL INTELLIGENCE ANALYST null, [place] 0 11:48:59 Dyspnea on exertion 64521090 Active 2019 Laura Gwendolyn SIGNAL INTELLIGENCE ANALYST [place], [place] [facility] [place] 0 11:49:04 Nausea 796273129 Active 2019 Laura Gwendolyn SIGNAL INTELLIGENCE ANALYST null, [place] [facility] [place] 0 11:49:10 Essential hypertension 43997757 Active 2019 Cassie Delgado NP [address] [place] [address], [address], [place], [address], [place] 0 14:15:03 Uncontrolled type 2 diabetes mellitus 880972818 Active 2019 Cassie Delgado NP [address] [place] [address], [address], [place], [address], [place] [facility] [place] 0 14:37:50 Gastroesophage al reflux disease 718913661 Active 2019 Cassie Delgado NP [address] [place] [address], [address], [place], [address], [place] [facility] [place] 0 14:39:40 Obstructive sleep apnea syndrome 21364324 Active 2019 Cassie Delgado NP [address] [place] [address], [address], [place], [address], [place] 0 14:41:37 Cardiac sarcoidosis 24109070 Active 2019 Laura Gwendolyn ROWE null, [place] [facility] 0 17:51:42 Problem Notes None recorded. Procedures Surgical History Date Name Laterality Status Provider Name and Address Organization Details Recorded Time 05/18/20 22 Gastric bypass for obesity completed Swetha Julien [place] [facility] 08/15/2022 08:32:55 01/06/20 21 COPD Assessment- CAT completed Ratna Martinez RN [place] [facility] 01/05/2021 15:34:32 07/07/19 21 COPD Assessment- CAT completed Kimberli Vazquez CMA [place] [facility] 07/07/2020 16:50:01 08/15/19 20 Cardiac Cath completed Hortencia Elmoreuter CHELY [place] [facility] 11/14/2019 09:47:26 03/27/20 19 COPD Assessment- CAT completed Clark Solitario MD [address], [address], [place], [address], [place] [facility] 03/27/2019 09:05:33 12/27/19 19 COPD Assessment- CAT completed Clark Solitario MD [address], [address], [place], [address], [place] [facility] 12/26/2018 09:40:20 11/13/19 19 Medical Hospitalization completed Aranza Paredes RN [place] [facility] 11/28/2018 15:15:50 06/03/20 18 Medical Hospitalization completed Nayeli Silva [place] [facility] 06/05/2019 14:42:33 07/03/19 15 biopsy of lung completed Clark Solitario MD [address], [address], [place], [address], [place] [facility] 08/22/2018 09:51:26 Imaging Results Imaging Date Name Status LastModified by Organization Details LastModified Time 05/03/2022 PET, myocardial scan, metabolic evaluation completed [address] [facility] [address] [place], [address], 05/09/2022 07:10:59 04/18/2022 electrocardiogram completed Informa tion not available 07/29/2022 17:11:38 10/04/2022 external patient, EKG event recording, 24-hour attended monitoring; review and interpretation (PROC) completed [employer] [address], [place], [address], 10/10/2022 07:47:37 02/16/2023 PET, myocardial scan, metabolic evaluation completed [facility] [address], [place], [address], 02/20/2023 08:05:18 02/16/2023 PET, myocardial scan, metabolic evaluation completed [email or web address] [facility] - In Office Orders (For Internal Use Only) [address] [facility], [place], [address], 03/08/2023 08:18:03 08/02/2023 electrocardiogram completed [address], [address], 08/10/2023 12:17:12 08/02/2023 CT, angiogram, chest, w/ contrast completed [address], [address], 08/10/2023 12:19:34 08/02/2023 XR, chest, 2 view completed [address], [address], 08/10/2023 12:20:35 08/25/2023 holter monitor completed [email or web address] [address], [place], [address], 08/28/2023 09:40:42 10/02/2023 PET-CT, myocardial perfusion with metabolic evaluation, dual radiotracer completed [email or web address] [facility] [address] [place] [address], [address], 10/16/2023 15:32:22 08/02/2024 XR, hip + pelvis, unilateral completed [email or web address] [address], [address], 08/06/2024 16:47:00 09/02/2024 [facility] [address] [place], [address], 09/02/2024 15:57:59 Procedure Notes None recorded. Medical Equipment None Reported. Allergies Allergen ID Allergen Name Allergen Category Reaction Reaction Severity Criticality Documentation Date Start Date Code Code System Note Provider Name and Address Organization Details Recorded Time 4497051 Actos medicatio n rash Not available Not available 08/22/2018 19969 2 RxNorm Aranza Paredes RN null, [place] [facility] [place] 9 08:59:45 Medications Name Sig Start Date [...] syringe TO BE ADMINIST ERED BY PHARMACI [email or web address] FOR IMMUNIZA TION 03/26 completed Not Available [...] ular syringe TO BE ADMINIST ERED BY [employer] FOR IMMUNIZA TION 03/26 completed Not Available [...] Available Not Available Not Available Dexcom G6 Decorator Store active Not Available Not Available Not Available Dexcom G6 Transmitt er device active Not Available Not Available No t Available Accu-Chek Fastclix Lancet Drum USE TO TEST BLOOD SUGAR 4 TIMES PER DAY ICD 10 CODE E11.65 07/15 completed Not Available Not Available Not Available [employer] Chrissy 14 Day [place] active Not Available Not Available Not Available [...] Updated DateTime 2 181.61 cm 48.5 kg/m2 356703. 11 g 72 /min 95 % 95 % 130 mm[Hg] 72 mm[Hg] Cassie Rodriguez [place] [facility] 2 13:58:34 Date Recorded Body height Body mass index (BMI) Body weight Heart rate Systolic blood pressure Diastolic blood pressure Provider Name and Address Organization Details Last Updated DateTime 3 181.61 cm 38.1 kg/m2 658599. 09 g 90 /min 127 mm[Hg] 83 mm[Hg] Swetha Julien [place] [facility] 3 08:34:15 Date Recorded Body height Body mass index (BMI) Body weight Heart rate Oxygen saturation Oxygen saturation in Arterial blood by Pulse oximetry Systolic blood pressure Diastolic blood pressure Provider Name and Address Organization Details Last Updated DateTime 3 181.61 cm 33.6 kg/m2 064021. 54 g 58 /min 95 % 95 % 108 mm[Hg] 80 mm[Hg] Nereyda Pak [place] [facility] 3 10:31:37 Date Recorded Body height Body mass index (BMI) Body weight Heart rate Oxygen saturation Oxygen saturation in Arterial blood by Pulse oximetry Systolic blood pressure Diastolic blood pressure Provider Name and Address Organization Details Last Updated DateTime 4 181.61 cm 34.4 kg/m2 451038. 37 g 87 /min 96 % 96 % 110 mm[Hg] 62 mm[Hg] Jazmin FRANKLIN [facility] 09:40:38 Date Recorded Body height Body mass index (BMI) Body weight Provider Name and Address Organization Details Last Updated DateTime 07/15/2024 181.61 cm 35.1 kg/m2 523097.05 g Mary Mcfarlane [facility] 07/15/2024 10:25:28 Social History Question Answer Notes LastModified by Organizat ion Details LastModified Time Tobacco Smoking Status Former Smoker Rhona escalera [facility] 10/12/2023 09:33:43 Do You Have An Advance Directive? No Information not available 10/12/2023 What Is Your Level Of Alcohol Consumption? None [email or web address] Information not available 10/12/2023 What Is Your Level Of Caffeine Consumption? Moderate [email or web address] Information not available 10/12/2023 Are You Currently Employed? No [email or web address] Information not available 02/16/2023 What Type Of Diet Are You Following? REGULAR [email or web address] Information not available 10/12/2023 Which Illicit Or Recreational Drugs Have You Used? Denies [email or web address] Information not available 10/12/2023 Do You Or [...] Did You Ever Eat Less Than You Bogue You Should Because There Wasn t Enough Money For Food? No [email or web address] Information not available 04/01/2020 In The Past 12 Months Has The [employer], Oil, Or Water An [employer] Threatened To Shut Off Services In Your [...] Smell, Nausea Or Vomiting, Or Diarrhea? No [email or web address] Information not available 07/07/2020 Have You Had A COVID-19 Vaccine In The Last 7 Days? No [email or web address] Information not available 07/07/2020 (If Yes To Covid Vaccine)- Which Vaccine? Moderna [email or web address] Information not available 03/21/2022 In The Past 10 Days, Have You Been Told You May Have COVID-19 Or Have Been Tested For COVID-19? No [email or web address] Information not available 11/16/2021 0) Information Provided By : Patient [email or web address] Information not available 10/12/2023 1a) Does The Patient/Caregiv er/Family Report The PATIENT Having Any Of These NEW Symptoms Such As Cough? No Information not available 10/12/2023 1b) Does The Patient/Caregiv er/Family Report The PATIENT Having Any Of These NEW Symptoms Such As Diarrhea? No Information not available 10/12/2023 1c) Does The Patient/Caregiv er/Family Report The PATIENT Having Any Of These NEW Symptoms Such As Fever/chills? No [email or web address] Information not available 10/12/2023 1d) Does The Patient/Caregiv er/Family Report The PATIENT Having Any Of These NEW Symptoms Such As Nasal Congestion/Runn y Nose? No [email or web address] Information not available 10/12/2023 1e) Does The Patient/Caregiv er/Family Report The PATIENT Having Any Of These NEW Symptoms Such As Respiratory Distress (acute)? No [email or web address] Information not available 10/12/2023 1f) Does The Patient/Caregiv er/Family Report The PATIENT Having Any Of These NEW Symptoms Such As Rash? No [email or web address] Information not available 10/12/2023 1g) Does The Patient/Caregiv er/Family Report The PATIENT Having Any OTHER NEW Symptoms (list)? If No NEW Symptoms, Enter No No [email or web address] Information not available 10/12/2023 Marital Status [email or web address] [...] How Much Tobacco Do You Smoke? No Information not available 10/12/2023 General Stress Level [...] Time What is your exercise level? Occasional Information not available 10/12/2023 Mental Status None recorded. Family History Relationship Description Onset Age of this Age Resolved Age Notes LastModified by Organization Details LastModified Time Father Crohn's disease [email or web address] Not available 05/2024 09:33:42 Mother Hypertensive disorder [...] high cholesterol Y cancer N heart attack ([place]) N blood clots N thyroid disease N fibromyalgia N hyperlipidemia Y stroke N Immunizations Vaccine Type Date Status Note Provider Nam e and Address Organization Details Recorded Time Influenza, split virus, trivalent, PF 9 completed Not Available [facility] 07/20/2019 06:08:10 Influenza, split virus, quadrivalent, PF 9 completed Not Available [facility] 07/21/2019 02:13:25 pneumococcal polysaccharide PPV23 9 completed Aranza Paredes RN null, [place] - [facility] 03/27/2019 08:58:05 Influenza, split virus, quadrivalent, preservative 0 completed Kimberli Vazquez CMA null, [place] [facility] 07/07/2020 16:47:56 SARS-COV-2 (COVID-19) vaccine, UNSPECIFIED 1 completed Ratna Martinez RN null, [place] [facility] 01/05/2021 15:32:38 SARS-COV-2 (COVID-19) vaccine, UNSPECIFIED 1 completed Ratna Martinez RN null, [place] [facility] 01/05/2021 15:32:45 SARS-COV-2 (COVID-19) vaccine, UNSPECIFIED 2 completed Ratna Martinez RN null, [place] [facility] 11/16/2021 14:25:48 Past Encounters Encounter ID Performer Location Encounter Start Date Encounter Closed Date Diagnosis/Indication Diagnosis SNOMED-CT Code Diagnosis ICD10 Code Diagnosis Note [id number] Angy LÓPEZA_SMG_U C_[address], [address] [place] [address] 06/13/2018 13:03:24 06/13/2018 14:31:00 Toothache 59364794 K08.89 Due to the erythema of the [...] He understood and agreed to treatment plan. [id number] MD NELSON Donovan_SMG_U C_[address], [address] [place] [address] 06/18/2018 12:40:09 06/18/2018 13:31:32 Type 1 diabetes mellitus 83509752 E10.9 [id number] Clark Solitario MD zCLSD_EVA _SMG_PULM _[facility] [address] [facility] [address] [facility] [place] [address] 08/22/2018 08:38:55 08/22/2018 10:19:35 Pulmonary sarcoidosis 09920331 D86.0 38-year-ol d black gentleman with biopsy-pro [...] studies available. Chronic ob structive pulmonary disease 12456848 J44.9 Pulmonary function tests from 08/14/2018 revealed the presence of severe obstructiv e airway disease, mild restrictio n and normal DLCO. He will be treated with Breo 100 mcg 1 puff once a day. Long-term drug therapy 715715943 Z79.899 The patient has been taking Prednisone , on and off, for the last 4 years. I will schedule the patient for a bone density study and I would also check for vitamin D 25-hydroxy and vitamin D 1-25 hydroxy. Atrial fibrillation 4943 6004 I48.91 Already referred to Cardiology . Hopefully he will improved after CPAP treatment is restarted. [facility] ed type 2 diabetes mellitus 274734269 E11.65 Already referred to Endocrinol justin. It is my hope that the patient diabetes will be much better control if I avoid prednisone . At this time I do not believe the patient needs it. Obstructiv e sleep apnea syndrome 21326221 G47.33 The patient has documented history obstructiv e sleep apnea diagnosed in May 2014. Unfortunat kristi his device broke when he moved from [place] to [place] in January 2018. The patient has not used his CPAP since then and recently developed atrial fibrillati on. I believe the patient needs to have a CPAP device of 12 cm of water pressure as soon as possible. He will be seen by sleep specialist tomorrow morning. Administra tion of influenza vaccine [id number] Z23 To be given today. The patient is a high risk of developing pulmonary infections due to the structural damage to his lung parenchyma . [id number] Riley Pedersen MD EVA_SMG_S LPPULM_[address] [facility] n [address]rd [place] [address] 08/23/2018 15:09:40 08/23/2018 16:52:30 Obstructive sleep apnea syndrome 28365945 G47.33 Moderate to severe obstructiv e sleep [...] if needed. Hypersomni a with sleep apnea 13114740 G47.10 hypersomni a likely secondary to sleep fragmentat ion caused by sleep disordered breathing. [place] score of 3/24 is discordant with subjective [...] been discussed with the patient. Essential hypertension 70485205 I10 The adverse impact of untreated sleep apnea on the control of hypertensi on has been discussed with the patient. Diabetes mellitus 184271 09 E11.9 The adverse impact of untreated sleep apnea on the control of diabetes has been discussed with the patient. Pulmonary sarcoidosis 24 801585 D86[address] Solitario for the same. Chronic ob structive pulmonary disease 47211955 J44.9 PFTs showed predominan tly obstructiv e physiology likely secondary to obstructiv e sarcoid. Patient is not a candidate for auto titrating positive pressure therapy. Morbid obesity 808323562 E66.01 Weight loss is recommende d and should translate to an improvemen t in the patient's sleep disordered breathing. The patient was given informatio n regarding the importance of diet and exercise for weight loss and weight management . [id number] MD NELSON Howe_SMG_U C_[place] [place] [place] [address] 08/27/2018 20:21:55 08/27/2018 20:59:04 Type 1 diabetes mellitus 57872829 E10.9 [id number] MD NELSON Stratton_SMG_E NDO_[address] [place] [address] 09/03/2018 13:21:25 09/03/2018 14:56:39 Uncontrolled type 2 diabetes mellitus 195335908 E11.65 Hypertensive disorder 38 946085 I10 Diabetic p eripheral neuropathy 131861923 E11.40 Dyslipidemia 617767989 E 78.5 Vitamin D deficiency 347 99880 E55.9 [id number] Kelly DAMON_SMG_E NDO_[address] [place] [address] 09/03/2018 15:00:06 09/03/2018 15:53:12 Diabetes mellitus 58988631 E11.9 [id number] Clark Solitario MD zCLSD_EVA _SMG_PULM _[address] [facility],[address] [place] [address] 09/17/2018 11:10:06 09/17/2018 11:48:03 Pulmonary sarcoidosis 90722016 D86.0 38-year-ol d black gentleman with biopsy-pro [...] all normal. Chronic ob structive pulmonary disease 91742339 J44.9 Pulmonary function tests from 08/14/2018 revealed the presence of severe obstructiv e airway disease, mild restrictio n and normal DLCO. He still complains of dyspnea on exertion despite using Breo. I will change the patient to Trelegy and reassess in 2 months. Long-term drug therapy 763440118 Z79.899 I have checked bone density study and vitamin D 25-hydroxy and vitamin D 1-25 hydroxy, they are normal. Obstructiv e sleep apnea syndrome 44454986 G47.33 Patient has already been seen in the sleeps center. He has been scheduled for another polysomnog claude. Atrial fibrillation 4943 6004 I48.91 Management as per cardiology . [facility] ed type 2 diabetes mellitus 467773640 E11.65 The patient is now seeing endocrinol ogy. [id number] MD NELSON Garner_SMG_C ARDIAC_90 1[facility] [id number] [address] [facility] ,[address] [place] [address] 09/26/2018 12:09:53 09/26/2018 15:13:08 Sarcoidosis 24753654 D86.0 [id number] Miguel Ángel-Luis Cantu MD IND_SMG_N AAB_DOC [address] [facility] [place] [address] 10/31/2018 09:00:20 10/31/2018 09:58:40 Cardiac sarcoidosis 08596939 D86.85 Chronic di astolic heart failure 906427155 I50.32 Essential hypertension 63780047 I10 Mixed hyperlipidemia 267 593479 E78.2 Morbid obesity 350127297 E66.01 Obstructiv e sleep apnea syndrome 54858632 G47.33 [id number] Ratna Reynaga n, BIOMEDICAL ENGINEERING TECHNOLOGIST zFNL_EVA_ SMG_TRANS ITION_[address] [address]OP[address] [place] [address] 11/23/2018 09:33:13 11/23/2018 10:46:24 Sarcoidosis 37909213 D86.9 He does have follow-up appointmen ts coming up with pulmonary 11-28-18 and cardiology . He is scheduled to have a PET scan to follow-up for cardiac sarcoid and [place] is next month. He is to continue Bactrim and oral steroids. Diabetes mellitus 457083 09 E11.9 Endo follow up 12-14-18.Me ds reviewed today. Hypertensive disorder 38 377599 I10 Continue home meds. His BP is stable today. He has mention of losartan/H CTZ but states he has not been on this medication . Atrial fibrillation 5653 6004 I48.91 questionab le paroxysmal - following up with EP 12-27-18 [id number] Clark Solitario MD zCLSD_EVA _SMG_PULM _[address] [facility] [employer],[address] [place] [address] 11/28/2018 15:11:10 11/28/2018 15:40:45 Pulmonary sarcoidosis 45125705 D86.0 Biopsy-pro keshav sarcoidosi s, with recurrence [...] rheumatolo gy. Chronic ob structive pulmonary disease 49966196 J44.9 COPD with severe obstructiv e airways disease documented by PFTs on 08/14/2018. Patient is to continue taking Trelegy 1 puff once a day. Long-term drug therapy 421168587 Z79.899 I have checked bone density study and vitamin D 25-hydroxy and vitamin D 1-25 hydroxy, they are normal. Obstructiv e sleep apnea syndrome 73226484 G47.33 As per sleep specialist Atrial fibrillation 4943 6004 I48.91 Management as per cardiology . Uncontroll ed type 2 diabetes mellitus 894977540 E11.65 The patient is now seeing endocrinol ogy. [id number] Riley Pedersen MD EVA_SMG_S LPPULM_[address]r d Floor [address] [facility] [address]rd [place] [address] 12/10/2018 10:23:39 12/10/2018 11:13:17 Obstructive sleep apnea syndrome 32066655 G47.33 Moderate to severe obstructiv e sleep [...] if needed. Hypersomni a with sleep apnea 46521568 G47.10 Hypersomni a subjective ly improved on CPAP therapy. [place] score 12/24 today. He has been advised to avoid driving while drowsy. Atrial fibrillation 4943 6004 I48.0 Currently in sinus rhythm. The adverse impact of untreated sleep apnea on the control of atrial fibrillati on has been discussed with the patient. Essential hypertension 06102304 I10 The adverse impact of untreated sleep apnea on the control of hypertensi on has been discussed with the patient. Diabetes mellitus 389144 09 E11.9 The adverse impact of untreated sleep apnea on the control of diabetes has been discussed with the patient. Pulmonary sarcoidosis 24 075268 D86.[address] Solitario for the same. Chronic ob structive pulmonary disease 12013750 J44.9 PFTs showed predominan tly obstructiv e physiology likely secondary to obstructiv e sarcoid. He is not a candidate for auto titrating positive pressure therapy. Morbid obesity 950948671 E66.01 Weight loss is recommende d and should translate to an improvemen t in the patient's sleep disordered breathing. The patient was given informatio n regarding the importance of diet and exercise for weight loss and weight management . [id number] Reva Yang NP EVA_SMG_E NDO_[address] [place] [address] 12/14/2018 15:24:48 12/14/2018 15:55:24 Uncontrolled type 2 diabetes mellitus 534691633 E11.65 Hypertensive disorder 38 927151 I10 Diabetic p eripheral neuropathy 173246268 E11.40 Dyslipidemia 267370684 E 78.5 Vitamin D deficiency 347 25533 E55.9 [id number] Sunit-Pree t Cornelio Cantu MD IND_SMG_N AAB_DOC [address] [place] [address] 12/18/2018 12:56:04 12/18/2018 14:30:20 Cardiac sarcoidosis 55592460 D86.85 Chronic di astolic heart failure 759916936 I50.32 Essential hypertension 85181062 I10 Mixed hyperlipidemia 267 849581 E78.2 Morbid obesity 641037129 E66.01 Obstructiv e sleep apnea syndrome 81520179 G47.33 Sarcoidosis 04255019 D86 .9 [id number] Clark Solitario MD zCLSD_EVA _SMG_PULM _[address] [facility] [employer],[address] [place] [address] 12/26/2018 09:19:30 12/26/2018 09:53:15 Pulmonary sarcoidosis 53507718 D86.0 Biopsy-pro keshav sarcoidosi s, with recurrence [...] management . Chronic ob structive pulmonary disease 11536676 J44.9 COPD with severe obstructiv e airways disease documented by PFTs on 08/14/2018. Since his last visit, the patient has not had any exacerbati ons of COPD. He states that the cough and wheezing as well as the distant exertion has improved. Patient is to continue taking Trelegy 1 puff once a day. Long-term drug therapy 025535012 Z79.899 I have checked bone density study and vitamin D 25-hydroxy and vitamin D 1-25 hydroxy, they are normal. Obstructiv e sleep apnea syndrome 37330857 G47.33 As per sleep specialist Atrial fibrillation 4943 6004 I48.91 Management as per cardiology . [facility] ed type 2 diabetes mellitus 305914840 E11.65 The patient is now seeing endocrinol [...] made and how to taper prednisone . [id number] Shahida Ulloa [facility] NELSON_SMG_C ARDIAC_90 1[facility] [id number] [address] [facility] ,[address] [place] [address] 12/27/2018 09:15:22 12/27/2018 10:22:35 Paroxysmal atrial fibrillation 293670225 I48.0 [id number] MD NELSON Stratton_SMG_E NDO_[address] [place] [address] 01/16/2019 10:37:28 01/16/2019 11:32:10 Uncontrolled type 2 diabetes mellitus 721537688 E11.65 Hypertensive disorder 38 040709 I10 Diabetic p eripheral neuropathy 307894679 E11.40 Dyslipidemia 151291907 E 78.5 Vitamin D deficiency 347 10386 E55.9 Hypoglycemia 867642838 E 16.2 [id number] Cheyenne Cantu MD IND_SMG_N AAB_DOC [address] [place] [address] 03/18/2019 14:20:33 03/18/2019 15:13:35 Cardiac sarcoidosis 73130363 D86.85 Chronic di astolic heart failure 848479029 I50.32 Essential hypertension 65099032 I10 Mixed hyperlipidemia 267 209189 E78.2 Morbid obesity 185376728 E66.01 Obstructiv e sleep apnea syndrome 23590040 G47.33 Sarcoidosis 49614574 D86 .9 [id number] Clark Solitario MD zCLSD_EVA _[facility]_PULM _[address] [facility],[address] [place] [address] 03/27/2019 08:53:10 03/27/2019 09:21:50 Chronic obstructive pulmonary disease 82310069 J44.9 COPD with severe obstructiv e airways disease documented by PFTs on 08/14/2018. Since his last visit, the patient has not had any exacerbati ons of COPD. Patient is to continue taking Trelegy 1 puff once a day. Administra tion of influenza vaccine 48179571 Z23 To be given today. The patient is a high risk of developing pulmonary infections due to the structural damage to his lung parenchyma . Pulmonary sarcoidosis 24 272645 D86.0 The patient has completed 3 months of 60 mg of prednisone and has not started tapering doses. He will be on prednisone 50 mg p.o. once a day for 30 days and then he will decrease it down to 40 mg p.o. once a day. He will be reevaluate d by his cardiologi st [place] in June when a decision to [...] cardiology . See above. Long-term drug therapy 393655152 Z79.899 Last bone density study and vitamin D 25-hydroxy and vitamin D 1-25 hydroxy were normal. Obstructiv e sleep apnea syndrome 71675580 G47.33 As per sleep specialist Atrial fibrillation 4943 6004 I48.91 Management as per cardiology . Uncontrol ed type 2 diabetes mellitus 070597323 E11.65 The patient is now seeing endocrinol ogy. [id number] Shahida Ulloa [facility] EVA_SMG_C ARDIAC_90 1[facility] [id number] [address] [facility] ,[address] [place] [address] 04/12/2019 09:44:29 04/12/2019 10:49:13 Atrial fibrillation 52163133 I48.91 Sarcoidosis 77233064 D86 .9 [id number] MD MARIBEL StrattonA_SMG_E NDO_[address] [place] [address] 05/21/2019 10:04:01 05/21/2019 11:18:04 Uncontrolled type 2 diabetes mellitus 089393931 E11.65 Hypertensive disorder 38 278851 I10 Diabetic p eripheral neuropathy 298103723 E11.40 Dyslipidemia 457891609 E 78.5 Vitamin D deficiency 347 85201 E55.9 [id number] MAXI FelizA_SMG_S LPPULM_[address] Floor [address] [place] [address] 06/05/2019 14:13:06 06/05/2019 15:13:49 Obstructive sleep apnea syndrome 16521774 G47.33 Moderate to severe obstructiv e sleep [...] if needed. Hypersomni a with sleep apnea 28506971 G47.10 Hypersomni a subjective ly improved on CPAP therapy. [place] score 15/24 today. He has been advised to avoid driving while drowsy. Atrial fibrillation 4943 6004 I48.0 Currently in sinus rhythm. The adverse impact of untreated sleep apnea on the control of atrial fibrillati on has been discussed with the patient. Essential hypertension 38635830 I10 The adverse impact of untreated sleep apnea on the control of hypertensi on has been discussed with the patient. Diabetes mellitus 916593 09 E11.9 The adverse impact of untreated sleep apnea on the control of diabetes has been discussed with the patient. Pulmonary sarcoidosis 24 503193 D86.[address] Solitario for the same. Chronic ob structive pulmonary disease 78668018 J44.9 PFTs showed predominan tly obstructiv e physiology likely secondary to obstructiv e sarcoid. He is not a candidate for auto titrating positive pressure therapy. Morbid obesity 914511155 E66.01 Weight loss is recommende d and should translate to an improvemen t in the patient's sleep disordered breathing. The patient was given informatio n regarding the importance of diet and exercise for weight loss and weight management . [id number] Sunit-Pree t Cornelio Cantu MD IND_SMG_N AAB_DOC [address] [facility] [place] [address] 06/11/2019 14:10:42 06/11/2019 14:40:38 Cardiac sarcoidosis 06646616 D86.85 Chronic di astolic heart failure 609305594 I50.32 Essential hypertension 01570357 I10 Mixed hyperlipidemia 267 738227 E78.2 Morbid obesity 640083212 E66.01 Obstructiv e sleep apnea syndrome 39263133 G47.33 [id number] DIMAS DowneySMG_E NDO_[address] [facility] [place] [address] 07/05/2019 09:14:59 07/05/2019 09:48:39 Uncontrolled type 2 diabetes mellitus 404703994 E11.65 Hypertensive disorder 38 908163 I10 Diabetic p eripheral neuropathy 762615390 E11.40 Dyslipidemia 923402127 E 78.5 Vitamin D deficiency 347 68324 E55.9 Long-term current use of steroid 732930535 Z79.52 Diabetic on insulin 1707 40802 Z79.4 [id number] MD RHONDA GarnerSMG_C ARDIAC_90 [address] [id number] [place] [address] 07/15/2019 16:48:58 07/15/2019 17:09:23 Paroxysmal atrial fibrillation 230239755 I48.0 Sarcoidosis 29247139 D86 .0 [id number] MD RHONDA BoyerSMG_C ARDIAC_90 1[facility] [id number] [place] [place] [address] 08/27/2019 11:40:15 08/27/2019 12:13:15 Chest pain 58311804 R07.2 Abnormal ECG on presentati on-LHC done for possible STEMI on 08-15-19-an giographic ally normal coronary arteries. Dyspnea 227160457 R06.00 Dyspnea on exertion 6084 5006 R06.09 Nausea 711055683 R11.0 Cardiac sarcoidosis 7540 3004 D86.85 limited echo with EF 45-50%-08-06 (technical ly difficult) LVgram 08-15-19-EF -55-60% Morbid obesity 780535013 E66.01 BMI-50 Obstructiv e sleep apnea syndrome 96979379 G47.33 uses a CPAP [id number] DIMAS Downey_SMG_E NDO_[address] [place] [address] 09/12/2019 08:44:22 09/12/2019 09:58:02 Uncontrolled type 2 diabetes mellitus 851516793 E11.65 Hypertensive disorder 38 076446 I10 Diabetic p eripheral neuropathy 752149689 E11.40 Dyslipidemia 456387559 E 78.5 Vitamin D deficiency 347 25143 E55.9 Long-term current use of steroid 506310788 Z79.52 Diabetic on insulin 1707 44105 Z79.4 [id number] Cheyenne Cantu MD IND_SMG_N AAB_DOC [address] [facility] [place] [address] 10/10/2019 13:01:23 10/11/2019 06:12:25 Sarcoidosis 96633512 D86.85 Cardiac sarcoidosis 7540 3004 D86.85 Chronic di astolic heart failure 808035716 I50.32 Essential hypertension 97702240 I10 Mixed hyperlipidemia 267 594749 E78.2 Morbid obesity 316703858 E66.01 Obstructiv e sleep apnea syndrome 22846522 G47.33 [id number] Mary Carmen Butler MD EVA_SMG_E NDO_[address] [place] [address] 10/11/2019 12:17:02 10/11/2019 12:49:48 Uncontrolled type 2 diabetes mellitus 461824533 E11.65 Hypertensive disorder 38 770582 I10 Diabetic p eripheral neuropathy 489441733 E11.40 Dyslipidemia 716832668 E 78.5 Vitamin D deficiency 347 82224 E55.9 Long-term current use of steroid 975385704 Z79.52 Diabetic on insulin 1707 03486 Z79.4 [id number] Shahida Ulloa [facility] EVA_SMG_C ARDIAC_90 1[facility]sD [id number] [address] [facility] [place] ,[address] [place] [address] 11/19/2019 13:06:35 11/19/2019 15:36:25 Health education given 280476293 Z71.9 Paroxysmal atrial fibrillation 217815585 I48.0 Sarcoidosis 18462613 D86 .9 Chronic di astolic heart failure 795594918 I50.32 [id number] Narcisa Rizo BIOMEDICAL ENGINEERING TECHNOLOGIST EVA_SMG_E NDO_[address] [place] [address] 01/10/2020 12:33:52 01/10/2020 13:42:02 Uncontrolled type 2 diabetes mellitus 260731125 E11.65 Hypertensive disorder 38 560887 I10 Diabetic p eripheral neuropathy 065303826 E11.40 Dyslipidemia 789426850 E 78.5 Vitamin D deficiency 347 98704 E55.9 Long-term current use of steroid 030251216 Z79.52 Diabetic on insulin 1707 68057 Z79.4 Body mass index 40+ - severely obese 512498350 Z68.43 [id number] Cassie Delgado BIOMEDICAL ENGINEERING TECHNOLOGIST EVA_SHC_T RANSITION _[address] [facility] [address] [place] [address] 04/01/2020 13:50:12 04/01/2020 14:40:08 Chest pain 76861316 R07.9 Stable. Patient denies any chest pain [...] 04/10/2020. Uncontroll ed type 2 diabetes mellitus 295160357 E11.65 Patient is poorly controlled type II insulin-de pendent diabetic with a hemoglobin A1c of 11.8% on 03/29/2020. Patient instructed to check his blood sugar 4 times a day and keep a log. Patient instructed to follow-up with endocrinol justin. Follow-up with Narcisa Hodge NP on 04/17/2020 . Chronic ob structive pulmonary disease 09475007 J44.9 Stable. Patient reports that he does have a rescue inhaler. Patient instructed to follow-up with Dr. Solitario on 05/01/2020 . Essential hypertension 46142197 I10 Stable. Patient's blood pressure is 140/95 in office today. Patient instructed to check his blood pressure 2 times a day and keep a log. Patient instructed to restrict sodium intake to 2 g low-sodium diet. Patient instructed to follow-up with his PCP. Gastroesop hageal reflux disease 946267748 K21.9 Patient reports that he was given a prescripti on for Protonix however, his insurance company would not cover this and instructed him to use something over-the-c ounter. We will send a prescripti on for omeprazole 20 mg daily. Sarcoidosis 50495666 D86 .9 Patient reports that he has an appointmen [place] on 04/[place]/2020 for a PET scan and follow-up with Dr. Cantu. Obstructiv e sleep apnea syndrome 03751758 G47.33 Patient reports he is compliant with his CPAP therapy. Patient instructed to follow-up with Dr. Pedersen on 06/16/2020 . [id number] MD NELSON Boyer_SMG_C ARDIAC_90 1[facility]sD [id number] [address] [facility] [place] ,[address] [place] [address] 04/10/2020 14:38:08 04/10/2020 15:14:05 Cardiac sarcoidosis 77149000 D86.85 limited echo with EF 45-50%-08-06 (technical ly difficult) LVgram 08-15-19-EF -55-60% Obstructiv e sleep apnea syndrome 20008613 G47.33 uses a CPAP Chest pain 89671591 R07. 2 Abnormal ECG on presentati on-LHC done for possible STEMI on 08-15-19-an giographic ally normal coronary arteries. Palpitations 29419259 R0 0.2 Paroxysmal atrial fibrillation 488637397 I48.0 2% afib on MCT monitor-Ap -November 2019 on xarelto for AC Coreg for rate control Essential hypertension 98192826 I10 [id number] Narcisa N Ice BIOMEDICAL ENGINEERING TECHNOLOGIST EVA_SMG_E NDO_[address] [place] [address] 04/17/2020 09:09:00 04/17/2020 09:43:13 Uncontrolled type 2 diabetes mellitus 681623855 E11.65 Diabetic on insulin 1707 93311 Z79.4 Diabetic p eripheral neuropathy 787045491 E11.40 Hypertensive disorder 38 001036 I10 Dyslipidemia 727410556 E 78.5 Vitamin D deficiency 347 06220 E55.9 Long-term current use of steroid 270405039 Z79.52 Body mass index 40+ - severely obese 192173012 Z68.43 [id number] Cheyenne Cantu MD IND_SMG_N AAB_DOC [address] [place] [address] 04/24/2020 12:38:10 04/24/2020 13:35:25 Cardiac sarcoidosis 58726233 D86.85 Chronic di astolic heart failure 516695448 I50.32 Essential hypertension 69304976 I10 Mixed hyperlipidemia 267 574565 E78.2 Morbid obesity 423651009 E66.01 Obstructiv e sleep apnea syndrome 92637808 G47.33 [id number] MD NELSON Gaines_SMG_S LPPULM_[address] [place] [address] 06/16/2020 11:53:37 06/16/2020 13:00:23 Obstructive sleep apnea syndrome 32419782 G47.33 Moderate to severe obstructiv e sleep [...] if needed. Hypersomni a with sleep apnea 31092681 G47.10 Hypersomni a improved and adequately controlled on CPAP therapy. [place] score 8/24 today. Atrial fibrillation 4943 6004 I48.0 Currently in sinus rhythm. The adverse impact of untreated sleep apnea on the control of atrial fibrillati on has been discussed with the patient. Essential hypertension 01998648 I10 The adverse impact of untreated sleep apnea on the control of hypertensi on has been discussed with the patient. Diabetes mellitus 211052 09 E11.9 The adverse impact of untreated sleep apnea on the control of diabetes has been discussed with the patient. Pulmonary sarcoidosis 24 645235 D86[address] Solitario for the same. Chronic ob structive pulmonary disease 87819976 J44.9 PFTs showed predominan tly obstructiv e physiology likely secondary to obstructiv e sarcoid. He is not a candidate for auto titrating positive pressure therapy. Morbid obesity 539547753 E66.01 Weight loss is recommende d and should translate to an improvemen t in the patient's sleep disordered breathing. The patient was given informatio n regarding the importance of diet and exercise for weight loss and weight management . [id number] Clark Solitario MD zCLSD_EVA _SMG_PULM [address] [place] [address] 07/07/2020 16:20:18 07/07/2020 17:15:09 Pulmonary sarcoidosis 39094355 D86.0 The patient has completed 6-1/2 months [...] with ABGs. Chronic ob structive pulmonary disease 39044760 J44.9 COPD with severe obstructiv e airways [...] cardiology . See above. Long-term drug therapy 063181276 Z79.899 The patient is to continue taking vitamin D and calcium supplement s. Obstructiv e sleep apnea syndrome 73347804 G47.33 As per sleep specialist Atrial fibrillation 4943 6004 I48.91 Management as per cardiology . Uncontrol ed type 2 diabetes mellitus 680148575 E11.65 The patient is now seeing endocrinol ogy. [id number] MD RHONDA BoyerSMG_C ARDIAC_90 1StMarysD [id number] [address] [facility] [place] ,[address] [place] [address] 07/09/2020 14:46:31 07/09/2020 15:29:42 Essential hypertension 17618944 I10 Cardiac sarcoidosis 7540 3004 D86.85 limited echo with EF 45-50%-2-4 -20 (technical ly difficult) LVgram 20-EF -55-60% Obstructiv e sleep apnea syndrome 64328165 G47.33 uses a CPAP Paroxysmal atrial fibrillation 318219871 I48.0 2% afib on MCT monitor-Ap -November 2019 on xarelto for AC Coreg for rate control [id number] Narcisa N Ice BIOMEDICAL ENGINEERING TECHNOLOGIST EVA_SMG_E NDO_[address] [place] [address] 07/20/2020 16:27:29 07/21/2020 09:32:46 Health education given 598239137 Z71.9 Uncontroll ed type 2 diabetes mellitus 083107669 E11.65 Diabetic on insulin 1707 41865 Z79.4 Diabetic p eripheral neuropathy 813016361 E11.40 Hypertensive disorder 38 588415 I10 Dyslipidemia 859510684 E 78.5 Vitamin D deficiency 347 18568 E55.9 Long-term current use of steroid 828507261 Z79.52 Body mass index 40+ - severely obese 010756711 Z68.43 [id number] Cheyenne Cantu MD IND_SMG_N AAB_DOC [address] [facility] [place] [address] 10/16/2020 12:59:58 10/16/2020 13:28:21 Cardiac sarcoidosis 78463811 D86.85 Chronic di astolic heart failure 836106629 I50.32 Essential hypertension 53423815 I10 Mixed hyperlipidemia 267 116237 E78.2 Morbid obesity 943145738 E66.01 Obstructiv e sleep apnea syndrome 93421324 G47.33 [id number] Reva Yang NP EVA_SMG_E NDO_[address] [place] [address] 10/19/2020 15:31:46 10/19/2020 16:04:36 Health education given 430045809 Z71.9 Uncontroll ed type 2 diabetes mellitus 335326162 E11.65 Diabetic on insulin 1707 25108 Z79.4 Diabetic p eripheral neuropathy 087813645 E11.40 Hypertensive disorder 38 652460 I10 Dyslipidemia 744897553 E 78.5 Vitamin D deficiency 347 69364 E55.9 Long-term current use of steroid 596222664 Z79.52 Body mass index 40+ - severely obese 995036616 Z68.43 [id number] Clark Solitario MD zCLSD_EVA _SMG_PULM [address] [place] [place] [address] 01/05/2021 15:28:02 01/05/2021 15:53:31 Pulmonary sarcoidosis 49760709 D86.0 The patient has completed 12 months [...] August 2021. Chronic ob structive pulmonary disease 80958311 J44.9 COPD with severe obstructiv e airways disease documented by PFTs on 08/14/2018. Since his last visit, the patient has not had any exacerbati ons of COPD. The patient remains stable with Trelegy 100 mcg 1 puff once a day. His CAT score today is 14. Cardiac sarcoidosis 7540 3004 D86.85 As per cardiology . See above. Long-term drug therapy 014573803 Z79.899 The patient is to continue taking vitamin D and calcium supplement s. Obstructiv e sleep apnea syndrome 89172210 G47.33 As per sleep specialist Atrial fibrillation 4943 6004 I48.91 Management as per cardiology . Uncontroll ed type 2 diabetes mellitus 608955653 E11.65 As per endocrinol ogy. [id number] DIMAS Oviedo_SMG_E NDO_[address] [place] [address] 01/19/2021 15:44:31 01/19/2021 16:17:24 Uncontrolled type 2 diabetes mellitus 394965122 E11.65 Diabetic p eripheral neuropathy 981165317 E11.40 Hypertensive disorder 38 603744 I10 Dyslipidemia 806133218 E 78.5 Vitamin D deficiency 347 88472 E55.9 Long-term current use of steroid 813185031 Z79.52 Diabetic on insulin 1707 65105 Z79.4 Body mass index 40+ - severely obese 421894968 Z68.43 Health edu cation given 540706108 Z71.9 [id number] MD SRINATH Boyer_C ARDIAC_90 [address] [id number] [address] [facility] [place] [address] 02/10/2021 09:58:57 02/10/2021 10:24:49 Cardiac sarcoidosis 90211667 D86.85 limited echo with EF 45-50%-2-4 -20 (technical ly difficult) LVgram 2-13-20-EF -55-60% Chronic di astolic heart failure 160915883 I50.32 Essential hypertension 72843004 I10 well controlled -continue current meds Morbid obesity 806697371 E66.01 BMI-49.5-r ecommend weight loss Obstructiv e sleep apnea syndrome 04070193 G47.33 uses a CPAP Paroxysmal atrial fibrillation 343741952 I48.0 2% afib on MCT monitor-Ap -November 2019 on xarelto for ACCoreg for rate control Has not seen EP in over one year-isacc cook appt with Shahida in approx 3 months [id number] MD NELSON Boyer_SMG_C ARDIAC_[address] [id number] [place] [address] [place] [address] 10/25/2021 08:33:00 10/25/2021 10:23:02 Cardiac sarcoidosis 80432645 D86.85 limited echo with EF 45-50%-2-4 -20 (technical ly difficult) LVgram 2-13-20-EF -55-60% Essential hypertension 53923890 I10 well controlled -continue current meds Morbid obesity 689812388 E66.01 BMI-49.5-r ecommend weight loss Obstructiv e sleep apnea syndrome 79368215 G47.33 uses a CPAP Paroxysmal atrial fibrillation 173600405 I48.0 2% afib on MCT monitor-Ap -November 2019 on xarelto for ACCoreg for rate controlMul taq for rhythm control [id number] Shahida Meier EVA_SMG_C ARDIAC_[address] [id number] [place] [place] [address] 10/25/2021 08:30:08 10/25/2021 10:22:48 Sarcoidosis 89574440 D86.9 Paroxysmal atrial fibrillation 079367337 I48.0 Chronic di astolic heart failure 628113218 I50.32 [id number] Clark Solitario MD zCLSD_EVA _SMG_PULM [address] [place] [address] 11/16/2021 14:19:05 11/16/2021 14:48:40 Pulmonary sarcoidosis 39570912 D86.0 The patient completed 12 months of [...] 6 months. Chronic ob structive pulmonary disease 71266261 J44.9 COPD with severe obstructiv e airways [...] See above. Obstructiv e sleep apnea syndrome 67079552 G47.33 As per sleep specialist Atrial fibrillation 4943 6004 I48.91 Management as per cardiology . He is taking Xarelto. Uncontroll ed type 2 diabetes mellitus 879560068 E11.65 As per endocrinol ogy. He is back on his medication s. A1C is pending. [id number] Leslie Alvarado NP EVA_SMG_S LPPULM[address] [place] [address] 01/10/2022 08:45:40 01/10/2022 09:30:53 Obstructive sleep apnea syndrome 31340143 G47.33 Moderate to severe obstructiv e sleep [...] if needed. Hypersomni a with sleep apnea 08706206 G47.10 Hypersomni a improved and adequately controlled on CPAP therapy. [place] score 01/23 today. Atrial fibrillation 4943 6004 I48.0 Currently in sinus rhythm. The adverse impact of untreated sleep apnea on the control of atrial fibrillati on has been discussed with the patient. Essential hypertension 91070257 I10 The adverse impact of untreated sleep apnea on the control of hypertensi on has been discussed with the patient. Diabetes mellitus 378956 09 E11.9 The adverse impact of untreated sleep apnea on the control of diabetes has been discussed with the patient. Pulmonary sarcoidosis 24 868181 D86[address] Solitario for the same. Chronic ob structive pulmonary disease 03676485 J44.9 PFTs showed predominan tly obstructiv e physiology likely secondary to obstructiv e sarcoid. He is not a candidate for auto titrating positive pressure therapy. Body mass index 40+ - severely obese 029959569 Z68.42 He is lost 23.7 pounds and is scheduled to have a gastric sleeve surgery in the next several months in [place], [place]. I commended him on his weight loss and encouraged him to persist with the same. Weight loss is recommende d and should translate to an improvemen t in the patient's sleep disordered breathing. The patient was given informatio n regarding the importance of diet and exercise for weight loss and weight management . [id number] DIMAS OviedoA_SMG_E NDO_[address] [place] [address] 01/11/2022 15:31:29 01/11/2022 16:03:04 Uncontrolled type 2 diabetes mellitus 227142441 E11.65 Diabetic p eripheral neuropathy 689012322 E11.40 Hypertensive disorder 38 706801 I10 Dyslipidemia 964630159 E 78.5 Vitamin D deficiency 347 02129 E55.9 Long-term current use of steroid 798698978 Z79.52 Diabetic on insulin 1707 85615 Z79.4 Body mass index 40+ - severely obese 320581321 Z68.43 Health edu cation given 407879908 Z71.9 [id number] DIMAS GregorioA_SMG_B OBFP[address] [place] [address] 03/10/2022 15:09:49 03/10/2022 16:44:47 COVID-19 897030455 U07.1 Health edu cation given 080375055 Z71.9 [id number] Cheyenne Cantu MD IND_SMG_N AAB_DOC [address] [facility] [place] [address] 03/21/2022 11:10:58 03/21/2022 14:41:25 Cardiac sarcoidosis 80717123 D86.85 Chronic di astolic heart failure 353671498 I50.32 Essential hypertension 17901326 I10 Mixed hyperlipidemia 267 060369 E78.2 Morbid obesity 490190421 E66.01 Obstructiv e sleep apnea syndrome 05495159 G47.33 [id number] DIMAS OviedoA_SMG_E NDO_[address] [place] [address] 04/19/2022 13:20:52 04/19/2022 14:20:15 Uncontrolled type 2 diabetes mellitus 411254818 E11.65 Diabetic p eripheral neuropathy 163856560 E11.40 Hypertensive disorder 38 636283 I10 Dyslipidemia 960863541 E 78.5 Vitamin D deficiency 347 89063 E55.9 Long-term current use of steroid 628683740 Z79.52 Diabetic on insulin 1707 52154 Z79.4 Body mass index 40+ - severely obese 359450846 Z68.43 Health edu cation given 166327295 Z71.9 [id number] Cheyenne Cantu MD IND_SMG_N AAB_DOC [address] [facility] [address] 08/15/2022 07:35:17 08/15/2022 16:05:42 Cardiac sarcoidosis 01202539 D86.85 Chronic di astolic heart failure 826721477 I50.32 Essential hypertension 44410159 I10 Mixed hyperlipidemia 267 078905 E78.2 Morbid obesity 162077009 E66.01 Obstructiv e sleep apnea syndrome 53160459 G47.33 [id number] Cheyenne Cantu MD IND_SMG_N AAB_DOC [address] [facility] [place] [address] 02/16/2023 10:19:56 02/17/2023 17:23:01 Cardiac sarcoidosis 61240974 D86.85 Chronic di astolic heart failure 787205847 I50.32 Essential hypertension 97925004 I10 Mixed hyperlipidemia 267 559387 E78.2 Morbid obesity 982235044 E66.01 Obstructiv e sleep apnea syndrome 21658808 G47.33 [id number] Cheyenne Cantu MD IND_SMG_N AAB_DOC [address] [facility] [place] [address] 10/12/2023 09:31:20 10/12/2023 10:04:32 Cardiac sarcoidosis 63669707 D86.85 Chronic di astolic heart failure 022026196 I50.32 Essential hypertension 54861803 I10 Mixed hyperlipidemia 267 984455 E78.2 Obstructiv e sleep apnea syndrome 02402026 G47.33 Paroxysmal atrial fibrillation 982939515 I48.0 [id number] Cheyenne Cantu MD IND_SMG_N AAB_DOC [address] [facility] [place] [address] 07/15/2024 10:23:51 07/15/2024 15:35:59 Cardiac sarcoidosis 80598417 D86.85 Chronic di astolic heart failure 193181891 I50.32 Essential hypertension 84452291 I10 Mixed hyperlipidemia 267 806320 E78.2 Obstructiv e sleep apnea syndrome 00822303 G47.33 Paroxysmal atrial fibrillation 419039948 I48.0 Health edu cation given 247011786 Z71.9 Health Concerns Section Related Observation LastModified by Organization Detai ls LastModified Time None Recorded Concern Status LastModified by Organization Details LastModified Time None Recorded Advance Directives Directive N: Payers Encounter Date Sequence Insurance Name Policy Number Policy Munoz Covered Member ID Munoz Member ID Guarantor Name 04/19/2022 2 MEDICARE B-IN: [facility] Vu Tilley Jr [id number] Vu Tilley 04/19/2022 1 [facility] [id number] [place] [id number] Vu Tilley 08/15/2022 2 MEDICARE B-IN: [facility] Vu Tilley Jr [id number] Vu Wicko Treva 08/15/2022 1 [facility] [id number] October L [place] [id number] Vu Tilley 02/16/2023 2 MEDICAID-IN: [employer]AL [employer]FS Vu Tilley [id number] Vu Tilley 02/16/2023 2 MEDICARE B-IN: [facility] Vu Tilley Jr [id number] Vu Tilley 10/12/2023 1 [employer] (MEDICARE REPLACEMENT HMO) [id number] Vu Tilley [id number] Vu Tilley 07/15/2024 1 [employer] (MEDICARE REPLACEMENT HMO) [id number] Vu Tilley [id number] Vu Tilley Notes Date Note Type Note [...] AGG SS, and Synjardy 25-1000 mg daily, Jenny Planning to have gastric sleeve on May 18- [place]. Will be on clear liquid for 2 weeks prior. Complications of diabetes include diabetic peripheral sensory neuropathy Reva Yagn NP [address] [place] [address], [address], [place], [address], [place] 04/19/2022 14:26:10 08/15/2022 text/html Patient acknowle dged, [...] as well as 30-minute sessions with a representative personal service without significant limitation.However, he does mention mild [...] history:1. Pulmonary and cardiac sarcoid- Diagnosed at [facility] [[facility], Dr. Mendez], Dx Lung Biopsy- Previously treated [...] Echocardiogram 11/20/2018-Normal LV size, ejection fraction 55-60%.4. [facility] (08/15/2019)- Left ventricle: The estimated ejection fraction is 55-60%.- Left main: Normal.- LAD: Normal.- Left circumflex: Normal.- Right coronary: Normal. Sunit-Dasha Cantu MD [address] [place] [address], [address], [place], [address], [place] 08/15/2022 09:00:36 02/16/2023 text/html Mr. Tilley is [...] as well as work out with a representative personal service for 45 minutes a day at a time. He has lost an additional 33 pounds since his last visit with me. He does mention rare episodes of shortness of breath, and did undergo a PET scan today, however the results of which are pending. Additionally, he states that he has met a new glassware verifier in [place], and was told that his testing was [...] history:1. Pulmonary and cardiac sarcoid- Diagnosed at [facility] [[facility], Dr. Mendez], Dx Lung Biopsy- Previously treated [...] Echocardiogram 11/20/2018-Normal LV size, ejection fraction 55-60%.4. [facility] (08/15/2019)- Left ventricle: The estimated ejection fraction is 55-60%.- Left main: Normal.- LAD: Normal.- Left circumflex: Normal.- Right coronary: Normal. Sunit-Dasha Cantu MD [address], [place], [address], [place] 02/17/2023 08:37:54 10/12/2023 text/html Mr. Tilley is [...] history:1. Pulmonary and cardiac sarcoid- Diagnosed at [facility] [[facility], Dr. Mendez], Dx Lung Biopsy- Previously treated [...] Echocardiogram 11/20/2018-Normal LV size, ejection fraction 55-60%.4. [facility] (08/15/2019)- Left ventricle: The estimated ejection fraction is 55-60%.- Left main: Normal.- LAD: Normal.- Left circumflex: Normal.- Right coronary: Normal. Miguel Ángel-Dasha Cantu MD [address] [place] [address], [address], [place], [address], [place] 10/12/2023 10:17:52 07/15/2024 text/html Patient acknowle dged, [...] history:1. Pulmonary and cardiac sarcoid- Diagnosed at [facility] [[facility], Dr. Mendez], Dx Lung Biopsy- Previously treated [...] Echocardiogram 11/20/2018-Normal LV size, ejection fraction 55-60%.4. [facility] (08/15/2019)- Left ventricle: The estimated ejection fraction is 55-60%.- Left main: Normal.- LAD: Normal.- Left circumflex: Normal.- Right coronary: Normal. Sunit-Dasha Cantu MD [address], [place], [address], [place] 07/16/2024 15:03:10
--- OUTSIDE RECORDS SUMMARY | 2024-09-17 10:30 | XMS_ITS | Clinical Summary ---
Author Organization [facility] Address [address] [place] [address] Care Team Providers Care Speeder Hand Name Role Phone Imani Em MD Primary Care Provider Source Comments [facility],non-owned Affiliates and Associated Physician Practices is amultiple site organization consisting of ambulatory clinics and hospital sitesin [place], [place], [place] and [place]. This disclosure is being madepursuant to the Care Everywhere program and may not contain all information available regarding this patient. Last updated 18.[facility] Allergies Active Allergy Reactions Criticality Noted Date [...] CDT Respiratory Rate 19 09/05/2017 7:42 AM [employer] Oxygen Saturation 96% 01/22/2018 10:54 AM CDT Inhaled Oxygen Concentration 21% 09/05/2017 1 2:50 AM [employer] Weight 169.2 kg (373 lb) 01/22/2018 10:54 [...] complete this topic MENINGOCOCCAL (Group B) VACCINE SHARED DECISION-MAKING Aged Out No longer eligible based on patient's age to complete this topic MENINGOCOCCAL GROUPS A/C/Y/W VACCINE Aged Out No longer eligible based on patient's age to complete this topic PNEUMOCOCCAL VACCINE Aged Out No long er eligible based on patient's age to complete this topic Procedures Procedure Name Priority Date/Time Associated Diagnosis Comments HEMOGLOBIN A1C - POINT OF CARE (AMB) [facility] Routine 01/22/2018 Diabetes mellitus without complication (HCC) BASIC METABOLIC PANEL (CALCIUM TOTAL) STAT 09/05/2017 4:49 AM [employer] Chest pain, unspecified type from Last 3 Months or Most Recently Relevant to Health Maintenance Results * HEMOGLOBIN A1C - POINT OF CARE (AMB) [facility] (01/22/2018) Pathologist [facility] Hemoglobin A1c POCT 8.5 BLOOD SPECIMEN / Unknown 01/22/2018 Felix Chapman MD LAB - POINT OF CARE ORDERABLES * (ABNORMAL) BASIC METABOLIC PANEL (CALCIUM TOTAL) (09/05/2017 4:49 AM [employer]) Pathologist [facility] Glucose 373(H) 70 - 125 mg/dL 09/05/2017 5:13 AM [employer] [facility] Sodium 132(L) 136 - 145 mmol/L 09/05/2017 5:13 AM [facility] Potassium 4.6(H) 3.4 - 4.5 mmol/L 09/05/2017 5:13 AM [facility] Chloride 98 98 - 107 mmol/L 09/05/2017 5:13 AM [facility] CO2 19(L) 22 - 29 mmol/L 09/05/2017 5:13 AM [facility] Calcium 10.00 8.4 - 10.2 mg/dL 09/05/2017 5:13 AM [facility] Anion Gap 20 10 - 20 mmol/L 09/05/2017 5:13 AM [facility] BUN 21.2 8.4 - 25.7 mg/dL 09/05/2017 5:13 AM [facility] Creatinine 1.38(H) 0.72 - 1.25 mg/dL 09/05/2017 5:13 AM [facility] eGFR by MDRD 58(L) >60 mL/min/1.7 3m2 09/05/2017 5:13 AM [facility] eGFR by MDRD >60 >60 mL/min/1.7 3m2 09/05/2017 5:13 AM [facility] Blood BLOOD SPECIMEN / Unknown Lab Venipuncture / Unknown 09/05/2017 4:49 AM [employer] 09/05/2017 4:53 AM [employer] Thelma Betancur MD LAB - CHEMISTRY CODY SNOW [facility] Organization Address City/State/ZIP Co de Phone Number [facility] [address] [place] [address], [facility] from Last 3 Months or Most Recently Relevant to Health Maintenance Care Teams Speeder Hand Relationship Specialty Start Date End Date Imani Em MD [address] [place], [place] [phone] PCP - General 08/25/16
[2024-09-17 10:36] LABS: Parathyroid Intact 46.6 pg/mL (14.5-75.2)
[2024-09-17 10:41] LABS: Iron 92 ug/dL (49-181)
[2024-09-17 10:47] LABS: Percent Iron Saturation 34 % (20-50)
[2024-09-17 11:54] LABS: Folic Acid 5.7 ng/mL (2.76->20); Vitamin B12 > 1000.0 pg/mL (239-931)
[2024-09-20 02:37] LABS: Vitamin B6 6.7 ng/mL (2.1-21.7)
== END 2024-09-17 09:38 | disposition home or self-care (01) ==
PROVIDERS: PCP Nurse Practitioner Family; Visit Provider Nurse Practitioner Family
DX: E78.5 Hyperlipidemia, unspecified (principal); I10 Essential (primary) hypertension; I48.0 Paroxysmal atrial fibrillation; R06.09 Other forms of dyspnea; E11.9 Type 2 diabetes mellitus without complications; D86.0 Sarcoidosis of lung; J45.909 Unspecified asthma, uncomplicated; Z90.3 Acquired absence of stomach [part of]
CPT/HCPCS: 36415; 82607; 82728; 82746; 83540; 83550; 83735; 83970; 84100; 84207; 84252; 85025

== ENCOUNTER 2024-10-30 06:48 | Emergency (ER) | payer MEDICARE, SELFPAY ==
--- NOTE | ~2024-10-30 | XR_ITS ---
EXAMINATION: XR chest 2V DATE: 10/30/2024 08:13 INDICATION: Shortness of breath TECHNIQUE: PA and lateral views of the chest were obtained. COMPARISON: Chest radiograph dated 03/27/24 and chest radiograph and CT dated 08/02/2023 FINDINGS: Stable appearance of bilateral architectural distortion with scattered chronic coarse peripheral pred ominant reticular and patchy airspace opacities in both lungs consistent with chronic interstitial rubin ng disease in patient with reported known sarcoidosis. No new opacities, pulmonary edema, pleural eff usion or pneumothorax. Heart size is normal. Visualized bones and soft tissues are unremarkable. IMPRESSION: 1. Stable appearance of chronic interstitial lung disease likely related to reported history of sarco idosis. Reviewed, dictated and finalized at location B. IMPRESSION: 1. Stable appearance of chronic interstitial lung disease likely related to rep orted history of sarcoidosis.
--- OUTSIDE RECORDS SUMMARY | 2024-10-30 06:50 | XMS_ITS | Data Portability ---
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 well. Imani Em MD Attn: [address] [place], [address], [facility] 06/19/2017 16:48:25 07/31/2017 text/html Diabetes [...] TID. Imani Em MD Attn: [address] [place], [address], [facility] 07/31/2017 12:19:47 09/11/2017 text/html Diabetes F/URepo rted [...] pains) for which he was admitted to [place], [place] in August 2017. He was discharged on Lantus 25 units, HS and told to request a referral to an financial compliance officer and HUmalog or Novolog. Imani Em MD Attn: [address] [place], [address], [facility] 09/11/2017 11:31:54 02/26/2018 text/html Diabetes F/URepo rted [...] metacarpal. Imani Em MD Attn: [address] [facility], [place], [address], [facility] 02/26/2018 17:31:59
--- NOTE | 2024-10-30 06:51 | ECG_ITS ---
Test Date: 2024-10-30 07:09:39 Measurements Intervals [place] Rate: 84 P: 64 [place]: 157 QRS: 17 QRSD: 78 T: 53 QT: 331 QTc: 391 Interpretive Statements SINUS RHYTHM WITH OCCASIONAL VENTRICULAR PREMATURE COMPLEXES LOW QRS VOLTAGE IN PRECORDIAL LEADS BASELINE ARTIFACT- I, II, III, AVR, AVL, AVF, V1 BORDERLINE ECG Compared to ECG 03/27/2024 20:50:23 HEART RATE HAS INCREASED Electronically Signed On 10-30-2024 11:01:04 CDT by Ned Pina D.O.
--- OUTSIDE RECORDS SUMMARY | 2024-10-30 06:51 | XMS_ITS | CONTINUITY OF CARE DOCUMENT ---
Author Name piyush pickett Address Unknown Organization [facility] Address [address] [place] [address] Phone [phone] Care Team Providers Care Client Administrator Name Role Phone Mathieu SLAUGHTER, Neammajosé manuel Unavailable ELENO ATKINSON MD Unavailable ELENO ATKINSON MD Unavailable [phone] PROBLEMS Condition Status Date Provider Notes Other symptoms involving car diovascular system active Kash Vitale MD Family History of Hypertension: active ? Aura Vitale MD Family History of Hypertension: active ? Aura Vitale MD HTN essential active Kash Vitale MD Sarcoidosis active Kash Vitale MD Asthma active Kash Vitale MD Sleep apnea active Kash Vitael MD Obesity active Kash Vitale MD Tobacco use, quit active Kash Vitale MD Chest pain-neg routine stress active Kash Vitale MD ENCOUNTERS Date Type Provider Location Encounter Diag nosis 2 - 5 In-person encounter Office Visit Kash Vitale MD [facility] Sleep apneaChest pain-neg routine stress 7 - 7 In-person encounter Office Visit Kash Vitale MD [facility] Other symptoms involving cardiovascular systemFamily History [...] [facility], [facility], [facility] Melinda Ji cigar use yes Melinda Ji smoking status Former smoker Melinda Lam nn smoking/tobacco cess ation, patient education and counseling yes Kash Vitale MD social history reviewed E&M roxanna curtis - no changes required Kash Vitale MD social history E&M 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 Smoking [...] Payer name Policy type / Coverage type [employer] red republican ID [place] MED[place] Medicare [id number] TREATMENT PLAN Date Name Performer follow up:BP 124/71 His updated medication list for this problem includes: Losartan Potassium-hctz 100-25 Mg Tabs (Losartan potassium-hctz) ..... 1 tab daily Kash Vitale MD new patient visit: O rders: S TR - Routine (CPT-77448) S leep Study (*) Kash Vitale MD new patient visit: O rders: S TR - Routine (CPT-27319) S leep Study (*) C omplete Echo (CPT-13037) Kash Vitale MD Date Name Complete Echo Sleep Study STR - Routine HISTORY OF PROCEDURES Procedure Date Procedure Name Provider Procedure Notes S tatus EKG Kash Vitale MD completed
--- OUTSIDE RECORDS SUMMARY | 2024-10-30 06:51 | XMS_ITS | Clinical Summary ---
Author Organization [facility] Address [address] [place] [address] Phone Care Team Providers Care Television Repairman Name Role Phone Unavailable Primary Care Provider [...] 60 mL 280 mL 05/19/2022 2:36 PM SMALLTALK DEVELOPER 2 Active ondansetron (ZOFRAN ODT) 4 mg Tablet, Rapid Dissolve Take 1 Tablet (4 mg) by mouth every 6 hours as needed for Nausea/Vomiting. Dissolve tablet on top of tongue, then swallow with saliva. 28 Tablet 05/19/2022 2:36 PM SMALLTALK DEVELOPER 2 Active rivaroxaban (XARELTO) 20 mg Tablet [...] COVID-19 VACCINE - EMERGENCY USE AUTHORIZATION, MRNA, [id number](PF) 30 MCG/0.3 ML IM SUSP 10/14/2021,11/17/2020,10/19/2020 (PNEUMOVAX [...] Comments Blood Pressure 150/92 05/19/2022 12:35 PM SMALLTALK DEVELOPER Pulse 60 05/19/2022 12:35 PM SMALLTALK DEVELOPER Temperature 36.9 C (98.4 F) 05/19/2022 12:35 PM SMALLTALK DEVELOPER Respiratory Rate 18 05/19/2022 12:3 5 PM [employer]TALK DEVELOPER Oxygen Saturation 100% 05/19/2022 12: 35 PM SMALLTALK DEVELOPER Inhaled Oxygen Concentration - - Weight 158.1 kg (348 lb 9.6 oz) 05/19/2022 4:44 AM SMALLTALK DEVELOPER Height 180.3 cm (5' 11 ) 05/17/2022 1:26 PM SMALLTALK DEVELOPER Body Mass Index 48.62 05/17/2022 1:26 PM SMALLTALK DEVELOPER Plan of Treatment Health Maintenance Due Date Last Done Comments DIABETES ANNUAL RETINAL EXAM 1998 DIABETES MICROALBUMIN ANNUAL SCREEN 1998 LDL CHOLESTEROL ANNUAL 1998 HEPATITIS B VACCINES (1 of 3 - 19+ 3-dose series) 1999 DIABETES ANNUAL FOOT EXAM 01/22/2019 01/22/2018 DIABETES HBA1C Q 6 MONTHS 10/17/20222021, 10/04/2021, 01/22/2018 INFLUENZA VACCINE (#1) 2024 2, 10/04/2021, 05/04/2020, Additional history exists COVID-19 Vaccine ( season) 2024 10/14/2021, 10/14/2021, 11/17/2020, Additional history exists DTAP/TDAP/TD VACCINES (2 - Td or Tdap) 12/25/2028 12/25/2018 HPV VACCINES Aged Out No longer eligi ble based on patient's age to complete this topic Medical Devices Implanted Type Area Founder / Ceo Device Identifier Shelf Expiration Date Model / Serial / Lot Seamguard Endogia 60 [id number] [id number] - [id number] Implanted:Qty : 2 on 05/18/2022 by Pao Bell MD at [facility] Biological N/A: St[employer] 08/31/2024 [id number] / / [id number] Seamguard Endogia 60 [id number] [id number] - [id number] Implanted:Qty : 3 on 05/18/2022 by Pao Bell MD at [facility] Biological N/A: Stomach [employer] 08/25/2024 [id number] / / [id number] Description:#3 implant- lot# [id number] exp. 09/28/24 Insurance MEDICARE PART A AND B RX [employer] Member Subscriber Plan / Payer (Ef fective 2022-Present) Name:Vu Tilley Jr. Relation to Subscriber:Spouse Payer ID:Not on file [id number] Commercial Address: [address] [facility] Medicare Part D Advance Directives For more information, please contact: [phone] * Full Code (Latest Code Status on File) Date Activated Date Inactivated Comments 05/18/2022 3:46 PM 05/19/2022 4:40 PM * Full Code Date Activated Date Inactivated Comments 05/18/2022 1:17 PM 05/18/2022 3:46 PM * Full Code Date Activated Date Inactivated Comments 05/18/2022 10:30 AM 05/18/2022 1:16 PM
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
--- OUTSIDE RECORDS SUMMARY | 2024-10-30 06:51 | XMS_ITS ---
Author Organization [facility] [employer] [facility] Address [facility] [address] [facility] [address] [place] [address] Care Team Providers Care C D Area Supervisor Name Role Phone WINTER Lotus GERMAN Primary Care Provider UnavailArnoldo Morales Unavailable [phone] REASON FOR VISIT NOT DOING TMS Social History Sex Assigned At : Social History Observation Description Sex Assigned At Male Encounters Encounter Location Date Provider Diagnosis [facility] [address] [address] 10/24/2024 Arnoldo Danielle Plan Of Treatment Next Appt Details Provider Name:Vinnie bentley, 11/12/2024 08:00:00 AM, [facility] [address] [facility], [address], [address], Provider Name:Arnoldo Danielle , 11/18/2024 08:45:00 AM, [facility] [address] [facility], [address], [address], Provider Name:Vinnie bentley, 12/17/2024 08:00:00 AM, [facility] [address] [place] [address], [address], Provider Name:Vinnie bentley, 01/14/2025 08:00:00 AM, [facility] [address] [facility], [address], [address], Progress Notes * FLORECITA MATTHEWSOB:[birth year] (44 yo M)Acc No.[id number]:10/24/2024 Patient: FLORECITA WEST Provider: Marquez DANIELLE MD :1980 A ge:44 Y S ex:Male Date:10/24/2024 Address:[address] [place] [address] Pcp:Lotus DAWKNIS VICE CHAIR Subjective: * Chief Complaints: * 1 . NOT DOING TMS. * Active Problem List F33.1 Moderate episode of recurrent major depressive disorder Modified On:05/14/2024U Status:confirmed F41.9 Anxiety Modified On:05/14/2024 Status:confirmed R45.851 Passive suicidal zhou ations Modified On:05/14/2024 Status:confirmed F32.2 MDD (major depressiv e disorder), severe Modified On:06/11/2024 Status:confirmed I10 Essential hypertensi on Onset Date:07/15/2018Modified On:08/26/2024 Status:confirmedClinical Status:Active E11.9 Type 2 diabetes beto itus without complication, with long-term current use of insulin Onset Date:07/15/2018Modified On:08/26/2024U Status:confirmedClinical Status:Active P28.32 Primary obstructive sleep apnea of Onset Date:04/01/2020Modified On:08/26/2024 Status:confirmed F33.2 Major depressive dis order, recurrent severe without psychotic features Modified On:10/23/2024 Status:confirmed * Medical History: Objective: * Vitals: Assessment: Plan: * Treatment: * Billing Information: * Visit Code: * Procedure Codes: * Electronic signature of Carlos Danielle MD on 10/30/2024 at 06:51 AM CDT Sign off status: Pending * Provider: Marquez DANIELLE MD Date: 10/24/2024 Generated for Kevini clementine/Brandong/eTransmitting on: 10/30/2024 06:51 AM CDT
--- OUTSIDE RECORDS SUMMARY | 2024-10-30 06:51 | XMS_ITS | Data Portability ---
Author Organization [place] - [facility] OFFICE Address [address] [place] [address] Assessment No assessment recorded. Plan of Treatment [...] n 80 mg tablet 2017 018 [id number], [address], [place], [place], [id number], 8 15:45:17 Cozaar 25 mg tablet 2016 017 [facility] #89081, [address], [place], [place], [id number], 7 16:46:15 pravastati n 80 mg tablet 2016 017 [email or web address], [address], [place], [place], [id number], 8 15:02:45 Cardizem 60 mg tablet 2016 017 [facility] #97755, [address], [place], [place], [id number], 7 15:02:51 losartan 100 mg tablet [address] [facility] [address]82813, [address], [id number], 7 16:13:30 hydrochlor othiazide 25 mg tablet [address] [facility] [address]78015, [address], [id number], 7 16:13:19 Lasix 20 mg tablet 2016 017 [facility] [address]40439, [address], [id number], 7 15:02:50 Cardizem 30 mg tablet 2016 017 [facility] #76695, [address], [id number], 7 14:59:56 magnesium oxide 400 mg (241.3 mg magnesium) tablet [address] [facility] [address]19339, [address] [place], [id number], 7 16:13:12 nitroglyce rin 0.4 mg sublingual tablet 2016 017 [facility] [address]92170, [address] [place], [id number], 7 21:32:55 Patient TargetsNo targets recorded. Patient Instructions Encounter Date Encounter Id Patient Instructions Last Modified By Organization Details Last Modified Time 01/04/2017 [id number] high blood pressure: care instructions Not available 01/05/2017 09:50:40 learning about high blood pressure Not available 01/05/2017 09:50:40 atrial fibrillation: care instructions Not available 01/05/2017 09:50:40 01/25/2017 [id number] high blood pressure: care instructions Not available 01/25/2017 15:59:02 learning about high blood pressure Not available 01/25/2017 15:59:02 high cholesterol : care instructions Not available 01/25/2017 15:59:02 2017 [id number] high blood pressure: care instructions [email or web address] Not available 2017 16:20:42 learning about high blood pressure [email or web address] Not available 2017 16:20:42 high cholesterol : care instructions [email or web address] Not available 2017 16:20:42 06/22/2017 [id number] high blood pressure: care instructions [email or web address] Not available 06/22/2017 16:46:09 learning about high blood pressure [email or web address] Not available 06/22/2017 16:46:09 high cholesterol : care instructions [email or web address] Not available 06/22/2017 16:46:09 01/22/2018 [id number] high blood pressure: care instructions [email or web address] Not [...] Available Leon Ledesma MD [address], [place], [address], 01/25/2017 15:17:27 01/05/20 17 01/04/2017 elect rocar diogr am Result EK Sinus rhythm . Within normal limits . Not Available Leon Ledesma MD [address] [facility] [facility] [address], [place], [address], 01/04/2017 12:47:35 01/23/20 18 01/22/2018 elect rocar diogr am Result EKG 8: NSR, NSST change s Not Available Leon Ledesma MD [address] [facility] [address], [place], [address], 01/22/2018 14:58:12 01/05/20 17 12/02/2016 US, echoc ardio gram, trans thora cic, compl ete, w/ color flow No observ ation record ed. hmesto Stacie Lomas MD [facility] [address] [place], [address], 01/13/2017 13:38:48 01/05/20 17 01/04/2017 elect rocar [...] diogr am No observ ation record ed. [email or web address] Not Available 2016 09:29:12 01/24/20 18 01/22/2018 elect rocar diogr am No observ ation record ed. [email or web address] Not Available 01/23 16:46:13 03/22/20 18 03/19/2018 US, echoc ardio gram No observ ation record ed. [email or web address] Not Available 2018 13:01:20 Result Notes None recorded. Problems Name Problem SNOMED Code Status Onset Date Resolution Date Notes Provider Name and Address Organization Details Recorded Time Diabetes mellitus 11263894 Active 2013 [id number] Dominic Brown [facility] 7 13:23:21 Essential hypertensi on 80297621 Active 2016 [facility] 7 12:48:25 Asthma 053247089 Active 2016 dr Keyur Miranda [facility] 7 13:35:35 Sleep apnea 18290448 Active 2016 on cpap pulmonary fy. Mani Zapien [facility] 7 13:20:05 Hyperlipid emia 31170604 Active 2016 [facility] 7 12:48:51 Chest discomfort 202461777 [facility] 7 21:29:41 Atrial fibrillati on 50052827 Active 2016 Amando Griffin [facility] 7 16:08:41 Cardiac arrhythmia 878760872 Active 2016 Dominic [facility] 7 15:17:05 Sarcoidosi s 22613121 Active 2016 [facility] 7 13:24:06 Problem Notes None recorded. Procedures Surgical History None recorded. Imaging Results Imaging Date Name Status LastModified by Organization Details LastModified Time 12/02/2016 US, echocardiogram, transthoracic, complete, w/ color flow completed hmesto Stacie Lomas MD [facility] [address], [place], [address], 01/13/2017 13:38:48 01/04/2017 electrocardiogram completed Informa tion not available 01/04/2017 16:31:18 01/10/2017 treadmill nuclear stress test (PROC) completed Information not available 01/21/2017 15:49:13 01/25/2017 electrocardiogram completed [email or web address] Inform ation not available 01/27/2017 14:39:01 01/10/2017 holter monitor completed Informatio n not available 02/14/2017 10:39:34 2017 electrocardiogram completed Informa tion not available 06/20/2017 07:46:36 06/22/2017 electrocardiogram completed Informa tion not available 06/27/2017 09:29:12 01/22/2018 electrocardiogram completed [email or web address] Informa tion not available 01/23/2018 16:46:13 03/19/2018 [...] Updated DateTime 7 180.34 cm 53.7 kg/m2 043700. 06 g 94 /min 93 % 93 % 112 mm[Hg] 86 mm[Hg] Kristina Mcdonough [facility] 7 16:10:15 Date Recorded Body height Body mass index (BMI) Body weight Oxygen saturation Oxygen saturation in Arterial blood by Pulse oximetry Heart rate Systolic blood pressure Diastolic blood pressure Provider Name and Address Organization Details Last Updated DateTime 8 180.34 cm 52.1 kg/m2 345936. 11 g 98 % 98 % 89 /min 128 mm[Hg] 78 mm[Hg] Raquel Turnerroe [facility] 8 15:01:05 Date Recorded Body weight Body mass index (BMI) Body height Heart rate Oxygen saturation Oxygen saturation in Arterial blood by Pulse oximetry Systolic blood pressure Diastolic blood pressure Provider Name and Address Organization Details Last Updated DateTime 7 096160. 81 g 47.3 kg/m2 180.34 cm 62 /min 98 % 98 % 120 mm[Hg] 80 mm[Hg] [facility] 7 13:01:43 Date Recorded Body height Body mass index (BMI) Body weight Heart rate Oxygen saturation Oxygen saturation in Arterial blood by Pulse oximetry Systolic blood pressure Diastolic blood pressure Provider Name and Address Organization Details Last Updated DateTime 180.34 cm 47.4 kg/m2 334419. 41 g 83 /min 98 % 98 % 112 mm[Hg] 64 mm[Hg] [facility] 7 12:25:10 Date Recorded Body height Heart rate Oxygen saturation Oxygen saturation in Arterial blood by Pulse oximetry Systolic blood pressure Diastolic blood pressure Provider Name and Address Organization Details Last Updated DateTime 180.34 cm 70 /min 98 % 98 % 108 mm[Hg] 82 mm[Hg] Kristina Mcdonough [facility] 12:34:16 Social History Question Answer Notes LastModified by Organizat ion Details LastModified Time Tobacco Smoking Status Former Smoker quit 2011 [facility] 01/04/2017 12:49:31 What Is Your [...] SNOMED-CT Code Diagnosis ICD10 Code Diagnosis Note [id number] Dominic Brown Jacqui fan Office [address] [place] [address] 01/04/2017 11:59:16 01/05/2017 12:30:16 Atrial fibrillation 25653635 I48.91 pt currently is in NSR. Will obtain records from outside hospital. Holter. Essential hypertension 28190076 I10 Patient's blood pressure is {{well-con trolled* n ot well-contr olled}} on present medical therapy. Patient is {{tolerati ng, without difficulty ,* having side effects with}} the current medication s. I have {{not made* made the following} } changes to the current regimen. {{ Patient is advised to maintain a blood pressure diary.*}} Cont low Na diet. Chest discomfort 0333689 09 R07.89 Patient presents with {{chest* a [...] a prescripti on for sublingual nitroglyce rin.*}} [id number] Dominic Robbins Office [address] [facility] [facility] [place] [address] 01/25/2017 12:03:37 01/26/2017 10:51:33 Cardiac arrhythmia 458488979 I49.9 pt currently is in NSR. Holter has not revealed sinificant arrhythmia s. switch amlodipine for Cardiazem since pt is known to have lung condition and PACs.Suppl ement electrolyt es.. Hyperlipidemia 46231307 E78.5 Patient's hyperlipid emia is {{well-con trolled* n ot well-contr olled}} on present medical therapy. Patient is {{tolerati ng, without difficulty ,* having side effects with}} the current medication s. I have {{not made* made the following} } changes to the current regimen. Cont low cholestero l diet. Essential hypertension 36428105 I10 Patient's blood pressure is {{well-con trolled* [...] diary.*}} Cont low Na diet. Chest discomfort 7915292 09 R07.89 stress test negative. cont medical management and risk factor modificati on. [id number] [facility] [address] [place] [address] 2017 12:21:00 03/24/2017 09:34:15 Essential hypertension 50999401 I10 Patient's blood pressure is {{well-con trolled [...] diary.*}} Cont low Na diet. Cardiac arrhythmia 13619 7007 I49.9 pt currently is in NSR. Holter has not revealed sinificant arrhythmia s. switch amlodipine for Cardiazem since pt is known to have lung condition and PACs.Suppl ement electrolyt es.. Hyperlipidemia 60608831 E78.5 Patient's hyperlipid emia is {{well-con trolled* n ot well-contr olled}} on present medical therapy. Patient is {{tolerati ng, without difficulty ,* having side effects with}} the current medication s. I have {{not made* made the following} } changes to the current regimen. Cont low cholestero l diet. Chest discomfort 6048098 09 R07.89 stress test negative. cont medical management and risk factor modificati on. [facility] OFFICE [address] [place] [address] 06/22/2017 16:02:35 06/23/2017 09:24:37 Essential hypertension 87326965 I10 Patient's blood pressure is {{well-con trolled [...] diary.*}} Cont low Na diet. Cardiac arrhythmia 17800 7007 I49.9 pt currently is in NSR. Holter has not revealed sinificant arrhythmia s. switch amlodipine for Cardiazem since pt is known to have lung condition and PACs.Suppl ement electrolyt es.. Hyperlipidemia 72030087 E78.5 Patient's hyperlipid emia is {{well-con trolled* n ot well-contr olled}} on present medical therapy. Patient is {{tolerati ng, without difficulty ,* having side effects with}} the current medication s. I have {{not made* made the following} } changes to the current regimen. Cont low cholestero l diet. Chest discomfort 7017418 09 R07.89 stress test negative. cont medical management and risk factor modificati on. Dominic Stephanie fan Office [address] [facility] [place] [address] 01/22/2018 14:45:59 01/22/2018 15:46:58 Essential hypertension 18575559 I10 Patient's blood pressure is {{well-con trolled* [...] exercise daily. Lasix PRN. ECHO Cardiac arrhythmia 69411 7007 I49.9 pt currently is in NSR/ ST. Holter did not revealed significan t arrhythmia s. Previously switched amlodipine for cardizem since pt is known to have lung condition and PACs. Supplement electrolyt es.. Hyperlipidemia 96524340 E78.5 Needs to keep LDL less than 70, and HDL more than 40 Will get lipid profile. Continue Statin. he states that his statin was started not long time ago will recheck lipids Chest discomfort 2701910 09 R07.89 Atypical given known lung disease. [...] Munoz Member ID Guarantor Name 01/04/2017 1 [facility] PRIOR TO 12/31/2020 (MEDICAID REPLACEMENT - HMO) Vu Tilley [id number] Vu Tilley 01/25/2017 1 [facility] PRIOR TO 12/31/2020 (MEDICAID REPLACEMENT - HMO) Vu Tilley [id number] Vu Tilley 2017 1 [facility] PRIOR TO 12/31/2020 (MEDICAID REPLACEMENT - HMO) Vu Tilley [id number] Vu Tilley 06/22/2017 1 [facility] PRIOR TO 12/31/2020 (MEDICAID REPLACEMENT - HMO) Vu Tilley [id number] Vu Tilley 01/22/2018 1 [facility] PRIOR TO 12/31/2020 (MEDICAID REPLACEMENT - HMO) Vu Tilley [id number] Vu Tilley Notes Date Note Type Note Provider Name and Address Organization Details Recorded Time 01/04/2017 text/html Mr. Tilley is a pleasant 36 y/o AAM with PMH of HL, CAR, asthma, HTN, DM who was referred for cardiovascular evaluation. According to the pt he recently underwent evaluation at [facility] where he was found to have irregular heart beating . Pt denies palpitatinso or syncopal episodes. Pt does experience episodes of heaviness at rest Pt was outpt he had ECHO in December 2016. He had Holter twice pt was told that he has AFIB and he was started on blood thinner. Previoysly about3 yrs agbo he seen supervisor plastic sheets in [facility] he was told that everything was fine. [...] the pt he recently underwent evaluation at [facility] where he was found to [...] previously about 3 yrs ago he seen supervisor plastic sheets in [facility] he was told that everything was fine. [...] sarcoidosis which is being managed by his supervisor crack off. Had ECHO done in 12/02/16 showed normal LV systolic function , EF 60% , diastolic dysfunction . Had negative stress test done in 01/10/17 with normal LV systolic function , EF 61% . According to the pt he recently underwent evaluation at [facility] where he was found to [...] previously about 3 yrs ago he seen supervisor plastic sheets in [facility] he was told that everything was fine. [...] is below average. LVEF 61%. Dominic Brown [facility] [place] [facility] 2017 15:04:56 06/22/2017 [...] sarcoidosis which is being managed by his supervisor crack off. Had ECHO done in 12/02/16 showed normal LV systolic function , EF 60% , diastolic dysfunction . Had negative stress test done in 01/10/17 with normal LV systolic function , EF 61% . According to the pt he recently underwent evaluation at [facility] where he was found to [...] previously about 3 yrs ago he seen supervisor plastic sheets in [facility] he was told that everything was fine. [...] is below average. LVEF 61%. Dominic escalera [place] [facility] 06/22/2017 16:47:15 01/22/2018 text/html 01/22/18 CC: Follow-up SOB, chest pain Patient is a 37 year-old -[place]in[place] man with sarcoidosis hyperlipidemia, CAR, asthma, obesity presents today for follow-up. He was here last 7 months ago. Since then he feels poor due to his diabetes and sarcoidosis. He sees Dr. Magaña at [facility] for that. Is in on [...] the pt he recently underwent evaluation at [facility] where he was found to [...]
--- OUTSIDE RECORDS SUMMARY | 2024-10-30 06:51 | XMS_ITS | Clinical Summary ---
Author Organization [facility] Address [address] [place] [address] Care Team Providers Care Civil Engineering Teacher Name Role Phone Lotus Marina NP Primary Care Provider [phone] Allergies Active Allergy Reactions Criticality Noted Date [...] 36.6 C (97.8 F) 08/11/2023 12:18 PM KEY HOLDER Respiratory Rate 18 08/11/2023 12:18 PM KEY HOLDER Oxygen Saturation 97% 11/22/2023 9:15 AM CDT [...] 10/14/2021, 11/17/2020, Additional history exists Influenza Vaccine (Season Ended) 2025 04/18/2022, 10/04/2021, 05/04/2020, Additional history exists DTaP/Tdap/Td Vaccine (3 - Td or Tdap) 12/25/2028 12/25/2018, 07/03/2008 Pneumococcal vaccine <65 (4 of 4 - PCV20 or PCV21) 2030 12/25/2018, 04/05/2015, 06/27/2012 HPV Vaccines Aged Out No longer eligi ble based on patient's age to complete this topic Insurance MEDICARE [employer] MEDICARE GOLD T MEDICARE [facility] MEDICARE [facility] Address: [facility] [address] [place] [address] [employer] MEDICARE [facility] Care Teams Civil Engineering Teacher Relationship Specialty Start Date End Date Lotus Marina NP [address] [place] [address] PCP - General Nurse Practitioner 04/28/23 Terell Zamudio [address] [place] [address] Consulting Physician Cardiology 05/01/23
--- OUTSIDE RECORDS SUMMARY | 2024-10-30 06:51 | XMS_ITS | Referral Summary ---
Author Organization [facility] Address [address] [place] [address] Care Team Providers Care Vision Mixer Name Role Phone Lotus Marina NP Primary Care Provider [phone] Allergies Active Allergy Reactions Criticality Noted Date [...] 36.6 C (97.8 F) 08/11/2023 12:18 PM VISION MIXER Respiratory Rate 18 08/11/2023 12:18 PM VISION MIXER Oxygen Saturation 97% 11/22/2023 9:15 AM CDT Inhaled Oxygen Concentration - - Weight 113.9 kg (251 lb) 11/22/2023 9:15 AM CDT Height 180.3 cm (5' 11 ) 11/22/2023 9:15 AM CDT Body Mass Index 35.01 11/22/2023 9:15 AM CDT Plan of Treatment Not on file Insurance MEDICARE [employer] MEDICARE GOLD [employer] MEDICARE GOLD MEDICARE [employer] MEDICARE GOLD Care Teams Vision Mixer Relationship Specialty Start Date End Date Lotus Marina NP [address] [facility] [address] [place] [address] PCP - General Nurse Practitioner 04/28/23 Terell Zamudio [address] [facility] [address] Consulting Physician Cardiology 05/01/23
--- OUTSIDE RECORDS SUMMARY | 2024-10-30 06:52 | XMS_ITS | Clinical Summary ---
Author Organization [facility] Address [address] [place] [address] Care Team Providers Care [employer] Senior Specialist Name Role Phone Imani Em MD Primary Care Provider Source Comments [facility],non-owned Affiliates and Associated Physician Practices is amultiple site organization consisting of ambulatory clinics and hospital sitesin [place], [place], [place] and [place]. This disclosure is being madepursuant to the Care Everywhere program and may not contain all information available regarding this patient. Last updated 18.[facility] Allergies Active Allergy Reactions Criticality Noted Date Comments Pioglitazone Shortness of Breath,Rash High 8 Medications * Be aware that medications may not be up to date on this document. Alwaysverify current medications with the patient. albuterol HFA (PROVENTIL;CHRISS TOLIN;PROAIR) 108 (90 BASE) MCG/ACT inhaler Inhale 2 puffs by mouth every 6 hours as needed for Wheezing Active mometasone-for moterol (DULERA) 200-5 MCG/ACT inhaler Inhale 2 puffs by mouth 2 times daily Active ipratropium hfa (ATROVENT HFA) 17 MCG/ACT inhaler Inhale 2 puffs by mouth 3 times daily Active nitroGLYCERIN (NITROSTAT) 0.4 MG tablet Dissolve 0.4 mg under the tongue every 5 minutes as needed for Angina Active losartan (COZAAR) 25 MG tabletIndicati ons:Hypertensi on Take 25 mg by mouth once daily Reasons: High Blood Pressure Disorder Active dilTIAZem (CARDIZEM) 60 MG tablet Take 60 mg by mouth 2 times daily Active magnesium oxide (MAG-OX) 400 MG tablet Take 400 mg by mouth every other day Active hydroCHLOROthi azide (HYDRODIURIL) 25 MG tablet Take 25 mg by mouth once daily Active metFORMIN (GLUCOPHAGE) 500 MG tabletIndicati ons:Type 2 Diabetes Mellitus Take 500 mg by [...] once daily Active furosemide (LASIX) 20 MG tabletIndicati ons:Edema Take 20 mg by mouth as needed (pt states he takes when his ankles start to swell ) Reasons: Edema Active montelukast (SINGULAIR) 10 MG tablet Take 10 mg by mouth once daily Active pseudoephedrin e (SUDAFED) 30 MG tablet Take 1 tablet by mouth every 4 hours as needed for Nasal Congestion 30 tablet 8 Active TRUEPLUS LANCETS 33G MISC 8 Active predniSONE (DELTASONE) 20 MG tablet 8 Active insulin glargine (LANTUS) vial Inject 40 Units subcutaneously at bedtime 20 mL 11 8 Active insulin glulisine (APIDRA) vialIndication s:Type 2 Diabetes Mellitus Inject 60 Units subcutaneously 3 times daily before meals Reasons: Type 2 Diabetes 6 vial 11 8 Active Active Problems Problem Noted Date Diagnosed [...] at Not on file Legal Sex Male 5:40 PM MEAT AND P[employer]LTRY INSPECTOR Gender Identity Not on file Sexual Orientation Not on file Last Filed Vital Signs Vital Sign Reading Time Taken Comments Blood Pressure 128/78 01/22/2018 10:54 AM CDT Pulse 88 01/22/2018 10:54 AM CDT Temperature 36.9 C (98.5 F) 01/22/2018 10:54 AM CDT Respiratory Rate 19 09/05/2017 7:42 AM ME[employer] AND P[employer]LTRY INSPECTOR Oxygen Saturation 96% 01/22/2018 10:54 AM CDT Inhaled Oxygen Concentration 21% 09/05/2017 1 2:50 AM ME[employer] AND POULTRY INSPECTOR Weight 169.2 kg (373 lb) 01/22/2018 10:54 AM CDT Height 180.3 cm (5' 11 ) 01/22/2018 10:54 AM CDT Body Mass Index 52.02 01/22/2018 10:54 AM CDT Plan of Treatment Health Maintenance Due Date Last Done Comments HIV SCREENING 1995 HEPATITIS C SCREENING 03/19/1998 DTAP/TDAP/TD VACCINES (1 - Tdap) 1999 HEPATITIS B VACCINE (1 of 3 - 19+ 3-dose series) 1999 DIABETES-HGB A1C 04/24/2018 01/22/2018, 09/05/2017 DIABETES-FOOT EXAM WITH MONOFILAMENT 01/22/2019 01/22/2018, 01/22/2018 DIABETES-SERUM CREATININE 04/16/20192017, 04/16/2018, 01/04/2018, Additional history exists COVID-19 VACCINE ( - season) 2024 DEPRESSION SCREENING 07/03/2024 DIABETES - URINE PROTEIN SCREENING 07/03/2024 01/04/2018 INFLUENZA VACCINE (Season Ended) 2025 ZOSTER VACCINE (1 of 2) 2030 HIB [...] [facility] Routine 01/22/2018 Diabetes mellitus without complication BASIC METABOLIC PANEL (CALCIUM TOTAL) STAT 09/05/2017 4:49 AM ME[employer] AND P[employer]LTRY INSPECTOR Chest pain, unspecified type from Last 3 Months or Most Recently Relevant to Health Maintenance Results * HEMOGLOBIN A1C - POINT OF CARE (AMB) [facility] (01/22/2018) [facility] Hemoglobin A1c POCT 8.5 BLOOD SPECIMEN / Unknown 01/22/2018 Felix Chapman MD LAB - POINT OF CARE ORDERABLE S Final Result * (ABNORMAL) BASIC METABOLIC PANEL (CALCIUM TOTAL) (09/05/2017 4:49 AM MEAT AND POULTRY INSPECTOR) [facility] Glucose 373(H) 70 - 125 mg/dL 09/05/2017 5:13 AM MEAT AND P[employer]LTRY INSPECTOR [facility] Sodium 132(L) 136 - 145 mmol/L 09/05/2017 5:13 AM ME[employer]LTRY INSPECTOR [facility] Potassium 4.6(H) 3.4 - 4.5 mmol/L 09/05/2017 5:13 AM [facility] Chloride 98 98 - 107 mmol/L 09/05/2017 5:13 AM [facility] CO2 19(L) 22 - 29 mmol/L 09/05/2017 5:13 AM ME[employer]LTRY INSPECTOR [facility] Calcium 10.00 8.4 - 10.2 mg/dL 09/05/2017 5:13 AM ME[employer]LTRY INSPECTOR [facility] Anion Gap 20 10 - 20 mmol/L 09/05/2017 5:13 AM [employer]LTRY INSPECTOR [facility] BUN 21.2 8.4 - 25.7 mg/dL 09/05/2017 5:13 AM [facility] Creatinine 1.38(H) 0.72 - 1.25 mg/dL 09/05/2017 5:13 AM ME[employer] INSPECTOR [facility] eGFR by MDRD 58(L) >60 mL/min/1.7 3m2 09/05/2017 5:13 AM ME[employer]LTRY INSPECTOR [facility] eGFR by MDRD >60 >60 mL/min/1.7 3m2 09/05/2017 5:13 AM [facility] Blood BLOOD SPECIMEN / Unknown Lab Venipuncture / Unknown 09/05/2017 4:49 AM [employer]LTRY INSPECTOR 09/05/2017 4:53 AM [employer]LTRY INSPECTOR Thelma Betancur MD LAB - CHEMISTRY ORDERABLES nal Result [facility] [address] [place] [address], [facility] from Last 3 Months or Most Recently Relevant to Health Maintenance Insurance [facility] Care Teams [employer] Senior Specialist Relationship Specialty Start Date End Date Imani Em MD [address], [place] [phone] PCP - General 08/25/16
--- OUTSIDE RECORDS SUMMARY | 2024-10-30 06:52 | XMS_ITS | Data Portability ---
Author Organization [place], zFNL_IND_SMG_SNE_ER_StVWomen Address [address] [place] [address] Care Team Providers Care Semiconductor Development Technician Name Role Phone MARY CARMEN BUTLER Shoe Repair Supervisor ASHU CANTU Dip Tube Assembler Machine FRANCHESKA ROSARIO Dip Tube Assembler Machine SHAHIDA ULLOA Nurse Practitioner [phone] [facility] Borematic Operator LAURA BARRY Dip Tube Assembler Machine CELSO DAWKINS Primary Care Provider CLAUDIO BARRIOS Lacing Presser Assessment Encounter Date Assessment Date Assessment LastModified [...] GFR 67- we will get copy from [employer]. Urine for microalbumin is normal. On PEDRITO [...] months Time spent with patient:__22 cristian arteaga Not available 08/15/2022 09:00:23 02/16/2023 02/16/2023 In [...] I will reach out to his local associate professor of art history to make sure that we can work together to come up with a care plan for him. 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 The remainder [...] to clinic - 6 months Not available 02/17/2023 08:36:54 10/12/2023 10/12/2023 In [...] be referring him to Dr. Coy at [facility] for consideration of infliximab. The remainder [...] 7. Return to clinic - 6 months [email or web address] Not available 10/12/2023 10:15:50 07/15/2024 07/15/2024 In [...] same or similar condition by an [facility] provider? No I did not request that the patient schedule an appointment at the next available time as a result of this encounter. [email or web address] Not available 07/16/2024 15:02:42 Plan of Treatment Reminders Order Date Submit Date Provider Last Modified By Organization Details Last Modified Time Details Appointments Establish ed Patient 30 2024 08:30A M Oswald Cantu MD Not available Not available Not available Lab CBC w/ auto diff 2023 024 [facility] [address], [facility], [place], [address], 11/06/2023 12:19:34 CMP, serum or plasma 2023 024 [facility] [address], [facility], [place], [address], 11/06/2023 12:19:34 TSH, serum or plasma 2023 024 [facility] [address], [facility], [place], [address], 11/04/2023 07:55:36 LDL, direct, serum 2021 022 [facility], [address] [place], [address], 03/08/2023 05:23:04 microalbu min/creat inine, mass ratio, urine 2021 022 ESTRELLITA [facility], [address] [place], [address], 10/30/2022 05:02:21 Referral None recorded. Procedures None recorded. Surgeries None recorded. Imaging None recorded. Medication Orders None recorded. Patient TargetsNo targets recorded. Patient Instructions Encounter Date Encounter Id Patient Instructions Last Modified By Organization Details Last Modified Time 04/19/2022 [id number] A healthy lifestyle: care instructions Not available 04/19/2022 14:18:40 diabetic neuropathy: care instructions Not available 04/19/2022 14:18:40 heart-healthy diet: care instructions Not available 04/19/2022 14:18:39 type 2 diabetes: care instructions Not available 04/19/2022 14:18:39 hand-washing: care instructions Not available 04/19/2022 14:18:40 What You Need To Know about COVID-19 Coronavirus Disease ([facility]) Not available 04/19/2022 14:18:39 Steps To Help Prevent The Spread of COVID-19, if you are sick (CDC) Not available 04/19/2022 14:18:39 07/15/2024 [id number] hand-washing: care instructions [email or web address] Not available 07/15/2024 17:01:41 Reason for Referral None Reported. Results Created Date Observation Date Name Description Value Unit Range Abnormal Flag Note LastModifiedBy Organization Detail LastModifiedTime 05/03/20 22 05/03/2022 GLUCO SE POC glucose POC 76 mg/dL 65-99 Testi ng by [facility] POC [address] [facility] [place] [address] Not Available [facility] [address], [place], [address], 05/03/2022 09:09:04 02/17/20 23 02/16/2023 GLUCO SE POC glucose POC 69 mg/dL 65-99 [facility] [address] [place] [address] Not Available As - [facility] [address], [place], [address], 02/16/2023 07:39:30 10/02/19 24 10/02/2023 GLUCO SE POC glucose POC 57 mg/dL 65-99 low Testi ng by [facility] POC [address] [place] [address] Not [facility] [address], [address], 10/02/2023 12:12:28 11/03/19 24 11/04/2023 TSH W/REF ANTHONY TO FT4 TSH w/reflex to FT4 1.92 mIU/L 0.40-4 .50 normal Your reque to have a 365webcalle copy faxed has been domenic georges to: [phone] Not Available [facility] [address] [place], [address], 11/04/2023 07:55:36 09/03/19 25 09/02/2024 GLUCO SE POC glucose POC 57 mg/dL 65-99 low Testi ng by [facility] POC [address] [place] [address] Not Available [facility] [address] [place] [address], [place], [address], 09/02/2024 11:35:33 05/03/20 22 05/03/2022 PET, myoca rdial scan, metab olic evalu ation [facility] n[place]rat [place] EXAMIN ATION: PET/CT MYOCAR D METABO LIC EVAL - ACC #: [id number] CPT: 25588 Mod: RIS Order: [id number] (EVN) (6826) HIS Order: [id number] D [id number] STARTE D: May 03 2022 7:45AM [...] Transc ribed: May 03 2022 12:52P M [id number] Disper sed: May 03 2022 12:52P M Attend ing Dr: MIGUEL ÁNGEL JIMENEZ- DASHA Admitt ing Dr: BRITTNI JIMENEZ DASHA Primar y Care: BIMAL CHAHAL [facility] onal Doctor (s): ELECTR ONICAL LY SIGNED BY: SHREYA SAGE M.D.No v 2021 12:52P M ^ [email or web address] Asv [facility] [address] [facility], [place], [address], 05/09/2022 07:10:59 07/29/19 23 04/18/2022 elect gerardo salazargr am No observ ation record ed. [email or web address] Not Available 2022 17:11:38 10/05/19 23 exter nal patie nt, EKG event recor ding, 24-ho ur atten ded monit oring ; revie w and inter preta tion (PROC ) No observ ation record ed. [employer] [address], [place], [address], 10/10/2022 07:47:37 02/17/20 02/16/2023 PET, myoca rdial scan, metab olic evalu ation [facility] EXAMIN ATION: PET/CT MYOCAR D PERF W/META B EVAL - ACC #: [id number] CPT: 98812 Mod: RIS Order: [id number] ([facility]) (6909) HIS Order: [id number] STARTE D: Feb 16 2023 7:00AM [...] RPCRWR [id number] ELECTR ONICAL LY SIGNED BY: XMIENA ROBLEDO M.D. Feb 16 2023 12:18P M Dictat ed: Feb 16 2023 12:15P M Transc ribed: Feb 16 2023 12:15P M Disper sed: Feb 16 2023 12:18P M Attend ing Dr: BRITTNI JIMENEZ Admitt ing Dr: BRITTNI JIMENEZ Primar y Care: BRITTNI JIMENEZ Additi onal Doctor (s): XAVIER CARRENO SIGNED BY: XIMENA RBOLEDO M.D.Au g 2022 12:18P M ^ jeffrey [facility] [address] , [place], [address], 02/20/2023 08:05:18 02/21/20 23 02/16/2023 PET, myoca rdial scan, metab olic evalu ation No observ ation record ed. jeffrey Amg - In Office Orders (For Internal Use Only) [address] [place], [address], 03/08/2023 08:18:03 08/10/19 24 08/02/2023 elect gerardo salazargr am No observ ation record ed. [address] [facility], [place], [address], 08/10/2023 12:17:12 08/10/19 24 08/02/2023 CT, angio gram, chest , w/ contr ast No observ ation record ed. [address] [facility], [place], [address], 08/10/2023 12:19:34 08/10/19 24 08/02/2023 XR, chest , 2 view No observ ation record ed. [address], [place], [address], 08/10/2023 12:20:35 08/25/19 jadon r monit or No observ ation record ed. [facility] [employer] [address], [place], [address], 08/28/2023 09:40:42 10/02/19 24 10/02/2023 PET-C T, myoca rdial perfu pretty with metab olic evalu ation , dual radio [facility] [place] EXAMIN ATION: PET/CT MYOCAR D METABO LIC EVAL - ACC #: [id number] CPT: 60922 Mod: RIS Order: [id number] (EVN) (6826) HIS Order: [id number] D [id number] STARTE D: Oct 02 2023 7:40AM [...] Transc ribed: Oct 02 2023 11:06A M [id number] Disper sed: Oct 02 2023 11:06A M Attend ing Dr: BRITTNI JIMENEZ Admitt ing Dr: CHAUDH RY, SUNIT- DASHA Primar y Care: Additi onal Doctor (s): XAVIER CARRENO SIGNED BY: JENNA GLEASON M.D.Ap r 2023 11:06A M ^ [email or web address] Asv [facility] [address] [facility], [place], [address], 10/16/2023 15:32:22 08/06/19 25 08/02/2024 XR, hip + pelvi s, unila teral No observ ation record ed. [email or web address] [facility] [address], [place], [address], 08/06/2024 16:47:00 09/03/19 25 09/02/2024 PET-C T, limit ed [facility] ille EXAMIN ATION: PET/CT MYOCAR D METABO LIC EVAL - Acc #: [id number] CPT: 28120 RIS Order: [id number] (EVN) (6826) HIS Order: [id number] D [id number] STARTE D: Sep 02 2024 8:00AM [...] 1:57PM Transc ribed: Sep 02 2024 1:57PM [id number] Disper sed: Sep 02 2024 1:57PM Order[facility]gil [place] Dr: BRITTNI JIMENEZ Admitt ing Dr: BRITTNI JIMENEZ Primar y Care: ELECTR ONICAL LY SIGNED BY: Ashia AGUILERASep 02 2024 1:57PM ^ [email or web address] Asv [facility] [address] [facility], [place], [address], 10/14/2024 10:03:30 Result Notes None recorded. Problems Name Problem SNOMED Code Status Onset Date Resolution Date Notes Provider Name and Address Organization Details Recorded Time Chronic diastolic heart failure 484352002 Active 2021 Hortencia Nitesh RMA null, [place] - [place] - [place] 2 09:17:34 Diabetes mellitus 92146441 Active 2018 Ratna [place] null, [place] 9 18:39:51 Hypertensive disorder 83002631 Active 2018 Ratna [place] null, [place] - [place] 9 18:39:51 Atrial fibrillation 90145016 Active 2018 Ratna [place] null, [place] 9 18:39:51 Chronic obstructive pulmonary disease 73251021 Active 2018 Ratna [place] null, [place] - [place] - [place] 9 18:39:51 Chronic lung disease 608262697 Active 2018 Ratna [place] null, [place] - [place] 9 18:39:52 Sarcoidosis 17003475 Active 2018 Ratna [place] null, [place] - [place] 9 18:39:51 Morbid obesity 871303273 Active 2018 Ratna [place] null, [place] - [place] 9 18:39:51 Systolic dysfunction 554377778 Active 2018 Ratna Марина null, [place] - [place] - [place] 9 18:39:52 Paroxysmal atrial fibrillation 583197570 Active 2018 Ratna [place] null, [place] - [place] - [place] 9 18:39:51 Chest pain 97056826 Active 2019 Laura Snow HIGH LIFT OPERATOR null, [place] 0 11:48:50 Dyspnea 666726504 Active 2019 Laura Snow HIGH LIFT OPERATOR null, [place] - [facility] 0 11:48:59 Dyspnea on exertion 01922358 Active 2019 Laura Snow HIGH LIFT OPERATOR [place], [place] 0 11:49:04 Nausea 597438393 Active 2019 Laura Owennson HIGH LIFT OPERATOR null, [place] [facility] - [place] 0 11:49:10 Essential hypertension 02808283 Active 2019 Cassie Delgado NP [address] [place] [address], [address], [place], [address], [place] - [place] 0 14:15:03 Uncontrolled type 2 diabetes mellitus 517671924 Active 2019 Cassie Delgado NP [address] [place] [address], [address], [place], [address], [place] - [place] 0 14:37:50 Gastroesophage al reflux disease 981265291 Active 2019 Cassie Delgado NP [address] [place] [address], [address], [place], [address], [place] - [place] 0 14:39:40 Obstructive sleep apnea syndrome 76915725 Active 2019 Cassie Delgado NP [address] [place] [address], [address], [place], [address], [place] - [place] 0 14:41:37 Cardiac sarcoidosis 20168095 Active 2019 Laura Snow HIGH LIFT OPERATOR null, [place] [facility] 0 17:51:42 Problem Notes None recorded. Procedures Surgical History Date Name Laterality Status Provider Name and Address Organization Details Recorded Time 05/18/20 22 Gastric bypass for obesity completed Swetha Julien [place] [facility] 08/15/2022 08:32:55 01/06/20 21 COPD Assessment- CAT completed Ratna Martinez RN [place] [facility] 01/05/2021 15:34:32 07/07/19 21 COPD Assessment- CAT completed Kimberli Vazquez CMA [place] [facility] 07/07/2020 16:50:01 08/15/19 20 Cardiac Cath completed Hortencia Elmoreuter Rufino [place] [facility] 11/14/2019 09:47:26 03/27/20 19 COPD Assessment- CAT completed Clark Solitario MD [address], [address], [place], [address], [place] [facility] 03/27/2019 09:05:33 12/27/19 19 COPD Assessment- CAT completed Clark Solitario MD [address], [address], [place], [address], [place] [facility] 12/26/2018 09:40:20 11/13/19 19 Medical Hospitalization completed Aranza Paredes RN [place] [facility] 11/28/2018 15:15:50 06/03/20 18 Medical Hospitalization completed Nayeli Silva [place] [facility] 06/05/2019 14:42:33 07/03/19 15 biopsy of lung completed Clark Solitario MD [address], [address], [place], [address], [place] [facility] 08/22/2018 09:51:26 Imaging Results Imaging Date Name Status LastModified by Organization Details LastModified Time 05/03/2022 PET, myocardial scan, metabolic evaluation completed [address] [facility] [address] [place], [address], 05/09/2022 07:10:59 04/18/2022 electrocardiogram completed [email or web address] Informa tion not available 07/29/2022 17:11:38 10/04/2022 external patient, EKG event recording, 24-hour attended monitoring; review and interpretation (PROC) completed [employer] [address], [place], [address], 10/10/2022 07:47:37 02/16/2023 PET, myocardial scan, metabolic evaluation [facility] [address], [place], [address], 02/20/2023 08:05:18 02/16/2023 PET, myocardial scan, metabolic evaluation completed [email or web address] [facility]g - In Office Orders (For Internal Use Only) [address] [facility], [place], [address], 03/08/2023 08:18:03 08/02/2023 electrocardiogram completed [address], [address], 08/10/2023 12:17:12 08/02/2023 CT, angiogram, chest, w/ contrast completed [address], [address], 08/10/2023 12:19:34 08/02/2023 XR, chest, 2 view completed [address], [address], 08/10/2023 12:20:35 08/25/2023 holter monitor completed [employer] [address], [place], [address], 08/28/2023 09:40:42 10/02/2023 PET-CT, myocardial perfusion with metabolic evaluation, dual radiotracer completed [email or web address] [facility] [address] [place] [address], [address], 10/16/2023 15:32:22 08/02/2024 XR, hip + pelvis, unilateral completed [email or web address], [address], 08/06/2024 16:47:00 09/02/2024 [facility] [address] [place] [address], [address], 10/14/2024 10:03:30 Procedure Notes None recorded. Medical Equipment None Reported. Allergies Allergen ID Allergen Name Allergen Category Reaction Reaction Severity Criticality Documentation Date Start Date Code Code System Note Provider Name and Address Organization Details Recorded Time 0783902 Actos medicatio n rash Not available Not available 08/22/2018 38395 2 RxNorm Aranza Paredes RN null, [place] - [place] - [place] 9 08:59:45 Medications Name Sig Start Date [...] Not Available Not Available Not Avai lable carvedilo l 25 mg tablet TAKE 1 [...] syringe TO BE ADMINIST ERED BY PHARMACI [employer]ffect FOR IMMUNIZA TION 03/26 completed Not Available [...] ular syringe TO BE ADMINIST ERED BY [employer] FOR IMMUNIZA TION 03/26 completed Not Available [...] Not Available Not Available Not Avai lable OneTouch Verio test strips USE TO TEST [...] Available Not Available Not Available Dexcom G6 Radio Director active Not Available Not Available Not Available Dexcom G6 Transmitt er device active Not Available Not Available No t Available Accu-Chek Fastclix Lancet Drum USE TO TEST BLOOD SUGAR 4 TIMES PER DAY ICD 10 CODE E11.65 07/15 completed Not Available Not Available Not Available FreeStyle Chrissy 14 Day [place] active Not Available Not Available Not Available FreeStyle Chrissy 14 Day Sensor kit active Not Available Not Available Not Available BD Kenyatta 2nd Gen Pen Needle 32 gauge x /32 USE TO INJECT INSULIN 5 TIMES DAILY active Not Available Not Available No t Available OneTouch Delica Plus Lancet 33 gauge Used to test 4 times daily E11.65 2021 active Not Available Not Available Not Avai lable Rybelsus 3 mg tablet TAKE 1 TABLET BY MOUTH EVERY DAY 08/15 completed Not Available Not Available Not Available Breanne Ellipta 200 mcg-62.5 mcg-25 mcg powder for [...] Updated DateTime 2 181.61 cm 48.5 kg/m2 854682. 11 g 72 /min 95 % 95 % 130 mm[Hg] 72 mm[Hg] Cassie Rodriguez [place] [facility] 2 13:58:34 Date Recorded Body height Body mass index (BMI) Body weight Heart rate Systolic blood pressure Diastolic blood pressure Provider Name and Address Organization Details Last Updated DateTime 3 181.61 cm 38.1 kg/m2 143899. 09 g 90 /min 127 mm[Hg] 83 mm[Hg] Swetha Julien [place] [facility] 3 08:34:15 Date Recorded Body height Body mass index (BMI) Body weight Heart rate Oxygen saturation Oxygen saturation in Arterial blood by Pulse oximetry Systolic blood pressure Diastolic blood pressure Provider Name and Address Organization Details Last Updated DateTime 3 181.61 cm 33.6 kg/m2 693141. 54 g 58 /min 95 % 95 % 108 mm[Hg] 80 mm[Hg] Nereyda Pak [place] [facility] 3 10:31:37 Date Recorded Body height Body mass index (BMI) Body weight Heart rate Oxygen saturation Oxygen saturation in Arterial blood by Pulse oximetry Systolic blood pressure Diastolic blood pressure Provider Name and Address Organization Details Last Updated DateTime 4 181.61 cm 34.4 kg/m2 399479. 37 g 87 /min 96 % 96 % 110 mm[Hg] 62 mm[Hg] Jazmin FRANKLIN [facility] 09:40:38 Date Recorded Body height Body mass index (BMI) Body weight Provider Name and Address Organization Details Last Updated DateTime 07/15/2024 181.61 cm 35.1 kg/m2 336236.05 g Mary Mcfarlane [facility] 07/15/2024 10:25:28 Social History Question Answer Notes LastModified by Organizat ion Details LastModified Time Tobacco Smoking Status Former Smoker Rhona Miranda jw [facility] 10/12/2023 09:33:43 Do You Have An Advance Directive? No [email or web address] Information not available 10/12/2023 What Is Your Level Of Alcohol Consumption? None Information not available 10/12/2023 What Is Your Level Of Caffeine Consumption? Moderate [email or web address] Information not available 10/12/2023 Are You Currently Employed? No [email or web address] Information not available 02/16/2023 What Type Of Diet Are You Following? REGULAR [email or web address] Information not available 10/12/2023 Which Illicit Or Recreational Drugs Have You Used? Denies [email or web address] Information not available 10/12/2023 Do You Or [...] Did You Ever Eat Less Than You [place] You Should Because There Wasn t Enough Money For Food? No [email or web address] Information not available 04/01/2020 In The Past 12 Months Has The Electric, Gas, Oil, Or Water Company Threatened To Shut Off Services In [...] Vaccine In The Last 7 Days? No [email or web address] Information not available 07/07/2020 (If Yes To Covid Vaccine)- Which Vaccine? Moderna [email or web address] Information not available 03/21/2022 In The Past 10 Days, Have You Been Told You May Have COVID-19 Or Have Been Tested For COVID-19? No [email or web address] Information not available 11/16/2021 0) Information Provided By : Patient [email or web address] Information not available 10/12/2023 1a) Does The Patient/Caregiv er/Family Report The PATIENT Having Any Of These NEW Symptoms Such As Cough? No [email or web address] Information not available 10/12/2023 1b) Does The Patient/Caregiv er/Family Report The PATIENT Having Any Of These NEW Symptoms Such As Diarrhea? No [email or web address] Information not available 10/12/2023 1c) Does The Patient/Caregiv er/Family Report The PATIENT Having Any Of These NEW Symptoms Such As Fever/chills? No [email or web address] Information not available 10/12/2023 1d) Does The Patient/Caregiv er/Family Report The PATIENT Having Any Of These NEW Symptoms Such As Nasal Congestion/Runn y Nose? No [email or web address] Information not available 10/12/2023 1e) Does The Patient/Caregiv er/Family Report The PATIENT Having Any Of These NEW Symptoms Such As Respiratory Distress (acute)? No [email or web address] Information not available 10/12/2023 1f) Does The Patient/Caregiv er/Family Report The PATIENT Having Any Of These NEW Symptoms Such As Rash? No [email or web address] Information not available 10/12/2023 1g) Does The Patient/Caregiv er/Family Report The PATIENT Having Any OTHER NEW Symptoms (list)? If No NEW Symptoms, Enter No No [email or web address] Information not available 10/12/2023 Marital Status [email or web address] [...] How Much Tobacco Do You Smoke? No [email or web address] Information not available 10/12/2023 General Stress Level [...] Time What is your exercise level? Occasional [email or web address] Information not available 10/12/2023 Mental Status None recorded. Family History Relationship Description Onset Age of this Age Resolved Age Notes LastModified by Organization Details LastModified Time Father Crohn's disease [email or web address] Not available 05/2024 09:33:42 Mother Hypertensive disorder [email or web address] Not available 2018 09:10:40 Medical History Condition Response hypothyroidism N cancer N lupus N gout N tuberculosis N asthma Y glaucoma N depression Y COPD Y high blood pressure Y acid reflux/GERD Y heart attack ([place]) N blood clots N diabetes mellitus Y atrial fibrillation Y skin conditions N thyroid disease N arrhythmia N heart problems N fibromyalgia N seizures N sleep apnea Y hyperlipidemia Y tobacco abuse Y other respiratory issue Y rheumatoid arthritis N deep vein thrombosis N diverticulitis N hepatitis N anxiety disorder N stroke N bedwetting Y high cholesterol Y Immunizations Vaccine Type Date Status Note Provider Nam e and Address Organization Details Recorded Time Influenza, split virus, trivalent, PF 9 completed Not Available [facility] 07/20/2019 06:08:10 Influenza, split virus, quadrivalent, PF 9 completed Not Available [facility] 07/21/2019 02:13:25 pneumococcal polysaccharide PPV23 9 completed Aranza Paredes RN null, [place] [facility] 03/27/2019 08:58:05 Influenza, split virus, quadrivalent, preservative 0 completed Kimberli Vazquez CMA null, [place] [facility] 07/07/2020 16:47:56 SARS-COV-2 (COVID-19) vaccine, UNSPECIFIED 1 completed Ratna Martinez RN null, [place] [facility] 01/05/2021 15:32:38 SARS-COV-2 (COVID-19) vaccine, UNSPECIFIED 1 completed Ratna Martinez RN null, [place] [facility] 01/05/2021 15:32:45 SARS-COV-2 (COVID-19) vaccine, UNSPECIFIED 2 completed Ratna Martinez RN [facility], [place] - [facility] 11/16/2021 14:25:48 Past Encounters Encounter ID Performer Location Encounter Start Date Encounter Closed Date Diagnosis/Indication Diagnosis SNOMED-CT Code Diagnosis ICD10 Code Diagnosis Note [id number] Angy Soto PA-C [facility] [facility], [address] [place] [address] 06/13/2018 13:03:24 06/13/2018 14:31:00 Toothache 41225483 K08.89 Due to the erythema of the [...] He understood and agreed to treatment plan. [id number] MD NELSON Donovan[facility] [address] [facility], [facility] [address] [place] [address] 06/18/2018 12:40:09 06/18/2018 13:31:32 Type 1 diabetes mellitus 06029466 E10.9 [id number] Clark Solitario MD zCLSD_EVA _SMG_PULM _[facility] 200 901 [facility] 200 [facility] [place] [address] 08/22/2018 08:38:55 08/22/2018 10:19:35 Pulmonary sarcoidosis 41492184 D86.0 38-year-ol d black gentleman with biopsy-pro [...] studies available. Chronic ob structive pulmonary disease 76381393 J44.9 Pulmonary function tests from 08/14/2018 revealed the presence of severe obstructiv e airway disease, mild restrictio n and normal DLCO. He will be treated with Breo 100 mcg 1 puff once a day. Long-term drug therapy 663955198 Z79.899 The patient has been taking Prednisone , on and off, for the last 4 years. I will schedule the patient for a bone density study and I would also check for vitamin D 25-hydroxy and vitamin D 1-25 hydroxy. Atrial fibrillation 4943 6004 I48.91 Already referred to Cardiology . Hopefully he will improved after CPAP treatment is restarted. [facility] ed type 2 diabetes mellitus 857452336 E11.65 Already referred to Endocrinol justin. It is my hope that the patient diabetes will be much better control if I avoid prednisone . At this time I do not believe the patient needs it. Obstructiv e sleep apnea syndrome 89530896 G47.33 The patient has documented history obstructiv e sleep apnea diagnosed in May 2014. Unfortunat kristi his device broke when he moved from [place] to [place] in January 2018. The patient has not used his CPAP since then and recently developed atrial fibrillati on. I believe the patient needs to have a CPAP device of 12 cm of water pressure as soon as possible. He will be seen by sleep specialist tomorrow morning. Administra tion of influenza vaccine 80249985 Z23 To be given today. The patient is a high risk of developing pulmonary infections due to the structural damage to his lung parenchyma . [id number] Riley Pedersen MD EVA_SMG_S LPPULM_[address] [facility] [address] [place] [address] 08/23/2018 15:09:40 08/23/2018 16:52:30 Obstructive sleep apnea syndrome 59287737 G47.33 Moderate to severe obstructiv e sleep [...] if needed. Hypersomni a with sleep apnea 73626128 G47.10 hypersomni a likely secondary to sleep fragmentat ion caused by sleep disordered breathing. [place]field score of 3/24 is discordant with subjective [...] been discussed with the patient. Essential hypertension 06375472 I10 The adverse impact of untreated sleep apnea on the control of hypertensi on has been discussed with the patient. Diabetes mellitus 350966 09 E11.9 The adverse impact of untreated sleep apnea on the control of diabetes has been discussed with the patient. Pulmonary sarcoidosis 24 392003 D86.[address] Solitario for the same. Chronic ob structive pulmonary disease 21920696 J44.9 PFTs showed predominan tly obstructiv e physiology likely secondary to obstructiv e sarcoid. Patient is not a candidate for auto titrating positive pressure therapy. Morbid obesity 429456403 E66.01 Weight loss is recommende d and should translate to an improvemen t in the patient's sleep disordered breathing. The patient was given informatio n regarding the importance of diet and exercise for weight loss and weight management . [id number] MD NELSON Howe_SMG_U C_[place] [address] [facility] [place] [place] [address] 08/27/2018 20:21:55 08/27/2018 20:59:04 Type 1 diabetes mellitus 34974073 E10.9 [id number] MD NELSON Stratton_SMG_E NDO_[address] [place] [address] 09/03/2018 13:21:25 09/03/2018 14:56:39 Uncontrolled type 2 diabetes mellitus 964598494 E11.65 Hypertensive disorder 38 765401 I10 Diabetic p eripheral neuropathy 502337633 E11.40 Dyslipidemia 732075722 E 78.5 Vitamin D deficiency 347 57185 E55.9 [id number] Kelly DAMON_SMG_E NDO_[address] [place] [address] 09/03/2018 15:00:06 09/03/2018 15:53:12 Diabetes mellitus 18128570 E11.9 [id number] Clark Solitario MD zCLSD_EVA _SMG_PULM _[address] [place] [address] 09/17/2018 11:10:06 09/17/2018 11:48:03 Pulmonary sarcoidosis 06561335 D86.0 38-year-ol d black gentleman with biopsy-pro [...] all normal. Chronic ob structive pulmonary disease 02872090 J44.9 Pulmonary function tests from 08/14/2018 revealed the presence of severe obstructiv e airway disease, mild restrictio n and normal DLCO. He still complains of dyspnea on exertion despite using Breo. I will change the patient to Trelegy and reassess in 2 months. Long-term drug therapy 501971693 Z79.899 I have checked bone density study and vitamin D 25-hydroxy and vitamin D 1-25 hydroxy, they are normal. Obstructiv e sleep apnea syndrome 98729945 G47.33 Patient has already been seen in the sleeps center. He has been scheduled for another polysomnog claude. Atrial fibrillation 4943 6004 I48.91 Management as per cardiology . [facility] ed type 2 diabetes mellitus 209602858 E11.65 The patient is now seeing endocrinol ogy. [id number] MD NELSON Garner_SMG_C ARDIAC_90 1[facility] [id number] 9[address] [facility]' ,[address] [place] [address] 09/26/2018 12:09:53 09/26/2018 15:13:08 Sarcoidosis 42684813 D86.0 [id number] Cheyenne LACY_SMG_N AAB_DOC [address] [place] [address] 10/31/2018 09:00:20 10/31/2018 09:58:40 Cardiac sarcoidosis 15709784 D86.85 Chronic di astolic heart failure 123368134 I50.32 Essential hypertension 56531665 I10 Mixed hyperlipidemia 267 188188 E78.2 Morbid obesity 640451245 E66.01 Obstructiv e sleep apnea syndrome 88215757 G47.33 [id number] Ranta vasquez, UT[employer] PIPE [employer]ER zFNL_MARIBELA_ SMG_TRANS ITION_[address] [place] [address] 11/23/2018 09:33:13 11/23/2018 10:46:24 Sarcoidosis 23671801 D86.9 He does have follow-up appointmen ts coming up with pulmonary 11-28-18 and cardiology . He is scheduled to have a PET scan to follow-up for cardiac sarcoid and [place] is next month. He is to continue Bactrim and oral steroids. Diabetes mellitus 417028 09 E11.9 Endo follow up 12-14-18.Me ds reviewed today. Hypertensive disorder 38 908846 I10 Continue home meds. His BP is stable today. He has mention of losartan/H CTZ but states he has not been on this medication . Atrial fibrillation 4943 6004 I48.91 questionab le paroxysmal - following up with EP 12-27-18 [id number] Clark Solitario MD zCLSD_EVA _SMG_PULM _[address] [employer],[address] [place] [address] 11/28/2018 15:11:10 11/28/2018 15:40:45 Pulmonary sarcoidosis 22808885 D86.0 Biopsy-pro keshav sarcoidosi s, with recurrence [...] rheumatolo gy. Chronic ob structive pulmonary disease 22555763 J44.9 COPD with severe obstructiv e airways disease documented by PFTs on 08/14/2018. Patient is to continue taking Trelegy 1 puff once a day. Long-term drug therapy 029511988 Z79.899 I have checked bone density study and vitamin D 25-hydroxy and vitamin D 1-25 hydroxy, they are normal. Obstructiv e sleep apnea syndrome 18094172 G47.33 As per sleep specialist Atrial fibrillation 4943 6004 I48.91 Management as per cardiology . [facility] ed type 2 diabetes mellitus 185239786 E11.65 The patient is now seeing endocrinol ogy. [id number] Riley Pedersen MD EVA_SMG_S LPPULM_[address] Floor [address] [facility] [address] [place] [address] 12/10/2018 10:23:39 12/10/2018 11:13:17 Obstructive sleep apnea syndrome 36914365 G47.33 Moderate to severe obstructiv e sleep apnea (AHI 28.9, sumanth saturation 77%) adequately corrected with CPAP at a pressure of 18 cm of water. Good compliance with CPAP therapy. Problems tolerating CPAP at a pressure of 18 cm with difficulty keeping the full facemask from leaking. I discussed the findings of the [facility] t polysomnog claude in detail with the [...] if needed. Hypersomni a with sleep apnea 76459409 G47.10 Hypersomni a subjective ly improved on CPAP therapy. Fairfield score 12/24 today. He has been advised to avoid driving while drowsy. Atrial fibrillation 4942 6004 I48.0 Currently in sinus rhythm. The adverse impact of untreated sleep apnea on the control of atrial fibrillati on has been discussed with the patient. Essential hypertension 83779706 I10 The adverse impact of untreated sleep apnea on the control of hypertensi on has been discussed with the patient. Diabetes mellitus 514847 09 E11.9 The adverse impact of untreated sleep apnea on the control of diabetes has been discussed with the patient. Pulmonary sarcoidosis 24 727883 D86.[address] Solitario for the same. Chronic ob structive pulmonary disease 63073247 J44.9 PFTs showed predominan tly obstructiv e physiology likely secondary to obstructiv e sarcoid. He is not a candidate for auto titrating positive pressure therapy. Morbid obesity 190277361 E66.01 Weight loss is recommende d and should translate to an improvemen t in the patient's sleep disordered breathing. The patient was given informatio n regarding the importance of diet and exercise for weight loss and weight management . [id number] DIMAS OviedoA_SMG_E NDO_[address] [place] [address] 12/14/2018 15:24:48 12/14/2018 15:55:24 Uncontrolled type 2 diabetes mellitus 958839817 E11.65 Hypertensive disorder 38 989252 I10 Diabetic p eripheral neuropathy 394283933 E11.40 Dyslipidemia 695763460 E 78.5 Vitamin D deficiency 347 32961 E55.9 [id number] Sunit-Pree t Cornelio Cantu MD IND_SMG_N AAB_DOC [address] [place] [address] 12/18/2018 12:56:04 12/18/2018 14:30:20 Cardiac sarcoidosis 98961551 D86.85 Chronic di astolic heart failure 283846716 I50.32 Essential hypertension 56214730 I10 Mixed hyperlipidemia 267 255584 E78.2 Morbid obesity 727240454 E66.01 Obstructiv e sleep apnea syndrome 79419142 G47.33 Sarcoidosis 23775089 D86 .9 [id number] Clark Solitario MD zCLSD_EVA _SMG_PULM _[address] [employer] [facility],[address] [place] [address] 12/26/2018 09:19:30 12/26/2018 09:53:15 Pulmonary sarcoidosis 47607340 D86.0 Biopsy-pro keshav sarcoidosi s, with recurrence [...] management . Chronic ob structive pulmonary disease 52569756 J44.9 COPD with severe obstructiv e airways disease documented by PFTs on 08/14/2018. Since his last visit, the patient has not had any exacerbati ons of COPD. He states that the cough and wheezing as well as the distant exertion has improved. Patient is to continue taking Trelegy 1 puff once a day. Long-term drug therapy 442286675 Z79.899 I have checked bone density study and vitamin D 25-hydroxy and vitamin D 1-25 hydroxy, they are normal. Obstructiv e sleep apnea syndrome 36676855 G47.33 As per sleep specialist Atrial fibrillation 4943 6004 I48.91 Management as per cardiology . [facility] ed type 2 diabetes mellitus 384781647 E11.65 The patient is now seeing endocrinol ograd. Cardiac sarcoidosis 7540 3004 D86.85 I have spoke to the patient's cardiologi st and we have agreed and continue prednisone 60 mg p.o. daily for the next 3 months when he will have a PET/CT to assess the inflammati on in his lungs and heart. At that time, depending on the results, decision will be made and how to taper prednisone . [id number] Shahida Ulloa [facility] MARIBELA_SMG_C ARDIAC_90 1[facility] [id number] [address] [facility],[address] [place] [address] 12/27/2018 09:15:22 12/27/2018 10:22:35 Paroxysmal atrial fibrillation 256146421 I48.0 [id number] MD NELSON Stratton_SMG_E NDO_[address] [place] [address] 01/16/2019 10:37:28 01/16/2019 11:32:10 Uncontrolled type 2 diabetes mellitus 574807606 E11.65 Hypertensive disorder 38 590994 I10 Diabetic p eripheral neuropathy 350209736 E11.40 Dyslipidemia 195437384 E 78.5 Vitamin D deficiency 347 40899 E55.9 Hypoglycemia 321466934 E 16.2 [id number] Cheyenne Cantu MD IND_SMG_N AAB_DOC [address] [place] [address] 03/18/2019 14:20:33 03/18/2019 15:13:35 Cardiac sarcoidosis 23673534 D86.85 Chronic di astolic heart failure 137767345 I50.32 Essential hypertension 19534680 I10 Mixed hyperlipidemia 267 675962 E78.2 Morbid obesity 914024626 E66.01 Obstructiv e sleep apnea syndrome 74904031 G47.33 Sarcoidosis 56079315 D86 .9 [id number] Clark Solitario MD zCLSD_EVA _SMG_PULM _[address] [facility],[address] [place] [address] 03/27/2019 08:53:10 03/27/2019 09:21:50 Chronic obstructive pulmonary disease 50071692 J44.9 COPD with severe obstructiv e airways disease documented by PFTs on 08/14/2018. Since his last visit, the patient has not had any exacerbati ons of COPD. Patient is to continue taking Trelegy 1 puff once a day. Administra tion of influenza vaccine 88103733 Z23 To be given today. The patient is a high risk of developing pulmonary infections due to the structural damage to his lung parenchyma . Pulmonary sarcoidosis 24 471877 D86.0 The patient has completed 3 months of 60 mg of prednisone and has not started tapering doses. He will be on prednisone 50 mg p.o. once a day for 30 days and then he will decrease it down to 40 mg p.o. once a day. He will be reevaluate d by his cardiologi st [place] in June when a decision to [...] cardiology . See above. Long-term drug therapy 248426476 Z79.899 Last bone density study and vitamin D 25-hydroxy and vitamin D 1-25 hydroxy were normal. Obstructiv e sleep apnea syndrome 93452366 G47.33 As per sleep specialist Atrial fibrillation 4943 6004 I48.91 Management as per cardiology . Uncontrol ed type 2 diabetes mellitus 070293117 E11.65 The patient is now seeing endocrinol ogy. [id number] Shahida Ulloa [facility] EVA_SMG_C ARDIAC_90 1[facility] [id number] [address] [facility] ,[address] [place] [address] 04/12/2019 09:44:29 04/12/2019 10:49:13 Atrial fibrillation 13858364 I48.91 Sarcoidosis 94436476 D86 .9 [id number] MD MARIBEL StrattonA_SMG_E NDO_[address] [place] [address] 05/21/2019 10:04:01 05/21/2019 11:18:04 Uncontrolled type 2 diabetes mellitus 321678999 E11.65 Hypertensive disorder 38 206191 I10 Diabetic p eripheral neuropathy 525805679 E11.40 Dyslipidemia 885241031 E 78.5 Vitamin D deficiency 347 79152 E55.9 [id number] Nay Cortez, SANITATION SUPERINTENDENT EVA_SMG_S LPPULM_[address] [place] [address] 06/05/2019 14:13:06 06/05/2019 15:13:49 Obstructive sleep apnea syndrome 13759553 G47.33 Moderate to severe obstructiv e sleep [...] if needed. Hypersomni a with sleep apnea 00717028 G47.10 Hypersomni a subjective ly improved on CPAP therapy. Fairfield score 15/24 today. He has been advised to avoid driving while drowsy. Atrial fibrillation 4943 6004 I48.0 Currently in sinus rhythm. The adverse impact of untreated sleep apnea on the control of atrial fibrillati on has been discussed with the patient. Essential hypertension 97702763 I10 The adverse impact of untreated sleep apnea on the control of hypertensi on has been discussed with the patient. Diabetes mellitus 513237 09 E11.9 The adverse impact of untreated sleep apnea on the control of diabetes has been discussed with the patient. Pulmonary sarcoidosis 24 099693 D86.[address] Solitario for the same. Chronic ob structive pulmonary disease 38862432 J44.9 PFTs showed predominan tly obstructiv e physiology likely secondary to obstructiv e sarcoid. He is not a candidate for auto titrating positive pressure therapy. Morbid obesity 343968894 E66.01 Weight loss is recommende d and should translate to an improvemen t in the patient's sleep disordered breathing. The patient was given informatio n regarding the importance of diet and exercise for weight loss and weight management . [id number] Cheyenne t Cornelio Cantu MD IND_SMG_N AAB_DOC [address] [place] [address] 06/11/2019 14:10:42 06/11/2019 14:40:38 Cardiac sarcoidosis 14047731 D86.85 Chronic di astolic heart failure 224662163 I50.32 Essential hypertension 05148407 I10 Mixed hyperlipidemia 267 323438 E78.2 Morbid obesity 622863916 E66.01 Obstructiv e sleep apnea syndrome 65015493 G47.33 [id number] Pao Hamm NP EVA_SMG_E NDO_[address] [place] [address] 07/05/2019 09:14:59 07/05/2019 09:48:39 Uncontrolled type 2 diabetes mellitus 797297665 E11.65 Hypertensive disorder 38 657449 I10 Diabetic p eripheral neuropathy 348945469 E11.40 Dyslipidemia 835940309 E 78.5 Vitamin D deficiency 347 63428 E55.9 Long-term current use of steroid 047706466 Z79.52 Diabetic on insulin 1707 53364 Z79.4 [id number] Yusef Tatum MD EVA_SMG_C ARDIAC_90 [address] [id number] [place],[address] [place] [address] 07/15/2019 16:48:58 07/15/2019 17:09:23 Paroxysmal atrial fibrillation 392613500 I48.0 Sarcoidosis 97879522 D86 .0 [id number] Francheska Rosario MD EVA_SMG_C ARDIAC_90 [address] [id number] [place],[address] [place] [address] 08/27/2019 11:40:15 08/27/2019 12:13:15 Chest pain 34014502 R07.2 Abnormal ECG on presentati on-LHC done for possible STEMI on 08-15-19-an giographic ally normal coronary arteries. Dyspnea 411806006 R06.00 Dyspnea on exertion 6084 5006 R06.09 Nausea 230310135 R11.0 Cardiac sarcoidosis 7540 3004 D86.85 limited echo with EF 45-50%-08-06 (technical ly difficult) LVgram 08-15-19-EF -55-60% Morbid obesity 660759631 E66.01 BMI-50 Obstructiv e sleep apnea syndrome 30534752 G47.33 uses a CPAP [id number] DIMAS DowneyA_SMG_E NDO_[address] [place] [address] 09/12/2019 08:44:22 09/12/2019 09:58:02 Uncontrolled type 2 diabetes mellitus 666141141 E11.65 Hypertensive disorder 38 641818 I10 Diabetic p eripheral neuropathy 578369226 E11.40 Dyslipidemia 807075699 E 78.5 Vitamin D deficiency 347 25604 E55.9 Long-term current use of steroid 285713955 Z79.52 Diabetic on insulin 1707 32914 Z79.4 [id number] Cheyenne Cantu MD IND_SMG_N AAB_DOC [address] [place] [address] 10/10/2019 13:01:23 10/11/2019 06:12:25 Sarcoidosis 48696429 D86.85 Cardiac sarcoidosis 7540 3004 D86.85 Chronic di astolic heart failure 606064342 I50.32 Essential hypertension 32226983 I10 Mixed hyperlipidemia 267 047403 E78.2 Morbid obesity 900696469 E66.01 Obstructiv e sleep apnea syndrome 71413942 G47.33 [id number] Mary Carmen Butler MD EVA_SMG_E NDO_[address] [place] [address] 10/11/2019 12:17:02 10/11/2019 12:49:48 Uncontrolled type 2 diabetes mellitus 308334386 E11.65 Hypertensive disorder 38 567457 I10 Diabetic p eripheral neuropathy 593175281 E11.40 Dyslipidemia 803749580 E 78.5 Vitamin D deficiency 347 92851 E55.9 Long-term current use of steroid 958028610 Z79.52 Diabetic on insulin 1707 93325 Z79.4 [id number] Shahida Ulloa [facility] EVA_SMG_C ARDIAC_90 1[facility] [id number] [address] [facility] ,[address] [place] [address] 11/19/2019 13:06:35 11/19/2019 15:36:25 Health education given 705674550 Z71.9 Paroxysmal atrial fibrillation 166312029 I48.0 Sarcoidosis 58752573 D86 .9 Chronic di astolic heart failure 627201339 I50.32 [id number] Narcisa Rizo [employer] EVA_SMG_E NDO_[address] [place] [address] 01/10/2020 12:33:52 01/10/2020 13:42:02 Uncontrolled type 2 diabetes mellitus 421268451 E11.65 Hypertensive disorder 38 358538 I10 Diabetic p eripheral neuropathy 571012640 E11.40 Dyslipidemia 168146216 E 78.5 Vitamin D deficiency 347 81413 E55.9 Long-term current use of steroid 043521353 Z79.52 Diabetic on insulin 1707 42013 Z79.4 Body mass index 40+ - severely obese 918287807 Z68.43 [id number] Cassie Delgado NP EVA_SHC_T RANSITION _[address]300 [address] [facility], [address] [place] [address] 04/01/2020 13:50:12 04/01/2020 14:40:08 Chest pain 56636125 R07.9 Stable. Patient denies any chest pain [...] 04/10/2020. Uncontroll ed type 2 diabetes mellitus 030216331 E11.65 Patient is poorly controlled type II insulin-de pendent diabetic with a hemoglobin A1c of 11.8% on 03/29/2020. Patient instructed to check his blood sugar 4 times a day and keep a log. Patient instructed to follow-up with endocrinol justin. Follow-up with Narcisa Hodge NP on 04/17/2020 . Chronic ob structive pulmonary disease 21497386 J44.9 Stable. Patient reports that he does have a rescue inhaler. Patient instructed to follow-up with Dr. Solitario on 05/01/2020 . Essential hypertension 68269127 I10 Stable. Patient's blood pressure is 140/95 in office today. Patient instructed to check his blood pressure 2 times a day and keep a log. Patient instructed to restrict sodium intake to 2 g low-sodium diet. Patient instructed to follow-up with his PCP. Gastroesop hageal reflux disease 296707930 K21.9 Patient reports that he was given a prescripti on for Protonix however, his insurance company would not cover this and instructed him to use something over-the-c ounter. We will send a prescripti on for omeprazole 20 mg daily. Sarcoidosis 88983262 D86 .9 Patient reports that he has an appointmen t in [place] is on 04/24/2020 for a PET scan and follow-up with Dr. Cantu. Obstructiv e sleep apnea syndrome 83012080 G47.33 Patient reports he is compliant with his CPAP therapy. Patient instructed to follow-up with Dr. Pedersen on 06/16/2020 . [id number] MD NELSON Boyer_SMG_C ARDIAC_90 1[facility] [id number] [address] [facility] ,[address] [place] [address] 04/10/2020 14:38:08 04/10/2020 15:14:05 Cardiac sarcoidosis 33783720 D86.85 limited echo with EF 45-50%-08-06 (technical ly difficult) LVgram 08-15-19-EF -55-60% Obstructiv e sleep apnea syndrome 34673710 G47.33 uses a CPAP Chest pain 29112489 R07. 2 Abnormal ECG on presentati on-LHC done for possible STEMI on 08-15-19-an giographic ally normal coronary arteries. Palpitations 24680335 R0 0.2 Paroxysmal atrial fibrillation 462454723 I48.0 2% afib on MCT monitor-Ap -November 2019 on xarelto for AC Coreg for rate control Essential hypertension 82250059 I10 [id number] Narcisa N Ice [employer] EVA_SMG_E NDO_[address] [place] [address] 04/17/2020 09:09:00 04/17/2020 09:43:13 Uncontrolled type 2 diabetes mellitus 196952518 E11.65 Diabetic on insulin 1707 59682 Z79.4 Diabetic p eripheral neuropathy 797417326 E11.40 Hypertensive disorder 38 323667 I10 Dyslipidemia 570618446 E 78.5 Vitamin D deficiency 347 32958 E55.9 Long-term current use of steroid 428551504 Z79.52 Body mass index 40+ - severely obese 261220972 Z68.43 [id number] Cheyenne Cantu MD IND_SMG_N AAB_DOC [address] [place] [address] 04/24/2020 12:38:10 04/24/2020 13:35:25 Cardiac sarcoidosis 38227368 D86.85 Chronic di astolic heart failure 404782911 I50.32 Essential hypertension 58093617 I10 Mixed hyperlipidemia 267 439195 E78.2 Morbid obesity 153983728 E66.01 Obstructiv e sleep apnea syndrome 34768581 G47.33 [id number] MD NELSON Gaines_SMG_S LPPULM_[address] Floor [address] [facility] [address] [place] [address] 06/16/2020 11:53:37 06/16/2020 13:00:23 Obstructive sleep apnea syndrome 37991197 G47.33 Moderate to severe obstructiv e sleep [...] if needed. Hypersomni a with sleep apnea 35311583 G47.10 Hypersomni a improved and adequately controlled on CPAP therapy. [place] score 824 today. Atrial fibrillation 4943 6004 I48.0 Currently in sinus rhythm. The adverse impact of untreated sleep apnea on the control of atrial fibrillati on has been discussed with the patient. Essential hypertension 66754494 I10 The adverse impact of untreated sleep apnea on the control of hypertensi on has been discussed with the patient. Diabetes mellitus 789611 09 E11.9 The adverse impact of untreated sleep apnea on the control of diabetes has been discussed with the patient. Pulmonary sarcoidosis 24 819388 D86[address] Solitario for the same. Chronic ob structive pulmonary disease 08357252 J44.9 PFTs showed predominan tly obstructiv e physiology likely secondary to obstructiv e sarcoid. He is not a candidate for auto titrating positive pressure therapy. Morbid obesity 371926209 E66.01 Weight loss is recommende d and should translate to an improvemen t in the patient's sleep disordered breathing. The patient was given informatio n regarding the importance of diet and exercise for weight loss and weight management . [id number] Clark Solitario MD zCLSD_NELSON _SMG_PULM [address] [place] [address] 07/07/2020 16:20:18 07/07/2020 17:15:09 Pulmonary sarcoidosis 71784585 D86.0 The patient has completed 6-1/2 months [...] with ABGs. Chronic ob structive pulmonary disease 42344993 J44.9 COPD with severe obstructiv e airways [...] cardiology . See above. Long-term drug therapy 186610781 Z79.899 The patient is to continue taking vitamin D and calcium supplement s. Obstructiv e sleep apnea syndrome 42853292 G47.33 As per sleep specialist Atrial fibrillation 4943 6004 I48.91 Management as per cardiology . Uncontroll ed type 2 diabetes mellitus 915058582 E11.65 The patient is now seeing endocrinol ogy. [id number] MD NELSON Boyer_SMG_C ARDIAC_90 1[address] [id number] [address] [facility] [address] [place] [address] 07/09/2020 14:46:31 07/09/2020 15:29:42 Essential hypertension 25707086 I10 Cardiac sarcoidosis 7540 3004 D86.85 limited echo with EF 45-50%-2-4 -20 (technical ly difficult) LVgram 20-EF -55-60% Obstructiv e sleep apnea syndrome 12513719 G47.33 uses a CPAP Paroxysmal atrial fibrillation 301191872 I48.0 2% afib on MCT monitor-Ap -November 2019 on xarelto for AC Coreg for rate control [id number] Narcisa N Ice UTILITY PIPE LAYER EVA_SMG_E [address] [place] [address] 07/20/2020 16:27:29 07/21/2020 09:32:46 Health education given 483486757 Z71.9 Uncontroll ed type 2 diabetes mellitus 184267393 E11.65 Diabetic on insulin 1707 63263 Z79.4 Diabetic p eripheral neuropathy 970284497 E11.40 Hypertensive disorder 38 539318 I10 Dyslipidemia 223039091 E 78.5 Vitamin D deficiency 347 87076 E55.9 Long-term current use of steroid 717007112 Z79.52 Body mass index 40+ - severely obese 881269681 Z68.43 [id number] Cheyenne Cantu MD IND_SMG_N AAB_DOC [address] [place] [address] 10/16/2020 12:59:58 10/16/2020 13:28:21 Cardiac sarcoidosis 53414655 D86.85 Chronic di astolic heart failure 911270343 I50.32 Essential hypertension 73848215 I10 Mixed hyperlipidemia 267 478804 E78.2 Morbid obesity 661185781 E66.01 Obstructiv e sleep apnea syndrome 49497044 G47.33 [id number] DIMAS OviedoA_SMG_E [address]DO_[address] [place] [address] 10/19/2020 15:31:46 10/19/2020 16:04:36 Health education given 548177200 Z71.9 Uncontroll ed type 2 diabetes mellitus 192588835 E11.65 Diabetic on insulin 1707 06372 Z79.4 Diabetic p eripheral neuropathy 263852866 E11.40 Hypertensive disorder 38 305506 I10 Dyslipidemia 833153132 E 78.5 Vitamin D deficiency 347 74055 E55.9 Long-term current use of steroid 406818875 Z79.52 Body mass index 40+ - severely obese 696253618 Z68.43 [id number] Clark Solitario MD zCLSD_EVA _SMG_PULM [address] [place] [address] 01/05/2021 15:28:02 01/05/2021 15:53:31 Pulmonary sarcoidosis 62464157 D86.0 The patient has completed 12 months [...] August 2021. Chronic ob structive pulmonary disease 12493736 J44.9 COPD with severe obstructiv e airways disease documented by PFTs on 08/14/2018. Since his last visit, the patient has not had any exacerbati ons of COPD. The patient remains stable with Trelegy 100 mcg 1 puff once a day. His CAT score today is 14. Cardiac sarcoidosis 7540 3004 D86.85 As per cardiology . See above. Long-term drug therapy 104102608 Z79.899 The patient is to continue taking vitamin D and calcium supplement s. Obstructiv e sleep apnea syndrome 38586210 G47.33 As per sleep specialist Atrial fibrillation 4943 6004 I48.91 Management as per cardiology . Uncontroll ed type 2 diabetes mellitus 652325642 E11.65 As per endocrinol ogy. [id number] DIMAS Oviedo_SMG_E [address]DO_[address] [place] [address] 01/19/2021 15:44:31 01/19/2021 16:17:24 Uncontrolled type 2 diabetes mellitus 043631154 E11.65 Diabetic p eripheral neuropathy 695426297 E11.40 Hypertensive disorder 38 860717 I10 Dyslipidemia 781042869 E 78.5 Vitamin D deficiency 347 04111 E55.9 Long-term current use of steroid 657458479 Z79.52 Diabetic on insulin 1707 20073 Z79.4 Body mass index 40+ - severely obese 729430032 Z68.43 Health edu cation given 328920261 Z71.9 [id number] MD RHONDA BoyerSMG_C ARDIAC_[address] [id number] [place] [place] [address] 02/10/2021 09:58:57 02/10/2021 10:24:49 Cardiac sarcoidosis 22961543 D86.85 limited echo with EF 45-50%-2-4 -20 (technical ly difficult) LVgram 2-13-20-EF -55-60% Chronic di astolic heart failure 024916449 I50.32 Essential hypertension 32079851 I10 well controlled -continue current meds Morbid obesity 770336075 E66.01 BMI-49.5-r ecommend weight loss Obstructiv e sleep apnea syndrome 71705481 G47.33 uses a CPAP Paroxysmal atrial fibrillation 594022042 I48.0 2% afib on MCT monitor-Ap -November 2019 on xarelto for ACCoreg for rate control Has not seen EP in over one year-isacc cook appt with Shahida in approx 3 months [id number] MD NELSON Boyer_SMG_C ARDIAC_90 [address] sQaf[address] [place] [place] [address] 10/25/2021 08:33:00 10/25/2021 10:23:02 Cardiac sarcoidosis 14190034 D86.85 limited echo with EF 45-50%-2-4 -20 (technical ly difficult) LVgram -13-20-EF -55-60% Essential hypertension 71583304 I10 well controlled -continue current meds Morbid obesity 861907056 E66.01 BMI-49.5-r ecommend weight loss Obstructiv e sleep apnea syndrome 61964782 G47.33 uses a CPAP Paroxysmal atrial fibrillation 216572243 I48.0 2% afib on MCT monitor-Ap -November 2019 on xarelto for ACCoreg for rate controlMul taq for rhythm control [id number] Shahida Meier EVA_SMG_C ARDIAC_90 [address] [id number] [place] [place] [address] 10/25/2021 08:30:08 10/25/2021 10:22:48 Sarcoidosis 11686472 D86.9 Paroxysmal atrial fibrillation 087299803 I48.0 Chronic di astolic heart failure 668012658 I50.32 [id number] Clark Solitario MD zCLSD_EVA _SMG_PULM _[address] [facility] [address] [place] [address] 11/16/2021 14:19:05 11/16/2021 14:48:40 Pulmonary sarcoidosis 55276222 D86.0 The patient completed 12 months of [...] 6 months. Chronic ob structive pulmonary disease 74504871 J44.9 COPD with severe obstructiv e airways [...] See above. Obstructiv e sleep apnea syndrome 22537612 G47.33 As per sleep specialist Atrial fibrillation 4943 6004 I48.91 Management as per cardiology . He is taking Xarelto. Uncontroll ed type 2 diabetes mellitus 238135156 E11.65 As per endocrinol ogy. He is back on his medication s. A1C is pending. [id number] Leslie Alvarado UTILITY PIPE LAYER EVA_SMG_S LPPULM_[address] [place] [address] 01/10/2022 08:45:40 01/10/2022 09:30:53 Obstructive sleep apnea syndrome 56689296 G47.33 Moderate to severe obstructiv e sleep [...] if needed. Hypersomni a with sleep apnea 80671328 G47.10 Hypersomni a improved and adequately controlled on CPAP therapy. [place] score 01/23 today. Atrial fibrillation 4943 6004 I48.0 Currently in sinus rhythm. The adverse impact of untreated sleep apnea on the control of atrial fibrillati on has been discussed with the patient. Essential hypertension 67043842 I10 The adverse impact of untreated sleep apnea on the control of hypertensi on has been discussed with the patient. Diabetes mellitus 650327 09 E11.9 The adverse impact of untreated sleep apnea on the control of diabetes has been discussed with the patient. Pulmonary sarcoidosis 24 710425 D86.[address] Solitario for the same. Chronic ob structive pulmonary disease 20179851 J44.9 PFTs showed predominan tly obstructiv e physiology likely secondary to obstructiv e sarcoid. He is not a candidate for auto titrating positive pressure therapy. Body mass index 40+ - severely obese 662293986 Z68.42 He is lost 23.7 pounds and is scheduled to have a gastric sleeve surgery in the next several months in [place], [place]. I commended him on his weight loss and encouraged him to persist with the same. Weight loss is recommende d and should translate to an improvemen t in the patient's sleep disordered breathing. The patient was given informatio n regarding the importance of diet and exercise for weight loss and weight management . [id number] DIMAS Oviedo_SMG_E [address]DO_[address] [place] [address] 01/11/2022 15:31:29 01/11/2022 16:03:04 Uncontrolled type 2 diabetes mellitus 447184176 E11.65 Diabetic p eripheral neuropathy 683348097 E11.40 Hypertensive disorder 38 621740 I10 Dyslipidemia 824022211 E 78.5 Vitamin D deficiency 347 17963 E55.9 Long-term current use of steroid 148439848 Z79.52 Diabetic on insulin 1707 99517 Z79.4 Body mass index 40+ - severely obese 005558231 Z68.43 Health edu cation given 799810894 Z71.9 [id number] DIMAS GregorioA_SMG_B OBFP_[address] [place] [address] 03/10/2022 15:09:49 03/10/2022 16:44:47 COVID-19 276692694 U07.1 Health edu cation given 734771818 Z71.9 [id number] Cheyenne Cantu MD IND_SMG_N AAB_DOC [address] [place] [address] 03/21/2022 11:10:58 03/21/2022 14:41:25 Cardiac sarcoidosis 06351840 D86.85 Chronic di astolic heart failure 953835670 I50.32 Essential hypertension 74045765 I10 Mixed hyperlipidemia 267 174886 E78.2 Morbid obesity 906678538 E66.01 Obstructiv e sleep apnea syndrome 08276206 G47.33 [id number] DIMAS OviedoA_SMG_E NDO_[address] [place] [address] 04/19/2022 13:20:52 04/19/2022 14:20:15 Uncontrolled type 2 diabetes mellitus 162826705 E11.65 Diabetic p eripheral neuropathy 279302362 E11.40 Hypertensive disorder 38 112033 I10 Dyslipidemia 654898296 E 78.5 Vitamin D deficiency 347 33775 E55.9 Long-term current use of steroid 488548836 Z79.52 Diabetic on insulin 1707 63560 Z79.4 Body mass index 40+ - severely obese 636366123 Z68.43 Health edu cation given 263750007 Z71.9 [id number] Cheyenne Cantu MD IND_SMG_N AAB_DOC [address] [facility] [address] [place] [address] 08/15/2022 07:35:17 08/15/2022 16:05:42 Cardiac sarcoidosis 58703493 D86.85 Chronic di astolic heart failure 365826134 I50.32 Essential hypertension 41107810 I10 Mixed hyperlipidemia 267 226636 E78.2 Morbid obesity 445351725 E66.01 Obstructiv e sleep apnea syndrome 23801964 G47.33 [id number] Cheyenne Cantu MD IND_SMG_N AAB_DOC [address] [facility] [address] [place] [address] 02/16/2023 10:19:56 02/17/2023 17:23:01 Cardiac sarcoidosis 77046038 D86.85 Chronic di astolic heart failure 738746551 I50.32 Essential hypertension 83383257 I10 Mixed hyperlipidemia 267 205409 E78.2 Morbid obesity 832098405 E66.01 Obstructiv e sleep apnea syndrome 08926575 G47.33 [id number] Cheyenne Cantu MD IND_SMG_N AAB_DOC [address] [facility] 420 [place] [address] 10/12/2023 09:31:20 10/12/2023 10:04:32 Cardiac sarcoidosis 42710406 D86.85 Chronic di astolic heart failure 692466550 I50.32 Essential hypertension 39919525 I10 Mixed hyperlipidemia 267 275421 E78.2 Obstructiv e sleep apnea syndrome 30453593 G47.33 Paroxysmal atrial fibrillation 606973342 I48.0 [id number] Cheyenne Cantu MD IND_SMG_N AAB_DOC [address] [facility] [address] [place] [address] 07/15/2024 10:23:51 07/15/2024 15:35:59 Cardiac sarcoidosis 63197427 D86.85 Chronic di astolic heart failure 891253089 I50.32 Essential hypertension 40310216 I10 Mixed hyperlipidemia 267 302346 E78.2 Obstructiv e sleep apnea syndrome 33779812 G47.33 Paroxysmal atrial fibrillation 244016093 I48.0 Health edu cation given 343302828 Z71.9 Health Concerns Section Related Observation LastModified by Organization Detai ls LastModified Time None Recorded Concern Status LastModified by Organization Details LastModified Time None Recorded Advance Directives Directive N: Payers Encounter Date Sequence Insurance Name Policy Number Policy Munoz Covered Member ID Munoz Member ID Guarantor Name 04/19/2022 2 MEDICARE B-IN: [facility] Vu Tilley Jr [id number] Vu Tilley 04/19/2022 1 [facility] [id number] [place] L [place] [id number] Vu Tilley 08/15/2022 2 MEDICARE B-IN: [facility] Vu Tilley Jr [id number] Vu Tilley 08/15/2022 1 [facility] [id number] October L [place] [id number] Vu Tilley 02/16/2023 2 MEDICA[place]: [place] [employer]AD[employer]AL FFS Vu Tilley [id number] Vu Tilley 02/16/2023 2 MEDICARE B-IN: [facility] Vu Tilley Jr [id number] Vu Tilley 10/12/2023 1 [employer] (MEDICARE REPLACEMENT HMO) [id number] Vu Tilley [id number] Vu Tilley 07/15/2024 1 [employer] (MEDICARE REPLACEMENT HMO) [id number] Vu Tilley [id number] Vu Tilley Notes Date Note Type Note [...] AGG SS, and Synjardy 25-1000 mg daily, Rybelsus Planning to have gastric sleeve on May 18- in [place]. Will be on clear liquid for 2 weeks prior. Complications of diabetes include diabetic peripheral sensory neuropathy Reva Yang NP [address] [place] [address], [address], [place], [address], [place] - [place] - [place] 04/19/2022 14:26:10 08/15/2022 text/html Patient acknowle dged, [...] as well as 30-minute sessions with a personal carer without significant limitation.However, he does mention mild [...] history:1. Pulmonary and cardiac sarcoid- Diagnosed at [facility] [[facility], Dr. Mendez], Dx Lung Biopsy- [...] Echocardiogram 11/20/2018-Normal LV size, ejection fraction 55-60%.4. [facility] (08/15/2019)- Left ventricle: The estimated ejection fraction is 55-60%.- Left main: Normal.- LAD: Normal.- Left circumflex: Normal.- Right coronary: Normal. Sunit-Dasha Cantu MD [address] [place] [address], [address], [place], [address], [place] - [place] - [place] 08/15/2022 09:00:36 02/16/2023 text/html Mr. Tilley is [...] as well as work out with a personal carer for 45 minutes a day at a time. He has lost an additional 33 pounds since his last visit with me. He does mention rare episodes of shortness of breath, and did undergo a PET scan today, however the results of which are pending. Additionally, he states that he has met a new associate professor of art history in [place], and was told that his testing was [...] history:1. Pulmonary and cardiac sarcoid- Diagnosed at [facility] [[facility], Dr. Mendez], Dx Lung Biopsy- [...] Echocardiogram 11/20/2018-Normal LV size, ejection fraction 55-60%.4. [facility] (08/15/2019)- Left ventricle: The estimated ejection fraction is 55-60%.- Left main: Normal.- LAD: Normal.- Left circumflex: Normal.- Right coronary: Normal. Sunit-Dasha Cantu MD [address] , [address], [place], [address], [place] - [place] 02/17/2023 08:37:54 10/12/2023 text/html Mr. Tilley is [...] history:1. Pulmonary and cardiac sarcoid- Diagnosed at [facility] [[facility], Dr. Mendez], Dx Lung Biopsy- [...] Echocardiogram 11/20/2018-Normal LV size, ejection fraction 55-60%.4. [facility] (08/15/2019)- Left ventricle: The estimated ejection fraction is 55-60%.- Left main: Normal.- LAD: Normal.- Left circumflex: Normal.- Right coronary: Normal. Sunit-Dasha Cantu MD [address] , [address], [place], [address], [place] - [place] 10/12/2023 10:17:52 07/15/2024 text/html Patient acknowle dged, [...] history:1. Pulmonary and cardiac sarcoid- Diagnosed at [facility] [[facility], Dr. Mendez], Dx Lung Biopsy- [...] Echocardiogram 11/20/2018-Normal LV size, ejection fraction 55-60%.4. [facility] (08/15/2019)- Left ventricle: The estimated ejection fraction is 55-60%.- Left main: Normal.- LAD: Normal.- Left circumflex: Normal.- Right coronary: Normal. Latriciait-Dasha Cantu MD [address] [place] [address], [address], [place], [address], [place] - [place] - [place] 07/16/2024 15:03:10
[2024-10-30 06:54] VITALS: BP 109/65; PULSE 86; RESP 16; TEMP 36.7; O2SAT 97
--- OUTSIDE RECORDS SUMMARY | 2024-10-30 07:25 | XMS_ITS | Referral Summary ---
Author Organization [facility] Address [address] [place] [address] Care Team Providers Care Aerospace Project Engineer Name Role Phone Lotus Marina NP Primary Care Provider [phone] Allergies Active Allergy Reactions Criticality Noted Date [...] 36.6 C (97.8 F) 08/11/2023 12:18 PM SANDBLASTER STONE Respiratory Rate 18 08/11/2023 12:18 PM SANDBLASTER STONE Oxygen Saturation 97% 11/22/2023 9:15 AM CDT Inhaled Oxygen Concentration - - Weight 113.9 kg (251 lb) 11/22/2023 9:15 AM CDT Height 180.3 cm (5' 11 ) 11/22/2023 9:15 AM CDT Body Mass Index 35.01 11/22/2023 9:15 AM CDT Plan of Treatment Not on file Insurance MEDICARE AETNA MEDICARE GOLD AETNA MEDICARE GOLD MEDICARE [facility] Address: [address] [address] [place] [address] AETNA MEDICARE GOLD Care Teams Aerospace Project Engineer Relationship Specialty Start Date End Date Lotus Marina NP [address] [facility] [address] [place] [address] PCP - General Nurse Practitioner 04/28/23 Terell Zamudio [address] [place] [address] Consulting Physician Cardiology 05/01/23
--- OUTSIDE RECORDS SUMMARY | 2024-10-30 07:25 | XMS_ITS | Clinical Summary ---
Author Organization [facility] Address [address] [place] [address] Phone Care Team Providers Care Teller Coordinator Name Role Phone Unavailable Primary Care [...] 60 mL 280 mL 05/19/2022 2:36 PM SCREEN REPAIRER CRUSHER 2 Active ondansetron (ZOFRAN ODT) 4 mg Tablet, Rapid Dissolve Take 1 Tablet (4 mg) by mouth every 6 hours as needed for Nausea/Vomiting. Dissolve tablet on top of tongue, then swallow with saliva. 28 Tablet 05/19/2022 2:36 PM SCREEN REPAIRER CRUSHER 2 Active rivaroxaban (XARELTO) 20 mg Tablet [...] COVID-19 VACCINE - EMERGENCY USE AUTHORIZATION, MRNA, [id number](PF) 30 MCG/0.3 ML IM SUSP 10/14/2021,11/17/2020,10/19/2020 (PNEUMOVAX [...] Comments Blood Pressure 150/92 05/19/2022 12:35 PM SCREEN REPAIRER CRUSHER Pulse 60 05/19/2022 12:35 PM SCREEN REPAIRER CRUSHER Temperature 36.9 C (98.4 F) 05/19/2022 12:35 PM SCREEN REPAIRER CRUSHER Respiratory Rate 18 05/19/2022 12:3 5 PM SCREEN REPAIRER CRUSHER Oxygen Saturation 100% 05/19/2022 12: 35 PM SCREEN REPAIRER CRUSHER Inhaled Oxygen Concentration - - Weight 158.1 kg (348 lb 9.6 oz) 05/19/2022 4:44 AM SCREEN REPAIRER CRUSHER Height 180.3 cm (5' 11 ) 05/17/2022 1:26 PM SCREEN REPAIRER CRUSHER Body Mass Index 48.62 05/17/2022 1:26 PM SCREEN REPAIRER CRUSHER Plan of Treatment Health Maintenance Due Date [...] this topic Medical Devices Implanted Type Area Women'S Garment Fitter Device Identifier Shelf Expiration Date Model / Serial / Lot Seamguard Endogia 60 Blk [id number] - [id number] Implanted:Qty : 2 on 05/18/2022 by Pao Bell MD at [facility] Biological N/A: Stomach [employer] 08/31/2024 [id number] / / [id number] Seamguard Endogia 60 Prpl [id number] - [id number] Implanted:Qty : 3 on 05/18/2022 by Pao Bell MD at [facility] Biological N/A: Stomach [employer] 08/25/2024 [id number] / / [id number] Description:#3 implant- lot# [id number] exp. 09/28/24 Insurance MEDICARE PART A AND B RX [employer] RX Member Subscriber Plan / Payer (Ef fective 2022-Present) Name:Vu Tilley Jr. Relation to Subscriber:Spouse Payer ID:Not on file [id number] Type:RX Commercial Address: [address] [facility] Medicare Part D Advance Directives For more information, please contact: [phone] * Full Code (Latest Code Status on File) Date Activated Date Inactivated Comments 05/18/2022 3:46 PM 05/19/2022 4:40 PM * Full Code Date Activated Date Inactivated Comments 05/18/2022 1:17 PM 05/18/2022 3:46 PM * Full Code Date Activated Date Inactivated Comments 05/18/2022 10:30 AM 05/18/2022 1:16 PM
--- OUTSIDE RECORDS SUMMARY | 2024-10-30 07:25 | XMS_ITS | Clinical Summary ---
Author Organization [facility] Address [address] [place] [address] Care Team Providers Care Shot Dropper Name Role Phone Lotus Marina NP Primary Care Provider [phone] Allergies Active Allergy Reactions Criticality Noted Date [...] 36.6 C (97.8 F) 08/11/2023 12:18 PM DIRECTOR OF PRIMARY Respiratory Rate 18 08/11/2023 12:18 PM DIRECTOR OF PRIMARY Oxygen Saturation 97% 11/22/2023 9:15 AM CDT [...] Insurance MEDICARE AETNA MEDICARE GOLD T MEDICARE [facility] MEDICARE AETNA MEDICARE [facility] Care Teams Shot Dropper Relationship Specialty Start Date End Date Lotus Marina NP [address] [place] [address] PCP - General Nurse Practitioner 04/28/23 Terell Zamudio [address] [facility] [address] Consulting Physician Cardiology 05/01/23
--- OUTSIDE RECORDS SUMMARY | 2024-10-30 07:25 | XMS_ITS | CONTINUITY OF CARE DOCUMENT ---
Author Name piyush pickett Address Unknown Organization [facility] Address [address] [place] [address] Phone [phone] Care Team Providers Care Manager Managed Backup Services Name Role Phone Mathieu SLAUGHTER, Neammajosé manuel [...] In-person encounter Office Visit Kash Vitale MD [facility] Sleep apneaChest pain-neg routine stress 7 - 7 In-person encounter Office Visit Kash Vitale MD [facility] Other symptoms involving cardiovascular systemFamily History [...] Melinda Ji [facility], [facility], number smoked per week 11 Melinda Ji cigar use yes Melinda Ji smoking status Former smoker Melinda Lam nn smoking/tobacco cess ation, patient education and counseling yes Kash Vitale MD social history reviewed E&M roxanna curtis - no changes required Kash Vitale MD social history E&M 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 Smoking [...] Payer name Policy type / Coverage type O'Brien red green party ID [place] MED[place] Medicare [id number] TREATMENT PLAN Date Name Performer follow up:BP 124/71 His updated medication list for this problem includes: Losartan Potassium-hctz 100-25 Mg Tabs (Losartan potassium-hctz) ..... 1 tab daily Kash Vitale MD new patient visit: O rders: S TR - Routine (CPT-04564) S leep Study (*) Kash Vitale MD new patient visit: O rders: S TR - Routine (CPT-40063) S leep Study (*) C omplete Echo (CPT-01442) Kash Vitale MD Date Name Complete Echo Sleep Study STR - Routine HISTORY OF PROCEDURES Procedure Date Procedure Name Provider Procedure Notes S tatus EKG Kash Vitale MD completed
--- OUTSIDE RECORDS SUMMARY | 2024-10-30 07:26 | XMS_ITS | Clinical Summary ---
Author Organization [facility] Address [address] [place] [address] Care Team Providers Care Informatica Architect Name Role Phone Imani Em MD Primary Care Provider Source Comments [facility],non-owned Affiliates and Associated Physician Practices is amultiple site organization consisting of ambulatory clinics and hospital sitesin [place], [place], [place] and [place]. This disclosure is being madepursuant to the Care Everywhere program and may not contain all information available regarding this patient. 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 Gender Identity Not on file Sexual Orientation Not on file Last Filed Vital Signs Vital Sign Reading Time Taken Comments Blood Pressure 128/78 01/22/2018 10:54 AM CDT Pulse 88 01/22/2018 10:54 AM CDT Temperature 36.9 C (98.5 F) 01/22/2018 10:54 AM CDT Respiratory Rate 19 09/05/2017 7:42 AM [employer] CENTRE MANAGER Oxygen Saturation 96% 01/22/2018 10:54 AM CDT Inhaled Oxygen Concentration 21% 09/05/2017 1 2:50 AM FITNESS CENTRE MANAGER Weight 169.2 kg (373 lb) 01/22/2018 10:54 [...] PANEL (CALCIUM TOTAL) STAT 09/05/2017 4:49 AM [employer] CENTRE MANAGER Chest pain, unspecified type from Last 3 Months or Most Recently Relevant to Health Maintenance Results * HEMOGLOBIN A1C - POINT OF CARE (AMB) [facility] (01/22/2018) [facility] Hemoglobin A1c POCT 8.5 BLOOD SPECIMEN / Unknown 01/22/2018 Felix Chapman MD LAB - POINT OF CARE ORDERABLE S Final Result * (ABNORMAL) BASIC METABOLIC PANEL (CALCIUM TOTAL) (09/05/2017 4:49 AM FITNESS CENTRE MANAGER) [facility] Glucose 373(H) 70 - 125 mg/dL 09/05/2017 5:13 AM FITNESS CENTRE MANAGER [facility] Sodium 132(L) 136 - 145 mmol/L 09/05/2017 5:13 AM FITNESS CENTRE MANAGER [facility] Potassium 4.6(H) 3.4 - 4.5 mmol/L 09/05/2017 5:13 AM [facility] Chloride 98 98 - 107 mmol/L 09/05/2017 5:13 AM [facility] CO2 19(L) 22 - 29 mmol/L 09/05/2017 5:13 AM [employer] CENTRE MANAGER [facility] Calcium 10.00 8.4 - 10.2 mg/dL 09/05/2017 5:13 AM [employer] CENTRE MANAGER [facility] Anion Gap 20 10 - 20 mmol/L 09/05/2017 5:13 AM [employer] CENTRE MANAGER [facility] BUN 21.2 8.4 - 25.7 mg/dL 09/05/2017 5:13 AM [facility] Creatinine 1.38(H) 0.72 - 1.25 mg/dL 09/05/2017 5:13 AM [employer] CENTRE MANAGER [facility] eGFR by MDRD 58(L) >60 mL/min/1.7 3m2 09/05/2017 5:13 AM [employer] CENTRE MANAGER [facility] eGFR by MDRD >60 >60 mL/min/1.7 3m2 09/05/2017 5:13 AM [facility] Blood BLOOD SPECIMEN / Unknown Lab Venipuncture / Unknown 09/05/2017 4:49 AM FITNESS CENTRE MANAGER 09/05/2017 4:53 AM FITNESS CENTRE MANAGER Thelma Betancur MD LAB - CHEMISTRY ORDERABLES nal Result [facility] [address] [place] [address], [facility] from Last 3 Months or Most Recently Relevant to Health Maintenance Insurance [facility] Care Teams Informatica Architect Relationship Specialty Start Date End Date Imani Em MD [address] [place], [place] [id number] PCP - General 08/25/16
[2024-10-30] MEDS: IPRATROPIUM 0.5 MG/ALBUTEROL SULFATE 2.5 MG AMPUL.NEB 3 ML INHALATION (07:31)
[2024-10-30 07:32] VITALS: PULSE 80; RESP 20
--- NOTE | 2024-10-30 07:35 | ED_ITS ---
HPI - General Adult General Chief complaint: Upper Respiratory Infection Stated complaint: uri Time Seen by Provider: 10/30/24 07:05 History of Present Illness HPI narrative: Patient is a 44-year-old male with history of sarcoidosis of the lungs who presents ER with cough. Ongoing for 3 days. Associated postnasal drip. Subjective fevers and chills. No chest pain or chest pressure. No improvement with inhaler at home. Related Data Home Medications ?Medication ?Instructions ?Recorded ?Confirmed ?Last Taken ?Type mycophenolate mofetil 500 mg tablet 500 mg PO Q12H 08/05/22 10/10/24 Unknown History furosemide 40 mg tablet 80 mg PO DAILY 08/02/23 10/10/24 Unknown History Allergies Allergy/AdvReac Type Severity Reaction Status Date / Time pioglitazone (From Actos) Allergy Mild Rash Verified 10/30/24 07:12 Review of Systems Review of Systems: All systems reviewed & are unremarkable except as noted in HPI and below Constitutional: Constitutional: Reports no additional constitutional complaints ENT: Reports system reviewed and no additional complaints, except as documented Cardiovascular: Cardiovascular: Reports no additional cardiovascular complaints Respiratory: Respiratory: Reports no additional respiratory complaints [facility] Past Medical History Medical History Sarcoidosis Obstructive sleep apnea (adult) (pediatric) stopped after surgery Migraines High cholesterol Leg pain Vomiting Anticonvulsant-induced dizziness Heartburn Swollen feet HTN (hypertension) Headache GERD (gastroesophageal reflux disease) Diabetes COPD (chronic obstructive pulmonary disease) Asthma Allergies History of left heart catheterization Essential hypertension Morbid obesity with BMI of 50.0-59.9, adult Paroxysmal A-fib Sarcoidosis of lung Sleep disorder, circadian, shift work type Type 2 diabetes mellitus with hyperglycemia Surgical History Surgical History History of sleeve gastrectomy S/P gastric sleeve procedure No pertinent past surgical history Family History Family History Mother Hypertension Father Family history of gastrointestinal disorder Acute Crohn's disease Social History Social History Smoking status: Former smoker Tobacco type: cigarettes Smoking end date: 01/01/12 Alcohol intake: never Substance use: never Substance use type: does not use Do You Feel Safe in your Home?: Yes Lack of Transportation: No Lack of Food: Never True Current Housing: I Have Housing Concerned About Future Housing: No Difficulty Paying Gas/Electric Bills: No Difficulty Paying for Meds: No Currently Unemployed: No Education: High School Diploma/GED Difficulty w/ Childcare or Family Care: YES Living arrangements: with family Occupation/Education: occupation Gender identity (if verbalized by the patient): Male Sexual Orientation (if Verbalized by the Patient): Straight or Heterosexual Spiritual care concerns: No Agree to blood products: Yes Exam Narrative: GENERAL: Well-appearing, well-nourished, and in no acute distress. HEAD: Normocephalic, atraumatic. ENT: Mucous membranes moist. CHEST: Wheezing right mid and lower lung zones as well as left upper lung zone.. No respiratory distress. HEART: Regular rate and rhythm. Normal peripheral pulses. EXTREMITIES: Normal range of motion. No edema. NEURO: Alert and oriented x3. PSYCH: Normal mood and affect. Course Course Emergency Course: Wheezing improved after nebulizer treatment. Viral swab and x-ray negative. Discharged with steroids. Vital Signs Vital signs: Vital Signs Temperature 98.0 F 10/30/24 06:54 Pulse Rate 86 10/30/24 06:54 Respiratory Rate 16 10/30/24 06:54 Blood Pressure 109/65 10/30/24 06:54 Pulse Oximetry 97 10/30/24 06:54 Temperature 98.0 F 10/30/24 06:54 Pulse Rate 83 10/30/24 08:21 Respiratory Rate 14 10/30/24 08:21 Blood Pressure 123/68 10/30/24 08:21 Pulse Oximetry 100 10/30/24 08:21 Medical Decision Making Vital Signs Vital Signs: Vital Signs Temperature 98.0 F 10/30/24 06:54 Pulse Rate 86 10/30/24 06:54 Respiratory Rate 16 10/30/24 06:54 Blood Pressure 109/65 10/30/24 06:54 Pulse Oximetry 97 10/30/24 06:54 Temperature 98.0 F 10/30/24 06:54 Pulse Rate 83 10/30/24 08:21 Respiratory Rate 14 10/30/24 08:21 Blood Pressure 123/68 10/30/24 08:21 Pulse Oximetry 100 10/30/24 08:21 Lab Data Labs: Lab Results 10/30/24 Range/Units 07:14 Influenza A (RT-PCR) Negative (Negative) Influenza B (RT-PCR) Negative (Negative) RSV (RT-PCR) Negative (Negative) SARS-CoV-2 RNA (RT-PCR) Negative (Negative) Imaging Data Radiologist's impression: ITS Impressions Chest X-Ray 10/30/24 08:17 IMPRESSION: 1. Stable appearance of chronic interstitial lung disease likely related to r eported history of sarcoidosis. Discharge Plan Discharge Clinical Impression: Asthma exacerbation Patient Disposition: Home Condition: Stable Instructions: Asthma (ED) Additional Instructions: Please return to the emergency department if you develop severe and persistent chest pain, difficulty breathing, dizziness, leg swelling or if you are coughing up blood as these can be signs of a medical emergency. Please call your doctor for a follow up appointment to determine the need for further testing. Patient Language: Samoan Prescriptions: New prednisone 50 mg tablet 50 mg PO DAILY Qty: 7 0RF No Action furosemide 40 mg tablet 80 mg PO DAILY hydroxyzine HCl 25 mg tablet 25 mg PO TID PRN (Reason: anxiety) Qty: 30 0RF mycophenolate mofetil 500 mg tablet 500 mg PO Q12H atorvastatin 80 mg tablet 80 mg PO DAILY Qty: 90 1RF carvedilol 25 mg tablet 25 mg PO Q12H 90 Days Qty: 180 1RF Rx Instructions: must administer with a meal/food ezetimibe 10 mg tablet 10 mg PO DAILY Qty: 90 1RF fghpejarchv-nrldwcvew-kfzfeklw 200-62.5-25 mcg blister with device 1 inh inhalation DAILY Qty: 60 3RF albuterol sulfate 2.5 mg /3 mL (0.083 %) solution for nebulization 2.5 mg inhalation Q4-6H PRN (Reason: shortness of breath or wheezing) Qty: 180 3RF cyclobenzaprine 10 mg tablet 10 mg PO TID PRN (Reason: muscle spasm) Qty: 30 0RF albuterol sulfate 90 mcg/actuation HFA aerosol inhaler 1 inh inhalation QID PRN (Reason: shortness of breath or wheezing) Qty: 6.7 0RF Xarelto 20 mg tablet 20 mg PO DAILY Qty: 30 5RF Rx Instructions: must administer with evening meal lisinopril 5 mg tablet 5 mg PO DAILY Qty: 90 1RF hydrocodone-acetaminophen 5-325 mg tablet 1 tablet PO Q8H PRN (Reason: pain) Qty: 21 0RF omeprazole 20 mg capsule,delayed release(DR/EC) 20 mg PO DAILY Qty: 90 1RF Ozempic 0.25 mg or 0.5 mg (2 mg/3 mL) pen injector 0.25 mg subcut WEEKLY Qty: 3 0RF Rx Instructions: for 4 weeks Follow-up/Referrals: Lotus Marina APRN [Primary Care Provider] - 1 Week
[2024-10-30 07:40] VITALS: PULSE 83; RESP 21
[2024-10-30 07:55] LABS: Influenza A QL RT-PCR Negative (Negative); Influenza B QL RT-PCR Negative (Negative); RSV RNA, RT-PCR Negative (Negative); SARS-CoV-2 RNA PCR Negative (Negative)
[2024-10-30 08:21] VITALS: BP 123/68; PULSE 83; RESP 14; O2SAT 100
== END 2024-10-30 08:35 | disposition home or self-care (01) ==
PROVIDERS: Student in an Organized Health Care Education/Training Program; Emergency Provider Emergency Medicine; PCP Nurse Practitioner Family
DX: J45.901 Unspecified asthma with (acute) exacerbation (principal); D86.0 Sarcoidosis of lung; J44.9 Chronic obstructive pulmonary disease, unspecified; I10 Essential (primary) hypertension; I48.0 Paroxysmal atrial fibrillation; E78.00 Pure hypercholesterolemia, unspecified; E11.9 Type 2 diabetes mellitus without complications; E66.01 Morbid (severe) obesity due to excess calories; Z68.43 Body mass index [BMI] 50.0-59.9, adult; K21.9 Gastro-esophageal reflux disease without esophagitis; G47.26 Circadian rhythm sleep disorder, shift work type; Z98.84 Bariatric surgery status; Z87.891 Personal history of nicotine dependence; J84.9 Interstitial pulmonary disease, unspecified; Z79.01 Long term (current) use of anticoagulants; Z79.85 Long-term (current) use of injectable non-insulin antidiabetic drugs; Z79.899 Other long term (current) drug therapy
CPT/HCPCS: 71046; 87637; 93005; 94640; 99283

== ENCOUNTER 2025-01-10 10:10 | Emergency (ER) | payer MEDICARE, SELFPAY ==
--- NOTE | 2025-01-10 10:15 | ED_ITS ---
HPI - Male Genitourinary General Chief complaint: Urogenital-Male Stated complaint: UTI/Back Pain Time Seen by Provider: 01/10/25 10:16 Source: patient Mode of arrival: ambulatory Limitations: no limitations History of Present Illness HPI Narrative: Vu is a 44-year-old male patient presenting to the clinic today with complaints possible UTI with right-sided flank pain. He reports symptoms been going on for 1 week. Rates his pain currently an 8/10. Pain is sharp and stabbing. Noticed that his urine is very dark brown in color. No urinary symptoms. Denies any radiation of pain. History of sarcoidosis of the lung, type 2 diabetes, hypertension, and AFib. He is on a blood thinner. No concern for STIs. No history of kidney stones. He has not taken any medications to try to treat his symptoms. Related Data Home Medications ?Medication ?Instructions ?Recorded ?Confirmed ?Last Taken ?Type mycophenolate mofetil 500 mg tablet 500 mg PO Q12H 08/05/22 11/28/24 Unknown History furosemide 40 mg tablet 80 mg PO DAILY 08/02/23 11/28/24 Unknown History bupropion HCl 300 mg 24 hr tablet, mg PO 11/28/24 11/28/24 Unknown History extended release Allergies Allergy/AdvReac Type Severity Reaction Status Date / Time pioglitazone (From Actos) Allergy Mild Rash Verified 01/10/25 10:38 Review of Systems Review of Systems: Pertinent positives per HPI. Patient denies any fever, chills, rash, headache, visual changes, dizziness, cough, runny nose, sore throat, shortness of breath, chest pain, palpitations, nausea, vomiting, diarrhea, constipation, abdominal pain, or any urinary issues. [facility] Past Medical History Medical History Sarcoidosis Obstructive sleep apnea (adult) (pediatric) stopped after surgery Migraines High cholesterol Leg pain Vomiting Anticonvulsant-induced dizziness Heartburn Swollen feet HTN (hypertension) Headache GERD (gastroesophageal reflux disease) Diabetes COPD (chronic obstructive pulmonary disease) Asthma Allergies History of left heart catheterization Essential hypertension Morbid obesity with BMI of 50.0-59.9, adult Paroxysmal A-fib Sarcoidosis of lung Sleep disorder, circadian, shift work type Type 2 diabetes mellitus with hyperglycemia Surgical History Surgical History History of sleeve gastrectomy S/P gastric sleeve procedure No pertinent past surgical history Family History Family History Mother Hypertension Father Family history of gastrointestinal disorder Acute Crohn's disease Social History Social History Smoking status: Former smoker Tobacco type: cigarettes Smoking end date: 07/03/11 Alcohol intake: never Substance use: never Substance use type: does not use Do You Feel Safe in your Home?: Yes Lack of Transportation: No Lack of Food: Never True Current Housing: I Have Housing Concerned About Future Housing: No Difficulty Paying Gas/Electric Bills: No Difficulty Paying for Meds: No Currently Unemployed: No Education: High School Diploma/GED Difficulty w/ Childcare or Family Care: YES Living arrangements: with family Occupation/Education: occupation Gender identity (if verbalized by the patient): Male Sexual Orientation (if Verbalized by the Patient): Straight or Heterosexual Spiritual care concerns: No Agree to blood products: Yes Comments At the time of my signature, I reviewed and agree with the nursing past medical, surgical, social, and family history. There is no relevant family history pertinent to the patient complaint. Exam Narrative: General: Well-developed, well nourished, in no apparent distress. Head: Normocephalic, atraumatic. Cardio: Regular rate and rhythm, s1 and s2 normal, no murmur appreciated. Resp: Clear to auscultation bilaterally, no rhonchi, rales, wheezing or rubs. Abdomen: Soft, pliable, bowel sounds present in all quadrants, non-tender to palpation, no organomegly, right CVAT tenderness. Tender to light palpation over the right flank Course Course Emergency Course: Portions of this record may have been created with voice recognition software. Level of Care: Express Care Visit Vital Signs Vital signs: Vital Signs Temperature 36.5 C 01/10/25 10:20 Pulse Rate 72 01/10/25 10:20 Respiratory Rate 18 01/10/25 10:20 Blood Pressure 123/103 H 01/10/25 10:20 Pulse Oximetry 99 01/10/25 10:20 Oxygen Delivery Room Air 01/10/25 10:20 Temperature 36.5 C 01/10/25 10:20 Pulse Rate 72 01/10/25 10:20 Respiratory Rate 18 01/10/25 10:20 Blood Pressure 123/103 H 01/10/25 10:20 Pulse Oximetry 99 01/10/25 10:20 Oxygen Delivery Room Air 01/10/25 10:20 Vital signs reviewed MDM - Male Genitourinary MDM Narrative Medical decision making narrative: At the time of visit patient is resting comfortably on the exam table. Patient appears to be nontoxic. Labs: Urinalysis positive for 1+ bilirubin and trace of protein. No leukocytes, nitrates, or blood. Plan: I suspect patient has right flank pain possibly muscular in nature. Offer to send patient to the ER for further evaluation since he does have a history of sarcoidosis and he has a trace of protein in his urine. Patient declined at this time and would like to try some medications. Prescription for Medrol Dosepak and Flexeril was sent to the pharmacy. Supportive measures were discussed with the patient and they voiced understanding discharge instructions and agrees to treatment plan. Return precautions reviewed Differential Diagnosis Differential diagnosis: Likely urinary tract infection, urethritis, epididymitis, prostatitis and other (Kidney stones, pyelonephritis, flank pain/muscle strain, renal cyst or renal mass) Lab Data Labs: Lab Results 01/10/25 Range/Units 10:32 POC Urine Color Noemy POC Urine Clarity Clear POC Urine pH 5.5 POC Ur Specif Tracy 1.030 POC Urine Protein Trace (Negative) POC Ur Glucose (UA) Negative (Negative) POC Urine Ketones Negative (Negative) POC Urine Blood Negative (Negative) POC Urine Nitrite Negative (Negative) POC Urine Bilirubin 1+ (Negative) POC Urine Urobilinogen 1.0 POC U Leukocyte Esteras Negative (Negative) Discharge Plan Discharge Clinical Impression: Acute right flank pain Patient Disposition: Home Condition: Stable Instructions: Antibiotic Form, Flank Pain (ED) Additional Instructions: Urinalysis is negative for any sign of infection. You do have a trace of protein and bili in your urine Take any prescription medication only as prescribed-Medrol Dosepak and cyclobenzaprine Be mindful of sedation precautions given to you if taking a muscle relaxer. May use heat or ice to the affected area Consider massage or chiropractor adjustment if this was discussed with provider May use blue emu, lidocaine patches, or asper cream to affected area- do not apply heat or ice directly over cream- can cause burn. Complete appropriate back stretching exercises. Follow up with your PCP in 3-5 days if symptom persist. Patient Language: Belgian Prescriptions: New methylprednisolone [Medrol (Dheeraj)] 4 mg tablets,dose pack See Rx Instructions PO .COMPLEX Qty: 21 0RF Rx Instructions: orally per package directions cyclobenzaprine 10 mg tablet 10 mg PO Q8H PRN (Reason: muscle spasm) 7 Days Qty: 21 0RF No Action furosemide 40 mg tablet 80 mg PO DAILY hydroxyzine HCl 25 mg tablet 25 mg PO TID PRN (Reason: anxiety) Qty: 30 0RF bupropion HCl 300 mg tablet extended release 24 hr PO mycophenolate mofetil 500 mg tablet 500 mg PO Q12H atorvastatin 80 mg tablet 80 mg PO DAILY Qty: 90 1RF carvedilol 25 mg tablet 25 mg PO Q12H 90 Days Qty: 180 1RF Rx Instructions: must administer with a meal/food ezetimibe 10 mg tablet 10 mg PO DAILY Qty: 90 1RF acvcdxnobnb-edmtkmvhn-rqpmcjxt 200-62.5-25 mcg blister with device 1 inh inhalation DAILY Qty: 60 3RF albuterol sulfate 2.5 mg /3 mL (0.083 %) solution for nebulization 2.5 mg inhalation Q4-6H PRN (Reason: shortness of breath or wheezing) Qty: 180 3RF cyclobenzaprine 10 mg tablet 10 mg PO TID PRN (Reason: muscle spasm) Qty: 30 0RF albuterol sulfate 90 mcg/actuation HFA aerosol inhaler 1 inh inhalation QID PRN (Reason: shortness of breath or wheezing) Qty: 6.7 0RF Xarelto 20 mg tablet 20 mg PO DAILY Qty: 30 5RF Rx Instructions: must administer with evening meal lisinopril 5 mg tablet 5 mg PO DAILY Qty: 90 1RF hydrocodone-acetaminophen 5-325 mg tablet 1 tablet PO Q8H PRN (Reason: pain) Qty: 21 0RF omeprazole 20 mg capsule,delayed release(DR/EC) 20 mg PO DAILY Qty: 90 1RF Ozempic 0.25 mg or 0.5 mg (2 mg/3 mL) pen injector 0.5 mg subcut WEEKLY Qty: 3 0RF Rx Instructions: for 4 weeks Follow-up/Referrals: Lotus Marina APRN [Primary Care Provider] - Time of Disposition: 10:36 Quality NIHSS Nursing Documentation ED NIHSS nursing documentation: reviewed/agree
[2025-01-10 10:20] VITALS: BP 123/103; PULSE 72; RESP 18; TEMP 36.5; O2SAT 99
[2025-01-10 10:34] LABS: EDUAAPPEAR Clear; EDUABILI 1+ (Negative); EDUABLOOD Negative (Negative); EDUACOLOR1 Amber; EDUAGLUCOSE Negative (Negative); EDUAKETONE Negative (Negative); EDUALEUKO Negative (Negative); EDUANITRATE Negative (Negative); EDUAPH 5.5; EDUAPROTEIN Trace (Negative); EDUASPGRAVITY 1.030; EDUAUROBILI 1.0
== END 2025-01-10 10:45 | disposition home or self-care (01) ==
PROVIDERS: Emergency Provider Nurse Practitioner Family; PCP Nurse Practitioner Family
DX: R10.9 Unspecified abdominal pain (principal); Z87.891 Personal history of nicotine dependence; E78.00 Pure hypercholesterolemia, unspecified; I10 Essential (primary) hypertension; K21.9 Gastro-esophageal reflux disease without esophagitis; E11.9 Type 2 diabetes mellitus without complications; Z79.85 Long-term (current) use of injectable non-insulin antidiabetic drugs; I48.0 Paroxysmal atrial fibrillation; J44.9 Chronic obstructive pulmonary disease, unspecified; D86.9 Sarcoidosis, unspecified; E66.01 Morbid (severe) obesity due to excess calories; Z68.33 Body mass index [BMI] 33.0-33.9, adult; Z98.84 Bariatric surgery status; Z79.01 Long term (current) use of anticoagulants
CPT/HCPCS: 81003; 99213; G0463

== ENCOUNTER 2025-04-24 15:40 | Outpatient (CLI) | payer MEDICARE, SELFPAY ==
--- NOTE | ~2025-04-24 | XR_ITS ---
EXAMINATION: XR chest 2V, 04/24/2025 15:50 CDT HISTORY: cough, fever, sob; hx of sarcoidosis COMPARISON: 10/30/2024 Technique: 2 views obtained. Findings: There are scattered bilateral infiltrates superimposed on chronic lung disease. No pneumothorax. Heart is normal size. Mediastinal and hilar contours are within normal limits. Bony thorax no acute abnormality. Impression: Bilateral pneumonia superimposed on chronic lung disease. The findings appear slightly progressed compared to the previous study Reviewed, dictated and finalized at location P. Impression: Bilateral pneumonia superimposed on chronic lung disease. The findings appear s lightly progressed compared to the previous study
--- OUTSIDE RECORDS SUMMARY | 2025-04-24 16:34 | XMS_ITS | Clinical Summary ---
Author Organization [facility] Address [address] [place] [address] Care Team Providers Care Shooter'S Helper Name Role Phone Imani Em MD Primary Care Provider Source Comments [facility],non-owned Affiliates and Associated Physician Practices is amultiple site organization consisting of ambulatory clinics and hospital sitesin [place], [place], [place] and [place]. This disclosure is being madepursuant to the Care Everywhere program and may not contain all information available regarding this patient. Last updated 18.[facility] Allergies Active Allergy Reactions Criticality Noted Date Comments Pioglitazone Shortness of Breath,Rash High 8 Medications * Be aware that medications may not be up to date on this document. Alwaysverify current medications with the patient. albuterol HFA (PROVENTIL;CHRISS TOLIN;PROAIR) 108 (90 BASE) MCG/ACT inhaler Inhale 2 puffs by mouth every 6 hours as needed for Wheezing Active montelukast (SINGULAIR) 10 MG tablet Take 10 mg by mouth once daily Active warfarin (Coumadin) 5 MG tablet Take by mouth as directed 7.5mg Mon/Mon/ and 10mg all other days Per coumadin clinic Active atorvastatin (Lipitor) 80 MG tablet Take 1 (one) tablet by mouth at bedtime Active buPROPion XL 24hr (Wellbutrin-XL ) 300 MG tablet Take 1 (one) tablet by mouth every morning Active carvedilol (Coreg) 25 MG tablet Take 1 (one) tablet by mouth 2 times daily with morning and evening meal Active cyclobenzaprin e (Flexeril) 10 MG tablet Take 1 (one) tablet by mouth every 8 hours as needed for Muscle Spasms Active ezetimibe (Zetia) 10 MG tablet Take 1 (one) tablet by mouth once daily Active fluticasone-um eclidin-vilant (Trelegy Ellipta) 200-62.5-25 MCG/ACT inhaler Inhale 1 (one) puff by mouth once daily Active furosemide (Lasix) 40 MG tablet Take 2 (two) tablets by mouth once daily Active HYDROcodone-ac etaminophen ([place]) 5-325 MG tablet Take 1 (one) tablet by mouth every 8 hours as needed for Pain Active hydrOXYzine HCl (Atarax) 25 MG tablet Take 1 (one) tablet by mouth 3 times daily as needed (anxiety) Active lisinopril (Prinivil; Zestril) 5 MG tablet Take 1 (one) tablet by mouth once daily Active mycophenolate (Cellcept) 500 MG tablet Take 1 (one) tablet by mouth 2 times daily Active omeprazole (PriLOSEC) 20 MG capsule Take 1 (one) capsule by mouth daily before breakfast Active Semaglutide (OZEMPIC, 0.25 OR 0.5 MG/DOSE, SC) Inject 0.5 mg subcutaneously every 7 days (once a week) Active Active Problems Problem Noted Date Diagnosed Date Atrial fibrillation, unspecified type 01/16/2025 Diabetes mellitus without complication 8 Chest pain 09/04/2017 Encounters Date Type Department Care Team Description 04/08/2025 8:30 AM CDT Anti-coag visit [facility] Anticoagulation - Clinical Pharmacy [address] [place] [phone] Terell Zamudio MD Anticoag, Anticoag Provider [facility] Atrial fibrillation, unspecified type (HCC) 03/25/2025 8:00 AM CDT Anti-coag visit [facility] Anticoagulation - Clinical Pharmacy [address] [place] [phone] Terell Zamudio MD Anticoag, Anticoag Provider [facility] Atrial fibrillation, unspecified type (HCC) 03/11/2025 10:40 AM CDT Anti-coag visit [facility] Anticoagulation - Clinical Pharmacy [address] [place] [phone] Terell Zamudio MD Anticoag, Anticoag Provider [facility] Atrial fibrillation, unspecified type (HCC) 02/28/2025 8:20 AM CDT Anti-coag visit [facility] Anticoagulation - Clinical Pharmacy [address] [place], [place] [phone] Terell Zamudio MD Anticoag, Anticoag Provider [facility] Atrial fibrillation, unspecified type (HCC) 02/18/2025 8:50 AM CDT Anti-coag visit [facility] Anticoagulation - Clinical Pharmacy [address] [place], [place] [phone] Terell Zamudio MD Anticoag, Anticoag Provider [facility] Atrial fibrillation, unspecified type (HCC) 02/11/2025 8:40 AM CDT Anti-coag visit [facility] Anticoagulation - Clinical Pharmacy [address] [place] [phone] Terell Zamudio MD Anticoag, Anticoag Provider [facility] Atrial fibrillation, unspecified type (HCC) 02/04/2025 8:10 AM CDT Anti-coag visit [facility] Anticoagulation - Clinical Pharmacy [address] [place] [phone] Terell Zamudio MD Anticoag, Anticoag Provider [facility] Atrial fibrillation, unspecified type (HCC) 01/31/2025 1:40 PM CDT Anti-coag visit [facility] Anticoagulation - Clinical Pharmacy [address] [place] [phone] Terell Zamudio MD Anticoag, Anticoag Provider [facility] Atrial fibrillation, unspecified type (HCC) from Last 3 Months Family History Medical History Relation Name Comments [...] on file Legal Sex Male 5:40 PM [employer] Gender Identity Not on file Sexual Orientation Not on file Last Filed Vital Signs Vital Sign Reading Time Taken Comments Blood Pressure 128/78 01/22/2018 10:54 AM CDT Pulse 88 01/22/2018 10:54 AM CDT Temperature 36.9 C (98.5 F) 01/22/2018 10:54 AM CDT Respiratory Rate 19 09/05/2017 7:42 AM [employer] Oxygen Saturation 96% 01/22/2018 10:54 AM CDT Inhaled Oxygen Concentration 21% 09/05/2017 1 2:50 AM [employer] Weight 169.2 kg (373 lb) 01/22/2018 10:54 AM CDT Height 180.3 cm (5' 11) 01/22/2018 10:54 AM CDT Body Mass Index 52.02 01/22/2018 10:54 AM CDT Plan of Treatment Upcoming Encounters Date Type Department Care Team (Late st Contact Info) Description 04/29/2025 8:20 AM CDT Anti-coag visit [facility] Anticoagulation - Clinical Pharmacy [address] [place] [phone] Terell Zamudio MD [phone] [place] [phone] Angélica Lindsay Provider [facility] Health Maintenance Due Date Last Done Comments COLOGUARD (AGES 45-75) - COLON CA SCREENING 1980 COLON MONITORING 1980 COLONOSCOPY - COLON CA SCREENING 1980 CT COLONOGRAPHY - COLON CA SCREENING 1980 Colorectal Cancer Screening 1980 FIT - COLON CA SCREENING 1980 FLEX SIG - COLON CA SCREENING 1980 HIV SCREENING 1995 DTAP/TDAP/TD VACCINES (1 - Tdap) 1999 HEPATITIS B VACCINE (1 of 3 - 19+ 3-dose series) 1999 PNEUMOCOCCAL VACCINE (1 of 2 - PCV) 1999 ZOSTER VACCINE (1 of 2) 1999 HPV VACCINE (1 - Risk 3-dose SCDM series) 2007 DIABETES RETINOPATHY SCREENING 10/09/2017 DIABETES-FOOT EXAM WITH MONOFILAMENT 01/22/2019 01/22/2018, 01/22/2018 DIABETES-SERUM CREATININE 04/16/20192017, 04/16/2018, 01/04/2018, Additional history exists DEPRESSION SCREENING 07/03/2024 DIABETES - URINE PROTEIN SCREENING 07/03/2024 10/04/2021, 01/04/2018 MEDICARE AWV CALENDAR YEAR 2024 COVID-19 VACCINE ( season) 2025 10/14/2021, 11/17/2020, 10/19/2020 INFLUENZA VACCINE (#1) 2025 , 10/04/2021, 05/04/2020, Additional history exists DIABETES-HGB A1C 06/29/2025 03/30/2025, , 01/22/2018, Additional history exists HEPATITIS C SCREENING Completed 07/12/2018 HIB VACCINE Aged Out No longer eligi ble based on patient's age to complete this topic MENINGOCOCCAL (Group B) VACCINE SHARED DECISION-MAKING Aged Out No longer eligible based on patient's age to complete this topic MENINGOCOCCAL GROUPS A/C/Y/W VACCINE Aged Out No longer eligible based on patient's age to complete this topic Procedures Procedure Name Priority Date/Time Associated Diagnosis Comments INR - POCT Routine 04/08/2025 8:08 AM CDT Atrial fibrillation, unspecified type (HCC) INR - POCT Routine 03/25/2025 7:51 AM CDT Atrial fibrillation, unspecified type (HCC) INR - POCT Routine 03/11/2025 10:45 AM CDT Atrial fibrillation, unspecified type (HCC) INR - POCT Routine 02/28/2025 8:14 AM CDT Atrial fibrillation, unspecified type (HCC) INR - POCT Routine 02/18/2025 8:01 AM CDT Atrial fibrillation, unspecified type (HCC) INR - POCT Routine 02/11/2025 8:56 AM CDT Atrial fibrillation, unspecified type (HCC) INR - POCT Routine 02/04/2025 8:27 AM CDT Atrial fibrillation, unspecified type (HCC) INR - POCT Routine 01/31/2025 1:46 PM CDT Atrial fibrillation, unspecified type (HCC) HEMOGLOBIN A1C - POINT OF CARE (AMB) [facility] Routine 01/22/2018 Diabetes mellitus without complication BASIC METABOLIC PANEL (CALCIUM TOTAL) STAT 09/05/2017 4:49 AM [employer] Chest pain, unspecified type from Last 3 Months or Most Recently Relevant to Health Maintenance Results * (ABNORMAL) INR - POCT (04/08/2025 8:08 AM CDT) Only the most recent of8 resultswithin the time period is included. INR 3.4(H) 2.0 - 3.0 04/08/2025 8:09 AM CDT [facility] Blood BLOOD SPECIMEN / Unknown 04/08/2025 8:08 AM CDT 04/08/2025 8:09 AM CDT Terell Zamudio MD LAB - POINT OF CARE OR DERABLES Final Result [facility] [address] * HEMOGLOBIN A1C - POINT OF CARE (AMB) [facility] (01/22/2018) Hemoglobin A1c POCT 8.5 BLOOD SPECIMEN / Unknown 01/22/2018 Felix Chapman MD LAB - POINT OF CARE ORDERABLE S Final Result * (ABNORMAL) BASIC METABOLIC PANEL (CALCIUM TOTAL) (09/05/2017 4:49 AM [employer]) Glucose 373(H) 70 - 125 mg/dL 09/05/2017 5:[address] [facility] Sodium 132(L) 136 - 145 mmol/L 09/05/2017 5:[address] [facility] Potassium 4.6(H) 3.4 - 4.5 mmol/L 09/05/2017 5:[address] [facility] Chloride 98 98 - 107 mmol/L 09/05/2017 5:[address] [facility] CO2 19(L) 22 - 29 mmol/L 09/05/2017 5:[address] [facility] Calcium 10.00 8.4 - 10.2 mg/dL 09/05/2017 5:13 AM [facility] Anion Gap 20 10 - 20 mmol/L 09/05/2017 5:13 AM [facility] BUN 21.2 8.4 - 25.7 mg/dL 09/05/2017 5:13 AM [facility] Creatinine 1.38(H) 0.72 - 1.25 mg/dL 09/05/2017 5:13 AM [facility] eGFR by MDRD 58(L) >60 mL/min/1.7 3m2 09/05/2017 5:[address] [facility] eGFR by MDRD >60 >60 mL/min/1.7 3m2 09/05/2017 5:13 AM [facility] Blood BLOOD SPECIMEN / Unknown Lab Venipuncture / Unknown 09/05/2017 4:49 AM [employer] 09/05/2017 4:53 AM [employer] us Thelma Betancur MD LAB - CHEMISTRY ORDERABLES Fi nal Result [facility] [address] [place] [address], [facility] from Last 3 Months or Most Recently Relevant to Health Maintenance Insurance [employer] MEDICARE ADV Care Teams Shooter'S Helper Relationship Specialty Start Date End Date Imani Em MD [address] [place], [place] [phone] PCP - General 08/25/16
--- OUTSIDE RECORDS SUMMARY | 2025-04-24 16:34 | XMS_ITS | Patient Health Record ---
Author Organization [facility] Address [address] [place] [address] Care Team Providers Care Filtrose Crusher Name Role Phone WINTER Lotus GERMAN Primary Care Provider Unavailab Arnoldo Campbell Unavailable [phone] Vinnie Aponte Unavailable [phone] Eva Hernandez Unavailable [phone] Sha Purdy Unavailable [phone] Allergies No Known Allergies Results Component Value Reference Range Notes UDT Reviewed date:05/14/2024 02:21:42 PM Interpretation: Performing Lab: Notes/Report: Amphetamine (AMP) N 0 - 1000 ng/ml Buprenorphine (BUP) N 0 - 10 ng/ml Oxazepam (BZO) N 0 - 300 ng/ml Cocaine (ANGELITA) N 0 - 300 ng/ml Methamphetamine (mAMP) N 0 - 300 ng/ml Methylenedioxymethamphetamine (MDMA) N 0 - 500 ng/ml Morphine (MOP) N 0 - 25 ng/ml Methadone (MTD) N 0 - 300 ng/ml Oxycodone (OXY) N 0 - 300 ng/ml THC N 0 - 50 ng/ml x N 0 - 1000 ng/ml x N 0 - 1000 ng/ml x N 0 - 300 ng/ml x N 0 - 300 ng/ml x N 0 - 300 ng/ml Reason For Referral No Information Medications Medication SIG (Take, Route, Frequency, Duration) Notes Start Date End Date Status Carvedilol 25 MG Tablet TAKE 1 TABLET BY MOUTH TWICE A DAY Oral; Duration: 90 Days Unknown Ezetimibe 10 MG Tablet TAKE 1 TABLET BY MOUTH EVERY DAY DIRECTED Oral; Duration: 90 Days Unknown Lisinopril 5 MG Tablet TAKE 1 TABLET BY MOUTH EVERY DAY Oral; Duration: 90 Days Unknown hydrOXYzine HCl 25 MG Tablet 1 tablet Oral three times a day; Duration: 30 days As needed Unknown Xarelto 20 MG Tablet TAKE 1 TABLET BY MO UTH EVERY DAY Oral; Duration: 30 Days Unknown Mycophenolate Mofetil 500 MG Tablet TAKE 2 TABLETS BY MOUTH TWICE A DAY Oral; Duration: 90 Days Unknown Multaq 400 MG Tablet TAKE 1 TABLET BY MO UT TWICE A DAY Oral; Duration: 30 Days Unknown Atorvastatin Calcium 80 MG Tablet TAKE 1 TABLET BY MOUTH EVERY DAY Oral; Duration: 90 Days Unknown Furosemide 40 MG Tablet TAKE 2 TABLETS B Y MOUTH EVERY DAY Oral; Duration: 90 Days Unknown Trelegy Ellipta 200-62.5-25 MCG/ACT Aerosol Powder Breath Activated INHALE 1 PUFF DAILY Inhalation; Duration: 30 Days Unknown Oybhwfuypbj-Xisbjddom-Fqosh t 200-62.5-25 MCG/ACT Aerosol Powder Breath Activated 1 puff Inhalation Once a day Unknown QUEtiapine Fumarate 100 MG Tablet 2 tablet every night Oral Once a day; Duration: 30 days Unknown DULoxetine HCl 60 MG Capsule Delayed Release Particles 1 capsule at bedtime Oral Once a day; Duration: 30 days Unknown buPROPion HCl ER (XL) 300 MG Tablet Extended Release 24 Hour 1 tablet every morning Oral Once a day; Duration: 30 days Active Omeprazole 20 MG Capsule Delayed Release TAKE 1 CAPSULE BY MOUTH EVERY DAY Oral; Duration: 90 Days Unknown Albuterol Sulfate (2.5 MG/3ML) 0.083% Nebulization Solution 3 mL as needed Inhalation every 6 hrs Unknown Immunizations Vaccine Route Administration Date Status Comme nts Moderna Covid-19 Vaccine 1st dose Unknown 10/19/2020 Ad ministered Moderna Covid-19 Vaccine 1st dose Unknown 11/17/2020 Ad ministered Moderna Covid-19 Vaccine 1st dose Unknown 10/14/2021 Ad ministered Social History Tobacco Use: Social History Observation Description Date Details (start date - stop date) Former Smoker 12/01/1990 - 10/14/2010 Sex Assigned At : Social History Observation Description Sex Assigned At Male Social History Miscellaneous: Social Info Question Answer Notes Advance Care Planning Are you your own decision-maker No Do you have Power of Medical Record Administrator for Health or [facility]? No Safety issues: Are there any firearms in the house? Ye s Social History Social Info Question Answer Notes Household: Level of Education: Not Answered Marital Status: Number of Adults in household: 2 Number of Children in Household: 1 Islam: add to notes Drug/Alcohol: Social Info Question Answer Notes Drugs Have you used drugs other than those for medical reasons in the past 12 months? Yes Methamphetamine? No Crack? No LSD? No Ecstacy? No Prescription opiates? No Marijuana? Yes Ketamine? No PCP? No Is there a minor (18 years or younger) at risk at home? No Are you still using? No Do you want treatment? Yes AUDIT-C (Standard) Did you have a drink containing alc ohol in the past year? No Interpretation Negative How often did you have six or more drinks on one occasion in the past year? Less than monthly (1 point) How many drinks did you have on a typical day when you were drinking in the past year? 1 or 2 drinks (0 point) How often did you have a drink containing alcohol in the past year? Monthly or less (1 point) Tobacco Use: Social Info Question Answer Notes Tobacco Control (Standard) Tobacco use: Former smoker When did you start smoking? 12/01/1990 When did you stop smoking? 10/14/2010 How long has it been since you last smoked? Greater than 10 years Additional Details Category Social Info Options Details Migrated Social History Migrated Social History Alcohol Intake: Occasional 01/28/2022,Tobacco Years: Former smoker 01/28/2022 Drug/Alcohol: Do you smoke marijuana? occ asional edible, Admits Do you drink alcohol? rarely Section Notes: Employment: Working 16 Hours A Week Income: On Disability, Earning $180 To $210 A Week Living situation: Homeless, Sleeping In Car Diet: Eating Canned Foods Work: Limited Hours, Covering Car Expenses Employment: Working 16 Hours A Week Income: On Disability, Earning $180 To $210 A Week Living situation: Homeless, Sleeping In Car Employment: Working 16 Hours A Week Income: On Disability, Earning $180 To $210 A Week Living situation: Homeless, Sleeping In Car Diet: Eating Canned Foods Work: Limited Hours, Covering Car Expenses Living situation: Living In Car Problems Problem Type SNOMED Code ICD Code Onset Dates Problem Status W/U Status Risk Notes Problem Severe recurrent major depression without psychotic features (67992537) Major depressive disorder, recurrent severe without psychotic features (F33.2) Active confirmed Problem Primary obstructive sleep apnea of (P28.32) 0 Active confirmed Problem Moderate recurrent major depression (01549117) Moderate episode of recurrent major depressive disorder (F33.1) Active confirmed Problem Posttraumatic stress disorder (63161940) Chronic post-traumatic stress disorder (PTSD) (F43.12) Active confirmed Problem Anxiety (93156596) Anxiety (F41.9) Active confirmed Problem Severe major depression, single episode, without psychotic features (74107662) MDD (major depressive disorder), severe (F32.2) Active confirmed Problem Feeling suicidal (708510031) Passive suicidal ideations (R45.851) Active confirmed Problem Essential hypertension (01473289) Essential hypertension (I10) 9 Active confirmed Problem Type II diabetes mellitus without complication (749146378) Type 2 diabetes mellitus without complication, with long-term current use of insulin (E11.9) 9 Active confirmed Vital Signs Heart Rate 76 /min 12/23/2024 Height-cm 180.34 cm 12/23/2024 Blood pressure diastolic 71 mm Hg 12/23/2024 Weight-kg 113.76 kg 12/23/2024 Height 71.00 in 12/23/2024 Blood pressure systolic 110 mm Hg 12/23/2024 Weight 250.8 lbs 12/23/2024 BMI 34.98 kg/m2 12/23/2024 Encounters Encounter Location Date Provider Diagnosis [employer] [employer] [address] [place] [address] 05/14/2024 Sha Clubb Moderate episode of recurrent major depressive disorder F33.1 ; Anxiety F41.9 and Passive suicidal ideations R45.851 [employer] [employer] [address] [place] [address] 05/21/2024 Eva Hinderliter Moderate episode of recurrent major depressive disorder F33.1 ; Passive suicidal ideations R45.851 and Anxiety F41.9 [employer] [employer] [address] [place] [address] 05/28/2024 Eva Hinderliter Moderate episode of recurrent major depressive disorder F33.1 and Anxiety F41.9 [employer] [address] [place] [address] 06/04/2024 Eva Hinderliter Moderate episode of recurrent major depressive disorder F33.1 and Anxiety F41.9 [facility] [employer] [facility], [facility] [address] [place] [address] 06/11/2024 Sha Clubb Anxiety F41.9 ; MDD (major depressive disorder), severe F32.2 and Passive suicidal ideations R45.851 [facility] [employer] [facility], [place] [address] [place] [address] 06/11/2024 Eva Hinderliter Moderate episode of recurrent major depressive disorder F33.1 and Anxiety F41.9 [facility] [employer] [facility], [facility] [address] [place] [address] 06/18/2024 Eva Hinderliter Moderate episode of recurrent major depressive disorder F33.1 and Anxiety F41.9 [facility] [employer] [facility], [facility] [address] [place] [address] 07/16/2024 Eva Hinderliter Moderate episode of recurrent major depressive disorder F33.1 ; Passive suicidal ideations R45.851 and Anxiety F41.9 [facility] [employer] [facility], [place] [address] [place] [address] 07/23/2024 Eva Hinderliter Moderate episode of recurrent major depressive disorder F33.1 ; Anxiety F41.9 and Passive suicidal ideations R45.851 [facility] [employer] [facility] [address] [place] [address] 07/26/2024 Arnoldo Rutledge [facility] [employer] [facility], [facility] [address] [place] [address] 07/30/2024 Eva Hinderliter [facility] [employer] [facility], [facility] [address] [place] [address] 08/06/2024 Eva Hinderliter Moderate episode of recurrent major depressive disorder F33.1 and Anxiety F41.9 [facility] [employer] [facility], [facility] [address] [place] [address] 08/13/2024 Eva Hinderliter Moderate episode of recurrent major depressive disorder F33.1 ; Anxiety F41.9 and Passive suicidal ideations R45.851 [facility] [employer] [facility] [address] [place] [address] 08/26/2024 Arnoldo Aamir Essential hypertensi on I10 ; MDD (major depressive disorder), severe F32.2 ; Type 2 diabetes mellitus without complication, with long-term current use of insulin E11.9 ; Primary obstructive sleep apnea of P28.32 and Passive suicidal ideations R45.851 [facility] [address] [place] [address] 08/27/2024 Vinnie Aponte [facility] [employer] [facility], [facility] [address] [place] [address] 09/03/2024 Eva Hernandez Moderate episode of recurrent major depressive disorder F33.1 ; Anxiety F41.9 and Passive suicidal ideations R45.851 [facility] [employer] [facility] [address] [place] [address] 09/17/2024 Vinnie Aponte Depression, major, recurrent, moderate F33.1 ; Generalized anxiety disorder F41.1 ; Encounter for screening for depression Z13.31 ; Encounter for screening for cardiovascular disorders Z13.6 and Dietary counseling and surveillance Z71.3 [facility] [employer] [facility] [address] [place] [address] 09/23/2024 Arnoldo Aamir Encounter for screening for depression Z13.31 ; Benign essential HTN I10 ; Essential hypertension I10 ; MDD (major depressive disorder), severe F32.2 ; Type 2 diabetes mellitus without complication, with long-term current use of insulin E11.9 ; Primary obstructive sleep apnea of P28.32 and Passive suicidal ideations R45.851 [facility] [employer] [facility] [address] [place] [address] 10/15/2024 Vinnie Aponte Encounter for screening for depression Z13.31 ; Depression, major, recurrent, moderate F33.1 and Generalized anxiety disorder F41.1 [facility] [employer] [facility] [address] [place] [address] 10/21/2024 Arnoldo Aamir Essential hypertensi on I10 ; Type 2 diabetes mellitus without complication, with long-term current use of insulin E11.9 ; Primary obstructive sleep apnea of P28.32 ; Benign essential HTN I10 ; Encounter for screening for depression Z13.31 ; MDD (major depressive disorder), severe F32.2 and Encounter for screening for cardiovascular disorders Z13.6 [facility] [employer] [facility] [address] [place] [address] 10/23/2024 Arnoldo Rutledge Major depressive disorder, recurrent severe without psychotic features F33.2 [facility] [employer] [facility] [address] [place] [address] 12/09/2024 Arnoldo Rutledge MDD (major depressiv e disorder), severe F32.2 ; Essential hypertension I10 ; Type 2 diabetes mellitus without complication, with long-term current use of insulin E11.9 ; Primary obstructive sleep apnea of P28.32 ; Encounter for screening for depression Z13.31 ; Encounter for screening for cardiovascular disorders Z13.6 and Chronic post-traumatic stress disorder (PTSD) F43.12 [facility] [place] [address] [facility] [address] [facility] [address] [place] [address] 12/23/2024 Arnoldo Rutledge Encounter for screening for depression Z13.31 ; Encounter for screening for cardiovascular disorders Z13.6 ; Essential hypertension I10 ; MDD (major depressive disorder), severe F32.2 ; Type 2 diabetes mellitus without complication, with long-term current use of insulin E11.9 ; Chronic post-traumatic stress disorder (PTSD) F43.12 ; Homelessness Z59.00 and Patient's intentional underdosing of medication regimen due to financial hardship Z91.120 [facility] [employer] [facility], [facility] [address] [facility] [address] [facility] [address] [place] [address] 12/23/2024 Eva Hernandez Major depressive disorder, recurrent severe without psychotic features F33.2 ; Generalized anxiety disorder F41.1 ; Chronic post-traumatic stress disorder (PTSD) F43.12 ; Passive suicidal ideations R45.851 ; Homelessness Z59.00 and Encounter for screening for depression Z13.31 [facility] [employer], [place] [address] [facility] [address] [place] [address] 01/27/2025 Arnoldo Rutledge [facility] [employer], [place] [address] [facility] [address] [facility] [address] [place] [address] 06/20/2024 Sha Clubb [facility], [facility] [address] [place] [address] 08/02/2024 Sha Clubb [facility], [facility] [address] [place] [address] 08/27/2024 [facility] [address] [place] [address] 09/03/2024 [facility] [address] [place] [address] 09/23/[address] [facility], [facility] [address] [place] [address] 10/21/[address] [facility], [facility] [address] [place] [address] 04/07/2025 Arnoldo Membrenoam MDD (major depressiv e disorder), severe F32.2 [facility], [facility] [address] [place] [address] 07/30/2024 [facility] [address] [place] [address] 08/26/[address] [facility], [facility] [address] [place] [address] 10/23/2024 [facility] [address] [place] [address] 10/24/2024 [facility] [address] [place] [address] 10/24/2024 [facility], [facility] [address] [place] [address] 11/07/2024 [facility], [facility] [address] [place] [address] 11/18/2024 [facility] [address] [place] [address] 11/18/2024 [facility] [address] [place] [address] 11/18/[address] 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 This was in [id number] Appetite: noted change in eating habits such [...] and pulmonary health. - Consult with a pit and auxiliaries supervisor regarding safe exercise practices and limitations [...] and pulmonary health. - Consult with a pit and auxiliaries supervisor regarding safe exercise practices and limitations [...] and ongoing management of the outlined concerns. 06/11/2024 Moderate episode of recurrent major depressive disorder (ICD-10 - F33.1) 1. Anxiety Management - Continue efforts to enhance adherence to anxiety medication routines. Vu has identified the loss of his keychain pill elias as a barrier to consistent medication adherence. - Encourage Vu to acquire a new keychain pill elias from a local pharmacy, such as [facility] or [facility], to ensure his medication is readily accessible. 2. Physical Activity and Health - Acknowledge Vu's history of heart issues and the advice from his pit and auxiliaries supervisor to avoid strenuous activities. Vu has [...] foster engagement and happiness, such as visiting [employer], enjoying [employer] Monday trips, and exploring new sports like [...] elias from a local pharmacy, such as [facility] or [facility], to ensure his medication is readily accessible. 2. Physical Activity and Health - Acknowledge Vu's history of heart issues and the advice from his pit and auxiliaries supervisor to avoid strenuous activities. Vu has [...] foster engagement and happiness, such as visiting [employer], enjoying [employer] Monday trips, and exploring new sports like [...] evaluation and discussion of alternative treatments ([facility], [facility]). c. Encourage discussion of SNRI medication class with pit and auxiliaries supervisor at next appointment. 2. Generalized Anxiety [...] of potential medication changes (SNRI class) with pit and auxiliaries supervisor at next appointment. 5. Suicidal Ideation - Patient reports occasional thoughts of suicide without plan or intent. - Plan: a. Ensure crisis plan is in place and continue open communication with significant other. b. Remind of crisis prevention hotline (404) and to seek immediate help if plan or intent develops. c. Note: Patient's gun is locked up, only significant other has csott access. 6. Medication Refills - Plan: a. [...] Encourage discussion of SNRI medication class with pit and auxiliaries supervisor at next appointment. 2. Generalized Anxiety [...] of potential medication changes (SNRI class) with pit and auxiliaries supervisor at next appointment. 5. Suicidal Ideation - Patient reports occasional thoughts of suicide without plan or intent. - Plan: a. Ensure crisis plan is in place and continue open communication with significant other. b. 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 This was in [id number] Appetite: noted change in eating habits such [...] progress and continue addressing the outlined issues. 08/06/2024 Moderate episode of recurrent major [...] in health to his healthcare providers promptly. 09/17/2024 Generalized anxiety disorder (ICD-10 - F41.1) 09/17/2024 Depression, major, recurrent, moderate (ICD-10 - F33.1) 10/15/2024 Encounter for screening for depression (ICD-10 - Z13.31) 10/15/2024 Depression, major, recurrent, moderate (ICD-10 - F33.1) 10/21/2024 Essential hypertension (ICD-10 - I10) 12/09/2024 Essential hypertension (ICD-10 - I10) 12/09/2024 MDD (major depressive disorder), severe (ICD-10 - F32.2) Patient reports severe depression and suicidal thoughts. Recent psychiatric hospitalization was unhelpful. Patient is currently homeless and struggling financially. - Explore longterm options, including [employer] - Visit shelters and housing resources in [place] for assistance. - Discuss medication options with physician in [place] on December 14. 12/23/2024 Encounter for screening for cardiovascular disorders (ICD-10 - Z13.6) 12/23/2024 Encounter for screening for depression (ICD-10 - Z13.31) 04/07/2025 MDD (major depressive disorder), severe (ICD-10 - F32.2) 12/23/2024 Major depressive disorder, recurrent severe without psychotic features (ICD-10 - F33.2) Homelessness and Financial Instability Assessment: Patient reports being homeless for approximately 6 weeks, sleeping in his car. This situation has resulted from unsuccessful attempts to secure housing, with resources either unavailable or having extensive waitlists (6 months to 2 years). Financial struggles are evident, with the patient spending his last funds on basic needs such as food and gas. His credit score of 570 is below the typical requirement (600) for housing applications, further complicating his housing search. The chronic stress of homelessness is significantly impacting his mental health and ability to manage his medical conditions. Plan: - Continue to assist patient in exploring housing resources and options - Client has [facility] Homeless Hotline number - Explore disability advocacy services to potentially expedite housing placement due to medical conditions - Provide phone number to [facility] mobile crisis support to utilize if wanting to speak to a crisis counselor in person. Has information for 988 12/23/2024 Generalized anxiety disorder (ICD-10 - F41.1) Homelessness and Financial Instability Assessment: Patient reports being homeless for approximately 6 weeks, sleeping in his car. This situation has resulted from unsuccessful attempts to secure housing, with resources either unavailable or having extensive waitlists (6 months to 2 years). Financial struggles are evident, with the patient spending his last funds on basic needs such as food and gas. His credit score of 570 is below the typical requirement (600) for housing applications, further complicating his housing search. The chronic stress of homelessness is significantly impacting his mental health and ability to manage his medical conditions. Plan: - Continue to assist patient in exploring housing resources and options - Client has [facility] Homeless Hotline number - Explore disability advocacy services to potentially expedite housing placement due to medical conditions - Provide phone number to [facility] [employer] crisis support to utilize if wanting to speak to a crisis counselor in person. Has information for 988 10/23/2024 Major depressive disorder, recurrent severe without psychotic features (ICD-10 - F33.2) 09/23/2024 Encounter for screening for depression (ICD-10 - Z13.31) 08/13/2024 Moderate episode of recurrent major depressive [...] The patient is planning a trip to [place] and is concerned about maintaining peace during [...] The patient is planning a trip to [place] and is concerned about maintaining peace during [...] gym and getting a hair cut. 07/16/2024 Passive suicidal ideations (ICD-10 - R45.851) [...] with disabilities. Obtained phone numbers for [facility] [employer], [facility], [facility], and [facility] for assistance. Social Isolation Encourage seeking [...] and continue addressing the identified issues. 06/18/2024 Moderate episode of recurrent major [...] progress and continue addressing the identified issues. 06/04/2024 Moderate episode of recurrent major depressive [...] Follow-up: - Schedule a follow-up appointment for monday to discuss progress and any additional concerns. [...] Follow-up: - Schedule a follow-up appointment for day to discuss progress and any additional concerns. [...] with disabilities. Obtained phone numbers for [facility] [employer], [facility], [facility], and [facility] for assistance. Social Isolation Encourage seeking [...] and continue addressing the identified issues. 07/16/2024 Anxiety (ICD-10 - F41.9) Major [...] [facility], [facility], [facility], and [facility] for assistance. Social Isolation Encourage seeking [...] progress and continue addressing the identified issues. 09/23/2024 Benign essential HTN (ICD-10 - I10) 07/23/2024 Passive suicidal ideations (ICD-10 - R45.851) [...] The patient is planning a trip to [place] and is concerned about maintaining peace during [...] and continue working on the identified issues. 12/23/2024 Chronic post-traumatic stress disorder (PTSD) (ICD-10 - F43.12) Homelessness and Financial Instability Assessment: Patient reports being homeless for approximately 6 weeks, sleeping in his car. This situation has resulted from unsuccessful attempts to secure housing, with resources either unavailable or having extensive waitlists (6 months to 2 years). Financial struggles are evident, with the patient spending his last funds on basic needs such as food and gas. His credit score of 570 is below the typical requirement (600) for housing applications, further complicating his housing search. The chronic stress of homelessness is significantly impacting his mental health and ability to manage his medical conditions. Plan: - Continue to assist patient in exploring housing resources and options - Client has [facility] Homeless Hotline number - Explore disability advocacy services to potentially expedite housing placement due to medical conditions - Provide phone number to [facility] mobile crisis support to utilize if wanting to speak to a crisis counselor in person. 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 This was in [id number] Appetite: noted change in eating habits such [...] - He mentioned having a six-pack of [email or web address] in the refrigerator for 2-3 months, [...] evaluation and discussion of alternative treatments (Epi, ZAHRAA). c. Encourage discussion of SNRI medication class with pit and auxiliaries supervisor at next appointment. 2. Generalized Anxiety [...] of potential medication changes (SNRI class) with pit and auxiliaries supervisor at next appointment. 5. Suicidal Ideation - Patient reports occasional thoughts of suicide without plan or intent. - Plan: a. Ensure crisis plan is in place and continue open communication with significant other. b. Remind of crisis prevention hotline (768) and to seek immediate help if plan [...] obstructive sleep apnea of (ICD-10 - P28.32) 09/17/2024 Encounter for screening for depression (ICD-10 - Z13.31) 10/21/2024 Primary obstructive sleep apnea of (ICD-10 - P28.32) 12/09/2024 Primary obstructive sleep apnea of (ICD-10 - P28.32) 12/23/2024 MDD (major depressive disorder), severe (ICD-10 - F32.2) 12/23/2024 Passive suicidal ideations (ICD-10 - R45.851) Homelessness and Financial Instability Assessment: Patient reports being homeless for approximately 6 weeks, sleeping in his car. This situation has resulted from unsuccessful attempts to secure housing, with resources either unavailable or having extensive waitlists (6 months to 2 years). Financial struggles are evident, with the patient spending his last funds on basic needs such as food and gas. His credit score of 570 is below the typical requirement (600) for housing applications, further complicating his housing search. The chronic stress of homelessness is significantly impacting his mental health and ability to manage his medical conditions. Plan: - Continue to assist patient in exploring housing resources and options - Client has [facility] Homeless Hotline number - Explore disability advocacy services to potentially expedite housing placement due to medical conditions - Provide phone number to [facility] crisis support to utilize if wanting to speak to a crisis counselor in person. Has information for 988 09/23/2024 Essential hypertension (ICD-10 - I10) 09/23/2024 MDD (major depressive disorder), severe (ICD-10 - F32.2) 12/09/2024 Encounter for screening for depression (ICD-10 - Z13.31) 12/23/2024 Homelessness (ICD-10 - Z59.00) Homelessness and Financial Instability Assessment: Patient reports being homeless for approximately 6 weeks, sleeping in his car. This situation has resulted from unsuccessful attempts to secure housing, with resources either unavailable or having extensive waitlists (6 months to 2 years). Financial struggles are evident, with the patient spending his last funds on basic needs such as food and gas. His credit score of 570 is below the typical requirement (600) for housing applications, further complicating his housing search. The chronic stress of homelessness is significantly impacting his mental health and ability to manage his medical conditions. Plan: - Continue to assist patient in exploring housing resources and options - Client has [facility] Homeless Hotline number - Explore disability advocacy services to potentially expedite housing placement due to medical conditions - Provide phone number to [facility] crisis support to utilize if wanting to speak to a crisis counselor in person. Has information for 988 12/23/2024 Type 2 diabetes mellitus without complication, with long-term current use of insulin (ICD-10 - E11.9) 10/21/2024 Benign essential HTN (ICD-10 - I10) 09/17/2024 Encounter for screening for cardiovascular disorders (ICD-10 - Z13.6) 08/26/2024 Passive suicidal ideations (ICD-10 - R45.851) 09/17/2024 Dietary counseling and surveillance (ICD-10 - Z71.3) 12/09/2024 Encounter for screening for cardiovascular disorders (ICD-10 - Z13.6) 10/21/2024 MDD (major depressive disorder), severe (ICD-10 - F32.2) 10/21/2024 Encounter for screening for depression (ICD-10 - Z13.31) 12/23/2024 Encounter for screening for depression (ICD-10 - Z13.31) Homelessness and Financial Instability Assessment: Patient reports being homeless for approximately 6 weeks, sleeping in his car. This situation has resulted from unsuccessful attempts to secure housing, with resources either unavailable or having extensive waitlists (6 months to 2 years). Financial struggles are evident, with the patient spending his last funds on basic needs such as food and gas. His credit score of 570 is below the typical requirement (600) for housing applications, further complicating his housing search. The chronic stress of homelessness is significantly impacting his mental health and ability to manage his medical conditions. Plan: - Continue to assist patient in exploring housing resources and options - Client has [facility] Homeless Hotline number - Explore disability advocacy services to potentially expedite housing placement due to medical conditions - Provide phone number to [facility] crisis support to utilize if wanting to speak to a crisis counselor in person. Has information for 988 12/23/2024 Chronic post-traumatic stress disorder (PTSD) (ICD-10 - F43.12) 09/23/2024 Type 2 diabetes mellitus without complication, with long-term current use of insulin (ICD-10 - E11.9) 09/23/2024 Primary obstructive sleep apnea of (ICD-10 - P28.32) 12/09/2024 Chronic post-traumatic stress disorder (PTSD) (ICD-10 - F43.12) Patient mentions PTSD possibly related to past incarceration. Patient is currently homeless and struggling financially. - Explore longterm options, including [employer] - Visit shelters and housing resources in [place] for assistance. 12/23/2024 Homelessness (ICD-10 - Z59.00) Patient is currently living in his car and unable to secure emergency longterm. Patient has contacted multiple organizations for assistance without success. - Continue to seek longterm options through local organizations and charities. - Consider reaching out to churches or other community resources for potential assistance. 10/21/2024 Encounter for screening for cardiovascular disorders (ICD-10 - Z13.6) 12/23/2024 Patient's intentional underdosing of medication regimen due to financial hardship (ICD-10 - Z91.120) Patient is experiencing difficulty accessing medications due to financial constraints. Patient has been informed about a place that might help with medication costs. - Contact Celnea Dennison, community coordinator of health services, for assistance with medication access. - Explore options for financial assistance to cover medication costs. 09/23/2024 Passive suicidal ideations (ICD-10 - R45.851) 05/14/2024 Other Learning About Depression Screening material was printed prior [employer]- worked, patient stopped taking on his own. [...] - He mentioned having a six-pack of [employer] in the refrigerator for 2-3 months, only [...] seek emergency services. discussed crisis prevention hotline 188. 1. Major Depressive Disorder (MDD) - Current medication: Paroxetine (Paxil) 20mg daily since beginning of year, minimal improvement. - Plan: a. Increase Paroxetine to 30mg daily (1.5 tablets of 20mg until finished, then switch to 30mg tablets). b. Schedule appointment with Dr. Rutledge for evaluation and discussion of alternative treatments (Kristoferavamelanie, TMS). c. Encourage discussion of SNRI medication class with pit and auxiliaries supervisor at next appointment. 2. Generalized Anxiety [...] of potential medication changes (SNRI class) with pit and auxiliaries supervisor at next appointment. 5. Suicidal Ideation - Patient reports occasional thoughts of suicide without plan or intent. - Plan: a. Ensure crisis plan is in place and continue open communication with significant other. b. Remind of crisis prevention hotline (620) and to seek immediate help if plan [...] has a history of depression since around [id number], exacerbated by COVID-19 and past incarceration. PHQ-9 [...] ensure accuracy, there may be errors, including hydrogen power plant manager inaccuracies and misspellings of medication names. This [...] not specified) - Follow up on pending [facility] and [facility] referrals - Continue counseling with [...] ensure accuracy, there may be errors, including hydrogen power plant manager inaccuracies and misspellings of medication names. This document should not be considered a verbatim record, and any discrepancies should be verified with the provider. 12/09/2024 Other Patient is currently homeless, sleeping in his car. Patient is on disability, working limited hours, and struggling financially. - Explore longterm options, including [employer] - Visit shelters and housing resources in [place] for assistance. Plan Of Treatment No Information Insurance Providers Payer Name Payer Address Payer Phone Subscriber Number Group Number Insured Name Patient Relationship to Insured Coverage Start Date Coverage End Date [employer] - Prime Medicare Replacemen t/Advantag e - Hmo [address] [place] [phone] [id number] VU MATTHEWS Self - patient is [...] No Surgical History Surgery Date(Month/Year) gastric sleeve Hospitalization History Reason Date(Month/Year) Psychiatric hospitalization, [facility], november 12 to november 1910/2024
--- OUTSIDE RECORDS SUMMARY | 2025-04-24 16:34 | XMS_ITS | Encounter Summary ---
Author Organization [facility] Address [address] [place] [id number] Care Team Providers Care Openstack Developer Name Role Phone Felicitas Palmer Primary Care Provider + Reason for Visit * Reason Onset Date Comments Medication Refill 06/12/2019 Encounter Details Date Type Department Care Team (Late st Contact Info) Description 06/12/2019 Pt Refill [address] [phone] Felicitas Palmer FNP-C [address] [place] [id number] Medication Refill Social History Tobacco Use Types Packs/Day Years Used Date Smoking Tobacco: Former Cigarettes 0 Q uit: 2009 Smokeless Tobacco: Never Alcohol Use Standard Drinks/Week Comments No 0 (1 standard drink = 0.6 oz pur e alcohol) Sex and Gender Information Value Date Recorded Sex Assigned at Male 07/12/2018 9:10 AM CREDIT AND COLLECTIONS REPRESENTATIVE Legal Sex Male 10:15 PM CDT Gender Identity Male 09/27/2018 8:10 AM CDT Sexual Orientation Straight 07/12/2018 7: 57 AM CREDIT AND COLLECTIONS REPRESENTATIVE Occupation Industry Job Start Date Job End Date Unemployed Not on file Not on file Not on file documented as of this encounter Miscellaneous Notes * Telephone Encounter - Angy Lovett RN - 06/13/2019 9:30 AM CREDIT AND COLLECTIONS REPRESENTATIVE Pt requesting a refill on Prozac Last ordered on 12/28/18 with 2 refills. Last appointment: 12/24/18 Next scheduled appointment: 07/15/18 Please advise. IT AND COLLECTIONS REPRESENTATIVE documented in this encounter Plan of Treatment Not on file documented as of this encounter Visit Diagnoses Not on filedocumented in this encounter Additional Health Concerns Assessment Noted Time PHQ-9 Depression Total Score: 11 019 9:06 AM CDT documented as of this encounter Care Teams Openstack Developer Relationship Specialty Start Date End Date Felicitas Palmer FNP-C [address] [place] [phone] PCP - General Nurse Practitioner-Family 07/12/1808/09 documented as of this encounter
--- OUTSIDE RECORDS SUMMARY | 2025-04-24 16:34 | XMS_ITS | Data Portability ---
Author Organization [facility] OFFICE Address [address] [place] [address] Assessment No assessment recorded. Plan of Treatment [...] n 80 mg tablet 2017 018 INTERFACE [facility][id number], [address], [place], [place], [id number], 8 15:45:17 Cozaar 25 mg tablet 2016 017 INTERFACE [facility] #16160, [address], [place], [place], [id number], 7 16:46:15 pravastati n 80 mg tablet 2016 017 [email or web address] [facility] #97917, [address], [place], [place], [id number], 8 15:02:45 Cardizem 60 mg tablet 2016 017 [facility] #85339, [address], [place], [place], [id number], 7 15:02:51 losartan 100 mg tablet [address] [facility]11353, [address], [id number], 7 16:13:30 hydrochlor othiazide 25 mg tablet [address] [facility]01087, [address], [id number], 7 16:13:19 Lasix 20 mg tablet 2016 017 [facility]13852, [address], [id number], 7 15:02:50 Cardizem 30 mg tablet 2016 017 [facility] #45169, [address], [place], [place], [id number], 7 14:59:56 magnesium oxide 400 mg (241.3 mg magnesium) tablet [address] [facility]33167, [address], [id number], 7 16:13:12 nitroglyce rin 0.4 mg sublingual tablet 2016 017 [facility]26848, [address], [id number], 7 21:32:55 Patient TargetsNo targets recorded. Patient Instructions Encounter Date Encounter Id Patient Instructions Last Modified By Organization Details Last Modified Time 01/04/2017 [id number] high blood pressure: care instructions Not available 01/05/2017 09:50:40 learning about high blood pressure Not available 01/05/2017 09:50:40 atrial fibrillation: care instructions Not available 01/05/2017 09:50:40 01/25/2017 [id number] high blood pressure: care instructions Not available 01/25/2017 15:59:02 learning about high blood pressure Not available 01/25/2017 15:59:02 high cholesterol : care instructions Not available 01/25/2017 15:59:02 2017 [id number] high blood pressure: care instructions [email or web address] Not available 2017 16:20:42 learning about high blood pressure [email or web address] Not available 2017 16:20:42 high cholesterol : care instructions [email or web address] Not available 2017 16:20:42 06/22/2017 [id number] high blood pressure: care instructions [email or web address] Not available 06/22/2017 16:46:09 learning about high blood pressure [email or web address] Not available 06/22/2017 16:46:09 high cholesterol : care instructions [email or web address] Not available 06/22/2017 16:46:09 01/22/2018 [id number] high blood pressure: care instructions [email or web address] Not [...] change s Not Available Leon Ledesma MD [address], [place], [address], 01/25/2017 15:17:27 01/05/20 17 01/04/2017 elect rocar diogr am Result EK Sinus rhythm . Within normal limits . Not Available Leon Ledesma MD [address], [place], [address], 01/04/2017 12:47:35 01/23/20 18 01/22/2018 elect rocar diogr am Result EKG 8: NSR, NSST change s Not Available Leon Ledesma MD [address], [place], [address], 01/22/2018 14:58:12 01/05/20 17 12/02/2016 US, echoc ardio gram, trans thora cic, compl ete, w/ color flow No observ ation record ed. [email or web address] Stacie Lomas MD [facility] [address] [place], [address], 01/13/2017 13:38:48 01/05/20 17 01/04/2017 elect rocar [...] diogr am No observ ation record ed. [email or web address] Not Available 2016 09:29:12 01/24/20 18 01/22/2018 monty overton am No observ ation record ed. [email or web address] Not Available 01/23 16:46:13 03/22/20 18 03/19/2018 , echo aurora gram No observ ation record ed. [email or web address] Not Available 2018 13:01:20 Result Notes None recorded. Problems Name Problem SNOMED Code Status Onset Date Resolution Date Notes Provider Name and Address Organization Details Recorded Time Diabetes mellitus 35737350 Active 2013 [id number] Dominic Brown [facility] 7 13:23:21 Essential hypertensi on 45826475 Active 2016 [facility] 7 12:48:25 Asthma 657711961 Active 2016 dr Keyur Miranda [facility] 7 13:35:35 Sleep apnea 24058462 Active 2016 on cpap pulmonary fy. Mani Zapien [facility] 7 13:20:05 Hyperlipid emia 04833982 Active 2016 Natalie Schwarz [facility] 7 12:48:51 Chest discomfort 026429641 Active 2016 Dominic Brown [facility] 7 21:29:41 Atrial fibrillati on 44319819 Active 2016 Amando Griffin [facility] 7 16:08:41 Cardiac arrhythmia 261477807 Active 2016 Dominic Brown [facility] 7 15:17:05 Sarcoidosi s 37852219 Active 2016 [facility] 7 13:24:06 Problem Notes None recorded. Medical Equipment None Reported. [...] N ot Available Vitals Date Recorded Body weight Body mass index (BMI) Body height Heart rate Oxygen saturation Oxygen saturation in Arterial blood by Pulse oximetry Systolic And Diastolic Provider Name and Address Organization Details Last Updated DateTime 7 019971. 81 g 47.3 kg/m2 180.34 cm 62 /min 98 % 98 % 120/80 mm[Hg] [facility] 7 13:01:43 Date Recorded Body height Body mass index (BMI) Body weight Oxygen saturation Oxygen saturation in Arterial blood by Pulse oximetry Heart rate Systolic And Diastolic Provider Name and Address Organization Details Last Updated DateTime 8 180.34 cm 52.1 kg/m2 842623. 11 g 98 % 98 % 89 /min 128/78 mm[Hg] Raquel Yee [facility] 8 15:01:05 Date Recorded Body height Body mass index (BMI) Body weight Heart rate Oxygen saturation Oxygen saturation in Arterial blood by Pulse oximetry Systolic And Diastolic Provider Name and Address Organization Details Last Updated DateTime 7 180.34 cm 47.4 kg/m2 195313. 41 g 83 /min 98 % 98 % 112/64 mm[Hg] Natalie [facility] 7 12:25:10 Date Recorded Body height Heart rate Oxygen saturation Oxygen saturation in Arterial blood by Pulse oximetry Systolic And Diastolic Provider Name and Address Organization Details Last Updated DateTime 7 180.34 cm 70 /min 98 % 98 % 108/82 mm[Hg] [facility] 7 12:34:16 Date Recorded Body height Body mass index (BMI) Body weight Heart rate Oxygen saturation Oxygen saturation in Arterial blood by Pulse oximetry Systolic And Diastolic Provider Name and Address Organization Details Last Updated DateTime 7 180.34 cm 53.7 kg/m2 116742. 06 g 94 /min 93 % 93 % 112/86 mm[Hg] [facility] 7 16:10:15 Social History Question Answer Notes LastModified by Organizat ion Details LastModified Time Tobacco Smoking Status Former Smoker quit 2011 [facility] 01/04/2017 12:49:31 What Is Your Level Of Caffeine Consumption? [...] not available 01/04/2017 Sex: Unknown Functional Status Question Answer Note LastModified by Organization D etails LastModified Time What is your level of alcohol consumption? None Information not available 01/04/2017 Mental Status None recorded. Family History Relationship [...] Diagnosis SNOMED-CT Code Diagnosis ICD10 Code Diagnosis IMO Codes Diagnosis Note [id number] MD Jacqui Issa Office [address] [place] [address] 01/04/2017 11:59:16 01/05/2017 12:30:16 Atrial fibrillation 96931603 I48.91 pt currently is in NSR. Will obtain records from outside hospital. Holter. Essential hypertension 81140589 I10 Patient's blood pressure is well-contr olled on present medical therapy. Patient is tolerating , without difficulty , the current medication s. I have not made changes to the current regimen. Patient is advised to maintain a blood pressure diary. Cont low Na diet. Chest discomfort 5894444 09 R07.89 Patient presents with chest pain with atypical features. Given the history, exam findings and intermedia te cardiac risk factors, I feel additional investigat ion is warranted. I have made arrangemen ts in the near future for an exercise stress nuclear test (stress echo not possible due to COPD or obesity). The procedure was discussed with the patient, and risks, benefits, and alternativ e options were explained. Appropriat e labwork has not been performed recently, therefore I have made arrangemen ts for further testing. I have asked the patient to curtail exercise and activities until our investigat ion is complete. I have made the following adjustment s to the present medical regimen. Patient has been given a prescripti on for sublingual nitroglyce rin. [id number] Leon Ledesma MD [facility] [address] [facility] [place] [address] 01/25/2017 12:03:37 01/26/2017 10:51:33 Cardiac arrhythmia 892788059 I49.9 pt currently is in NSR. Holter has not revealed sinificant arrhythmia s. switch amlodipine for Cardiazem since pt is known to have lung condition and PACs.Suppl ement electrolyt es.. Hyperlipidemia 32237422 E78.5 Patient's hyperlipid emia is well-contr olled on present medical therapy. Patient is tolerating , without difficulty , the current medication s. I have not made changes to the current regimen. Cont low cholestero l diet. Essential hypertension 50814492 I10 Patient's blood pressure is well-contr olled on present medical therapy. Patient is tolerating , without difficulty , the current medication s. I have made the following changes to the current regimen. switch amlodipine for Cardizem 30 BIDPatient is advised to maintain a blood pressure diary. Cont low Na diet. Chest discomfort 5110389 09 R07.89 stress test negative. cont medical management and risk [place]ati [place]. [id number] Leon Ledesma MD [facility] [address] [place] [address] 2017 12:21:00 03/24/2017 09:34:15 Essential hypertension 26208023 I10 Patient's blood pressure is not well-contr olled on present medical therapy. Patient is tolerating , without difficulty , the current medication s. I have made the following changes to the current regimen.in crease Cardizem to 60 BID. For diuresis will add Lasix 20 PRN instead of HCTZ.Patie nt is advised to maintain a blood pressure diary. Cont low Na diet. Cardiac arrhythmia 04917 7007 I49.9 pt currently is in NSR. Holter has not revealed sinificant arrhythmia s. switch amlodipine for Cardiazem since pt is known to have lung condition and PACs.Suppl ement electrolyt es.. Hyperlipidemia 09461941 E78.5 Patient's hyperlipid emia is well-contr olled on present medical therapy. Patient is tolerating , without difficulty , the current medication s. I have not made changes to the current regimen. Cont low cholestero l diet. Chest discomfort 7983983 09 R07.89 stress test negative. cont medical management and risk factor modificati on. Leon Ledesma MD [facility] OFF[facility] [address] [place] [address] 06/22/2017 16:02:35 06/23/2017 09:24:37 Essential hypertension 65378060 I10 Patient's blood pressure is not well-contr olled on present medical therapy. Patient is tolerating , without difficulty , the current medication s. I have made the following changes to the current regimen.in crease Cardizem to 60 BID. For diuresis will add Lasix 20 PRN instead of HCTZ.Patie nt is advised to maintain a blood pressure diary. Cont low Na diet. Cardiac arrhythmia 28671 7007 I49.9 pt currently is in NSR. Holter has not revealed sinificant arrhythmia s. switch amlodipine for Cardiazem since pt is known to have lung condition and PACs.Suppl ement electrolyt es.. Hyperlipidemia 44895083 E78.5 Patient's hyperlipid emia is well-contr olled on present medical therapy. Patient is tolerating , without difficulty , the current medication s. I have not made changes to the current regimen. Cont low cholestero l diet. Chest discomfort 4293538 09 R07.89 stress test negative. cont medical management and risk factor modificati on. MD Jacqui Issa Office [address] [place] [address] 01/22/2018 14:45:59 01/22/2018 15:46:58 Essential hypertension 07133636 I10 Patient's blood pressure is well-contr olled on present medical therapy. Patient is tolerating , without difficulty , the current medication s. I have not made changes to the current regimen. Patient is advised to maintain a blood pressure diary. Advised to follow a low salt, low cholestero l diet. Aim for no more than 2,400mg of sodium per day. Aim for 30 minutes of aerobic exercise daily. Lasix PRN. ECHO Cardiac arrhythmia 44675 7007 I49.9 pt currently is in NSR/ ST. Holter did not revealed significan t arrhythmia s. Previously switched amlodipine for cardizem since pt is known to have lung condition and PACs. Supplement electrolyt es.. Hyperlipidemia 82956392 E78.5 Needs to keep LDL less than 70, and HDL more than 40 Will get lipid profile. Continue Statin. he states that his statin was started not long time ago will recheck lipids Chest discomfort 3194396 09 R07.89 Atypical given known lung disease. [...] Recorded Advance Directives Directive None Recorded Payers Insurance Date Sequence Insurance Name Policy Number Policy Munoz Covered Member ID Munoz Member ID Guarantor Name 07/19/2018 1 [facility] PRIOR TO 12/31/2020 (MEDICAID REPLACEMENT - HMO) Vu Tilley [id number] Vu Treva 07/19/2018 1 [place] [employer] Vu Tilley [id number] Vu Tilley Notes Date Note Type Note Provider Name and Address Organization Details Recorded Time 01/04/2017 text/html Mr. Tilley is a pleasant 36 y/o AAM with PMH of HL, CAR, asthma, HTN, DM who was referred for cardiovascular evaluation. According to the pt he recently underwent evaluation at [facility] where he was found to have irregular heart beating. Pt denies palpitatinso or syncopal episodes. Pt does experience episodes of heaviness at rest Pt was outpt he had ECHO in December 2016. He had Holter twice pt was told that he has AFIB and he was started on blood thinner. Previoysly about3 yrs agbo he seen construction technician in [facility] he was told that everything was fine. [...] elevated Underlying rhythm is probably atrial fibrillation. Dominic escalera [place] [facility] 01/04/2017 21:35:32 01/25/2017 [...] the pt he recently underwent evaluation at [facility] where he was found to have irregular heart beating. Pt denies palpitations or syncopal episodes. Pt does experience episodes of heaviness at rest. On L side not related to physical activity Pt was outpt he had ECHO in December 2016. He had Holter twice pt was told that he has AFIB and he was started on blood thinner. previously about 3 yrs ago he seen construction technician in [facility] he was told that everything was fine. [...] is below average. LVEF 61%. 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 Had ECHO done in 12/02/16 showed normal LV systolic function , EF 60% , diastolic dysfunction . Had negative stress test done in 01/10/17 with normal LV systolic function , EF 61% . According to the pt he recently underwent evaluation at [facility] where he was found to have irregular heart beating. Pt denies palpitations or syncopal episodes. Pt used to experience episodes of heaviness at rest. On L side not related to physical activity Pt was outpt he had ECHO in December 2016. He had Holter twice pt was told that he has AFIB and he was started on blood thinner. previously about 3 yrs ago he seen construction technician in [facility] he was told that everything was fine. [...] is below average. LVEF 61%. 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 Had ECHO done in 12/02/16 showed normal LV systolic function , EF 60% , diastolic dysfunction . Had negative stress test done in 01/10/17 with normal LV systolic function , EF 61% . According to the pt he recently underwent evaluation at [facility] where he was found to have irregular heart beating. Pt denies palpitations or syncopal episodes. Pt used to experience episodes of heaviness at rest. On L side not related to physical activity Pt was outpt he had ECHO in December 2016. He had Holter twice pt was told that he has AFIB and he was started on blood thinner. previously about 3 yrs ago he seen construction technician in [facility] he was told that everything was fine. [...] is below average. LVEF 61%. Dominic Brown [facility] [place] [facility] 06/22/2017 16:47:15 01/22/2018 text/html 01/22/18 CC: Follow-up SOB, chest pain Patient is a 37 year-old -[place] man with sarcoidosis hyperlipidemia, CAR, asthma, obesity presents today for follow-up. He was here last 7 months ago. Since then he feels poor due to his diabetes and sarcoidosis. He sees Dr. Magaña at [facility] for that. Is in on chronic steroid [...] the pt he recently underwent evaluation at [facility] where he was found to have irregular heart beating. Pt denies palpitations or syncopal episodes. He [...] is below average. LVEF 61%. Dominic escalera [place] [facility] 01/22/2018 15:45:16
--- OUTSIDE RECORDS SUMMARY | 2025-04-24 16:34 | XMS_ITS | Clinical Summary ---
Author Organization [facility] Address [address] [place] [id number] Care Team Providers Care Drafting Supervisor Name Role Phone Unavailable Primary Care Provider Unavailabl e Allergies Active Allergy Reactions Criticality Noted Date Comments Wound Dressing Adhesive Rash 07/12/2018 Pioglitazone Rash,Shortness Of Breath High 8 Medications insulin glulisine (APIDRA) 100 UNIT/ML SOPN PenIndications:Typ e 2 diabetes mellitus without complication, with long-term current use of insulin (HCC) 8 units with meals plus sliding scale 2 Pen 5 08/07/19 19 Active Additional Information Patient taking differently: 14 Units 3 TIMES DAILY BEFORE MEALS, plus sliding scale, Reported on 01/10/2022 glucose blood test strips strip accucheck connect, 4 times daily and as needed 200 each 5 08/27/19 19 Active ACCU-CHEK FASTCLIX LANCETS MISC USE TO TEST BLOOD SUGAR 4 TIMES PER DAY ICD 10 CODE E11.65 4 09/13/19 19 Active BD PEN NEEDLE KENROY U/F 32G X 4 MM MISC USED TO INJECT INSULIN 4 TIMES A DAY 3 09/05/19 19 Active Blood Glucose Monitoring Suppl (ACCU-CHEK GUIDE) w/Device KIT USE DIRECTED. 0 08/27/19 19 Active BASAGLAR KWIKPEN 100 UNIT/ML SOPN Pen Take 20 Units by mouth 2 times daily 3 09/04/19 19 Active rivaROXABAN (XARELTO) 20 MG tablet Xarelto 20 mg tablet Active nitroGLYCERIN (NITROSTAT) 0.4 MG SL tablet 08/27/19 20 Active Potassium Chloride ER 20 MEQ TBCR potassium chloride ER 20 mEq tablet,extended release Active dronedarone (MULTAQ) 400 MG tablet 1 each Active SYNJARDY XR 25-1000 MG ER tablet Take 1 tablet by mouth daily 01/10/20 Active clobetasol (TEMOVATE) 0.05 % cream PLEASE SEE ATTACHED FOR DETAILED DIRECTIONS 03/19/20 Active fluconazole (DIFLUCAN) 200 MG tablet TAKE ONE TABLET TWICE A WEEK 02/20/20 Active ADMELOG SOLOSTAR 100 UNIT/ML SOPN pen PLEASE SEE ATTACHED FOR DETAILED DIRECTIONS 04/27/20 Active ketoconazole (NIZORAL) 2 % cream PLEASE SEE ATTACHED FOR DETAILED DIRECTIONS 03/19/20 Active Semaglutide (RYBELSUS) 3 MG TABS Rybelsus 3 mg tablet Active albuterol (PROVENTIL) (2.5 MG/3ML) 0.083% nebulizer solutionIndication s:Moderate asthma without complication, unspecified whether persistent Take 1 vial (2.5 mg) by nebulization every 6 hours as needed for Wheezing JASWANT 300 mL 10/05/19 Active albuterol 108 (90 Base) MCG/ACT inhalerIndications :Moderate asthma without complication, unspecified whether persistent Inhale 2 puffs by mouth every 6 hours 18 g 2 10/05/19 Active carvedilol (COREG) 25 MG tabletIndications: Sarcoidosis Take 1.5 tablets (37.5 mg) by mouth 2 times daily Patient taking 1 and a half tablet (37.5 mg), 2 Times Daily. 90 tablet 2 10/05/19 Active furosemide (LASIX) 40 MG tabletIndications: Essential hypertension Take 1 tablet (40 mg) by mouth daily 90 tablet 10/05/19 Active TRELEGY ELLIPTA 100-62.5-25 MCG/INH inhaler INHALE 1 PUFF BY MOUTH EVERY DAY 1 each 2 10/05/19 Active predniSONE (DELTASONE) 20 MG tablet prednisone 20 mg tablet TAKE 1 TABLET BY MOUTH DAILY FROM 12/10/21-01/08/22 Active mycophenolate (CELLCEPT) 500 MG tablet mycophenolate mofetil 500 mg tablet TAKE 2 TABLETS BY MOUTH TWICE A DAY Active ezetimibe (ZETIA) 10 MG tablet ezetimibe 10 mg tablet TAKE 1 TABLET BY MOUTH EVERY DAY DIRECTED Active insulin aspart (NOVOLOG FLEXPEN) 100 UNIT/ML SOPN Pen Novolog Flexpen U-100 Insulin aspart 100 unit/mL (3 mL) subcutaneous [id number] UNITS 3 TIMES DAILY W/ MEALS PLUS AGGRESSIVE SLIDING SCALE-102 UNITS TOTAL DAILY Active lisinopril (ZESTRIL) 5 MG tabletIndications: Essential hypertension Take 1 tablet (5 mg) by mouth daily LISINOPRIL 5MG TABLET 90 tablet 1 05/10/20 22 Active Cholecalciferol 5000 UNIT (125 mcg) tabletIndications: Vitamin D deficiency Take 1 tablet (5,000 Units) by mouth daily 30 tablet 5 05/23/20 22 Active fluoxetine (PROZAC) 20 MG tabletIndications: Current moderate episode of major depressive disorder without prior episode (HCC) Take 1 tablet (20 mg) by mouth daily 30 tablet 5 05/23/20 22 Active atorvaSTATin (LIPITOR) 80 MG tabletIndications: Mixed hyperlipidemia TAKE 1 TABLET BY MOUTH EVERY DAY 90 tablet 1 06/21/20 22 Active omeprazole (PRILOSEC) 20 MG capsuleIndications :Gastroesophageal reflux disease without esophagitis TAKE 1 CAPSULE BY MOUTH EVERY DAY 90 capsule 1 06/21/20 22 Active [facility] D3 125 MCG (5000 UT) capsuleIndications :Vitamin D deficiency TAKE 1 CAPSULE BY MOUTH EVERY DAY 90 capsule 07/25/19 23 Active Active Problems Problem Noted Date Diagnosed Date Vitamin D deficiency 10/11/2021 BMI 50.0-59.9, adult 12/14/2020 Elevated serum creatinine 07/16/2018 Type 2 diabetes mellitus wit hout complication, with long-term current use of insulin 07/15/2018 Essential hypertension 07/15/2018 Hyperlipidemia 07/15/2018 Current moderate episode of major depressive disorder without prior episode 07/15/2018 Sarcoidosis 07/15/2018 Chronic obstructive pulmonary disease 07/15/2018 Moderate asthma without complication 07/15/2018 Paroxysmal atrial fibrillation 07/15/2018 Immunizations Immunization Administration Dates Next Due Covid-19 28 Day Interval Moderna 11/17/2020,10/01 Covid-19 Moderna Booster Half Dose 10/14/2021 Covid-19 Vaccine Immunization Unspecified 2020,10/19/2020 Influenza Quadrivalent, Preservative Free 2021,10/04/2021,03/27/2019 Influenza Split Virus Preservative Free 08/22/19 19 Influenza, Quadrivalent 05/04/2020,03/27/2019, Pneumococcal Polysaccharide PPV23 12/25/2018 Tdap 12/25/2018 Family History Medical History Relation Name Comments No Known Problems Daughter No Known Problems Mother Seizures Sister 1 Relation Name Status Comments Brother Alive Daughter Alive Father Alive Maternal Grandfather Maternal Grandmother Mother Alive Paternal Grandfather Paternal Grandmother Sister 1 Alive Sister 2 Alive Social History Tobacco Use Types Packs/Day Years Used Date Smoking Tobacco: Former Cigarettes 0 Q uit: 2009 Smokeless Tobacco: Never Tobacco Cessation:Counseling Given: Yes Alcohol Use Standard Drinks/Week Comments Yes 0 (1 standard drink = 0.6 oz pur e alcohol) rarely PHQ-2 Answer Date Recorded PHQ-2 Score 0 04/18/2022 Alcohol Use Answer Date Recorded Frequency of Alcohol Consumption Not on file 01/10/2022 Average Number of Drinks Not on file 022 Frequency of Binge Drinking Not on file 12/31 Alcohol Use Status Yes 01/10/2022 Average alcohol consumption Not on file 12/31 Sex and Gender Information Value Date Recorded Sex Assigned at Male 07/12/2018 9:10 AM HOME VISIT FIELD CARE MANAGER Legal Sex Male 10:15 PM CDT Gender Identity Male 09/27/2018 8:10 AM CDT Sexual Orientation Straight 07/12/2018 7: 57 AM HOME VISIT FIELD CARE MANAGER Occupation Industry Job Start Date Job End Date Unemployed Not on file Not on file Not on file Last Filed Vital Signs Vital Sign Reading Time Taken Comments Blood Pressure 134/78 04/18/2022 1:28 PM CDT Pulse 84 04/18/2022 1:28 PM CDT Temperature 36.6 C (97.8 F) 04/18/2022 1:28 PM CDT Respiratory Rate 16 04/18/2022 1:28 PM CDT Oxygen Saturation 97% 04/18/2022 1:28 PM CDT Inhaled Oxygen Concentration - - Weight 161 kg (355 lb) 04/18/2022 1:28 PM CDT Height 180.3 cm (5' 11) 04/18/2022 1:28 PM CDT Body Mass Index 49.51 04/18/2022 1:28 PM CDT Plan of Treatment Health Maintenance Due Date Last Done Comments MMR VACCINES (1 of 1 - Standard series) 1981 HPV VACCINES (1 - Male 3-dose series) 1995 HEPATITIS B VACCINES (1 of 3 - 19+ 3-dose series) 1999 Zoster Vaccine (Recombinant Vaccine) (1 of 2) 1999 Pneumococcal Vaccine: Peds to 50 & At-Risk Patients (2 of 2 - PCV) 12/26/2019 12/25/2018 DIABETIC FOOT EXAM 10/04/2022 10/04/2021, 0 10/04/2021, 02/03/2020, Additional history exists URINARY MICROALBUMIN IN DIABETES 10/04/2022 10/04/2021, 02/03/2020, 07/30/2018 YEARLY WELLNESS EXAM 10/04/2022 10/04/2021, 10/04/2021, 02/03/2020, Additional history exists Diabetes follow-up every 6 months by HEMOGLOBIN A1C 10/17/2022 04/18/2022, 01/11/2022, 10/04/2021, Additional history exists Diabetic Eye Exam 12/21/2022 12/21/2021 (Do ne/Outside Provider), 12/02/2020 (Done/Outside Provider), 11/18/2019 (Done/Outside Provider), Additional history exists LIPID TESTING 01/11/2023 01/11/2022, 040 10/2021, 10/23/2020 (Done/Outside Provider), Additional history exists DEPRESSION SCREENING 04/18/2023 04/18/2022, 03/19/2021, 02/03/2020, Additional history exists Influenza Vaccine 01/31/2025 04/18/2022, , 05/04/2020, Additional history exists COVID-19 Immunization ( season) 2025 10/14/2021, 11/17/2020, 11/17/2020, Additional history exists Colon Cancer Screening 2025 ADULT TETANUS 12/25/2028 12/25/2018, 12/02 (Done/Outside Provider) HIV Screening Completed 07/12/2018 Hepatitis C Screening ages 18 to 79 once Completed 07/12/2018 HEPATITIS A VACCINES Aged Out No long er eligible based on patient's age to complete this topic HIB VACCINES Aged Out No longer eligi ble based on patient's age to complete this topic IPV VACCINES Aged Out No longer eligi ble based on patient's age to complete this topic MENINGOCOCCAL VACCINE Aged Out No elvia tyshawn eligible based on patient's age to complete this topic Meningococcal B Vaccine Aged Out No l onger eligible based on patient's age to complete this topic ROTAVIRUS VACCINES Aged Out No longer eligible based on patient's age to complete this topic Procedures Procedure Name Priority Date/Time Associated Diagnosis Comments HEMOGLOBIN A1C Routine 04/18/2022 3:18 PM CDT Type 2 diabetes mellitus without complication, with long-term current use of insulin (HCC) Preop testing LIPID PROFILE Routine 01/11/2022 1:10 PM CDT Mixed hyperlipidemia MICROALBUMIN, RANDOM URINE Routine 10/04/2021 10:07 AM CDT Type 2 diabetes mellitus without complication, with long-term current use of insulin (HCC) HIV 1 AND 2 COMBO ANTIGEN/ANTIBODY Routine 07/12/2018 11:20 AM HOME VISIT FIELD CARE MANAGER Unprotected sex ACUTE HEPATITIS PANEL Routine 07/12/2018 11:20 AM HOME VISIT FIELD CARE MANAGER Unprotected sex from Last 3 Months or Most Recently Relevant to Health Maintenance Results * (ABNORMAL) HEMOGLOBIN A1C (04/18/2022 3:18 PM CDT) Hemoglobin A1C 8.2(H) 4.0 - 5.6 % [facility] Estimated Average Glucose 189(H) 68 - 114 MG/DL [facility] Blood 04/18/2022 3:18 PM CDT 04/18/2022 3:19 PM CDT Felicitas Palmer COTTON GIN YARD SUPERVISOR-C CHEMISTRY ORDERABLES Fin al Result [facility] [address] [place] [address] * LIPID PROFILE (01/11/2022 1:10 PM CDT) Cholesterol 128 <200 MG/DL [facility] Triglycerides 118 0 - 149 MG/DL [facility] HDL 46 >40 MG/DL [facility] LDL Cholesterol 58 <130 MG/DL [facility] LDL/HDL Ratio 1.27 [facility] VLDL, Calc 24 5 - 40 MG/DL [facility] LDL, High Risk RELATIVE RISK MALE FEMALE 1/2 AVERAGE 1.00 1.47 AVERAGE 3.55 3.22 2X AVERAGE 6.25 5.03 3X AVERAGE 7.99 6.14 AN AVERAGE RISK RATIO INFERS A 10% LIKELIHOOD OF SIGNIFICANT CAD BY AGE 60. OTHER RISK FACTORS SUCH GLUCOSE INTOLERANCE, SMOKING HISTORY, HYPERTENSION AND OBESITY WILL FURTHER MODIFY THE RELATIVE RISK RATIO. [facility] Blood 01/11/2022 1:10 PM CDT 01/11/2022 1:11 PM CDT Felicitas Palmer COTTON GIN YARD SUPERVISOR-C CHEMISTRY ORDERABLES Fin al Result Performing Organization Address [facility] de Phone Number [facility] [address] [phone] * (ABNORMAL) MICROALBUMIN, RANDOM URINE (10/04/2021 10:07 AM CDT) Microalbumin Urine <1.2 MG/DL [facility] Comment:NO NORMAL RANGE Creatinine Urine 14 MG/DL [facility] Comment:NO NORMAL RANGE Microalbumin/Crea tinine Ratio <86(H) <30 MG/G [facility] 10/04/2021 10:0 7 AM CDT 10/04/2021 10:08 AM CDT Felicitas Palmer COTTON GIN YARD SUPERVISOR-C URINE ORDERABLES Final R esult Performing Organization Address [facility] Co de Phone Number [facility] [address] [phone] * ACUTE HEPATITIS PANEL (07/12/2018 11:20 AM HOME VISIT FIELD CARE MANAGER) Hepatitis B Surface Antigen NONREACTIVE (NEGATIVE) [facility] Hepatitis B Core IgM Antibody NONREACTIVE (NEGATIVE) [facility] Hepatitis C IgG Antibody NONREACTIVE (NEGATIVE) [facility] Hepatitis A IgM Antibody NONREACTIVE (NEGATIVE) [facility] Hepatitis B Surface Antigen Comment SEE NOTES [facility] Comment: THIS ASSAY HAS NOT BEEN FDA CLEARED OR APPROVED FOR THE SCREENING OF BLOOD OR PLASMA DONORS. CURRENT METHODS FOR THE DETECTION OF HEP B SURFACE AG MAY NOT DETECT ALL INFECTED INDIVIDUALS. Hep B Core IgM Comment SEE NOTES [facility] Comment: THIS ASSAY HAS NOT BEEN FDA CLEARED OR APPROVED FOR THE SCREENING OF BLOOD OR PLASMA DONORS. Hep C IgG Comment SEE [facility] Comment: THIS ASSAY HAS NOT BEEN FDA CLEARED OR APPROVED FOR THE SCREENING OF BLOOD OR PLASMA DONORS. TEST PERFORMED USING [employer] Hep A IgM Comment SEE [facility] Comment: THIS ASSAY HAS NOT BEEN FDA CLEARED OR APPROVED FOR THE SCREENING OF BLOOD OR PLASMA DONORS. IN PATIENTS RECEIVING THERAPY WITH >5 MG/DAY BIOTIN, NO SAMPLE SHOULD BE TAKEN UNTIL AT LEAST 8 HRS AFTER LAST BIOTIN DOSE. Blood 07/12/2018 11:2 0 AM HOME VISIT FIELD CARE MANAGER 07/12/2018 11:25 AM HOME VISIT FIELD CARE MANAGER Felicitas Palmer COTTON GIN YARD SUPERVISOR-C CHEMISTRY ORDERABLES Fin al Result [facility] [address] [place] [address] * HIV 1 AND 2 COMBO ANTIGEN/ANTIBODY (07/12/2018 11:20 AM HOME VISIT FIELD CARE MANAGER) HIV-1 and HIV-2 Antigen/Antibod ies NONREACTIVE (NEGATIVE) [facility] HIV Comment SEE NOTES [facility] Comment: THIS ASSAY HAS NOT BEEN FDA CLEARED OR APPROVED FOR THE SCREENING OF BLOOD OR PLASMA DONORS. TEST PERFORMED USING [employer] CURRENT METHODS FOR THE DETECTION OF HIV 1 AND/OR 2 ANTIBODIES MAY NOT DETECT ALL INFECTED INDIVIDUALS. A REACTIVE RESULT DOESN'T DISTINGUISH BETWEEN HIV-1 p24 Ag, HIV-1 Ab, HIV-2 Ab, OR HIV-1 GROUP O Ab. Blood 07/12/2018 11:2 0 AM HOME VISIT FIELD CARE MANAGER 07/12/2018 11:25 AM HOME VISIT FIELD CARE MANAGER us Felicitas Palmer COTTON GIN YARD SUPERVISOR-C IMMUNOLOGY ORDERABLES Fi nal Result [address] [phone] from Last 3 Months or Most Recently Relevant to Health Maintenance Insurance [employer] [facility] MEDICARE [facility] MEDICARE [facility] MEDICARE [facility]
--- OUTSIDE RECORDS SUMMARY | 2025-04-24 16:34 | XMS_ITS | Clinical Summary ---
Author Organization [facility] Address [address] [place] [address] Phone Care Team Providers Care Manager Care Name Role Phone Unavailable Primary Care Provider [...] obesity with body mass index of 40.0-49.9 Take 15 mL by mouth every 6 hours as needed for Pain. Max Daily Amount: 60 mL 280 mL 05/19/2022 2:36 PM VAUDEVILLE ACTOR 2 Active ondansetron (ZOFRAN ODT) 4 mg Tablet, Rapid Dissolve Take 1 Tablet (4 mg) by mouth every 6 hours as needed for Nausea/Vomiting. Dissolve tablet on top of tongue, then swallow with saliva. 28 Tablet 05/19/2022 2:36 PM VAUDEVILLE ACTOR 2 Active rivaroxaban (XARELTO) 20 mg Tablet [...] COVID-19 VACCINE - EMERGENCY USE AUTHORIZATION, MRNA, [id number](PF) 30 MCG/0.3 ML IM SUSP 10/14/2021,11/17/2020,10/19/2020 (PNEUMOVAX [...] Comments Blood Pressure 150/92 05/19/2022 12:35 PM VAUDEVILLE ACTOR Pulse 60 05/19/2022 12:35 PM VAUDEVILLE ACTOR Temperature 36.9 C (98.4 F) 05/19/2022 12:35 PM VAUDEVILLE ACTOR Respiratory Rate 18 05/19/2022 12:3 5 PM VAUDEVILLE ACTOR Oxygen Saturation 100% 05/19/2022 12: 35 PM VAUDEVILLE ACTOR Inhaled Oxygen Concentration - - Weight 158.1 kg (348 lb 9.6 oz) 05/19/2022 4:44 AM VAUDEVILLE ACTOR Height 180.3 cm (5' 11) 05/17/2022 1:26 PM VAUDEVILLE ACTOR Body Mass Index 48.62 05/17/2022 1:26 PM VAUDEVILLE ACTOR Plan of Treatment Health Maintenance Due Date Last Done Comments DIABETES ANNUAL RETINAL EXAM 1998 DIABETES MICROALBUMIN ANNUAL SCREEN 1998 LDL CHOLESTEROL ANNUAL 1998 HEPATITIS B VACCINES (1 of 3 - 19+ 3-dose series) 1999 HPV VACCINES (1 - 3-dose SCD M series) 2007 DIABETES ANNUAL FOOT EXAM 01/22/2019 01/22/2018 DIABETES HBA1C Q 6 MONTHS 10/17/20222021, 10/04/2021, 01/22/2018 INFLUENZA VACCINE (#1) 2025 , 10/04/2021, 05/04/2020, Additional history exists COVID-19 Vaccine (2024-2 6 season) 2025 10/14/2021, 10/14/2021, 11/17/2020, Additional history exists COLORECTAL SCREENING 2025 Colorectal Cancer Screening 2025 FIT-DNA Q 3 years 2025 FIT/FOBT Q 1 year 2025 Flex Sig/CT Colonography Q 5 years 2025 DTAP/TDAP/TD VACCINES (2 - T d or Tdap) 12/25/2028 12/25/2018 Medical Devices Implanted Type Area Stitchdowns Toe Former Device Identifier Shelf Expiration Date Model / Serial / Lot Seamguard Endogia 60 [id number] - [id number] Implanted:Qty : 2 on 05/18/2022 by Pao Bell MD at [facility] Biological N/A: [employer] 08/31/2024 [id number] / / [id number] Seamguard Endogia 60 [id number] [id number] - [id number] Implanted:Qty : 3 on 05/18/2022 by Pao Bell MD at [facility] Biological N/A: St[employer] 08/25/2024 [id number] / / [id number] Description:#3 implant- lot# [id number] exp. 09/28/24 Insurance MEDICARE PART A AND B RX [employer] RX Member Subscriber Plan / Payer (Ef fective 2022-Present) Name:Vu Tilley Jr. Relation to Subscriber:Spouse Payer ID:Not on file Group ID:[id number] Type:RX Commercial Address: [address] [facility] Medicare Part D Advance Directives For more information, please contact: [phone] * Full Code (Latest Code Status on File) Date Activated Date Inactivated Comments 05/18/2022 3:46 PM 05/19/2022 4:40 PM * Full Code Date Activated Date Inactivated Comments 05/18/2022 1:17 PM 05/18/2022 3:46 PM * Full Code Date Activated Date Inactivated Comments 05/18/2022 10:30 AM 05/18/2022 1:16 PM
--- OUTSIDE RECORDS SUMMARY | 2025-04-24 16:34 | XMS_ITS | Clinical Summary ---
Author Organization [facility] Address [address] [place] [address] Care Team Providers Care Special Education Professor Name Role Phone Lotus Marina NP Primary Care Provider [phone] Allergies Active Allergy Reactions Criticality Noted Date Comments Adhesive Rash Medium 07/12/2018 Wound dressing Pioglitazone Rash,Shortness of breath High 8 Medications atorvastatin (LIPITOR) 80 mg tablet Take 1 tablet (80 mg total) by mouth daily 023 Active carvediloL (COREG) 25 mg tablet TAKE 1 TABLET BY MOUTH EVERY 12 HOURS WITH FOOD 023 Active omeprazole (PriLOSEC) 20 mg capsule Take 1 capsule (20 mg total) by mouth daily Active mycophenolate mofetil (CELLCEPT) 500 mg tablet Take 2 tablets (1,000 mg total) by mouth 2 (two) times a day Active furosemide (LASIX) 40 mg tablet Take 2 tablets (80 mg total) by mouth daily 022 Active albuterol HFA (PROVENTIL HFA,VENTOLIN HFA,PROAIR HFA) 90 mcg/actuation inhaler USE 1 INHALATION 4 TIMES DAILY NEEDED FOR SHORTNESS OF BREATH OR WHEEZING [address] (CYMBALTA) 60 mg capsule Take 1 capsule (60 mg total) by mouth nightly Active tadalafiL (CIALIS) 5 mg tablet Take 1 tablet (5 mg total) by mouth daily Active cyclobenzaprine (FLEXERIL) 10 mg tablet Take 1 tablet (10 mg total) by mouth 3 (three) times a day as needed for muscle spasms Active buPROPion XL (WELLBUTRIN XL) 300 mg 24 hr tablet Take 1 tablet (300 mg total) by mouth daily Active HYDROcodone-kelsey taminophen (NORCO) 5-325 mg per tabletIndicatio ns:Pain Take 1 tablet by mouth every 6 (six) hours as needed Active warfarin (COUMADIN) 5 mg tabletIndicatio ns:atrial fibrillation Take 1 tablet (5 mg total) by mouth Takes 1.5 tabs and Monday Takes 2 tabs on mon and monday Active fluticasone propion-salmete roL (ADVAIR DISKUS) 500-50 mcg/dose diskus inhaler Inhale 1 puff 2 (two) times a day Active albuterol 2.5 mg /3 mL (0.083 %) nebulizer solution Take 3 mL (2.5 mg total) by nebulization every 6 (six) hours as needed for wheezing 75 mL 1 025 2025 Active lisinopriL (PRINIVIL,ZESTR IL) 10 mg tablet Take 1 tablet (10 mg total) by mouth daily 30 tablet 025 2024 Active ezetimibe (ZETIA) 10 mg tablet Take 1 tablet (10 mg total) by mouth daily 023 2024 Discontinued(T herapy completed) FLUoxetine (PROzac) 20 mg capsule Take 1 capsule (20 mg total) by mouth daily 023 2024 Discontinued(T herapy completed) lisinopriL (PRINIVIL,ZESTR IL) 5 mg tablet Take 1 tablet (5 mg total) by mouth daily 023 2024 Discontinued(S top Taking at Discharge) Xarelto 20 mg tablet Take 1 tablet (20 mg total) by mouth daily with dinner 023 2024 Discontinued(A lternate therapy) losartan (COZAAR) 25 mg tablet Take 1 tablet (25 mg total) by mouth daily 2024 Discontinued(S top Taking at Discharge) Trelegy Ellipta 200-62.5-25 mcg inhaler Inhale 1 puff daily 60 each 5 024 2024 Discontinued(T herapy completed) cholecalciferol (VITAMIN D-3) 5,000 unit tablet Take 1 tablet (5,000 Units total) by mouth daily 023 2024 Discontinued(T herapy completed) albuterol 2.5 mg /3 mL (0.083 %) nebulizer solution Take 3 mL (2.5 mg total) by nebulization every 6 (six) hours as needed for wheezing 75 mL 11 024 2024 Discontinued rivaroxaban (XARELTO) 20 mg tablet Take 1 tablet (20 mg total) by mouth daily with dinner for 28 days 28 tablet 024 2024 Discontinued(A lternate therapy) Active Problems Problem Noted Date Diagnosed Date Acute chest pain 03/30/2025 Chest pain 03/29/2025 Sarcoidosis 04/28/2023 Encounters Date Type Department Care Team Description 04/10/2025 [facility] Post Discharge Follow up phone call [facility] Surgery Care [address] [place] [address] Judi Martinez 03/29/2025 6:46 PM CDT - 03/31/2025 5:43 PM CDT Hospital Encounter [facility] IMU [address] [place] [address] Ximena Lange MD Petters, MD Jorge Wharton, Dl Castro, Acute chest pain (Primary Dx); Sarcoid myocarditis Discharge Disposition: Discharge to home or self care from Last 3 Months Surgical History Surgery Date Site/Laterality Comments ABDOMINAL [...] drink = 0.6 oz pur e alcohol) Social Connection and Isolation Panel Answer Date Recorded In a typical week, how many times do you talk on the phone with family, friends, or neighbors? Once a week 03/31/2025 How often do you get togethe r with friends or relatives? Once a week 03/31/2025 How often do you attend anabaptism or yarsani serv ices? Never 03/31/2025 Do you belong to any clubs o r organizations such as anabaptism groups, unions, fraternal or athletic groups, or school groups? No 03/31/2025 How often do you attend meet ings of the clubs or organizations you belong to? Never 03/31/2025 Are you , , di vorced, , never , or living with a partner? Patient declined 03/31/2025 AUDIT-C Answer Date Recorded Q1: How often do you have a drink containing alcohol? Never 03/30/2025 Q2: How many drinks containi ng alcohol do you have on a typical day when you are drinking? Patient does not drink Frequency of Binge Drinking Not on file 03/04 Overall Financial Resource Strain (CARDIA) Answe r Date Recorded How hard is it for you to pa y for the very basics like food, housing, medical care, and heating? Not very hard 03/31/2025 Hunger Vital Sign Answer Date Recorded Within the past 12 months, y ou worried that your food would run out before you got the money to buy more. Never true 03/31/20 25 Within the past 12 months, t he food you bought just didn't last and you didn't have money to get more. Never true 03/31/2025 PRAPARE - Transportation Answer Date Re corded In the past 12 months, has l ack of transportation kept you from medical appointments or from getting medications? No 03/04 In the past 12 months, has l ack of transportation kept you from meetings, work, or from getting things needed for daily living? No 03/31/2025 Housing Stability Vital Sign Answer Keagan e Recorded In the last 12 months, was t here a time when you were not able to pay the mortgage or rent on time? No 03/31/2025 In the past 12 months, how m any times have you moved where you were living? 0 03/31/2025 At any time in the past 12 m [facility], were you homeless or living in a longterm (including now)? No 03/31/2025 [facility] Utilities Answer Date Recorded In the past 12 months has th e electric, gas, oil, or water [employer] threatened to shut off services in your home? No 03/31/2025 Personal Safety Answer Date Recorded Have you ever been in or are you currently in a harmful physical or emotional relationship or is someone making you feel afraid or unsafe? Denies 03/30/2025 Sex and Gender Information Value Date Recorded Sex Assigned at Not on file Legal Sex Male 10:07 AM CDT Gender Identity Not on file Sexual Orientation Not on file Obstetrics History Last Filed Vital Signs Vital Sign Reading Time Taken Comments Blood Pressure 124/82 03/31/2025 2:49 PM CDT Pulse 69 03/31/2025 2:49 PM CDT Temperature 36.3 C (97.4 F) 03/31/2025 2:49 PM CDT Respiratory Rate 18 03/31/2025 2:49 PM CDT Oxygen Saturation 100% 03/31/2025 2:49 PM CDT Inhaled Oxygen Concentration - - Weight 112 kg (246 lb 14.6 oz) 03/30/2025 1:27 A M CDT Height 180.3 cm (5' 11) 03/30/2025 1:27 AM CDT Body Mass Index 34.44 03/30/2025 1:27 AM CDT Plan of Treatment Health Maintenance Due Date Last Done Comments Colon Cancer Screening-Colonoscopy 1980 Depression Screening 1980 Hepatitis C Screening 1980 Prostate Cancer Screening-PSA 1980 Varicella Vaccines (1 of 2 - 13+ 2-dose series) 1993 Hepatitis B Screening 1998 Regular Well Visit/Exam 18-64 1998 Zoster Vaccine (1 of 2) 1999 HPV Vaccines (1 - 3-dose SCD M series) 2007 Covid-19 Vaccine (3 - Modern a risk series) 11/11/2021 10/14/2021, 10/14/2021, 11/17/2020, Additional history exists Influenza Vaccine (#1) 2025 2, 10/04/2021, 05/04/2020, Additional history exists DTaP/Tdap/Td Vaccine (3 - Td or Tdap) 12/25/2028 12/25/2018, 07/03/2008 Pneumococcal vaccine <65 (4 of 4 - PCV20 or PCV21) 2030 12/25/2018, 05/29/2017, 04/05/2015, Additional history exists Procedures Procedure Name Priority Date/Time Associated Diagnosis Comments STRESS TEST FOR DUAL READ IP Routine 03/31/2025 12:15 PM CDT NM MPI SPECT (REST AND/OR STRESS) MULTIPLE STUDIES IP Routine 03/31/2025 12:15 PM CDT TRANSTHORACIC ECHO (TTE) COMPLETE W DOPPLER/CF WO CONTRAST ED 03/31/2025 9:16 AM CDT EGFR Routine 03/31/2025 2:28 AM CDT DIFFERENTIAL AUTO Routine 03/31/2025 2:2 8 AM CDT COMPREHENSIVE METABOLIC PANEL Routine 03/31/2025 2:28 AM CDT CBC WITH AUTO DIFFERENTIAL Routine 03/31/2025 2:28 AM CDT PROTIME-INR Routine 03/31/2025 2:28 AM CDT EGFR Routine 03/30/2025 2:31 AM CDT DIFFERENTIAL AUTO Routine 03/30/2025 2:3 1 AM CDT HEMOGLOBIN A1C Routine 03/30/2025 2:31 AM CDT LIPID PANEL Routine 03/30/2025 2:31 AM CDT MAGNESIUM Routine 03/30/2025 2:31 AM CDT COMPREHENSIVE METABOLIC PANEL Routine 03/30/2025 2:31 AM CDT CBC WITH AUTO DIFFERENTIAL Routine 03/30/2025 2:31 AM CDT D-DIMER, QUANTITATIVE Add-On 03/30/2025 2:31 AM CDT PROTIME-INR Routine 03/30/2025 2:[address] CHEST PE W CONTRAST ED Urgent/IP Urgent 03/30/2025 1:22 AM CDT PRO B-TYPE NATRIURETIC PEPTIDE Add-On 03/30/2025 12:59 AM CDT TROPONIN T HIGH-SENSITIVITY 6-HOUR Timed 03/30/2025 12:59 AM CDT BLOOD GAS, VENOUS STAT 03/29/2025 10: 45 PM CDT TROPONIN T HIGH-SENSITIVITY 4-HR Timed 03/29/2025 10:45 PM CDT TROPONIN T HIGH-SENSITIVITY 2-HOUR Timed 03/29/2025 8:36 PM CDT URINALYSIS AND REFLEX TO MICROSCOPIC STAT 03/29/2025 7:11 PM CDT XR CHEST PA LATERAL 2 VIEWS ED 03/29/2025 7:10 PM CDT CREATINE KINASE (CK), TOTAL Add-On 03/29/2025 7:09 PM CDT MAGNESIUM Routine 03/29/2025 7:09 PM CDT APTT STAT 03/29/2025 7:09 PM CDT PROTIME-INR STAT 03/29/2025 7:09 PM CDT EGFR STAT 03/29/2025 6:57 PM CDT DIFFERENTIAL AUTO STAT 03/29/2025 6:5 7 PM CDT TROPONIN T HIGH-SENSITIVITY SERIES (BASELINE, 2HR, 4HR, 6HR) STAT 03/29/2025 6:57 PM CDT COMPREHENSIVE METABOLIC PANEL STAT 03/29/2025 6:57 PM CDT CBC WITH AUTO DIFFERENTIAL STAT 03/29/2025 6:57 PM CDT ECG 12-LEAD STAT 03/29/2025 6:39 PM CDT from Last 3 Months Results * NM MPI SPECT (Rest and/or Stress) Multiple Studies (03/31/2025 12:15 PM CDT) Anatomical Region Laterality Modality Body N/A Nuclear Medicine 03/31/2025 12:5 7 PM CDT Narrative 03/31/2025 1:04 PM CDT EXAM DESCRIPTION: NM MPI SPECT (REST AND/OR STRESS) MULTIPLE STUDIES REASON FOR STUDY: CAD screening, high risk >20% RADIOPHARMACEUTICAL: Rest: 11 mCi Tc-99m tetrofosmin via a right arm IV site. Stress: 32.3 mCi Tc-99m tetrofosmin via a right arm IV site. TECHNIQUE: Standard myocardial perfusion SPECT images were obtained after resting tracer injection. Subsequently, a treadmill exercise tolerance test was performed. The patient exercised for 8 minutes and 51 seconds and achieved 84 % of the age predicted maximum heart rate. Standard myocardial perfusion SPECT images were obtained after tracer injection at peak exercise. COMPARISON: None. FINDINGS: There is significant attenuation artifact on the rotating projections. There is no reversible perfusion defect. There is a 35% mild severity anterior defect with decreased motion and thickening, this extends to the apex and therefore suspicious for infarction. The possibly a very prominent attenuation artifact remains a possibility. Left ventricular cavity size is normal. There is decreased motion most pronounced at the apex as well as the septal and inferolateral wall. Similar distribution of diminished thickening. The ejection fraction is borderline low 47%. IMPRESSION: 1. No evidence of myocardial ischemia. 2. Areas of diminished activity total of 35% especially anterior wall extending to the apex suspicious for infarction, attenuation artifact remains a possibility. 3. Areas of diminished wall motion and thickening with borderline low ejection fraction 47%. THIS IS AN ELECTRONICALLY VERIFIED FINAL REPORT 03/31/2025 1:04 PM - Electronically signed by Hamiltonwayne Moody M.D. CH: [facility] Report ID: [id number] Reading Location: [id number] Procedure Note Jeovany Moody MD - 03/31/2025 EXAM DESCRIPTION: NM MPI SPECT (REST AND/OR STRESS) MULTIPLE STUDIES REASON FOR STUDY: CAD screening, high risk >20% RADIOPHARMACEUTICAL: Rest: 11 mCi Tc-99m tetrofosmin via a right armIV site. Stress: 32.3 mCi Tc-99m tetrofosmin via a right arm IV site. TECHNIQUE: Standard myocardial perfusion SPECT images were obtained after resting tracer injection. Subsequently, a treadmill exercise tolerancetest was performed. The patient exercised for 8 minutes and 51 seconds and achieved 84 % of the age predicted maximum heart rate. Standardmyocardial perfusion SPECT images were obtained after tracer injection at peakexercise. COMPARISON: None. FINDINGS: There is significant attenuation artifact on the rotating projections. There is no reversible perfusion defect. There is a 35% mild severity anterior defect with decreased motion and thickening, this extends to the apex and therefore suspicious forinfarction. The possibly a very prominent attenuation artifact remains a possibility. Left ventricular cavity size is normal. There is decreased motion most pronounced at the apex as well as theseptal and inferolateral wall. Similar distribution of diminished thickening. The ejection fraction is borderline low 47%. IMPRESSION: 1. No evidence of myocardial ischemia. 2. Areas of diminished activity total of 35% especially anterior wall extending to the apex suspicious for infarction, attenuation artifactremains a possibility. 3. Areas of diminished wall motion and thickening with borderline low ejection fraction 47%. THIS IS AN ELECTRONICALLY VERIFIED FINAL REPORT 03/31/2025 1:04 PM - Electronically signed by Jeovany Moody M.D. CH: [facility] Report ID: [id number] Reading Location: [id number] Francheska Rider MD [facility] [place]ED[place] Final Resul t * Stress Test for Myocardial Perfusion (03/31/2025 12:15 PM CDT) Anatomical Region Laterality Modality Nuclear Medicine 03/31/2025 6:45 AM CDT Narrative 03/31/2025 11:30 AM CDT [address] [place] [address] MPI ECG Report Patient Name: VU TILLEY : 1980 Study Date: 03/31/2025 6:45:00 AM Sex: M Tech: Abdon Ty Location: [id number] Ref Provider: FRANCHESKA RIDER Height(Cm): 180 BSA: 3.51 Weight(Kg): 246 Heart Rate: 149 Order Provider: FRANCHESKA RIDER PROCEDURES: Exercise SPECT Report.: Myocardial Perfusion Imaging at rest and post exercise. INDICATIONS: Chest Pain and Coronary Artery Disease. FINDINGS: Procedure Data: Exercise Time: 08:51 Resting HR 59 bpm Peak HR: 147 bpm Predicted Maximal HR 175 bpm Target HR: 149 bpm Percent Max Predicted HR Achieved: 84 % Baseline BP: 127/94 Peak BP: 170/107 METS achieved: 10.3 Rate-Pressure Product: 10072 BPM*mmHg Performed By: Supervising Physician: The Supervising Physician is francheska rider. Reason for Termination: THR achieved. Patient request. Hypertensive response. . Resting ECG: Sinus bradycardia at 58 beats per minute, normal axis, early repolarization. Post ECG: No diagnostic ST changes. Arrhythmia: Occasional PVCs. Target HR Achieved: Target heart rate was achieved. Cardiac Symptoms With Stress: Symptoms with stress were fatigue and general appearance. BP Response: Blood pressure response is appropriate. Exam Interpreted: Read by . CONCLUSIONS: 1. Nearly adequate stress test in regards to heart rate with the patient achieving 84% of predicted maximum heart rate. 2. No exercise induced chest pain. 3. No definite ischemia on stress EKG. 4. Nuclear images are pending and they will be reported separately. Electronically Signed By: Dr Francheska Rider 03/31/2025 11:25:19 AM CDT Procedure Note Francheska Rider MD - 03/31/[address] [place] [address] MPI ECG Report Patient Name: VU TILLEY : 1980 Study Date: 03/31/2025 6:45:00 AM Sex: M Tech: Abdon Ty Location: [id number] Ref Provider: FRANCHESKA RIDER Height(Cm): 180 BSA: 3.51 Weight(Kg): 246 Heart Rate: 149 Order Provider: FRANCHESKA RIDER PROCEDURES: Exercise SPECT Report.: Myocardial Perfusion Imaging at rest and post exercise. INDICATIONS: Chest Pain and Coronary Artery Disease. FINDINGS: Procedure Data: Exercise Time: 08:51 Resting HR 59 bpm Peak HR: 147 bpm Predicted Maximal HR 175 bpm Target HR: 149 bpm Percent Max Predicted HR Achieved: 84 % Baseline BP: 127/94 Peak BP: 170/107 METS achieved: 10.3 Rate-Pressure Product: 24185 BPM*mmHg Performed By: Supervising Physician: The Supervising Physician is francheska rider. Reason for Termination: THR achieved. Patient request. Hypertensive response. . Resting ECG: Sinus bradycardia at 58 beats per minute, normal axis, earlyrepolarization. Post ECG: No diagnostic ST changes. Arrhythmia: Occasional PVCs. Target HR Achieved: Target heart rate was achieved. Cardiac Symptoms With Stress: Symptoms with stress were fatigue and general appearance. BP Response: Blood pressure response is appropriate. Exam Interpreted: Read by . CONCLUSIONS: 1. Nearly adequate stress test in regards to heart rate with the patientachieving 84% of predicted maximum heart rate. 2. No exercise induced chest pain. 3. No definite ischemia on stress EKG. 4. Nuclear images are pending and they will be reported separately. Electronically Signed By: Dr Francheska Rider 03/31/2025 11:25:19 AM CDT us Francheska Rider MD CV STRESS PROCEDURES Final Re sult * TRANSTHORACIC ECHO (TTE) COMPLETE W DOPPLER/CF WO CONTRAST (03/31/2025 9:16 AM CDT) Estimated EF 40 % CONS SCIMAGE Anatomical Region Laterality Modality Ultrasound 03/31/2025 8:20 AM CDT Narrative 03/31/2025 2:17 PM CDT [address] [place] [address] Echocardiogram Report Patient Name: VU TILLEY : 1980 Study Date: 03/31/2025 8:20:20 AM Sex: M Tech: HAND DECORATOR Location: [id number] Ref Provider: XIMENA LANGE Height(Cm): 180 BSA: 2.33 Weight(Kg): 108.9 Quality: Adequate Order Provider: XIMENA LANGE PROCEDURES: Echocardiographic Report: Transthoracic echocardiogram with complete 2D, M-Mode, and color Doppler examination. INDICATIONS: Shortness of breath. MEASUREMENTS: 2D/MM Value Range Doppler Value Range EF Teich MM 64.2 % [ 52.0 - 72.0 ] MARCY Vmax 3.78 cm2 Estimated EF 40 to 45 % AV Mean PG 2 mmHg LVIDd MM 5.79 cm [ 4.20 - 5.80 ] AV Peak Gary 1.03 m/s [ 1.00 - 1.70 ] LVIDs MM 3.73 cm [ 2.50 - 4.00 ] AV VTI 24.09 cm LVPWd MM 0.86 cm [ 0.60 - 1.00 ] LVOT Diam 2.31 cm IVSd MM 0.99 cm [ 0.60 - 1.00 ] LVOT Peak Gary 0.93 m/s [ 0.70 - 1.10 ] LA Dimension MM 3.18 cm [ 3.00 - 4.00 ] LVOT VTI 20.21 cm AoR Diam MM 3.42 cm [ 3.10 - 3.70 ] MV E Peak Gary 0.77 m/s [ 0.60 - 1.30 ] ACS MM 2.29 cm [ 1.50 - 2.60 ] MV A Peak Gary 0.81 m/s [ 1.00 - 1.20 ] MV Mean PG 1 mmHg MV PHT 63 msec [ 20 - 100 ] MVA 3.50 MV Decel Time 188 msec [ 104 - 258 ] PV Peak Gary 0.82 m/s [ 0.40 - 0.80 ] TR Peak Gary 2.36 m/s [ 1.00 - 2.80 ] TR Peak PG 22 mmHg RVSP 25.00 mmHg [ 10.00 - 36.00 ] E` 0.11 m/s E/E` 7.10 [ <= 10.00 ] PA Pressure 25.00 mmHg [ 10.00 - 36.00 ] 2D/MM Value Range Doppler Value Range - FINDINGS: Atrial Septum: Normal atrial septum. Left Ventricle: Mild global left ventricular systolic dysfunction. Ejection Fraction is estimated to be 40 to 45 %. Left Atrium: The left atrium is normal in size. Right Ventricle: Normal right ventricular size. Normal right ventricular systolic function. Right Atrium: The right atrium is normal in size. Aortic Valve: Normal structure of the aortic valve. Mitral Valve: Normal structure of the mitral valve. Trivial regurgitation of the mitral valve. Pulmonic Valve: Normal structure of the pulmonic valve. Tricuspid Valve: Normal structure of the tricuspid valve. Trivial regurgitation in the tricuspid valve. Pericardium: Normal pericardium with no significant pericardial effusion. Aorta: Normal aortic root. IVC: Normal size and normal respiratory collapse consistent with normal right atrial pressure (<5 mmHg). CONCLUSIONS: Mild global left ventricular systolic dysfunction. Ejection Fraction is estimated to be 40 to 45 %. Normal structure of the mitral valve. Trivial regurgitation of the mitral valve. Normal structure of the aortic valve. Normal structure of the tricuspid valve. Trivial regurgitation in the tricuspid valve. Electronically Signed By: Dr Francheska Rider 03/31/2025 2:16:33 PM CDT Procedure Note Francheska Rider MD - 03/31/[address] [place] [address] Echocardiogram Report Patient Name: VU TILLEY : 1980 Study Date: 03/31/2025 8:20:20 AM Sex: M Tech: DIMAS Location: [id number] Ref Provider: XIMENA LANGE Height(Cm): 180 BSA: 2.33 Weight(Kg): 108.9 Quality: Adequate Order Provider: XIMENA LANGE PROCEDURES: Echocardiographic Report: Transthoracic echocardiogram with complete 2D, M-Mode, and color Dopplerexamination. INDICATIONS: Shortness of breath. MEASUREMENTS: 2D/MM Value Range Doppler ValueRange EF Teich MM 64.2 % [ 52.0 - 72.0 ] MARCY Vmax 3.78cm2 Estimated EF 40 to 45 % AV Mean PG 2mmHg LVIDd MM 5.79 cm [ 4.20 - 5.80 ] AV Peak Gary 1.03m/s [ 1.00 - 1.70 ] LVIDs MM 3.73 cm [ 2.50 - 4.00 ] AV VTI 24.09cm LVPWd MM 0.86 cm [ 0.60 - 1.00 ] LVOT Diam 2.31cm IVSd MM 0.99 cm [ 0.60 - 1.00 ] LVOT Peak Gary 0.93m/s [ 0.70 - 1.10 ] LA Dimension MM 3.18 cm [ 3.00 - 4.00 ] LVOT VTI 20.21cm AoR Diam MM 3.42 cm [ 3.10 - 3.70 ] MV E Peak Gary 0.77m/s [ 0.60 - 1.30 ] ACS MM 2.29 cm [ 1.50 - 2.60 ] MV A Peak Gary 0.81m/s [ 1.00 - 1.20 ] MV Mean PG 1 mmHg MV PHT 63 msec [ 20 - 100 ] MVA 3.50 MV Decel Time 188 msec [ 104 - 258 ] PV Peak Gary 0.82 m/s [ 0.40 - 0.80 ] TR Peak Gary 2.36 m/s [ 1.00 - 2.80 ] TR Peak PG 22 mmHg RVSP 25.00 mmHg [ 10.00 - 36.00 ] E` 0.11 m/s E/E` 7.10 [ <= 10.00 ] PA Pressure 25.00 mmHg [ 10.00 - 36.00 ] 2D/MM Value Range Doppler ValueRange - FINDINGS: Atrial Septum: Normal atrial septum. Left Ventricle: Mild global left ventricular systolic dysfunction. Ejection Fraction isestimated to be 40 to 45 %. Left Atrium: The left atrium is normal in size. Right Ventricle: Normal right ventricular size. Normal right ventricular systolicfunction. Right Atrium: The right atrium is normal in size. Aortic Valve: Normal structure of the aortic valve. Mitral Valve: Normal structure of the mitral valve. Trivial regurgitation of the mitralvalve. Pulmonic Valve: Normal structure of the pulmonic valve. Tricuspid Valve: Normal structure of the tricuspid valve. Trivial regurgitation in thetricuspid valve. Pericardium: Normal pericardium with no significant pericardial effusion. Aorta: Normal aortic root. IVC: Normal size and normal respiratory collapse consistent with normal rightatrial pressure (<5 mmHg). CONCLUSIONS: Mild global left ventricular systolic dysfunction. Ejection Fraction isestimated to be 40 to 45 %. Normal structure of the mitral valve. Trivial regurgitation of the mitralvalve. Normal structure of the aortic valve. Normal structure of the tricuspid valve. Trivial regurgitation in thetricuspid valve. Electronically Signed By: Dr Francheska Rider 03/31/2025 2:16:33 PM CDT Ximena Lange MD CV ECHO PROCEDURES Final Re sult * eGFR (03/31/2025 2:28 AM CDT) eGFR >90 >=60 mL/min/1. 73 m2 Comment: Interpretive Data Reference Interval Normal >/= 90 mL/min/1.73m2 Mildly decreased* 60 - 89 mL/min/1.73m2 Mildly to moderately decreased 45 - 59 mL/min/1.73m2 Moderately to severely decreased 30 - 44 mL/min/1.73m2 Severely decreased 15 - 29 mL/min/1.73m2 Kidney Failure < 15 mL/min/1.73m2 *Relative to young adult level Estimated glomerular filtration rate is determined by the 2020 CKD-EPI equation recommended by the National Kid[employer] (A Unifying Approach to GFR Estimation: Recommendations of the NKF-ASK Task Force on Reassessing the Inclusion of Race in Diagnosing Kidney Disease, JASN 2020). The CKD-EPI equation should not be used for patients with unstable renal function and has not been validated in children and those over 70. Current interpretive data was last reviewed 2021. Blood 03/31/2025 2:28 AM CDT 03/31/2025 3:26 AM CDT us Tyree Stein MD LAB BLOOD ORDERABLES Fi nal Result [facility] Department [place] [address] * Differential, auto (03/31/2025 2:28 AM CDT) Neutrophil abs 1.77 1.50 - 6.50 K/cumm Imm gran abs 0.00 0.00 - 0.10 K/cumm [facility] ([place]) Lymphocyte abs 1.20 0.80 - 3.30 K/cumm [facility] ([place]) Monocyte abs 0.38 0.20 - 0.80 K/cumm [facility] ([place]) Eosinophil abs 0.12 0.00 - 0.50 K/cumm [facility] ([place]) Basophil abs 0.01 0.00 - 0.10 K/cumm [facility] ([place]) Neutrophil pct 50.9 % [facility] ([place]) Comment: Interpretive Data Percent cell count reference ranges are not reported, since discordance with absolute values may lead to misinterpretation of CBC data. Current Interpretive Data was last revised on 2017. Imm gran pct 0.0 % [facility] ([place]) Comment: Interpretive Data Percent cell count reference ranges are not reported, since discordance with absolute values may lead to misinterpretation of CBC data. Current Interpretive Data was last revised on 2017. Lymphocyte pct 34.5 % [facility] ([place]) Comment: Interpretive Data Percent cell count reference ranges are not reported, since discordance with absolute values may lead to misinterpretation of CBC data. Current Interpretive Data was last revised on 2017. Monocyte pct 10.9 % [facility] ([place]) Comment: Interpretive Data Percent cell count reference ranges are not reported, since discordance with absolute values may lead to misinterpretation of CBC data. Current Interpretive Data was last revised on 2017. Eosinophil pct 3.4 % [facility] ([place]) Comment: Interpretive Data Percent cell count reference ranges are not reported, since discordance with absolute values may lead to misinterpretation of CBC data. Current Interpretive Data was last revised on 2017. Basophil pct 0.3 % [facility] ([place]) Comment: Interpretive Data Percent cell count reference ranges are not reported, since discordance with absolute values may lead to misinterpretation of CBC data. Current Interpretive Data was last revised on 2017. Blood 03/31/2025 2:28 AM CDT 03/31/2025 3:26 AM CDT us Tyree Stein MD LAB BLOOD ORDERABLES Fi nal Result MARTELL SARAH ([place]) 1 [facility] [place] [address] * (ABNORMAL) CBC with auto differential (03/31/2025 2:28 AM CDT) WBC 3.48(L) 3.80 - 9.90 K/cumm Hgb 13.5 13.0 - 17.5 g/dL [facility] ([place]) Hct 41.4 38.9 - 50.3 % [facility] ([place]) Plt 203 150 - 400 K/cumm [facility] ([place]) MPV 10.0 9.1 - 12.3 fL [facility] ([place]) RBC 4.76 4.30 - 5.80 M/cumm [facility] ([place]) MCV 87.0 81.3 - 96.4 fL [facility] ([place]) MCH 28.4 27.1 - 33.3 pg [facility] ([place]) MCHC 32.6 32.3 - 35.7 g/dL [facility] ([place]) RDW CV 13.3 11.1 - 14.9 % [facility] ([place]) RDW SD 43.1 35.7 - 48.1 fL [facility] ([place]) NRBC abs 0.00 0.00 - 0.01 K/cumm [facility] ([place]) Blood 03/31/2025 2:28 AM CDT 03/31/2025 3:26 AM CDT us Tyree Stein MD LAB BLOOD ORDERABLES Fi nal Result [facility] [address] [facility] of [facility] [place], [place] [id number] * (ABNORMAL) Protime-INR (03/31/2025 2:28 AM CDT) PT 24.0(H) 10.2 - 13.5 sec [facility] ([place]) INR 2.16(H) 0.90 - 1.20 [facility] ([place]) Comment: Interpretive data Oral anticoagulant therapeutic ranges: Venous thromboembolism prophylaxis or treatment: 2.0-3.0 CARDIOLOGY Standard range: 2.0-3.0 High-intensity range: 2.5-3.5 Refer to indication-specific guidelines for appropriate target ranges for prosthetic heart valve replacement. Current interpretive data was last revised on 2019. Blood 03/31/2025 2:28 AM CDT 03/31/2025 3:26 AM CDT Narrative [facility] ([place]) - 03/31/2025 3:47 AM CDT While on warfarin us Tyree Stein MD LAB BLOOD ORDERABLES Fi nal Result [facility] ([place]) [address] [facility] [place] [address] * (ABNORMAL) Comprehensive metabolic panel (03/31/2025 2:28 AM CDT) Sodium 141 135 - 145 mmol/L [facility] ([place]) Potassium, pl 3.8 3.3 - 4.9 mmol/L [facility] ([place]) Chloride 108 97 - 110 mmol/L [facility] ([place]) CO2 25 22 - 32 mmol/L [facility] ([place]) Anion gap 8 2 - 15 mmol/L [facility] ([place]) BUN 11 6 - 25 mg/dL [facility] ([place]) Creatinine 1.01 0.80 - 1.30 mg/dL [facility] ([place]) Glucose 75 70 - 199 mg/dL [facility] ([place]) Comment: Interpretive Data Fasting glucose >/= 126 mg/dl is diagnostic for diabetes. Fasting is defined as no caloric intake for at least 8 hours. Fasting glucose between 100 mg/dl to 125 mg/dl is diagnostic of prediabetes. In a patient with classic symptoms of hyperglycemia or hyperglycemic crisis, a random glucose >/= 200 mg/dl is diagnostic for diabetes. In the absence of unequivocal hyperglycemia, results should be confirmed by repeat testing. The classification and Diagnosis of Diabetes Diabetes Care 2021; 46: S19-S40. Current interpretive data was last revised 2022. Calcium 9.2 8.5 - 10.3 mg/dL [facility] ([place]) Bilirubin, total 0.3 0.1 - 1.2 mg/dL [facility] ([place]) Protein, pl 6.0(L) 6.5 - 8.5 g/dL [facility] ([place]) Albumin 3.7 3.5 - 5.0 g/dL [facility] ([place]) Alk phos 56 40 - 130 Units/L [facility] ([place]) ALT 19 7 - 55 Units/L [facility] ([place]) AST 15 10 - 50 Units/L [facility] ([place]) Blood 03/31/2025 2:28 AM CDT 03/31/2025 3:26 AM CDT Tyree Stein MD LAB BLOOD ORDERABLES Fi nal Result [facility]TELL SMITH ([place]) [address] [facility] [place] [address] * eGFR (03/30/2025 2:31 AM CDT) eGFR 80 >=60 mL/min/1. 73 m2 Comment: Interpretive Data Reference Interval Normal >/= 90 mL/min/1.73m2 Mildly decreased* 60 - 89 mL/min/1.73m2 Mildly to moderately decreased 45 - 59 mL/min/1.73m2 Moderately to severely decreased 30 - 44 mL/min/1.73m2 Severely decreased 15 - 29 mL/min/1.73m2 Kidney Failure < 15 mL/min/1.73m2 *Relative to young adult level Estimated glomerular filtration rate is determined by the 2020 CKD-EPI equation recommended by the National Kidney Foundation (A Unifying Approach to GFR Estimation: Recommendations of the NKF-ASK Task Force on Reassessing the Inclusion of Race in Diagnosing Kidney Disease, JASN 1). The CKD-EPI equation should not be used for patients with unstable renal function and has not been validated in children and those over 70. Current interpretive data was last reviewed 2021. Blood 03/30/2025 2:31 AM CDT 03/30/2025 2:54 AM CDT Tyree Stein MD LAB BLOOD ORDERABLES Fi nal Result [facility]TELL SMITH ([place]) [address] [facility] [place] [address] * Differential, auto (03/30/2025 2:31 AM CDT) Neutrophil abs 1.59 1.50 - 6.50 K/cumm Imm gran abs 0.00 0.00 - 0.10 K/cumm [facility] ([place]) Lymphocyte abs 1.28 0.80 - 3.30 K/cumm [facility] ([place]) Monocyte abs 0.37 0.20 - 0.80 K/cumm [facility] ([place]) Eosinophil abs 0.18 0.00 - 0.50 K/cumm [facility] ([place]) Basophil abs 0.02 0.00 - 0.10 K/cumm [facility] ([place]) Neutrophil pct 46.2 % [facility] ([place]) Comment: Interpretive Data Percent cell count reference ranges are not reported, since discordance with absolute values may lead to misinterpretation of CBC data. Current Interpretive Data was last revised on 2017. Imm gran pct 0.0 % [facility] ([place]) Comment: Interpretive Data Percent cell count reference ranges are not reported, since discordance with absolute values may lead to misinterpretation of CBC data. Current Interpretive Data was last revised on 2017. Lymphocyte pct 37.2 % [facility] ([place]) Comment: Interpretive Data Percent cell count reference ranges are not reported, since discordance with absolute values may lead to misinterpretation of CBC data. Current Interpretive Data was last revised on 2017. Monocyte pct 10.8 % [facility] ([place]) Comment: Interpretive Data Percent cell count reference ranges are not reported, since discordance with absolute values may lead to misinterpretation of CBC data. Current Interpretive Data was last revised on 2017. Eosinophil pct 5.2 % [facility] ([place]) Comment: Interpretive Data Percent cell count reference ranges are not reported, since discordance with absolute values may lead to misinterpretation of CBC data. Current Interpretive Data was last revised on 2017. Basophil pct 0.6 % [facility] ([place]) Comment: Interpretive Data Percent cell count reference ranges are not reported, since discordance with absolute values may lead to misinterpretation of CBC data. Current Interpretive Data was last revised on 2017. Blood 03/30/2025 2:31 AM CDT 03/30/2025 2:53 AM CDT Tyree Stein MD LAB BLOOD ORDERABLES Fi nal Result Performing Organization Address City/[facility] Co de Phone Number [facility] ([place]) [address] [facility] [address] [place] [address] * (ABNORMAL) CBC with auto differential (03/30/2025 2:31 AM CDT) WBC 3.44(L) 3.80 - 9.90 K/cumm Hgb 12.8(L) 13.0 - 17.5 g/dL [facility] ([place]) Hct 40.2 38.9 - 50.3 % [facility] ([place]) Plt 204 150 - 400 K/cumm [facility] ([place]) MPV 10.0 9.1 - 12.3 fL [facility] ([place]) RBC 4.51 4.30 - 5.80 M/cumm [facility] ([place]) MCV 89.1 81.3 - 96.4 fL [facility] ([place]) MCH 28.4 27.1 - 33.3 pg [facility] ([place]) MCHC 31.8(L) 32.3 - 35.7 g/dL [facility] ([place]) RDW CV 13.6 11.1 - 14.9 % [facility] ([place]) RDW SD 44.2 35.7 - 48.1 fL [facility] ([place]) NRBC abs 0.00 0.00 - 0.01 K/cumm [facility] ([place]) Blood 03/30/2025 2:31 AM CDT 03/30/2025 2:53 AM CDT Tyree Stein MD LAB BLOOD ORDERABLES Fi nal Result Performing Organization Address [facility]/ZIP Co de Phone Number [facility] ([place]) [address] [facility] [address] [place] [address] * (ABNORMAL) Protime-INR (03/30/2025 2:31 AM CDT) PT 19.0(H) 10.2 - 13.5 sec [facility] ([place]) INR 1.70(H) 0.90 - 1.20 [facility] ([place]) Comment: Interpretive data Oral anticoagulant therapeutic ranges: Venous thromboembolism prophylaxis or treatment: 2.0-3.0 CARDIOLOGY Standard range: 2.0-3.0 High-intensity range: 2.5-3.5 Refer to indication-specific guidelines for appropriate target ranges for prosthetic heart valve replacement. Current interpretive data was last revised on 2019. Blood 03/30/2025 2:31 AM CDT 03/30/2025 2:54 AM CDT Narrative [facility] SM[facility] ([place]) - 03/30/2025 3:44 AM CDT While on warfarin Tyree Stein MD LAB BLOOD ORDERABLES [facility] Result [facility] SMITH ([place]) 1 [facility] [place] [address] * D-dimer, quantitative (03/30/2025 2:31 AM CDT) D-Dimer <215 <=499 ng/mL FEU [facility] ([place]) Comment: Interpretive data FDA approved the D-dimer, in conjunction with a low or moderate pretest probability score, to exclude venous thromboembolic events (VTE) (PE and DVT) in outpatients when the D-dimer result is < 500 ng/ml FEU. Evidence supports using an age-adjusted D-dimer cut-off for outpatients older than 50 (age x 10) to improve specificity without sacrificing sensitivity. Example: age 68, VTE cut-off 680 ng/ml FEU. References; Schoutkiersten HT et al. Brit Med J. 2013;346:f2492. Jerardo KRISHNA et al. Annals Int Med. 2015;163:701-11. Current interpretive data was last revised on 2019. Blood 03/30/2025 2:31 AM CDT 03/30/2025 2:54 AM CDT Tyree Stein MD LAB BLOOD ORDERABLES Fi nal Result [facility]LL [facility] ([place]) [address] [facility] [place] [address] * Magnesium (03/30/2025 2:31 AM CDT) Magnesium 2.1 1.4 - 2.5 mg/dL [facility] Blood 03/30/2025 2:31 AM CDT 03/30/2025 2:54 AM CDT Tyree Stein MD LAB BLOOD ORDERABLES Fi nal Result Performing Organization Address [facility] Co de Phone Number MARTELL [facility] ([place]) 1 [place] [address] * Hemoglobin A1c (03/30/2025 2:31 AM CDT) Hgb A1C 5.5 4.0 - 5.6 % [facility] ([place]) Estimated Average Glucose 111 mg/dL [facility] ([place]) Comment: The ADA recommends reporting an estimated Average Glucose (eAG) with all Hemoglobin A1c results using the equation derived from a study of 507 normal and diabetic adults. Minority populations were underrepresented and children were not included. (Diabetes Care 31:3740-5480, 2008). The eAG is not equivalent to a fasting glucose. Testing performed by: [facility], [address] [facility], [place], [address] Blood 03/30/2025 2:31 AM CDT 03/30/2025 2:53 AM CDT Tyree Stein MD LAB BLOOD ORDERABLES Fi nal Result Performing Organization Address City/[facility]/ZIP Co de Phone Number MARTELL [facility] ([place]) [address] [facility] [place] [address] * Lipid panel (03/30/2025 2:31 AM CDT) Cholesterol 129 30 - 199 mg/dL [facility]LL SMI[facility] ([place]) Comment: Interpretive Data Ages < or = 19 years Acceptable: <170 mg/dL Borderline high: 170-199 mg/dL High: >or= 200 mg/dL Ages > or = 20 years Desirable: <200 mg/dL Borderline high: 200-239 mg/dL High: >or= 240 mg/dL Literature References: 1. Expert Panel on Integrated Guidelines for Cardiovascular Health and Risk Reduction in Children and Adolescents. Pediatrics 2011;128:S213 2. NCEP Expert Panel. Circulation 2004;110:227 Current Interpretive Data was last revised on 2018. Triglycerides 46 <=149 mg/dL [facility] SMITH ([place]) Comment: Interpretive Data Ages < or = 9 years Acceptable: <75 mg/dL Borderline high: 75-99 mg/dL High: >or= 100 mg/dL Ages 10 to 20 years Acceptable: <90 mg/dL Borderline high: 90-129 mg/dL High: >or= 130 mg/dL Ages > or = 20 years Desirable: <150 mg/dL Borderline high: 150-199 mg/dL High: 200-499 mg/dL Very high: >or= 499 mg/dL Literature References: 1. Expert Panel on Integrated Guidelines for Cardiovascular Health and Risk Reduction in Children and Adolescents. Pediatrics 2011;128:S213 2. NCEP Expert Panel. Circulation 2004;110:227 Current Interpretive Data was last revised on 2018. HDL 53 >=40 mg/dL MARTELL GARCIA H ([place]) Comment: Interpretive Data Ages < or = 19 years Acceptable: >45 mg/dL Borderline low: 40-45 mg/dL Low: <40 mg/dL Ages > or = 20 years Desirable: >or= 60 mg/dL Low: <40 mg/dL Literature References: 1. Expert Panel on Integrated Guidelines for Cardiovascular Health and Risk Reduction in Children and Adolescents. Pediatrics 2011;128:S213 2. NCEP Expert Panel. Circulation 2004;110:227 Current Interpretive Data was last revised on 2018. LDL, calculated 65 <=129 mg/dL [facility]TELL SMITH ([place]) Comment: Interpretive Data Ages < or = 19 years Acceptable: <110 mg/dL Borderline high: 110-129 mg/dL High: >or= 130 mg/dL Ages > or = 20 years Optimal: <100 mg/dL Near optimal: 100-129 mg/dL Borderline high: 130-159 mg/dL High: >160 mg/dL Calculated using the Yonny LDL-C estimating equation. This equation was implemented on 2024. Prior to this date LDL-C was estimated using the Friedewald equation. Literature References: 1. Expert Panel on Integrated Guidelines for Cardiovascular Health and Risk Reduction in Children and Adolescents. Pediatrics 2011;128:S213 2. NCEP Expert Panel. Circulation 2004;110:227 3. Yonny Nuñez et al. CURRY Cardiol. 2020 October 31;5(5):540-548. doi: 10.1001/jamacardio.2020.0013 Current Interpretive Data was last revised on 2024. Testing performed by: [place], [address] Non-HDL Cholesterol 76 mg/dL MARTELL SMITH ([place]) Comment: Interpretive Data Ages < or = 19 years Acceptable: <120 mg/dL Borderline high: 120-144 mg/dL High: >145 mg/dL Ages > or = 20 years When triglycerides are >200 mg/dL, Non-HDL cholesterol is a secondary target of therapy with treatment goals that are 30 mg/dL greater than the LDL cholesterol target. Literature References: 1. Expert Panel on Integrated Guidelines for Cardiovascular Health and Risk Reduction in Children and Adolescents. Pediatrics 2011;128:S213 2. NCEP Expert Panel. Circulation 2004;110:227 Current Interpretive Data was last revised on 2018. Testing performed by: [place], [address] Chol/HDL ratio 2 WILFREDO SMITH ([place]) Comment:Testing performed by : [place], [address] Blood 03/30/2025 2:31 AM CDT 03/30/2025 2:54 AM CDT us Tyree Stein MD LAB BLOOD ORDERABLES Fi nal Result MARTELL SMITH ([place]) 1 [facility] [place] [address] * (ABNORMAL) Comprehensive metabolic panel (03/30/2025 2:31 AM CDT) Sodium 142 135 - 145 mmol/L [facility] ([place]) Potassium, pl 3.8 3.3 - 4.9 mmol/L [facility] ([place]) Chloride 107 97 - 110 mmol/L [facility] ([place]) CO2 28 22 - 32 mmol/L [facility] ([place]) Anion gap 7 2 - 15 mmol/L [facility] ([place]) BUN 11 6 - 25 mg/dL [facility] ([place]) Creatinine 1.15 0.80 - 1.30 mg/dL [facility] ([place]) Glucose 83 70 - 199 mg/dL [facility] ([place]) Comment: Interpretive Data Fasting glucose >/= 126 mg/dl is diagnostic for diabetes. Fasting is defined as no caloric intake for at least 8 hours. Fasting glucose between 100 mg/dl to 125 mg/dl is diagnostic of prediabetes. In a patient with classic symptoms of hyperglycemia or hyperglycemic crisis, a random glucose >/= 200 mg/dl is diagnostic for diabetes. In the absence of unequivocal hyperglycemia, results should be confirmed by repeat testing. The classification and Diagnosis of Diabetes Diabetes Care 202; 46: S19-S40. Current interpretive data was last revised 2022. Calcium 9.5 8.5 - 10.3 mg/dL [facility] ([place]) Bilirubin, total 0.6 0.1 - 1.2 mg/dL [facility] ([place]) Protein, pl 6.2(L) 6.5 - 8.5 g/dL [facility] ([place]) Albumin 3.8 3.5 - 5.0 g/dL [facility] ([place]) Alk phos 55 40 - 130 Units/L [facility] ([place]) ALT 21 7 - 55 Units/L [facility] ([place]) AST 17 10 - 50 Units/L [facility] ([place]) Blood 03/30/2025 2:31 AM CDT 03/30/2025 2:54 AM CDT us Ekanga Jm Stein MD LAB BLOOD ORDERABLES Fi nal Result MARTELL SMITH [place]) 1 [facility] [place] [address] * CT Chest PE (CTA) W Contrast (03/30/2025 1:22 AM CDT) Anatomical Region Laterality Modality Body N/A Computed Tomogra phy 03/30/2025 1:27 AM CDT Narrative 03/30/2025 1:30 AM CDT EXAM DESCRIPTION: CT CHEST PE (CTA) W CONTRAST REASON FOR STUDY: chest pain complaint of R sided CP x a few days. TECHNIQUE: CT angiogram of the chest performed with intravenous contrast using helical scanning technique with dynamic intravenous contrast injection. Reconstructed coronal and sagittal MPR images reviewed. All images stored on PACS. 3D MIP images rendered on scanning unit and reviewed at time of interpretation. Automated exposure control was used as a dose optimization technique for this examination. CONTRAST TYPE/DOSE: 100mL of IOVERSOL 350 MG IODINE/ML INTRAVENOUS SYRINGE injected via intravenous COMPARISON: 03/29/2025 FINDINGS: VASCULATURE: No identified pulmonary emboli. LUNGS: Diffuse coarse chronic appearing lung changes are noted. No large consolidation is seen. Masses are identified. PLEURA: No effusion. No pneumothorax. MEDIASTINUM/ALEJANDRO: No identified masses or abnormal nodes. HEART: Heart size is normal with no pericardial effusion. AXILLA: No adenopathy. CHEST WALL: No masses. No subcutaneous air. HARDWARE/LINES/TUBES: None. UPPER ABDOMEN: Surgical changes are seen of the stomach. MUSCULOSKELETAL: No significant abnormality. OTHER: No significant abnormality. IMPRESSION: Chronic appearing changes are noted in the lungs. No acute process is seen. No evidence of pulmonary embolism is seen. THIS IS AN ELECTRONICALLY VERIFIED FINAL REPORT 03/30/2025 1:30 AM - Electronically signed by Haider Kate M.D. KH: SABRA Report ID: [id number] Reading Location: [id number] Procedure Note Haider Kate MD - 09/28/2025 EXAM DESCRIPTION: CT CHEST PE (CTA) W CONTRAST REASON FOR STUDY: chest pain complaint of R sided CP x a few days. TECHNIQUE: CT angiogram of the chest performed with intravenous contrastusing helical scanning technique with dynamic intravenous contrast injection. Reconstructed coronal and sagittal MPR images reviewed. All images storedon PACS. 3D MIP images rendered on scanning unit and reviewed at time of interpretation. Automated exposure control was used as a doseoptimization technique for this examination. CONTRAST TYPE/DOSE: 100mL of IOVERSOL 350 MG IODINE/ML INTRAVENOUSSYRINGE injected via intravenous COMPARISON: 03/29/2025 FINDINGS: VASCULATURE: No identified pulmonary emboli. LUNGS: Diffuse coarse chronic appearing lung changes are noted. Nolarge consolidation is seen. Masses are identified. PLEURA: No effusion. No pneumothorax. MEDIASTINUM/ALEJANDRO: No identified masses or abnormal nodes. HEART: Heart size is normal with no pericardial effusion. AXILLA: No adenopathy. CHEST WALL: No masses. No subcutaneous air. HARDWARE/LINES/TUBES: None. UPPER ABDOMEN: Surgical changes are seen of the stomach. MUSCULOSKELETAL: No significant abnormality. OTHER: No significant abnormality. IMPRESSION: Chronic appearing changes are noted in the lungs. No acute process isseen. No evidence of pulmonary embolism is seen. THIS IS AN ELECTRONICALLY VERIFIED FINAL REPORT 03/30/2025 1:30 AM - Electronically signed by Haider Kate M.D. KH: SABRA Report ID: [id number] Reading Location: [place] [address] Eksydney Stein MD IM CT PROCEDURES Final Result * Troponin T high-sensitivity 6-hour (03/30/2025 12:59 AM CDT) Trop T hs <6 <=22 ng/L MARTELL SMITH ([place]) Comment: Interpretive Data For further hscTnT resources including the diagnostic algorithm and an aid in interpretation, copy and paste this link: https://nrl.testcatalog.org/show/hsTrop Current Interpretive Data last revised 2020. Trop T hs interp Insignificant MARTELL SMITH ([place]) Comment:Testing performed by : [facility], [address], [place], [address] Blood 03/30/2025 12:5 9 AM CDT 03/30/2025 1:02 AM CDT us Ximena Lange MD LAB BLOOD ORDERABLES Final Result MARTELL SMITH ([place]) [address] [facility] [place] [address] * Pro B-type natriuretic peptide (03/30/2025 12:59 AM CDT) NT-proBNP 95 <=300 pg/mL MARTELL SARAH ([place]) Comment: Interpretive Comments: A. Dyspnea in Acute Care Setting All Ages: < 300 pg/ml, acute heart failure unlikely. < 50 yrs: 300 - 450 pg/ml, further investigation warranted. > 450 pg/ml, acute heart failure likely. 50 - 74 yrs: 300 - 900 pg/ml, further investigation warranted. > 900 pg/ml, acute heart failure likely . > or = 75 yrs: 450 - 1800 pg/ml, further investigation warranted. > 1800 pg/ml, acute heart failure likely. B. Non-acute Setting < 75 yrs < 125 pg/ml, rules out heart failure. > or = 125 pg/ml, further investigation warranted. > or = 75 yrs < 450 pg/ml, rules out heart failure. > or = 450 pg/ml, further investigation warranted. - Knowledge of each individual patient's NT-proBNP range may be more useful than using similar cut-points for every patient. Please note that marked elevations in NT-proBNP levels may be observed in state other than Left Ventricular Congestive Failure, including: acute coronary syndromes, right heart strain/failure (including pulmonary embolism and cor pulmonale), critical illness, renal failure, as well as advanced age. - References: 1. Renate FUENTES et.al. Eur Heart J. 2006:27:330-337. 2. Mya RIVER, Jason GARCIA. J. AM Juliocesar Cardiol: Cardiovasc Imag. 2009;2: 216- 225. Interpretive Data Last Revised Date: 2018. Blood 03/30/2025 12:5 9 AM CDT 03/30/2025 1:02 AM CDT us Tyree Stein MD LAB BLOOD ORDERABLES Fi nal Result MARTELL SMITH ([place]) [address] [facility] [place] [address] * Troponin T high-sensitivity 4-hour (03/29/2025 10:45 PM CDT) Trop T hs <6 <=22 ng/L [facility] ([place]) Comment: Interpretive Data For further hscTnT resources including the diagnostic algorithm and an aid in interpretation, copy and paste this link: https://nrl.testcatalog.org/show/hsTrop Current Interpretive Data last revised 2020. Trop T hs interp Insignificant [facility] ([place]) Comment:Testing performed by : [facility], [facility], [place], [address] Blood 03/29/2025 10:4 5 PM CDT 03/29/2025 10:48 PM CDT Ximena Lange MD LAB BLOOD ORDERABLES Final Result MARTELL SMITH ([place]) [address] [facility] [place] [address] * Blood gas, venous (03/29/2025 10:45 PM CDT) pH, Venous 7.36 7.32 - 7.43 PCO2, Venous 50 40 - 50 mmHg [facility] PO2, Venous 39 mmHg [facility] ([place]) HCO3 Venous, Calculated 28 20 - 30 mmol/L [facility] ([place]) BE, venous 2 mmol/L [facility] ([place]) Comment: Interpretive Data No Reference Range Established Current Interpretive Data was last revised on 2017. Blood 03/29/2025 10:4 5 PM CDT 03/29/2025 10:48 PM CDT Ximena Lange MD LAB BLOOD ORDERABLES Final Result [facility]TELL SMITH ([place]) [address] [facility] Department [place] [address] * Troponin T high-sensitivity 2-hour (03/29/2025 8:36 PM CDT) Trop T hs <6 <=22 ng/L [facility] SMITH ([place]) Comment: Interpretive Data For further hscTnT resources including the diagnostic algorithm and an aid in interpretation, copy and paste this link: https://nrl.testcatalog.org/show/hsTrop Current Interpretive Data last revised 2020. Trop T hs interp Insignificant [facility] ([place]) Comment:Testing performed by : [facility], [address] [facility], [place], [address] Blood 03/29/2025 8:36 PM CDT 03/29/2025 8:40 PM CDT Ximena Lange MD LAB BLOOD ORDERABLES Final Result [facility] SMITH ([place]) [address] [facility] Department [place] [address] * (ABNORMAL) Urinalysis reflex to microscopic (03/29/2025 7:11 PM CDT) Color, ur Yellow Yellow Clarity, ur Clear Clear MARTELL Joy ([place]) Specific gravity, ur 1.029 1.003 - 1.030 [facility] ([place]) pH, urine 7.0 [facility] ([place]) Comment: Interpretive Data U rine pH is affected by diet, medications, systemic acid-base disturbances, and renal tubular function. pH may affect urinary stone formation. For example, urine pH below 6.0 may help reduce the tendency for calcium phosphate stones and pH greater than 6.0 may reduce the tendency for uric acid stone formation. Source: [employer] Current Interpretive Data was last revised on 2017 Protein, ur ql Trace Negative [facility] ([place]) Glucose, ur ql Negative Negative [facility] ([place]) Ketones, ur Negative Negative [facility] ([place]) Bilirubin, ur Negative Negative [facility] ([place]) Blood, ur Negative Negative [facility] [place]) Urobilinogen, ur 2.0(A) <2.0 mg/dL [facility] ([place]) Nitrite, ur Negative Negative [facility] ([place]) Leukocyte esterase, ur Negative Negative [facility] ([place]) UA reflex comment Reflex conditions for microscopic UA not met. [facility] ([place]) Urine 03/29/2025 7:11 PM CDT 03/29/2025 7:15 PM CDT Ximena Lange MD LAB URINE ORDERABLES Final Result [facility] ([place]) [address] [facility] [place] [address] * XR Chest PA Lateral 2 Views (03/29/2025 7:10 PM CDT) Anatomical Region Laterality Modality Body, Chest N/A Computed Radiogr aphy 03/29/2025 7:11 PM CDT Narrative 03/29/2025 7:14 PM CDT EXAM DESCRIPTION: XR CHEST PA LATERAL 2 VIEWS REASON FOR STUDY: Structural (nonvalvular) heart disease, follow up, sarcoid Complaint of R sided CP x a Few Days. Ex-Smoker Asthma TECHNIQUE: 2 radiographic view(s) of the chest. COMPARISON: 08/11/2023, 08/02/2023 FINDINGS: LUNGS: Redemonstration of multifocal bilateral pulmonary parenchymal scarring and fibrosis in keeping with reported history of sarcoidosis. Bilateral bronchial wall thickening with scattered regions of bronchiectasis are redemonstrated. Blunting of right costophrenic angle due to pleuroparenchymal scarring. No definitive pleural effusion or pneumothorax. HEART/MEDIASTINUM: Cardiac silhouette normal in size. Mediastinal and hilar contours appear normal. LINES/TUBES: None. BONES: No acute osseous abnormality. IMPRESSION: 1. No definitive radiographic evidence of acute cardiopulmonary abnormality. 2. Redemonstration of multifocal bilateral pulmonary parenchymal scarring and fibrosis in keeping with reported history of sarcoidosis. THIS IS AN ELECTRONICALLY VERIFIED FINAL REPORT 03/29/2025 7:14 PM - Electronically signed by Nadja Alonso M.D. AT: AT Report ID: [id number] Reading Location: [id number] Procedure Note Nadja Alonso MD - 03/29/2025 EXAM DESCRIPTION: XR CHEST PA LATERAL 2 VIEWS REASON FOR STUDY: Structural (nonvalvular) heart disease, follow up,sarcoid Complaint of R sided CP x a Few Days. Ex-Smoker Asthma TECHNIQUE: 2 radiographic view(s) of the chest. COMPARISON: 08/11/2023, 08/02/2023 FINDINGS: LUNGS: Redemonstration of multifocal bilateral pulmonary parenchymalscarring and fibrosis in keeping with reported history of sarcoidosis. Bilateral bronchial wall thickening with scattered regions of bronchiectasis are redemonstrated. Blunting of right costophrenic angle due topleuroparenchymal scarring. No definitive pleural effusion or pneumothorax. HEART/MEDIASTINUM: Cardiac silhouette normal in size. Mediastinal andhilar contours appear normal. LINES/TUBES: None. BONES: No acute osseous abnormality. IMPRESSION: 1. No definitive radiographic evidence of acute cardiopulmonaryabnormality. 2. Redemonstration of multifocal bilateral pulmonary parenchymal scarringand fibrosis in keeping with reported history of sarcoidosis. THIS IS AN ELECTRONICALLY VERIFIED FINAL REPORT 03/29/2025 7:14 PM - Electronically signed by Nadja Alonso M.D. AT: AT Report ID: [id number] Reading Location: [id number] us Ximena Lange MD IMG XR PROCEDURES Final Res ult * aPTT (03/29/2025 7:09 PM CDT) aPTT 37 26 - 38 sec [facility]TELL SMITH ([place]) Comment: Interpretive Data Heparin therapeutic range: 66.0 - 100.0 seconds. Range based on correlation with therapeutic heparin activity range of 0.3 - 0.7 Units/mL. Current interpretive data was last revised on 2023. Blood 03/29/2025 7:09 PM CDT 03/29/2025 7:20 PM CDT Ximena Lange MD LAB BLOOD ORDERABLES Final Result Performing Organization Address [facility] Co de Phone Number [facility]TELL [facility] ([place]) [address] [facility] [place] [address] * (ABNORMAL) Protime-INR (03/29/2025 7:09 PM CDT) PT 18.5(H) 10.2 - 13.5 sec [facility] SM[facility] ([place]) INR 1.65(H) 0.90 - 1.20 [facility] SMITH ([place]) Comment: Interpretive data Oral anticoagulant therapeutic ranges: Venous thromboembolism prophylaxis or treatment: 2.0-3.0 CARDIOLOGY Standard range: 2.0-3.0 High-intensity range: 2.5-3.5 Refer to indication-specific guidelines for appropriate target ranges for prosthetic heart valve replacement. Current interpretive data was last revised on 2019. Blood 03/29/2025 7:09 PM CDT 03/29/2025 7:20 PM CDT Ximena Lange MD LAB BLOOD ORDERABLES Final Result Performing Organization Address [facility] Co de Phone Number MARTELL [facility] ([place]) 1 [facility] [address] [place] [address] * Magnesium (03/29/2025 7:09 PM CDT) Magnesium 2.1 1.4 - 2.5 mg/dL [facility] ([place]) Blood 03/29/2025 7:09 PM CDT 03/29/2025 7:20 PM CDT Ximena Lange MD LAB BLOOD ORDERABLES Final Result Performing Organization Address City/[facility]/ZIP Co de Phone Number MARTELL SMITH ([place]) 1 [facility] [address] [place] [address] * Creatine kinase (CK), total (03/29/2025 7:09 PM CDT) [facility] CK 189 40 - 300 Units/L MARTELL SMITH ([place]) Blood 03/29/2025 7:09 PM CDT 03/29/2025 7:48 PM CDT Ximena Lange MD LAB BLOOD ORDERABLES Final Result Performing Organization Address [facility] Co de Phone Number MARTELL SMITH ([place]) 1 [facility] [address] [place] [address] * Troponin T high-sensitivity series (baseline, 2hr, 4hr, 6hr) (03/29/2025 6:57 PM CDT) [facility] Trop T hs <6 <=22 ng/L Comment: Interpretive Data For further hscTnT resources including the diagnostic algorithm and an aid in interpretation, copy and paste this link: https://nrl.testcatalog.org/show/hsTrop Current Interpretive Data last revised 2020. Blood 03/29/2025 6:57 PM CDT 03/29/2025 6:59 PM CDT Ximena Lange MD LAB BLOOD ORDERABLES Final Result [facility]TELL SMITH ([place]) [address] [facility] [address] [place] [address] * eGFR (03/29/2025 6:57 PM CDT) [facility] eGFR 84 >=60 mL/min/1. 73 m2 Comment: Interpretive Data Reference Interval Normal >/= 90 mL/min/1.73m2 Mildly decreased* 60 - 89 mL/min/1.73m2 Mildly to moderately decreased 45 - 59 mL/min/1.73m2 Moderately to severely decreased 30 - 44 mL/min/1.73m2 Severely decreased 15 - 29 mL/min/1.73m2 Kidney Failure < 15 mL/min/1.73m2 *Relative to young adult level Estimated glomerular filtration rate is determined by the 2020 CKD-EPI equation recommended by the National Kidney Foundation (A Unifying Approach to GFR Estimation: Recommendations of the NKF-ASK Task Force on Reassessing the Inclusion of Race in Diagnosing Kidney Disease, JASN 2020). The CKD-EPI equation should not be used for patients with unstable renal function and has not been validated in children and those over 70. Current interpretive data was last reviewed 2021. Blood 03/29/2025 6:57 PM CDT 03/29/2025 6:59 PM CDT us Ximena Lange MD LAB BLOOD ORDERABLES Final Result [facility] ([place]) [address] [place] [address] Department [place] [address] * Differential, auto (03/29/2025 6:57 PM CDT) Neutrophil abs 1.85 1.50 - 6.50 K/cumm Imm gran abs 0.01 0.00 - 0.10 K/cumm [facility] ([place]) Lymphocyte abs 1.34 0.80 - 3.30 K/cumm [facility] ([place]) Monocyte abs 0.32 0.20 - 0.80 K/cumm [facility] ([place]) Eosinophil abs 0.15 0.00 - 0.50 K/cumm [facility] ([place]) Basophil abs 0.05 0.00 - 0.10 K/cumm [facility] ([place]) Neutrophil pct 49.8 % [facility] ([place]) Comment: Interpretive Data Percent cell count reference ranges are not reported, since discordance with absolute values may lead to misinterpretation of CBC data. Current Interpretive Data was last revised on 2017. Imm gran pct 0.3 % [facility] ([place]) Comment: Interpretive Data Percent cell count reference ranges are not reported, since discordance with absolute values may lead to misinterpretation of CBC data. Current Interpretive Data was last revised on 2017. Lymphocyte pct 36.0 % [facility] ([place]) Comment: Interpretive Data Percent cell count reference ranges are not reported, since discordance with absolute values may lead to misinterpretation of CBC data. Current Interpretive Data was last revised on 2017. Monocyte pct 8.6 % [facility] ([place]) Comment: Interpretive Data Percent cell count reference ranges are not reported, since discordance with absolute values may lead to misinterpretation of CBC data. Current Interpretive Data was last revised on 2017. Eosinophil pct 4.0 % [facility] ([place]) Comment: Interpretive Data Percent cell count reference ranges are not reported, since discordance with absolute values may lead to misinterpretation of CBC data. Current Interpretive Data was last revised on 2017. Basophil pct 1.3 % [facility] ([place]) Comment: Interpretive Data Percent cell count reference ranges are not reported, since discordance with absolute values may lead to misinterpretation of CBC data. Current Interpretive Data was last revised on 2017. Blood 03/29/2025 6:57 PM CDT 03/29/2025 6:59 PM CDT Ximena Lange MD LAB BLOOD ORDERABLES Final Result [facility] ([place]) [address] [facility] Department [place] [address] * (ABNORMAL) CBC with auto differential (03/29/2025 6:57 PM CDT) WBC 3.72(L) 3.80 - 9.90 K/cumm Hgb 12.9(L) 13.0 - 17.5 g/dL [facility] ([place]) Hct 40.8 38.9 - 50.3 % [facility] ([place]) Plt 197 150 - 400 K/cumm [facility] ([place]) MPV 10.1 9.1 - 12.3 fL [facility] ([place]) RBC 4.55 4.30 - 5.80 M/cumm [facility] ([place]) MCV 89.7 81.3 - 96.4 fL [facility] ([place]) MCH 28.4 27.1 - 33.3 pg [facility] ([place]) MCHC 31.6(L) 32.3 - 35.7 g/dL [facility] RDW CV 13.4 11.1 - 14.9 % [facility] ([place]) RDW SD 44.0 35.7 - 48.1 fL [facility] ([place]) NRBC abs 0.02(H) 0.00 - 0.01 K/cumm [facility] ([place]) Blood 03/29/2025 6:57 PM CDT 03/29/2025 6:59 PM CDT Ximena Lange MD LAB BLOOD ORDERABLES Final Result [facility] ([place]) [address] [facility] [place] [address] * (ABNORMAL) Comprehensive metabolic panel (03/29/2025 6:57 PM CDT) Sodium 140 135 - 145 mmol/L Potassium, pl 4.2 3.3 - 4.9 mmol/L [facility] ([place]) Chloride 105 97 - 110 mmol/L [facility] CO2 25 22 - 32 mmol/L [facility] ([place]) Anion gap 10 2 - 15 mmol/L [facility] ([place]) BUN 11 6 - 25 mg/dL [facility] ([place]) Creatinine 1.10 0.80 - 1.30 mg/dL [facility] Glucose 79 70 - 199 mg/dL [facility] ([place]) Comment: Interpretive Data Fasting glucose >/= 126 mg/dl is diagnostic for diabetes. Fasting is defined as no caloric intake for at least 8 hours. Fasting glucose between 100 mg/dl to 125 mg/dl is diagnostic of prediabetes. In a patient with classic symptoms of hyperglycemia or hyperglycemic crisis, a random glucose >/= 200 mg/dl is diagnostic for diabetes. In the absence of unequivocal hyperglycemia, results should be confirmed by repeat testing. The classification and Diagnosis of Diabetes Diabetes Care 2021; 46: S19-S40. Current interpretive data was last revised 2022. Calcium 9.4 8.5 - 10.3 mg/dL [facility] ([place]) Bilirubin, total 0.6 0.1 - 1.2 mg/dL [facility] ([place]) Protein, pl 6.2(L) 6.5 - 8.5 g/dL [facility] ([place]) Albumin 3.9 3.5 - 5.0 g/dL [facility] ([place]) Alk phos 60 40 - 130 Units/L [facility] ([place]) ALT 23 7 - 55 Units/L [facility] ([place]) AST 20 10 - 50 Units/L [facility] ([place]) Blood 03/29/2025 6:57 PM CDT 03/29/2025 6:59 PM CDT Ximena Lange MD LAB BLOOD ORDERABLES Final Result Performing Organization Address [facility] de Phone Number [facility] ([place]) [address] [place] [address] Department [place] [address] * ECG 12 lead (03/29/2025 6:39 PM CDT) 03/29/2025 6:39 PM CDT Narrative [facility] - 03/31/2025 6:33 AM CDT Vent Rate: 60 bpm RR Interval: 986 msec SC Interval: 157 msec QRS Duration: 84 msec QT Interval: 381 msec QTC Interval: 383 msec P-R-T [place]: 20 - 18 - 55 degrees IMPRESSION: SINUS RHYTHM Diffuse ST elevation, consider early repolarization, pericarditis, or acute injury Electronically Signed By: Luis Fernando Jimenes MD Ximena Lange MD ECG ORDERABLES Final Resul t Performing Organization Address [facility] Co de Phone Number [facility] [facility] from Last 3 Months Insurance [facility] MEDICARE [facility] MEDICARE AET MEDICARE [facility] Advance Directives For more information, please contact: [phone] * Full Code (Latest Code Status on File) Date Activated Date Inactivated Comments 03/30/2025 2:04 AM 03/31/2025 9:43 PM * Full Code Date Activated Date Inactivated Comments 03/30/2025 2:04 AM 03/30/2025 2:04 AM Care Teams Special Education Professor Relationship Specialty Start Date End Date Lotus Marina NP [address] [place] [address] PCP - General Nurse Practitioner 04/28/23 Terell Zamudio [address] [place] [address] Consulting Physician Cardiology 05/01/23
[2025-04-24 20:12] LABS: Influenza A QL RT-PCR Negative (Negative); Influenza B QL RT-PCR Negative (Negative); SARS-CoV-2 RNA PCR Negative (Negative)
== END 2025-04-24 15:41 | disposition home or self-care (01) ==
PROVIDERS: PCP Nurse Practitioner Family; Visit Provider Nurse Practitioner Family
DX: J44.9 Chronic obstructive pulmonary disease, unspecified (principal); J18.9 Pneumonia, unspecified organism; Z20.822 Contact with and (suspected) exposure to COVID-19
CPT/HCPCS: 71046; 87636